=== PATIENT | female | born 1950 | race Caucasian/White ===

== ENCOUNTER → 2017-04-17 | Outpatient (CLI) | payer MEDICARE ==
--- NOTE | 2017-04-17 12:56 | REP ---
MR angiography the brain without contrast: History: History of MS. Dizziness. Giddiness. Technique: 3-D [id number] MR angiography of the brain is acquired in the usual fashion and maximal intensity projection images were generated in rotational format about the vertical and horizontal axes. In addition, source axial T1-weighted images are viewed in cine mode. MR angiographic findings: The distal vertebral arteries are patent and co-dominant. Basilar artery is a little tortuous but widely patent. The posterior cerebral and superior cerebellar vessels are normal and symmetric. The distal internal carotid arteries are unremarkable. Anterior and middle cerebral arteries appear intact. There is no visible aquino aneurysm or arteriovenous malformation. Impression: Unremarkable MR angiography the brain. Signed by Kenn Puri MD 04/17/2017 12:47 P
--- NOTE | 2017-04-17 13:22 | REP ---
MRI brain without and with IV gadolinium: History: Dizziness and giddiness. History of MS. Comparison MRI from [facility] August 23, 2005. Gadolinium enhancement dose: 13 ml of intravenous ProHance. MR Technique: Axial and sagittal imaging planes are utilized for T1 and T2-weighted scans. Sequences include spin-echo, fast spin echo, FLAIR, and diffusion weighted sequences. MRI findings: Bony calvarium is intact. Craniocervical junction and upper cervical cord are unremarkable. No MR evidence of significant paranasal sinus disease is seen. No intraorbital abnormality is noted. T2-weighted scans today again demonstrate multiple foci of subcortical and periventricular T2 hyperintensity consistent with the patient's history of demyelinating disease. These are more numerous and more extensive than on the prior study. No abnormal T1 hypointensity is seen in these lesions. No gadolinium enhancement is appreciated. There is minimal diffuse cerebral atrophy. No infarct, mass, extra-axial fluid collection or hemorrhage is seen. Diffusion weighted scan show no evidence of restricted diffusion. Impression: Multifocal periventricular and subcortical white matter T2 hyperintense lesions consistent with demyelinating disease. These are generally more numerous and more extensive than on the remote prior study of August 23, 2005. No abnormal gadolinium enhancement is seen. Signed by Kenn Puri MD 04/17/2017 02:32 P
== END ==
LOC: M PLARAD 09:38
PROVIDERS: ATTEND Psychiatry & Neurology Neurology
DX: G35 Multiple sclerosis (principal); R42 Dizziness and giddiness
CPT/HCPCS: 70544; 70553; A9576

== ENCOUNTER → 2017-12-27 | Outpatient (REF) | payer MEDICARE ==
[2017-12-27 12:26] LABS: BASO % 0.4 % (0.0-1.0); EOS # 0.1 10^3/uL (0.0-0.50); EOS % 1.9 % (0.0-3.0); HEMATOCRIT 33.4 % (36.0-47.0); HEMOGLOBIN 10.7 g/dl (12.0-15.5); IMMATURE GRANULOCYTE % 0.9 % (0-3.0); LYMPH # 1.1 10^3/uL (1.5-4.5); LYMPH % 24.4 % (24.0-44.0); MEAN CORPUSCULAR HEMOGLOBIN 31.4 pg (27.0-33.0); MEAN CORPUSCULAR VOLUME 97.9 fl (80.0-96.0); MONO # 0.5 10^3/uL (0.0-0.8); MONO % 9.6 % (0.0-5.0); NEUTROPHILS # 2.9 10^3/uL (1.8-7.7); NEUTROPHILS % 62.8 % (36.0-66.0); PLATELET COUNT, AUTOMATED 149 10^3/uL (150-450); RED BLOOD COUNT 3.41 10^6/uL (4.00-5.40); RED CELL DISTRIBUTION WIDTH 14.5 % (11.5-14.5); WHITE BLOOD COUNT 4.7 10^3/uL (4.0-10.0)
[2017-12-27 13:05] LABS: ALBUMIN 3.6 GM/DL (3.2-5.2); ALBUMIN/GLOBULIN RATIO 0.97 (1.00-1.93); ALKALINE PHOSPHATASE 91 U/L (45-117); ALT/SGPT 28 U/L (12-78); ANION GAP 8 MEQ/L (8-16); AST/SGOT 23 U/L (7-37); BILIRUBIN,TOTAL 0.2 MG/DL (0.2-1.0); BLOOD UREA NITROGEN 29 MG/DL (7-18); CALCIUM LEVEL 8.8 MG/DL (8.8-10.2); CARBON DIOXIDE LEVEL 30 MEQ/L (21-32); CHLORIDE LEVEL 106 MEQ/L (98-107); CREATININE FOR GFR 0.94 MG/DL (0.55-1.30); GLOMERULAR FILTRATION RATE > 60.0 (>45); GLUCOSE, FASTING 52 MG/DL (70-100); POTASSIUM SERUM 4.4 MEQ/L (3.5-5.1); SODIUM LEVEL 144 MEQ/L (136-145); TOTAL PROTEIN 7.3 GM/DL (6.4-8.2)
== END ==
LOC: M LABNEURO 11:21
DX: G35 Multiple sclerosis (principal)
CPT/HCPCS: 80053

== ENCOUNTER 2018-10-15 15:41 | Inpatient (IN) | payer MEDICARE ==
[~2018-10-15] VITALS: Ht 157.5 cm; Wt 84.0 kg
[2018-10-15] MEDS ORDERED: AMIT25TA PO (16:08)
[2018-10-15] MEDS ORDERED: METF500T13 PO (16:08)
[2018-10-15] MEDS ORDERED: ZONI50CA3 PO (16:08)
[2018-10-15] MEDS ORDERED: PANT40TA3 PO (16:08)
[2018-10-15] MEDS ORDERED: EPIT200T PO (16:08)
[2018-10-15] MEDS ORDERED: PRAV40TA2 PO (16:08)
[2018-10-15] MEDS ORDERED: BACL1TAB9 PO (16:08)
[2018-10-15] MEDS ORDERED: METH2.5T48 PO (16:08)
[2018-10-15] MEDS ORDERED: TRAZ-189 PO (16:08)
[2018-10-15] MEDS ORDERED: QUET1TAB7 PO (16:08)
[2018-10-15] MEDS ORDERED: LEVO25TA5 PO (16:08)
[2018-10-15] MEDS ORDERED: GLIM2TAB29 PO (16:08)
[2018-10-15] MEDS ORDERED: FOLI1TAB11 PO (16:08)
[2018-10-15] MEDS ORDERED: IRBE150T12 PO (16:08)
[2018-10-15] MEDS ORDERED: VENL75CA47 PO (16:08)
[2018-10-15] MEDS ORDERED: CARV6.25 PO (16:08)
[2018-10-15] MEDS ORDERED: ONDANSETRON 4MG/2ML VIAL (J2405) IV ONE (16:30)
[2018-10-15] MEDS ORDERED: NS 1,000 ML IV ONE (16:30)
[2018-10-15 16:43] LABS: BASO % 0.2 % (0.0-1.0); EOS # 0.1 10^3/uL (0.0-0.50); EOS % 1.4 % (0.0-3.0); HEMATOCRIT 33.7 % (36.0-47.0); HEMOGLOBIN 10.7 g/dl (12.0-15.5); LYMPH # 0.7 10^3/uL (1.5-4.5); LYMPH % 15.6 % (24.0-44.0); MEAN CORPUSCULAR HEMOGLOBIN 32.1 pg (27.0-33.0); MEAN CORPUSCULAR HGB CONC 31.8 g/dl (32.0-36.5); MEAN CORPUSCULAR VOLUME 101.2 fl (80.0-96.0); MONO # 0.4 10^3/uL (0.0-0.8); MONO % 8.4 % (0.0-5.0); NEUTROPHILS # 3.2 10^3/uL (1.8-7.7); NEUTROPHILS % 73.9 % (36.0-66.0); PLATELET COUNT, AUTOMATED 122 10^3/uL (150-450); RED BLOOD COUNT 3.33 10^6/uL (4.00-5.40); WHITE BLOOD COUNT 4.3 10^3/uL (4.0-10.0)
[2018-10-15] MEDS: MORPHINE 2 MG/ML 1ML SYRINGE (J2270) IV PRN ×2 (16:48→17:47)
[2018-10-15] MEDS ORDERED: NITR4TASL SL (17:00)
[2018-10-15 17:55] LABS: ALBUMIN 3.4 GM/DL (3.2-5.2); ALT/SGPT 27 U/L (12-78); BILIRUBIN,DIRECT < 0.1 MG/DL (0.0-0.2); BILIRUBIN,TOTAL 0.3 MG/DL (0.2-1.0); BLOOD UREA NITROGEN 19 MG/DL (7-18); CALCIUM LEVEL 8.1 MG/DL (8.8-10.2); CARBON DIOXIDE LEVEL 27 MEQ/L (21-32); CHLORIDE LEVEL 107 MEQ/L (98-107); CPK CREATINE PHOSPHOKINASE 75 U/L (26-192); CREATININE FOR GFR 0.84 MG/DL (0.55-1.30); GLOMERULAR FILTRATION RATE > 60.0 (>45); GLUCOSE, FASTING 170 MG/DL (70-100); POTASSIUM SERUM 4.4 MEQ/L (3.5-5.1); SODIUM LEVEL 141 MEQ/L (136-145); TOTAL PROTEIN 7.4 GM/DL (6.4-8.2); TROPONIN I < 0.02 NG/ML (< 0.10)
--- NOTE | 2018-10-15 17:57 | REP ---
CT BRAIN WITHOUT IV CONTRAST: CT brain was performed without IV contrast. There is moderate atrophy. There is no midline shift or mass effect. Patchy periventricular lucencies in the white matter are compatible with chronic small vessel ischemic changes as seen on prior MRI 04/17/2017. There is no acute intracranial hemorrhage or extra-axial fluid collection. There is no skull fracture. There are vascular calcifications in the carotid siphons. IMPRESSION: No evidence of acute bleed or fracture. Chronic atrophy and small vessel ischemic changes. Electronically Signed by Eliecer Leung MD 10/15/2018 07:55 P
[2018-10-15 18:05] LABS: INR 0.96; PROTHROMBIN TIME 12.9 SECONDS (12.1-14.4)
[2018-10-15 18:06] LABS: PARTIAL THROMBOPLASTIN TIME 23.5 SECONDS (25.4-37.6)
--- NOTE | 2018-10-15 18:09 | REP ---
PELVIS AND LEFT HIP: AP view of the pelvis and two additional views of the left hip are performed. There is a left femoral neck fracture with foreshortening. There is no dislocation. No other acute fracture or dislocation is seen. There are vascular calcifications of the pelvis. There are mild degenerative changes at both hips. IMPRESSION: Left femoral neck fracture. Electronically Signed by Eliecer Leung MD 10/15/2018 07:56 P
--- NOTE | 2018-10-15 18:10 | REP ---
LEFT FEMUR: AP and lateral views of the left femur are performed. There is a left femoral neck fracture with foreshortening. The distal femur is intact. Scattered vascular calcifications are seen in the soft tissues. IMPRESSION: Left femoral neck fracture. Electronically Signed by Eliecer Leung MD 10/15/2018 07:56 P
[2018-10-15] MEDS ORDERED: NITROGLYCERIN 0.4 MG SUBL TABLET SL PRN (18:15)
--- NOTE | 2018-10-15 18:22 | REP ---
CHEST, SINGLE VIEW: Single view of the chest is performed and compared to the prior study of 03/07/2006. There is no acute infiltrate of pulmonary edema. There is mild cardiomegaly. There is mild calcification of the thoracic aorta. The mediastinal silhouette is unremarkable. Multiple sternal wires are present as well as mediastinal clips. IMPRESSION: No acute infiltrate. Electronically Signed by Eliecer Leung MD 10/15/2018 07:56 P
--- NOTE | 2018-10-15 18:39 | HPEPDOC ---
[facility] Medical History & Physical Date of Admission October 15, 2018 Date of Service: October 15, 2018 History and Physical DATE OF ADMISSION 10/15/[address] Sj aVlverde NEUROLOGIST: Dr. Ochoa CHIEF COMPLAINT: Left hip pain HISTORY OF PRESENT ILLNESS: The patient is a 68-year-old female who was in the her usual state of good health who went to place her grandchild in a very baby carrier that was on the floor, while leaning over she began to lean to her left side in an effort to turn and stand up however she fell landing on her left hip and hitting the left side of her head. She did not have any loss of consciousness she denies any prodromal symptoms. She denies lightheadedness nausea or vomiting palpitations chest pressure shortness of breath. She denies bladder or bowel incontinence tremors or any gait instability. Otherwise patient denies weight loss, hair loss, headache, visual changes, cough, diarrhea, abdomi nal pain, muscle aches, worsening arthritis, change in mood. At this time the patient complains of significant pain in her left hip which is uncomfortable for her. She tells me that prior to this she was fairly active and she would have no difficulty climbing 2 and 3 flights of stairs. She denies any shortness of breath or chest pressure with activity or exertion. She tells me that she sees Dr. Gustafson regularly and she last saw him this morning her blood pressure was not elevated at the time. She tells me that she did have a pharmacological stress test within the last 6 months with which was essentially negative. PAST MEDICAL HISTORY: 1. Coronary artery disease status post stent and CABG 3-4 years ago. 2. Hypertension. 3. Multiple sclerosis 4. Diabetes mellitus 5 hypothyroidism 6. Folic acid deficiency 7. Mood disorder 8. Gastroesophageal reflux disease. 9. Obstructive sleep apnea: Compliant with his BiPAP HOME MEDICATIONS: Please see below. ALLERGIES: Please see below PAST SURGICAL HISTORY: 1. CABG. 2. Cardiac cath. 3. Hernia repair 4. Appendectomy 5. Cholecystectomy. SOCIAL HISTORY: Lives with: , Employment: Not working, Tobacco use: Former. [id number] smoker. ETOH: Last drink was years ago, Illicit drug use: Denies, Tattoos done unprofessionally: Denies. IV drug use: Denies CODE STATUS: Full code FAMILY HISTORY:Reviewed and noncontributory REVIEW OF SYSTEMS: 10 systems reviewed and negative other than HPI PHYSICAL EXAMINATION: VITAL SIGNS: Temperature 99 4, pulse 77, respiratory rate 15, blood pressure 237/105, pulse oximetry 98% on room air. GENERAL: Pleasant elderly female lying flat in bed , revised family awake alert oriented speaking in complete sentences she is visibly uncomfortable and in pain HEENT: Moist mucous membranes no elevation and CVP CARDIOVASCULAR: S1 S2 regular no additional heart sounds appreciated. RESPIRATORY: Clear to auscultation bilaterally. ABDOMINAL: Bowel sounds present abdomen soft and nontender, obese EXTREMITIES: No clubbing cyanosis or edema, left lower extremity is exquisitely tender even light palpation no range of motion secondary to extreme pain NEUROLOGICAL: cranial 2 through 12 grossly intact no gross focal deficits appreciated PSYCHOLOGICAL: Appropriate LABORATORY DATA: See below. MICROBIOLOGY: Please see below. IMAGING: CT head:No evidence of acute bleed or fracture. Chronic atrophy and small vessel ischemic changes Hip X-ray: Report pending Femur x-ray: Report pending I told verbally she has a left intertrochanteric hip fracture Chest x-ray: Report pending ASSESSMENT & PLAN: This is a 68-year-old female with left intertrochanteric hip fracture status post mechanical fall . PROBLEMS: 1. Left intertrochanteric hip fracture status post mechanical fall: No con cerning prodromal symptoms she is in exquisite pain she does have an elevated blood pressure however she was seen by her primary care provider this morning he did not have an elevated pressure at that time. I'll provide her with her home irbesartan I think she would benefit from additional pain medication and operative repair of her left hip which was most effective and improving her blood pressure.. She has metastases greater than 4 with good functional status for an intermediate risk procedure using the revised cardiac risk index. She is estimated at 2.4-3.6 % risk of major cardiac complication. Other providing her with some mild blood pressure medication at this time no further interventions are required prior to operative repair of her left hip. EKG reviewed. I have contacted Dr. Souza and inform him of this consultation 2. Hypertension: As outlined above she is hypertensive at this time which was not hypertensive this morning at her PCPs office. This is secondary to her acute hip fracture. I'll provide her with irbesartan continue her home beta barbara with holding parameters I think she would benefit from additional pain medication operative repair of her left hip. She is asymptomatic with her hypertension Cardy canceled her negative EKG does not reveal new concerning find ings.. I'll provide her additional morphine at this time 3. Multiple sclerosis: Continue with her home regimen of amitriptyline baclofen carbamazepine methotrexate and zonisamide 4. Mood disorder: Continue with trazodone venlafaxine and Seroquel 5. Coronary artery disease: Continue with her beta barbara and statin. She is stable disease and has not had symptoms for quite some time. We'll request records from Dr. Gustafson's office 6. Hypothyroidism: Continue his home Synthroid 7. Diabetes mellitus: She is nothing by mouth we'll provide her with sliding- scale insulin 8. Obstructive sleep apnea: I have advised family to bring in her BiPAP she is encouraged to use this while hospitalized DVT PROPHYLAXIS:We'll hold until after operative repair was completed then as per orthopedic surgery DISPOSITION: Patient is admitted to medical surgical floor with orthopedic surgery consult Vital Signs Vital Signs Date Time Temp Pulse Resp B/P (MAP) Pulse Ox O2 Delivery O2 Flow Rate FiO2 10/15/18 17:47 18 10/15/18 16:56 77 10/15/18 16:41 95 10/15/18 16:00 237/105 (149) 10/15/18 15:53 99.4 Room Air Laboratory Data Labs 24H Laboratory Tests 2 10/15/18 16:33: Immature Granulocyte % (Auto) 0.5, White Blood Count 4.3, Red Blood Count 3.33L, Hemoglobin 10.7L, Hematocrit 33.7L, Mean Corpuscular Volume 101.2H, Mean Corpuscular Hemoglobin 32.1, Mean Corpuscular Hemoglobin Concent 31.8L, Red Cell Distribution Width 14.5, Platelet Count 122L, Neutrophils (%) (Auto) 73.9H, Lymphocytes (%) (Auto) 15.6L, Monocytes (%) (Auto) 8.4H, Eosinophils (%) (Auto) 1.4, Basophils (%) (Auto) 0.2, Neutrophils # (Auto) 3.2, Lymphocytes # (Auto) 0.7L, Monocytes # (Auto) 0.4, Eosinophils # (Auto) 0.1, Basophils # (Auto) 0.0, Nucleated Red Blood Cells % (auto) 0.0, Anion Gap 7L, Glomerular Filtration Rate > 60.0, Calcium Level 8.1L, Aspartate Amino Transf (AST/SGOT) 30, Alanine Aminotransferase (ALT/SGPT) 27, Alkaline Phosphatase 133H, Total Bilirubin 0.3, Direct Bilirubin < 0.1, Total Creatine Kinase 75, Creatine Kinase MB 1.0, Creatine Kinase MB Relative Index 1.60, Troponin I < 0.02, Total Protein 7.4, Albumin 3.4, Albumin/Globulin Ratio 0.85L, Thyroid Stimulating Hormone (TSH) 4.050H, Free Thyroxine 0.60L 10/15/18 17:44: Prothrombin Time 12.9, Prothromb Time International Ratio 0.96, Activated Partial Thromboplast Time 23.5L CBC/BMP Laboratory Tests 10/15/18 16:33 Red Blood Count 3.33 L, Mean Corpuscular Volume 101.2 H, Mean Corpuscular Hemoglobin 32.1, Mean Corpuscular Hemoglobin Concent 31.8 L, Red Cell Dis tribution Width 14.5, Neutrophils (%) (Auto) 73.9 H, Lymphocytes (%) (Auto) 15.6 L, Monocytes (%) (Auto) 8.4 H, Eosinophils (%) (Auto) 1.4, Basophils (%) (Auto) 0.2, Neutrophils # (Auto) 3.2, Lymphocytes # (Auto) 0.7 L, Monocytes # (Auto) 0.4, Eosinophils # (Auto) 0.1, Basophils # (Auto) 0.0 Home Medications Scheduled Amitriptyline HCl (Amitriptyline HCl) 25 Mg Tablet, 25 MG PO QHS Baclofen (Baclofen) 20 Mg Tablet, 40 MG PO BID Carbamazepine (Epitol) 200 Mg Tablet, 400 MG PO BID Carvedilol (Carvedilol) 6.25 Mg Tablet, 6.25 MG PO BID Folic Acid (Folic Acid) 1 Mg Tablet, 1 MG PO DAILY Glimepiride (Glimepiride) 2 Mg Tablet, 1 MG PO QHS Irbesartan (Irbesartan) 150 Mg Tablet, 150 MG PO DAILY Levothyroxine Sodium (Levothyroxine Sodium) 25 Mcg Tablet, 25 MCG PO DAILY Metformin HCl (Metformin HCl) 500 Mg Tablet, 500 MG PO DAILY Methotrexate Sodium (Methotrexate) 2.5 Mg Tablet, 7.5 MG PO QWEEK FRIDAYS Pantoprazole Sodium (Pantoprazole Sodium) 40 Mg Tablet.dr, 40 MG PO DAILY Pravastatin Sodium (Pravastatin Sodium) 40 Mg Tablet, 40 MG PO QHS Quetiapine Fumarate (Quetiapine Fumarate) 25 Mg Tablet, 25 MG PO QHS Trazodone HCl (Trazodone HCl) 100 Mg Tablet, 200 MG PO QHS Venlafaxine HCl (Venlafaxine HCl ER) 75 Mg Cap.er.24h, 75 MG PO DAILY Zonisamide (Zonisamide) 50 Mg Capsule, 50 MG PO BID Scheduled PRN Nitroglycerin (Nitrostat) 0.4 Mg Tab.subl, 0.4 MG SL Q5MP PRN for CHEST PAIN Allergies Coded Allergies: Penicillins (Verified Allergy, Unknown, 10/15/18) anaph A-FIB/CHADSVASC A-FIB History Current/History of A-Fib/PAF?: No ADA SHAW MD October 15, 2018 18:39
[2018-10-15] MEDS ORDERED: DEXTROSE 50% 50 ML SYRINGE IV PRN (18:45)
[2018-10-15] MEDS ORDERED: GLUCOSE 4 GM CHEW TABLET PO PRN (18:45)
[2018-10-15] MEDS ORDERED: GLUCAGON FOR INJ 1 MG VIAL (J1610) SC PRN (18:45)
[2018-10-15] MEDS ORDERED: MORPHINE 4 MG/ML 1ML VIAL/SYRINGE (J2270) IV ONE (18:45)
--- NOTE | 2018-10-15 18:47 | CR.PDOC ---
General Date of Consultation: October 15, 2018 Referring Provider: ADA SHAW MD Attending Physician: MELINDA GOLD MD Consultation REASON FOR CONSULTATION/CHIEF COMPLAINT: Left hip fracture. HISTORY OF PRESENT ILLNESS: Patient is a 68 y/o female community ambulator with no assistive devices who sustained a mechanical fall earlier today resulting in immediate hip pain and inability to bear weight. She also reported hitting her head after fall and had a head CT which was negative. She has a significant past medical history of cardiac stent and coronary artery bypass 4 years ago but denied any antecedent chest pain, palpitations, shortness of breath, headache, or hip pain prior to her fall. She denies any associated numbness, tingling, or burning sensations. Denies any cancer history. ALLERGIES: Please see below. HOME MEDICATIONS: Please see below. PAST MEDICAL HISTORY: 1. CAD. 2. Hypertension. 3. Diabetes 4. Hypothyroidism 5. Multiple sclerosis 6. GERD (s/p gastric bypass) 7. JOHN on BIPAP PAST SURGICAL HISTORY: 1. CABG per HPI 2. Gastric bypass 3. Hysterectomy 4. Appendectomy 5. Cholecystectomy 6. Hernia repair FAMILY HISTORY: Non contributory SOCIAL HISTORY: Lives with . Independent ambulator. Former smoker with 50 pack year history, denies use of illicit drugs REVIEW OF SYSTEMS: 14 point review of systems was reviewed and unremarkable PHYSICAL EXAMINATION: VITAL SIGNS: Please see below. General: Well nourished female, appears stated age, no acute distress HEENT: Normocephalic, atraumatic. CARDIOVASCULAR: RRR, 2+ DP, PT pulses, BCR all digits LLE. RESPIRATORY: non labored breathing. MUSCULOSKELETAL: Focused exam of the left lower extremity demonstrates a shortened, externally rotated LLE. There are no open wounds or abrasions. Voluntary motion limited secondary to pain however able to independently dorsiflex/plantarflex ankle and able to flex/extend all toes. No tenderness about the knee, leg, or ankle. NEUROLOGICAL: Sensation and motor intact in LLE femoral, tibial, sural, saphenous, SPN, DPN distributions. LABORATORY DATA: Please see below. RADIOGRAPHS: Plain radiographs of the pelvis, left hip, and femur were reviewed demonstrating a displaced left femoral neck fracture ASSESSMENT: 68 y/o female with a displaced left femoral neck fracture PLAN: The patient was evaluated and admitted by the hospitalist service for medical optimization and risk stratification. She was determined to be at intermediate risk but no further cardiac workup is required and we may proceed with left hip hemiarthroplasty per the hospitalist. Patient had systolic blood pressure readings >200mmHg in the emergency department. I discussed this finding with Dr. Najera and he stated that this will be treated but she was seen by her PCM earlier today and was normotensive, so this is believed to be pain related and will be treated. I discussed with the patient the risks, benefits, indications, and alternatives of surgical management of proximal femur fractures and recommended left hip cemented hemiarthroplasty. Patient was counseled that she is at intermediate risk of major cardiovascular event during the perioperative period, to include . She is also at increased risk for infection given that she is on methotrexate. I also counseled her that I will be her operating surgeon but her follow up care will be conducted by the [facility] orthopedic group. She expressed understanding with this arrangement and provided writteninformed consent for left hip hemiarthroplasty. Vital Signs/I&O Vital Signs Date Time Temp Pulse Resp B/P (MAP) Pulse Ox O2 Delivery O2 Flow Rate FiO2 10/15/18 17:47 18 10/15/18 16:56 77 10/15/18 16:41 95 10/15/18 16:00 237/105 (149) 10/15/18 15:53 99.4 Room Air Laboratory Data Labs 24H Laboratory Tests 2 10/15/18 16:33: Immature Granulocyte % (Auto) 0.5, White Blood Count 4.3, Red Blood Count 3.33L, Hemoglobin 10.7L, Hematocrit 33.7L, Mean Corpuscular Volume 101.2H, Mean Corpuscular Hemoglobin 32.1, Mean Corpuscular Hemoglobin Concent 31.8L, Red Cell Distribution Width 14.5, Platelet Count 122L, Neutrophils (%) (Auto) 73.9H, Lymphocytes (%) (Auto) 15.6L, Monocytes (%) (Auto) 8.4H, Eosinophils (%) (Auto) 1.4, Basophils (%) (Auto) 0.2, Neutrophils # (Auto) 3.2, Lymphocytes # (Auto) 0.7L, Monocytes # (Auto) 0.4, Eosinophils # (Auto) 0.1, Basophils # (Auto) 0.0, Nucleated Red Blood Cells % (auto) 0.0, Anion Gap 7L, Glomerular Filtration Rate > 60.0, Calcium Level 8.1L, Aspartate Amino Transf (AST/SGOT) 30, Alanine Aminotransferase (ALT/SGPT) 27, Alkaline Phosphatase 133H, Total Bilirubin 0.3, Direct Bilirubin < 0.1, Total Creatine Kinase 75, Creatine Kinase MB 1.0, Creatine Kinase MB Relative Index 1.60, Troponin I < 0.02, Total Protein 7.4, Albumin 3.4, Albumin/Globulin Ratio 0.85L, Thyroid Stimulating Hormone (TSH) 4.050H, Free Thyroxine 0.60L 10/15/18 17:44: Prothrombin Time 12.9, Prothromb Time International Ratio 0.96, Activated Partial Thromboplast Time 23.5L CBC/BMP Laboratory Tests 10/15/18 16:33 Red Blood Count 3.33 L, Mean Corpuscular Volume 101.2 H, Mean Corpuscular Hemoglobin 32.1, Mean Corpuscular Hemoglobin Concent 31.8 L, Red Cell Distribution Width 14.5, Neutrophils (%) (Auto) 73.9 H, Lymphocytes (%) (Auto) 15.6 L, Monocytes (%) (Auto) 8.4 H, Eosinophils (%) (Auto) 1.4, Basophils (%) (Auto) 0.2, Neutrophils # (Auto) 3.2, Lymphocytes # (Auto) 0.7 L, Monocytes # (Auto) 0.4, Eosinophils # (Auto) 0.1, Basophils # (Auto) 0.0 Allergies Coded Allergies: Penicillins (Verified Allergy, Unknown, 10/15/18) anaph Home Medications Scheduled Amitriptyline HCl (Amitriptyline HCl) 25 Mg Tablet, 25 MG PO QHS, (Reported) Baclofen (Baclofen) 20 Mg Tablet, 40 MG PO BID, (Reported) Carbamazepine (Epitol) 200 Mg Tablet, 400 MG PO BID, (Reported) Carvedilol (Carvedilol) 6.25 Mg Tablet, 6.25 MG PO BID, (Reported) Folic Acid (Folic Acid) 1 Mg Tablet, 1 MG PO DAILY, (Reported) Glimepiride (Glimepiride) 2 Mg Tablet, 1 MG PO QHS, (Reported) Irbesartan (Irbesartan) 150 Mg Tablet, 150 MG PO DAILY, (Reported) Levothyroxine Sodium (Levothyroxine Sodium) 25 Mcg Tablet, 25 MCG PO DAILY, (Reported) Metformin HCl (Metformin HCl) 500 Mg Tablet, 500 MG PO DAILY, (Reported) Methotrexate Sodium (Methotrexate) 2.5 Mg Tablet, 7.5 MG PO QWEEK, (Reported) FRIDAYS Pantoprazole Sodium (Pantoprazole Sodium) 40 Mg Tablet.dr, 40 MG PO DAILY, (Reported) Pravastatin Sodium (Pravastatin Sodium) 40 Mg Tablet, 40 MG PO QHS, (Reported) Quetiapine Fumarate (Quetiapine Fumarate) 25 Mg Tablet, 25 MG PO QHS, (Reported) Trazodone HCl (Trazodone HCl) 100 Mg Tablet, 200 MG PO QHS, (Reported) Venlafaxine HCl (Venlafaxine HCl ER) 75 Mg Cap.er.24h, 75 MG PO DAILY, (Report ed) Zonisamide (Zonisamide) 50 Mg Capsule, 50 MG PO BID, (Reported) Scheduled PRN Nitroglycerin (Nitrostat) 0.4 Mg Tab.subl, 0.4 MG SL Q5MP PRN for CHEST PAIN, (Reported) MELINDA GOLD MD October 15, 2018 18:42
[2018-10-15] MEDS: IRBESARTAN 150 MG TAB PO SCH (19:14)
[2018-10-15] MEDS ORDERED: LIDOCAINE 2% INJ 100 MG/5 ML SDV (FOR ANES.) As Ordered ONE (19:55)
[2018-10-15] MEDS ORDERED: ONDANSETRON 4MG/2ML VIAL (J2405) As Ordered ONE (19:55)
[2018-10-15] MEDS ORDERED: ROCURONIUM BROMIDE 50 MG/5 ML VIAL As Ordered ONE (19:55)
[2018-10-15] MEDS ORDERED: PROPOFOL 200 MG/20 ML VIAL As Ordered ONE (19:55)
[2018-10-15] MEDS ORDERED: SUGAMMADEX SODIUM 500 MG/5 ML VIAL (BRIDION) As Ordered ONE (19:55)
[2018-10-15] MEDS ORDERED: fentaNYL 250 MCG/5 ML INJECTION (J3010) As Ordered ONE (19:56)
[2018-10-15] MEDS ORDERED: PROPOFOL 500 MG/50 ML VIAL As Ordered ONE (19:56)
[2018-10-15] MEDS ORDERED: dexameTHASONE 4 MG/ML 1ML VIAL (J1100) As Ordered ONE (19:56)
[2018-10-15] MEDS ORDERED: MIDAZOLAM INJ 2 MG/2 ML VIAL (J2250) As Ordered ONE (19:57)
[2018-10-15] MEDS ORDERED: CLINDAMYCIN INJ 900MG/6ML VIAL As Ordered ONE (20:02)
[2018-10-15] MEDS ORDERED: EPINEPHrine INJ 1 MG/ML 1ML AMP As Ordered ONE (20:02)
[2018-10-15] MEDS ORDERED: LABETALOL HCL 100 MG/20 ML VIAL As Ordered ONE (20:13)
[2018-10-15] MEDS ORDERED: CLINDAMYCIN 900 MG/50 ML PREMIX BAG As Ordered ONE (20:37)
[2018-10-15] MEDS: LABETALOL HCL 100 MG/20 ML VIAL IV ONE ×2 (20:39→20:41)
[2018-10-15] MEDS ORDERED: PRAVASTATIN 20 MG TAB PO SCH (21:00)
[2018-10-15] MEDS ORDERED: AMITRIPTYLINE 25 MG TAB PO SCH (21:00)
[2018-10-15] MEDS ORDERED: QUEtiapine FUMARATE 25 MG TAB PO SCH (21:00)
[2018-10-15] MEDS ORDERED: ESMOLOL INJ 100MG/10ML VIAL As Ordered ONE ×2 (22:08→22:09)
[2018-10-15] MEDS ORDERED: hydrALAZINE INJ 20 MG/ML VIAL As Ordered ONE (22:29)
[2018-10-15] MEDS ORDERED: NITROGLYCERIN IN D5W 25MG/250ML (100MCG/ML) As Ordered ONE (22:48)
[2018-10-16] VITALS (9 sets, daily range): BP systolic 103–149; BP diastolic 40–86
--- NOTE | 2018-10-16 00:07 | ECGEPIP ---
Stationary ECG Study [facility] - ED Test Date: 2018-10-15 Pat Name: KITTY TILLEY Department: Room: - Gender: F Nursing Manager: khanh : [id number] Requested By: Reji Gomez Order Number: [id number] Reading MD: Delonte Wheeler Measurements Intervals [place] Rate: 68 P: 54 IA: 173 QRS: 0 QRSD: 84 T: 77 QT: 384 QTc: 408 Interpretive Statements SINUS RHYTHM WITH SINUS ARRHYTHMIA NONSPECIFIC T-WAVE ABNORMALITY Delayed anterior R wave progression Electronically Signed On 10-16-2018 0:07:00 EDT by Delonte Wheeler
[2018-10-16] MEDS ORDERED: LABETALOL HCL 100 MG/20 ML VIAL As Ordered ONE (00:11)
[2018-10-16] MEDS ORDERED: fentaNYL 100 MCG/2 ML INJECTION (J3010) As Ordered ONE (00:14)
[2018-10-16] MEDS ORDERED: NORCO, ANEXSIA 5/325MG TABLET (HYDROcodone/ACETAMINOPHEN) As Ordered ONE (00:14)
[2018-10-16] MEDS: fentaNYL 100 MCG/2 ML INJECTION (J3010) IV PRN ×4 (00:14→00:35)
[2018-10-16] MEDS ORDERED: NORCO, ANEXSIA 5/325MG TABLET (HYDROcodone/ACETAMINOPHEN) PO PRN (00:15)
[2018-10-16] MEDS ORDERED: LABETALOL HCL 100 MG/20 ML VIAL IV SCH (00:15)
--- NOTE | 2018-10-16 00:36 | RO ---
DATE OF PROCEDURE: 10/15/2018 PREOPERATIVE DIAGNOSIS: Left displaced femoral neck fracture. POSTOPERATIVE DIAGNOSIS: Left displaced femoral neck fracture. PROCEDURE PERFORMED: Left hip hemiarthroplasty. SURGEON: Boone Souza MD DETECTIVE CAPTAIN: PARADISE Magallon ANESTHESIA PROVIDER: Dr. Colmenares. ANESTHESIA GIVEN: General endotracheal anesthesia and femoral nerve block. ESTIMATED BLOOD LOSS: 250 mL. ANTIBIOTICS: 900 mg IV clindamycin given within 1 hour of incision. IMPLANTS USED: DePuy [place] low demand size 3 cemented stem with a 45 mm -3 femoral head. MATERIALS SENT TO LAB: Left femoral head for permanent specimen. COMPLICATIONS: None. INDICATIONS FOR PROCEDURE: Hediy Fried is a 68-year-old female, community ambulator, who sustained a mechanical fall from standing height, resulting in a displaced left femoral neck fracture. She presented to the emergency department, was admitted to hospitalist service and risk stratified, and determined to be medically optimized for surgery. I discussed with her the nature of her injury and the risks, benefits, indications, and alternatives of operative versus nonoperative management and recommended a left hip hemiarthroplasty given displaced femoral neck fracture. The patient expressed understanding. I counseled her that I will be her operating surgeon, her followup care will be conducted by [facility]. She expressed understanding of this arrangement and provided written informed consent for left hip hemiarthroplasty. INTRAOPERATIVE FINDINGS: Displaced left femoral neck fracture that was stable after fixation. DESCRIPTION OF PROCEDURE: The patient was positively identified in the preop holding area, the surgical site was marked. She was given single shot femoral nerve block by the anesthesia service for postoperative pain control. She was then brought to the operating where she was placed under general endotracheal anesthesia. She was positioned in the right lateral decubitus position with all bony prominences appropriately padded. Sequential compression device (SCD) was placed on the nonoperative extremity for deep vein thrombosis (DVT) prophylaxis. An Axillary roll was placed. She was then prepped and draped in the usual sterile fashion. A final time-out was performed. I made a 12 cm incision centered over the greater trochanter extending from anterior distal to posterior proximal. I dissected through skin and subcutaneous tissue. I identified the iliotibial (IT) band and gluteus ruma layer, which was incised sharply in line with the incision, exposing the gluteus medius. I took down the anterior one-third of the gluteus medius and passed two Ethibond sutures and Lincoln-Juancarlos stitch to hold it in place and for later repair. I then identified the hip joint capsule and made an H -shaped capsulotomy exposing the femoral neck and performed a provisional femoral neck cut, which then exposed the femoral head. I was able to remove the femoral head with a corkscrew and remove pulvinar tissue. The femoral head was measured to a size 45 mm femoral head. I then externally rotated the leg and then used the box osteotome, followed by canal finder and lateralizing reamer to lateralize the femoral component. I then sequentially broached to a size 3 and then placed a 45 mm -3 trial and reduced the hip and found it to be stable with no shuck with near equivalent leg lengths and stable through range of motion with no impingement. At this point, the trials were removed. A cement restrictor was placed and then irrigated and dried the femoral canal, placing epinephrine-soaked sponges into the femoral canal and two Ray-Maria Victoria sponges into the acetabulum to prevent extravasation of cement. The femoral stem was then cemented in in standard fashion followed by placement of the neck and head. After removal of the raytec sponges from the acetabulum, The femur was then reduced after the cement was dried, again taken through a range of motion and found to be stable. After this was completed, the wound was then thoroughly irrigated with normal saline. The hip joint capsule was closed with a #1 PDS suture in a figure-of-8 fashion followed by repair of the gluteus medius to its attachment on the greater trochanter using a free needle with the #2 Ethibond suture. This was then followed by closure of the IT band layer with #0 Vicryl in a figure-of-8 fashion. The subcutaneous layer was closed with #2-0 Vicryl in a buried fashion followed by amy for the skin. Sterile dressings were applied. This ended the procedure. I was present and scrubbed in for all critical portions of the case. POSTOPERATIVE PLAN: The patient will be admitted to the hospital floor. She will be weightbearing as tolerated to the left lower extremity. She will undergo physical therapy for walker ambulation and be discharged by the hospitalist service when criteria are met. OLIVIA
[2018-10-16] MEDS ORDERED: traMADol 50 MG TAB PO PRN ×4 (01:15→12:00)
[2018-10-16] MEDS ORDERED: ACETAMINOPHEN TAB 650MG DOSE (2X325MG) PO PRN (01:15)
[2018-10-16] MEDS: carBAMazepine 200 MG TAB PO SCH ×2 (01:25→08:29)
[2018-10-16] MEDS: BACLOFEN 10 MG TAB PO SCH ×2 (01:25→08:28)
[2018-10-16] MEDS: CARVedilol 6.25 MG TAB PO SCH ×2 (01:26→08:32)
[2018-10-16] MEDS: ZONISAMIDE 50 MG CAP (ZONEGRAN) PO SCH ×2 (01:27→08:29)
[2018-10-16] MEDS: CLINDAMYCIN 600 MG in APPROPRIATE DILUENT 1 EA IV SCH ×2 (03:55→12:59)
[2018-10-16] MEDS ORDERED: LEVOTHYROXINE 25MCG TABLET (0.025MG) PO SCH (06:00)
[2018-10-16] MEDS: HumaLOG INSULIN (NovoLOG) PER UNIT SQ SCH ×2 (08:28→13:00)
[2018-10-16] MEDS: IRBESARTAN 150 MG TAB PO SCH (08:31)
--- NOTE | 2018-10-16 08:41 | REP ---
LEFT HIP, TWO VIEWS: HISTORY: Postop. The patient is status-post left total hip replacement. There is no acute fracture or dislocation. Subcutaneous air and surgical amy are present in the overlying soft tissue. IMPRESSION:The patient is status-post left total hip replacement. There is anatomic alignment. Electronically Signed by Lauro Liu MD 10/16/2018 08:52 A
[2018-10-16] MEDS ORDERED: PANTOPRAZOLE 40MG TAB (PROTONIX) PO SCH (09:00)
[2018-10-16] MEDS ORDERED: FOLIC ACID 1 MG TAB PO SCH (09:00)
[2018-10-16] MEDS ORDERED: MIRALAX *UNIT DOSE* 17GM PACKET PO SCH (09:00)
[2018-10-16] MEDS ORDERED: VENLAFAXINE **XR** 75MG CAPSULE PO SCH (09:00)
[2018-10-16] MEDS ORDERED: MOM 30ML SUSPENSION UDC PO SCH (09:00)
--- NOTE | 2018-10-16 09:44 | IPNPDOC ---
Subjective Date Seen The patient was seen on 10/16/18. Subjective Chief Complaint/HPI Patient complaining of hip pain, but should not the side of bed ready for physical therapy General: Denies: ROS Unobtainable, Chills, Night Sweats, Fatigue, Malaise, Normal Appetite, Other Symptoms Constitutional: Denies: Chills, Fever, Malaise, Night Sweats, Weakness, Fatigue, Weight Loss, Lethargy, Other Eyes: Denies: Pain, Vision change, Conjunctivae inflammation, Eyelid in flammation, Redness, Other ENT: Denies: Head Aches, Ear Pain, Dysphagia, Sinus Congestion, Post Nasal Drip, Sore Throat, Epistaxis, Other Symptoms Skin: Denies: Rash, Lesions, Jaundice, Bruising, Itching, Dry, Breakdown, Nail Changes, Other Pulmonary: Denies: Dyspnea, Cough, Pleuritic Chest Pain, Other Symptoms Cardiovascular: Denies: Chest Pain, Palpitations, Orthopnea, Paroxysmal Noc. Dyspnea, Edema, Lt Headedness, Other Symptoms Gastrointestinal: Denies: Nausea, Vomiting, Abdominal Pain, Diarrhea, Constipation, Melena, Hematochezia, Other Symptoms Genitourinary: Denies: Dysuria, Frequency, Incontinence, Hematuria, Retention, Other Symptoms Hematologic: Denies: Bruising, Bleeding Excessively, Petecchia, Purpura, Enlarged Lymph Nodes, Other Hematologic Endocrine: Denies: Polydipsia, Polyphagia, Polyuria, Heat Intolerance, Cold Intolerance, Other Endocrine Sx Musculoskeletal: Reports: Other Symptoms Neurological: Denies: Weakness, Numbness, Incoordination, Change in speech, Confusion, Seizures, Other Symptoms Psych: Denies: Mood Normal, Anxiety, Depression, Memory Issues, Thoughts of Self Harm, Anger, Thoughts of Harming Other, Other Psych Objective Physical Examination General Exam: Positive: Alert, Cooperative Eye Exam: Positive: PERRLA, Conjunctiva & lids normal ENT Exam: Positive: Atraumatic, Mucous membr. moist/pink Neck Exam: Positive: JVD Chest Exam: Positive: Clear to auscultation, Normal air movement Heart Exam: Positive: Rate Normal, Normal S1, Normal S2 Abdomen Exam: Positive: Normal bowel sounds Extremity Exam: Positive: Clubbing, Normal pulses Skin Exam: Positive: Nl turgor and temperature Neuro Exam: Positive: Normal Gait, Normal Speech Psych Exam: Positive: Mental status NL A-FIB/CHADSVASC A-FIB History Current/History of A-Fib/PAF?: No Assessment /Plan Problems (1) Intertrochanteric fracture of left hip Status: Acute Response to Treatment: Stable Problem Text: 1. Left intertrochanteric hip fracture status post mechanical fall: No concerning prodromal symptoms she is in exquisite pain she does have an elevated blood pressure however she was seen by her primary care provider this morning he did not have an elevated pressure at that time. I'll provide her with her home irbesartan I think she would benefit from additional pain medication and operative repair of her left hip which was most effective and improving her blood pressure.. She has metastases greater than 4 with good functional status for an intermediate risk procedure using the revised cardiac risk index. She is estimated at 2.4-3.6 % risk of major cardiac complication. Other providing her with some mild blood pressure medication at this time no further interventions are required prior to operative repair of her left hip. EKG reviewed. I have contacted Dr. Souza and inform him of this consultation 2. Hypertension: As outlined above she is hypertensive at this time which was not hypertensive this morning at her PCPs office. This is secondary to her acute hip fracture. I'll provide her with irbesartan continue her home beta barbara with holding parameters I think she would benefit from additional pain medicatio n operative repair of her left hip. She is asymptomatic with her hypertension Cardy canceled her negative EKG does not reveal new concerning findings.. I'll provide her additional morphine at this time 3. Multiple sclerosis: Continue with her home regimen of amitriptyline baclofen carbamazepine methotrexate and zonisamide 4. Mood disorder: Continue with trazodone venlafaxine and Seroquel 5. Coronary artery disease: Continue with her beta barbara and statin. She is stable disease and has not had symptoms for quite some time. We'll request records from Dr. Gustafson's office 6. Hypothyroidism: Continue his home Synthroid 7. Diabetes mellitus: She is nothing by mouth we'll provide her with sliding- scale insulin 8. Obstructive sleep apnea: I have advised family to bring in her BiPAP she is encouraged to use this while hospitalized Plan/VTE VTE Prophylaxis Ordered?: Yes VS, I&O, 24H, Fishbone Vital Signs/I&O Vital Signs Date Time Temp Pulse Resp B/P (MAP) Pulse Ox O2 Delivery O2 Flow Rate FiO2 10/16/18 08:32 18 10/16/18 08:32 65 149/57 10/16/18 06:00 96.5 94 10/16/18 01:10 2.0 10/15/18 19:58 Nasal Cannula I&O- Last 24 Hours up to 6 AM 10/16/18 06:00 Intake Total 2000 ml Output Total 0 ml Balance 2000 ml Laboratory Data 24H LABS Laboratory Tests 2 10/15/18 16:33: Immature Granulocyte % (Auto) 0.5, White Blood Count 4.3, Red Blood Count 3.33L, Hemoglobin 10.7L, Hematocrit 33.7L, Mean Corpuscular Volume 101.2H, Mean Corpuscular Hemoglobin 32.1, Mean Corpuscular Hemoglobin Concent 31.8L, Red Cell Distribution Width 14.5, Platelet Count 122L, Neutrophils (%) (Auto) 73.9H, Lymphocytes (%) (Auto) 15.6L, Monocytes (%) (Auto) 8.4H, Eosinophils (%) (Auto) 1.4, Basophils (%) (Auto) 0.2, Neutrophils # (Auto) 3.2, Lymphocytes # (Auto) 0.7L, Monocytes # (Auto) 0.4, Eosinophils # (Auto) 0.1, Basophils # (Auto) 0.0, Nucleated Red Blood Cells % (auto) 0.0, Anion Gap 7L, Glomerular Filtration Rate > 60.0, Calcium Level 8.1L, Aspartate Amino Transf (AST/SGOT) 30, Alanine Aminotransferase (ALT/SGPT) 27, Alkaline Phosphatase 133H, Total Bilirubin 0.3, Direct Bilirubin < 0.1, Total Creatine Kinase 75, Creatine Kinase MB 1.0, Creatine Kinase MB Relative Index 1.60, Troponin I < 0.02, Total Protein 7.4, Albumin 3.4, Albumin/Globulin Ratio 0.85L, Thyroid Stimulating Hormone (TSH) 4.050H, Free Thyroxine 0.60L 10/15/18 17:44: Prothrombin Time 12.9, Prothromb Time International Ratio 0.96, Activated Partial Thromboplast Time 23.5L 10/16/18 01:14: Bedside Glucose (Misc Panel) 214H 10/16/18 07:02: Bedside Glucose (Misc Panel) 164H CBC/BMP Laboratory Tests 10/15/18 16:33 Red Blood Count 3.33 L, Mean Corpuscular Volume 101.2 H, Mean Corpuscular Hemoglobin 32.1, Mean Corpuscular Hemoglobin Concent 31.8 L, Red Cell Distribution Width 14.5, Neutrophils (%) (Auto) 73.9 H, Lymphocytes (%) (Auto) 15.6 L, Monocytes (%) (Auto) 8.4 H, Eosinophils (%) (Auto) 1.4, Basophils (%) (Auto) 0.2, Neutrophils # (Auto) 3.2, Lymphocytes # (Auto) 0.7 L, Monocytes # (Auto) 0.4, Eosinophils # (Auto) 0.1, Basophils # (Auto) 0.0 JERSEY SILVA MD October 16, 2018 09:44
[2018-10-16] MEDS ORDERED: MOM30SS2 PO (11:22)
[2018-10-16] MEDS ORDERED: TRAM50TA2 PO (11:22)
[2018-10-16] MEDS ORDERED: XARE10TA PO (11:22)
[2018-10-16] MEDS ORDERED: PEG1POW PO (11:22)
--- NOTE | 2018-10-16 11:47 | DS.PDOC ---
Discharge Summary General Date of Admission October 15, 2018 at 18:13 Date of Discharge 10/16/18 Attending Physician: JERSEY SILVA MD Discharge Summary PROCEDURES PERFORMED DURING STAY: None. ADMITTING DIAGNOSES: 1. left hip fracture. DISCHARGE DIAGNOSES: 1. Left Hip fracture. COMPLICATIONS/CHIEF COMPLAINT: Intertrochanteric Fx Of L Hip. HISTORY OF PRESENT ILLNESS: . HOSPITAL COURSE: Problem Text: 1. Left intertrochanteric hip fracture status post mechanical fall: No concerning prodromal symptoms she is in exquisite pain she does have an elevated blood pressure however she was seen by her primary care provider this morning he did not have an elevated pressure at that time. I'll provide her with her home irbesartan I think she would benefit from additio nal pain medication and operative repair of her left hip which was most effective and improving her blood pressure.. She has metastases greater than 4 with good functional status for an intermediate risk procedure using the revised cardiac risk index. She is estimated at 2.4-3.6 % risk of major cardiac complication. Other providing her with some mild blood pressure medication at this time no further interventions are required prior to operative repair of her left hip. EKG reviewed. I have contacted Dr. Souza and inform him of this consultation 2. Hypertension: As outlined above she is hypertensive at this time which was not hypertensive this morning at her PCPs office. This is secondary to her acute hip fracture. I'll provide her with irbesartan continue her home beta barbara with holding parameters I think she would benefit from additional pain medication operative repair of her left hip. She is asymptomatic with her hypertension Cardy canceled her negative EKG does not reveal new concerning findings.. I'll provide her additional morphine at this time 3. Multiple sclerosis: Continue with her home regimen of amitriptyline baclofen carbamazepine methotrexate and zonisamide 4. Mood disorder: Continue with trazodone venlafaxine and Seroquel 5. Coronary artery disease: Continue with her beta barbara and statin. She is stable disease and has not had symptoms for quite some time. We'll request records from Dr. Gustafson's office 6. Hypothyroidism: Continue his home Synthroid 7. Diabetes mellitus: She is nothing by mouth we'll provide her with sliding- scale insulin 8. Obstructive sleep apnea: I have advised family to bring in her BiPAP she is encouraged to use this while hospitalized. DISCHARGE MEDICATIONS: Please see below. ALLERGIES: Please see below. PHYSICAL EXAMINATION ON DISCHARGE: VITAL SIGNS: Please see below. GENERAL: Within normal limits HEENT: PERRLA. Extraocular was intact NECK: Supple, no JVD, no lymphadenopathy CARDIOVASCULAR EXAMINATION: S1, S2, regular RESPIRATORY EXAMINATION: Clear to A&P ABDOMINAL EXAMINATION: , Soft, nontender. Pulses present EXTREMITIES: No clubbing, cyanosis, edema SKIN: Within normal range NEUROLOGICAL EXAMINATION: PSYCHIATRIC EXAMINATION: Number LABORATORY DATA: Please see below. IMAGING: As above PROGNOSIS: [Good ACTIVITY: As tolerated. DIET: As tolerated DISCHARGE PLAN: To ARU DISPOSITION: ARU. DISCHARGE INSTRUCTIONS: 1. Is above. ITEMS TO FOLLOWUP ON ON OUTPATIENT: 1. As above. DISCHARGE CONDITION: Stable. TIME SPENT ON DISCHARGE: Greater than 40 minutes. Vital Signs/I&Os Vital Signs Date Time Temp Pulse Resp B/P (MAP) Pulse Ox O2 Delivery O2 Flow Rate FiO2 10/16/18 10:00 98.9 73 16 103/40 (61) 94 10/16/18 01:10 2.0 10/15/18 19:58 Nasal Cannula I&O- Last 24 Hours up to 6 AM 10/16/18 06:00 Intake Total 2000 ml Output Total 0 ml Balance 2000 ml Laboratory Data Labs 24H Laboratory Tests 2 10/15/18 16:33: Immature Granulocyte % (Auto) 0.5, White Blood Count 4.3, Red Blood Count 3.33L, Hemoglobin 10.7L, Hematocrit 33.7L, Mean Corpuscular Volume 101.2H, Mean Corpuscular Hemoglobin 32.1, Mean Corpuscular Hemoglobin Concent 31.8L, Red Cell Distribution Width 14.5, Platelet Count 122L, Neutrophils (%) (Auto) 73.9H, Lymphocytes (%) (Auto) 15.6L, Monocytes (%) (Auto) 8.4H, Eosinophils (%) (Auto) 1.4, Basophils (%) (Auto) 0.2, Neutrophils # (Auto) 3.2, Lymphocytes # (Auto) 0.7L, Monocytes # (Auto) 0.4, Eosinophils # (Auto) 0.1, Basophils # (Auto) 0.0, Nucleated Red Blood Cells % (auto) 0.0, Anion Gap 7L, Glomerular Filtration Rate > 60.0, Calcium Level 8.1L, Aspartate Amino Transf (AST/SGOT) 30, Alanine [place] otransferase (ALT/SGPT) 27, Alkaline Phosphatase 133H, Total Bilirubin 0.3, Direct Bilirubin < 0.1, Total Creatine Kinase 75, Creatine Kinase MB 1.0, Creatine Kinase MB Relative Index 1.60, Troponin I < 0.02, Total Protein 7.4, Albumin 3.4, Albumin/Globulin Ratio 0.85L, Thyroid Stimulating Hormone (TSH) 4.050H, Free Thyroxine 0.60L 10/15/18 17:44: Prothrombin Time 12.9, Prothromb Time International Ratio 0.96, Activated Partial Thromboplast Time 23.5L 10/16/18 01:14: Bedside Glucose (Misc Panel) 214H 10/16/18 07:02: Bedside Glucose (Misc Panel) 164H 10/16/18 11:24: Bedside Glucose (Misc Panel) 177H CBC/BMP Laboratory Tests 10/15/18 16:33 Red Blood Count 3.33 L, Mean Corpuscular Volume 101.2 H, Mean Corpuscular Hemoglobin 32.1, Mean Corpuscular Hemoglobin Concent 31.8 L, Red Cell Distrib ution Width 14.5, Neutrophils (%) (Auto) 73.9 H, Lymphocytes (%) (Auto) 15.6 L, Monocytes (%) (Auto) 8.4 H, Eosinophils (%) (Auto) 1.4, Basophils (%) (Auto) 0.2, Neutrophils # (Auto) 3.2, Lymphocytes # (Auto) 0.7 L, Monocytes # (Auto) 0.4, Eosinophils # (Auto) 0.1, Basophils # (Auto) 0.0 FSBS Laboratory Tests Test 10/16/18 01:14 10/16/18 07:02 10/16/18 11:24 Range/Units Bedside Glucose (Misc Panel) 214 164 177 80-115 MG/DL Discharge Medications Scheduled Amitriptyline HCl (Amitriptyline HCl) 25 Mg Tablet, 25 MG PO QHS, (Reported) Baclofen (Baclofen) 20 Mg Tablet, 40 MG PO BID, (Reported) Carbamazepine (Epitol) 200 Mg Tablet, 400 MG PO BID, (Reported) Carvedilol (Carvedilol) 6.25 Mg Tablet, 6.25 MG PO BID, (Reported) Folic Acid (Folic Acid) 1 Mg Tablet, 1 MG PO DAILY, (Reported) Glimepiride (Glimepiride) 2 Mg Tablet, 1 MG PO QHS, (Reported) Irbesartan (Irbesartan) 150 Mg Tablet, 150 MG PO DAILY, (Reported) Levothyroxine Sodium (Levothyroxine Sodium) 25 Mcg Tablet, 25 MCG PO DAILY, (Reported) Magnesium Hydroxide (Milk of Magnesia) 400 Mg/5 Ml Oral.susp, 30 ML PO BID Metformin HCl (Metformin HCl) 500 Mg Tablet, 500 MG PO DAILY, (Reported) Methotrexate Sodium (Methotrexate) 2.5 Mg Tablet, 7.5 MG PO QWEEK, (Reported) FRIDAYS Pantoprazole Sodium (Pantoprazole Sodium) 40 Mg Tablet.dr, 40 MG PO DAILY, (Reported) Polyethylene Glycol 3350 (Polyethylene Glycol 3350) 17 Gm Powd.pack, 1 PKT PO DAILY Pravastatin Sodium (Pravastatin Sodium) 40 Mg Tablet, 40 MG PO QHS, (Reported) Quetiapine Fumarate (Quetiapine Fumarate) 25 Mg Tablet, 25 MG PO QHS, (Reported) Rivaroxaban (Xarelto) 10 Mg Tablet, 10 MG PO DAILY@18 Trazodone HCl (Trazodone HCl) 100 Mg Tablet, 200 MG PO QHS, (Reported) Venlafaxine HCl (Venlafaxine HCl ER) 75 Mg Cap.er.24h, 75 MG PO DAILY, (Reported) Zonisamide (Zonisamide) 50 Mg Capsule, 50 MG PO BID, (Reported) Scheduled PRN Nitroglycerin (Nitrostat) 0.4 Mg Tab.subl, 0.4 MG SL Q5MP PRN for CHEST PAIN, (Reported) Tramadol HCl (Tramadol HCl) 50 Mg Tablet, 50 MG PO Q6HP PRN for SEVERE PAIN (PS 8-10) Allergies Coded Allergies: Penicillins (Verified Allergy, Severe, anaph, 10/15/18) anaph latex (Verified Allergy, Intermediate, 10/15/18) states she reacts when she wears gloves, but not when others do JERSEY SILVA MD October 16, 2018 11:47
[2018-10-16] MEDS ORDERED: ACETAMINOPHEN 500 MG TAB PO SCH ×2 (12:00→14:00)
[2018-10-16] MEDS ORDERED: RIVAROXABAN 10 MG TAB (XARELTO) PO SCH (18:00)
== END 2018-10-16 16:35 | DRG 470 ==
LOC: EDBD 15:41 → M ED 15:41 → M ED INP 18:13 → M MS5PR 10-16 01:00
PROVIDERS: ADMIT Internal Medicine; ATTEND Internal Medicine
PROC: 0SRB049 Replacement of Left Hip Joint with Ceramic on Polyethylene Synthetic Substitute, Cemented, Open Approach (ICD-10-PCS; principal; 2018-10-15 18:58)
DX: S72.145A Nondisplaced intertrochanteric fracture of left femur, initial encounter for closed fracture (principal); W18.30XA Fall on same level, unspecified, initial encounter; Y92.009 Unspecified place in unspecified non-institutional (private) residence as the place of occurrence of the external cause; I10 Essential (primary) hypertension; G35 Multiple sclerosis; F39 Unspecified mood [affective] disorder; I25.10 Atherosclerotic heart disease of native coronary artery without angina pectoris; E03.9 Hypothyroidism, unspecified; E11.9 Type 2 diabetes mellitus without complications; G47.33 Obstructive sleep apnea (adult) (pediatric); Z79.899 Other long term (current) drug therapy; Z88.0 Allergy status to penicillin; Z91.040 Latex allergy status; K21.9 Gastro-esophageal reflux disease without esophagitis; Z95.1 Presence of aortocoronary bypass graft

== ENCOUNTER 2018-10-16 14:41 | Inpatient (IN) | payer MEDICARE ==
[~2018-10-16] VITALS: Ht 157.5 cm; Wt 84.6 kg
[~2018-10-16 14:41] MED LIST: AMIT25TA PO; BACL1TAB9 PO; CARV6.25 PO; EPIT200T PO; FOLI1TAB11 PO; GLIM2TAB29 PO; IRBE150T12 PO; LEVO25TA5 PO; METF500T13 PO; METH2.5T48 PO; MOM30SS2 PO; NITR4TASL SL; PANT40TA3 PO; PEG1POW PO; PRAV40TA2 PO; QUET1TAB7 PO; TRAM50TA2 PO; TRAZ-189 PO; VENL75CA47 PO; XARE10TA PO; ZONI50CA3 PO
[2018-10-16] MEDS ORDERED: BISACODYL 10 MG SUPP PR PRN (16:15)
[2018-10-16] MEDS ORDERED: NITROGLYCERIN 0.3 MG SUBL TAB SL PRN (16:15)
[2018-10-16] MEDS ORDERED: ONDANSETRON 4 MG TAB (S0181) PO PRN (16:15)
[2018-10-16] MEDS ORDERED: MAALOX 30 ML SUSP *UDC PO PRN (16:15)
[2018-10-16] MEDS ORDERED: GLUCOSE 4 GM CHEW TABLET PO PRN (16:30)
[2018-10-16] MEDS ORDERED: GLUCAGON FOR INJ 1 MG VIAL (J1610) SC PRN (16:30)
[2018-10-16] MEDS ORDERED: DEXTROSE 50% 50 ML SYRINGE IV PRN (16:30)
[2018-10-16 16:40] VITALS: BP 166/74
[2018-10-16] MEDS: GABAPENTIN 100 MG CAP PO SCH ×2 (17:16→20:36)
[2018-10-16] MEDS: ACETAMINOPHEN 500 MG TAB PO SCH ×2 (17:17→20:36)
[2018-10-16] MEDS: RIVAROXABAN 10 MG TAB (XARELTO) PO SCH (17:17)
[2018-10-16] MEDS: HumaLOG INSULIN (NovoLOG) PER UNIT SC SCH ×2 (18:18→20:38)
[2018-10-16 20:00] VITALS: BP 146/66
[2018-10-16] MEDS: PRAVASTATIN 20 MG TAB PO SCH (20:36)
[2018-10-16] MEDS: ZONISAMIDE 50 MG CAP (ZONEGRAN) PO SCH (20:36)
[2018-10-16] MEDS: BACLOFEN 10 MG TAB PO SCH (20:36)
[2018-10-16] MEDS: carBAMazepine XR 200 MG TAB PO SCH (20:37)
[2018-10-16] MEDS: AMITRIPTYLINE 25 MG TAB PO SCH (20:37)
[2018-10-16] MEDS: DOCUSATE SODIUM 100 MG CAP PO SCH (20:37)
[2018-10-16] MEDS: CARVedilol 6.25 MG TAB PO SCH (20:37)
[2018-10-16 20:49] LABS: APPEARANCE, URINE CLOUDY (CLEAR); BACTERIA, URINE AUTO NEGATIVE (NEGATIVE); BILIRUBIN, URINE AUTO NEGATIVE (NEGATIVE); BLOOD, URINE BLOOD 2+ (NEGATIVE); COLOR, URINE YELLOW (YELLOW); GLUCOSE, URINE (UA) AUTO NEGATIVE (NEGATIVE); KETONE, URINE AUTO NEGATIVE (NEGATIVE); LEUKOCYTE ESTERASE, URINE AUTO 1+ (NEGATIVE); NITRITE, URINE AUTO NEGATIVE (NEGATIVE); PROTEIN, URINE AUTO NEGATIVE (NEGATIVE); RBC, URINE AUTO 64 /HPF (0-3); SPECIFIC GRAVITY URINE AUTO 1.018 (1.002-1.035); SQUAMOUS EPITHELIAL CELL UR AU 2 /HPF (0-6); TRANSITIONAL EPITHELIAL AUTO <1 /HPF; UROBILINOGEN, URINE AUTO 0.2 mg/dL (0.0-2.0); WBC, URINE AUTO 13 /HPF (0-3)
[2018-10-16] MEDS ORDERED: GLIMEPIRIDE 2 MG TAB PO SCH (21:00)
[2018-10-16] MEDS ORDERED: SENNA 8.6 MG TAB (SENOKOT) PO SCH (21:00)
[2018-10-17 06:00] VITALS: BP 156/88
[2018-10-17] MEDS: LEVOTHYROXINE 25MCG TABLET (0.025MG) PO SCH (06:13)
[2018-10-17 07:10] LABS: BASO % 0.3 % (0.0-1.0); EOS # 0.2 10^3/uL (0.0-0.50); EOS % 1.8 % (0.0-3.0); HEMATOCRIT 28.7 % (36.0-47.0); HEMOGLOBIN 9.1 g/dl (12.0-15.5); LYMPH # 0.7 10^3/uL (1.5-4.5); LYMPH % 7.5 % (24.0-44.0); MEAN CORPUSCULAR HGB CONC 31.7 g/dl (32.0-36.5); MEAN CORPUSCULAR VOLUME 101.1 fl (80.0-96.0); MONO # 0.8 10^3/uL (0.0-0.8); MONO % 9.6 % (0.0-5.0); PLATELET COUNT, AUTOMATED 111 10^3/uL (150-450); RED BLOOD COUNT 2.84 10^6/uL (4.00-5.40); WHITE BLOOD COUNT 8.7 10^3/uL (4.0-10.0)
[2018-10-17 08:00] LABS: ALBUMIN 3.2 GM/DL (3.2-5.2); ALT/SGPT 31 U/L (12-78); BILIRUBIN,TOTAL 0.6 MG/DL (0.2-1.0); BLOOD UREA NITROGEN 16 MG/DL (7-18); CALCIUM LEVEL 8.3 MG/DL (8.8-10.2); CARBON DIOXIDE LEVEL 27 MEQ/L (21-32); CHLORIDE LEVEL 103 MEQ/L (98-107); CREATININE FOR GFR 0.75 MG/DL (0.55-1.30); GLOMERULAR FILTRATION RATE > 60.0 (>45); GLUCOSE, FASTING 176 MG/DL (70-100); POTASSIUM SERUM 3.8 MEQ/L (3.5-5.1); SODIUM LEVEL 136 MEQ/L (136-145); TOTAL PROTEIN 6.7 GM/DL (6.4-8.2)
[2018-10-17] MEDS: PANTOPRAZOLE 40MG TAB (PROTONIX) PO SCH (08:32)
[2018-10-17] MEDS: HumaLOG INSULIN (NovoLOG) PER UNIT SC SCH ×4 (08:32→21:00)
[2018-10-17] MEDS: ZONISAMIDE 50 MG CAP (ZONEGRAN) PO SCH ×2 (08:32→21:18)
[2018-10-17] MEDS: VENLAFAXINE **XR** 75MG CAPSULE PO SCH (08:32)
[2018-10-17] MEDS: BACLOFEN 10 MG TAB PO SCH ×2 (08:32→21:17)
[2018-10-17] MEDS: carBAMazepine XR 200 MG TAB PO SCH ×2 (08:33→21:17)
[2018-10-17] MEDS: FOLIC ACID 1 MG TAB PO SCH (08:33)
[2018-10-17] MEDS: CARVedilol 6.25 MG TAB PO SCH ×2 (08:34→21:18)
[2018-10-17] MEDS: ACETAMINOPHEN 500 MG TAB PO SCH ×4 (08:34→21:19)
[2018-10-17] MEDS: GABAPENTIN 100 MG CAP PO SCH ×3 (08:34→21:16)
[2018-10-17] MEDS: IRBESARTAN 150 MG TAB PO SCH (08:35)
[2018-10-17] MEDS: DOCUSATE SODIUM 100 MG CAP PO SCH (08:35)
[2018-10-17 09:20] VITALS: BP 146/70
[2018-10-17 14:00] VITALS: BP 130/62
--- NOTE | 2018-10-17 15:28 | HPEPDOC ---
Director Of Operations Note DATE OF ADMISSION: October 16, 2018 at 16:35 SOURCE OF ADMISSION INFORMATION: patient and [facility] records CHIEF COMPLAINT: left hip fracture HISTORY OF PRESENT ILLNESS: 68F pmh Multiple Sclerosis (MS), CAD s/p stenting and CABG, HTN, DM, hypothyroidism, mood disorder, GERD, JOHN on CPAP presented to [facility] ED on 10/15/18 after falling onto her left side without pre-syncopal symptoms complaining of pain and inability to walk. Imaging revealed a left femoral neck fracture, head CT shoed no acute bleed, and EKG showed her to be in sinus rhythm. She was evaluated by orthopedics who performed and left hip elder-arthroplasty on 10/15/18 and made WBAT. She had post-op anemia and pain requiring oral analgesics. Post- operatively she was found to be hypertensive despite being on beta-barbara so Irbesartan was added for better BP control. She was continued on her home MS medications, evaluated by therapy and found to have deficits in ambulation and ADLs below her prior level of function. She was deemed medically appropriate for discharge to ARU on 10/16/18 for strengthening, balance, and endurance training for ambulation and ADLs. REVIEW OF SYSTEMS: The following is a completed review of systems and has been reviewed. Review of systems otherwise unremarkable. PAIN: Patient self reports loeft hip pain EYES: Negative for recent vision changes EARS, NOSE, & THROAT: denies dysphagia, throat pain or hearing loss CARDIOVASCULAR:denies chest pain or palpitations PULMONARY: Negative. Denies shortness of breath GASTROINTESTINAL: +loose stools GENITOURINARY: Negative for dysuria MUSCULOSKELETAL:left hip fracture NEUROLOGICAL: +MS HEMATOLOGICAL: +anemia SKIN: left abdominal fold rash, left incision PSYCHIATRIC: Unremarkable All other review of systems found to be negative. PAST MEDICAL HISTORY: as per HPI PAST SURGICAL HISTORY: as per HPI ALLERGIES: Please see below. MEDICATIONS: Please see below. SOCIAL HISTORY:lives with , no ETOH, smoking, or illicit drugs DIET: low sodium PHYSICAL EXAMINATION: VITAL SIGNS: Please see below. GENERAL: Pleasant and cooperative. No acute distress. HEENT: PERRL. Extraocular movements intact. Clear conjunctiva CARDIOVASCULAR: Regular rate and rhythm. No murmurs, rubs, or gallops LUNGS: Clear to auscultation bilaterally. No wheezes. No rhonchi ABDOMEN: Soft, nontender, nondistended. Positive bowel sounds. Normal active bowel sounds NEUROLOGICAL: Alert and oriented times three. Cranial nerves II through XII grossly intact. Sensation grossly intact in all 4 limbs EXTREMITIES: 5\5 strength bilateral upper extremities. 5\5 strength right lower extremity. 5/5 strength in left ankle DF and EHL, otherwise limited due to pain negative Babinski bilat, no clonus +mild dysmetria for [id number] on the left SKIN: left hip incision without induration ecchymosis or edema IMAGING: Imaging documentation personally reviewed by record FUNCTIONAL STATUS: Premorbid: Independent with all activities of daily life as well as mobility On Admission: Mod Assist for bed mobility, Min-Mod assist for functional transfers, total assist for lower body dressing, able to walk only a few feet CG assist with RW. GOALS: Mod-I with RW for ambulation, stairs, functional trasnfers, dynamic balance, toileting, bathing, dressing, medical optimization, assess for DME, family training. ASSESSMENT: 68-year-old F with past medical history of MS who presents status post fall with left hip fracture s/p hemiarthroplasty PLAN: 1. Rehab: PT, OT, assess for DME 2. Neuro: pmh MS, appears stable now- c/u Zonisamide and c/u baclofen and Tegretol for spasticity and neuropathic pain associated with MS- f/u with Dr. Corrigan as outpatient 3. Cardio: pmg CAD s/p CABG- c/u beta barbara, pmh HTN c/u Irbesartan-medicine consulted 4. Resp: encourgae incentive spirometry 5. Ortho: s/p lef thip elder-arthroplasty secondary to femur fracture- WBAT, hip precautions-consult ortho 6. Psych: c/u home meds for mood disorder 7. DVT ppx: Xarelto 8. GI ppx: protonix 9. : f/u admisison UA and monitor 10. SKin: left abdominal rash- nystatin cream 11. Dispo: TBD POST ADMISSION PHYSICIAN EVALUATION: Medical and functional status: Description of medical status, medical assessment: As above. Rehabilitation diagnosis and current and prior cold morbid medical conditions as above. Risk of complications and plans to mitigate them as above. Description of functional status current status is as above. Prior status as above. Status compared to preadmission: There are no clinically significant differences between the patient's current status and the information described on the preadmission screening document. Treatment plan anticipated: Treatment plan is as described above. Required disciplines including physical therapy, occupational therapy, others as noted above. Intensity of services: 3 hours a day, 6 days a week. Special considerations: There are no specific special or safety considerations that would likely preclude immediate implementation of an intensive rehabilitation program or subsequently influence the plan of care ATTESTATION: Considering all the information above, it is my best judgment that this patient requires intensive rehabilitation therapy as described above and an inpatient hospital environment due to the complexity of nursing, medical, and rehabilitation needs required by the patient. Furthermore, this patient can reasonably be expected to participate in an benefit from an inpatient rehabilitation stay with an interdisciplinary team approach to the delivery of rehabilitation care under the direction and supervision of rehabilitation physician. PROGNOSIS: Excellent ESTIMATED LENGTH OF STAY:10-12 days. PROJECTED DISCHARGE DESTINATION: Home with family support and any durable medical equipment required to increase functional safety and mobility TIME SPENT COUNSELING AND COORDINATING INITIAL CARE: Greater than 70 minutes. Vital Signs Vital Sign - Last 24 Hours 10/16/18 10/16/18 10/16/18 10/17/18 16:40 20:00 20:37 06:00 Temp 98.5 99.9 99.6 Pulse 83 85 84 88 Resp 18 18 18 B/P (MAP) 166/74 (104) 146/66 (92) 146/66 156/88 (110) Pulse Ox 96 90 90 10/17/18 10/17/18 10/17/18 08:34 08:35 09:20 Pulse 86 B/P (MAP) 198/86 198/86 146/70 (95) Laboratory Data CBC/BMP Laboratory Tests 10/17/18 06:21 Red Blood Count 2.84 L, Mean Corpuscular Volume 101.1 H, Mean Corpuscular Hemoglobin 32.0, Mean Corpuscular Hemoglobin Concent 31.7 L, Red Cell Distribution Width 14.7 H, Neutrophils (%) (Auto) 80.0 H, Lymphocytes (%) (Auto) 7.5 L, Monocytes (%) (Auto) 9.6 H, Eosinophils (%) (Auto) 1.8, Basophils (%) (Auto) 0.3, Neutrophils # (Auto) 7.0, Lymphocytes # (Auto) 0.7 L, Monocytes # (Auto) 0.8, Eosinophils # (Auto) 0.2, Basophils # (Auto) 0.0, Calcium Level 8.3 L, Aspartate Amino Transf (AST/SGOT) 50 H, Alanine Aminotransferase (ALT/SGPT) 31, Alkaline Phosphatase 107, Total Bilirubin 0.6 #, Total Protein 6.7, Albumin 3.2 Labs 24H Laboratory Tests 2 10/16/18 20:07: Bedside Glucose (Misc Panel) 174H 10/16/18 20:15: Urine Appearance CLOUDYH, Urine Color YELLOW, Urine pH 6.0, Urine Specific [place] 1.018, Urine Protein NEGATIVE, Urine Glucose (UA) NEGATIVE, Urine Ketones NEGATIVE, Urine Urobilinogen 0.2, Urine Bilirubin NEGATIVE, Urine Leukocyte Esterase 1+H, Urine Blood 2+H, Urine Nitrite NEGATIVE, Urine WBC (Auto) 13H, Urine RBC (Auto) 64H, Urine Hyaline Casts (Auto) 0, Urine Bacteria (Auto) NEGATIVE, Urine Squamous Epithelial Cells 2, Urine Transitional Epithelial Cells <1, Urine Sperm (Auto) 10/17/18 06:21: Immature Granulocyte % (Auto) 0.8, White Blood Count 8.7, Red Blood Count 2.84L, Hemoglobin 9.1L, Hematocrit 28.7L, Mean Corpuscular Volume 101.1H, Mean Corpuscular Hemoglobin 32.0, Mean Corpuscular Hemoglobin Concent 31.7L, Red Cell Distribution Width 14.7H, Platelet Count 111L, Neutrophils (%) (Auto) 80.0H, Lymphocytes (%) (Auto) 7.5L, Monocytes (%) (Auto) 9.6H, Eosinophils (%) (Auto) 1.8, Basophils (%) (Auto) 0.3, Neutrophils # (Auto) 7.0, Lymphocytes # (Auto) 0.7L, Monocytes # (Auto) 0.8, Eosinophils # (Auto) 0.2, Basophils # (Auto) 0.0, Nucleated Red Blood Cells % (auto) 0.0, Anion Gap 6L, Glomerular Filtration Rate > 60.0, Blood Urea Nitrogen 16, Creatinine 0.75, Sodium Level 136, Potassium Level 3.8, Chloride Level 103, Carbon Dioxide Level 27, Calcium Level 8.3L, Aspartate Amino Transf (AST/SGOT) 50H, Alanine Aminotransferase (ALT/SGPT) 31, Alkaline Phosphatase 107, Total Bilirubin 0.6#, Total Protein 6.7, Albumin 3.2, Albumin/Globulin Ratio 0.91L 10/17/18 11:46: Bedside Glucose (Misc Panel) 68L FSBS Laboratory Tests Test 10/16/18 20:07 10/17/18 11:46 Range/Units Bedside Glucose (Misc Panel) 174 68 80-115 MG/DL Microbiology Microbiology 10/16/18 Urine Culture, Received Pending Home Medications Scheduled Amitriptyline HCl (Amitriptyline HCl) 25 Mg Tablet, 25 MG PO QHS, (Reported) Baclofen (Baclofen) 20 Mg Tablet, 40 MG PO BID, (Reported) Carbamazepine (Epitol) 200 Mg Tablet, 400 MG PO BID, (Reported) Carvedilol (Carvedilol) 6.25 Mg Tablet, 6.25 MG PO BID, (Reported) Folic Acid (Folic Acid) 1 Mg Tablet, 1 MG PO DAILY, (Reported) Glimepiride (Glimepiride) 2 Mg Tablet, 1 MG PO QHS, (Reported) Irbesartan (Irbesartan) 150 Mg Tablet, 150 MG PO DAILY, (Reported) Levothyroxine Sodium (Levothyroxine Sodium) 25 Mcg Tablet, 25 MCG PO DAILY, (Reported) Magnesium Hydroxide (Milk of Magnesia) 400 Mg/5 Ml Oral.susp, 30 ML PO BID Metformin HCl (Metformin HCl) 500 Mg Tablet, 500 MG PO DAILY, (Reported) Methotrexate Sodium (Methotrexate) 2.5 Mg Tablet, 7.5 MG PO QWEEK, (Reported) FRIDAYS Pantoprazole Sodium (Pantoprazole Sodium) 40 Mg Tablet.dr, 40 MG PO DAILY, (Repo rted) Polyethylene Glycol 3350 (Polyethylene Glycol 3350) 17 Gm Powd.pack, 1 PKT PO DAILY Pravastatin Sodium (Pravastatin Sodium) 40 Mg Tablet, 40 MG PO QHS, (Reported) Quetiapine Fumarate (Quetiapine Fumarate) 25 Mg Tablet, 25 MG PO QHS, (Reported) Rivaroxaban (Xarelto) 10 Mg Tablet, 10 MG PO DAILY@18 Trazodone HCl (Trazodone HCl) 100 Mg Tablet, 200 MG PO QHS, (Reported) Venlafaxine HCl (Venlafaxine HCl ER) 75 Mg Cap.er.24h, 75 MG PO DAILY, (Reported) Zonisamide (Zonisamide) 50 Mg Capsule, 50 MG PO BID, (Reported) Scheduled PRN Nitroglycerin (Nitrostat) 0.4 Mg Tab.subl, 0.4 MG SL Q5MP PRN for CHEST PAIN, (Reported) Tramadol HCl (Tramadol HCl) 50 Mg Tablet, 50 MG PO Q6HP PRN for SEVERE PAIN (PS 8-10) Allergies Coded Allergies: Penicillins (Verified Allergy, Severe, anaph, 10/15/18) anaph latex (Verified Allergy, Intermediate, 10/15/18) states she reacts when she wears gloves, but not when others do A-FIB/CHADSVASC A-FIB History Current/History of A-Fib/PAF?: No ANA LUISA MUNIZ MD October 17, 2018 15:28
--- NOTE | 2018-10-17 15:34 | IPNPDOC ---
PM&R Progress Note DATE OF SERVICE: October 17, 2018 [place] Progress Note Subjective: She reports not sleeping well and having loose stools, but no abdominal cramping. REVIEW OF SYSTEMS: The following is a completed review of systems and has been reviewed. Review of systems otherwise unremarkable. PAIN: Patient self reports loeft hip pain EYES: Negative for recent vision changes EARS, NOSE, & THROAT: denies dysphagia, throat pain or hearing loss CARDIOVASCULAR:denies chest pain or palpitations PULMONARY: Negative. Denies shortness of breath GASTROINTESTINAL: +loose stools GENITOURINARY: Negative for dysuria MUSCULOSKELETAL:left hip fracture NEUROLOGICAL: +MS HEMATOLOGICAL: +anemia SKIN: left abdominal fold rash, left incision PSYCHIATRIC: Unremarkable All other review of systems found to be negative. PHYSICAL EXAMINATION: VITAL SIGNS: Please see below. GENERAL: Pleasant and cooperative. No acute distress. HEENT: PERRL. Extraocular movements intact. Clear conjunctiva CARDIOVASCULAR: Regular rate and rhythm. No murmurs, rubs, or gallops LUNGS: Clear to auscultation bilaterally. No wheezes. No rhonchi ABDOMEN: Soft, nontender, nondistended. Positive bowel sounds. Normal active bowel sounds NEUROLOGICAL: Alert and oriented times three. Cranial nerves II through XII grossly intact. Sensation grossly intact in all 4 limbs EXTREMITIES: 5\5 strength bilateral upper extremities. 5\5 strength right lower extremity. 5/5 strength in left ankle DF and EHL, otherwise limited due to pain negative Babinski bilat, no clonus +mild dysmetria for [id number] on the left SKIN: left hip incision without induration ecchymosis or edema ASSESSMENT: 68-year-old F with past medical history of MS who presents status post fall with left hip fracture s/p hemiarthroplasty PLAN: 1. Rehab: PT, OT, assess for DME 2. Neuro: pmh MS, appears stable now- c/u Zonisamide and c/u baclofen and Tegretol for spasticity and neuropathic pain associated with MS- f/u with Dr. Corrigan as outpatient 3. Cardio: pmg CAD s/p CABG- c/u beta barbara, pmh HTN c/u Irbesartan-medicine consulted 4. Resp: encourgae incentive spirometry 5. Ortho: s/p lef thip elder-arthroplasty secondary to femur fracture- WBAT, hip precautions-consult ortho 6. Psych: c/u home meds for mood disorder 7. DVT ppx: Xarelto 8. GI ppx: protonix 9. : f/u admisison UA and monitor 10. SKin: left abdominal rash- nystatin cream 11. Insominia: patient takes trazodone 200mg at home, c/u 12. Pain: Tylenol- avoid tramadol as she is on other serotonergic meds already 13. Dispo: TBD Allergies Coded Allergies: Penicillins (Verified Allergy, Severe, anaph, 10/15/18) anaph latex (Verified Allergy, Intermediate, 10/15/18) states she reacts when she wears gloves, but not when others do Vital Signs Vital Signs Date Time Temp Pulse Resp B/P (MAP) Pulse Ox O2 Delivery O2 Flow Rate FiO2 10/17/18 09:20 146/70 (95) 10/17/18 08:34 86 10/17/18 06:00 99.6 18 90 Laboratory Data CBC/BMP Laboratory Tests 10/17/18 06:21 Red Blood Count 2.84 L, Mean Corpuscular Volume 101.1 H, Mean Corpuscular Hemoglobin 32.0, Mean Corpuscular Hemoglobin Concent 31.7 L, Red Cell Distribution Width 14.7 H, Neutrophils (%) (Auto) 80.0 H, Lymphocytes (%) (Auto) 7.5 L, Monocytes (%) (Auto) 9.6 H, Eosinophils (%) (Auto) 1.8, Basophils (%) (A uto) 0.3, Neutrophils # (Auto) 7.0, Lymphocytes # (Auto) 0.7 L, Monocytes # (Auto) 0.8, Eosinophils # (Auto) 0.2, Basophils # (Auto) 0.0, Calcium Level 8.3 L, Aspartate Amino Transf (AST/SGOT) 50 H, Alanine Aminotransferase (ALT/SGPT) 31, Alkaline Phosphatase 107, Total Bilirubin 0.6 #, Total Protein 6.7, Albumin 3.2 Labs 24H Laboratory Tests 2 10/16/18 20:07: Bedside Glucose (Misc Panel) 174H 10/16/18 20:15: Urine Appearance CLOUDYH, Urine Color YELLOW, Urine pH 6.0, Urine Specific [place] 1.018, Urine Protein NEGATIVE, Urine Glucose (UA) NEGATIVE, Urine Ketones NEGATIVE, Urine Urobilinogen 0.2, Urine Bilirubin NEGATIVE, Urine Le ukocyte Esterase 1+H, Urine Blood 2+H, Urine Nitrite NEGATIVE, Urine WBC (Auto) 13H, Urine RBC (Auto) 64H, Urine Hyaline Casts (Auto) 0, Urine Bacteria (Auto) NEGATIVE, Urine Squamous Epithelial Cells 2, Urine Transitional Epithelial Cells <1, Urine Sperm (Auto) 10/17/18 06:21: Immature Granulocyte % (Auto) 0.8, White Blood Count 8.7, Red Blood Count 2.84L, Hemoglobin 9.1L, Hematocrit 28.7L, Mean Corpuscular Volume 101.1H, Mean Corpuscular Hemoglobin 32.0, Mean Corpuscular Hemoglobin Concent 31.7L, Red Cell Distribution Width 14.7H, Platelet Count 111L, Neutrophils (%) (Auto) 80.0H, Lymphocytes (%) (Auto) 7.5L, Monocytes (%) (Auto) 9.6H, Eosinophils (%) (Auto) 1.8, Basophils (%) (Auto) 0.3, Neutrophils # (Auto) 7.0, Lymphocytes # (Auto) 0.7L, Monocytes # (Auto) 0.8, Eosinophils # (Auto) 0.2, Basophils # (Auto) 0.0, Nucleated Red Blood Cells % (auto) 0.0, Anion Gap 6L, Glomerular Filtration Rate > 60.0, Blood Urea Nitrogen 16, Creatinine 0.75, Sodium Level 136, Potassium Level 3.8, Chloride Level 103, Carbon Dioxide Level 27, Calcium Level 8.3L, Aspartate Amino Transf (AST/SGOT) 50H, Alanine Aminotransferase (ALT/SGPT) 31, Alkaline Phosphatase 107, Total Bilirubin 0.6#, Total Protein 6.7, Albumin 3.2, Albumin/Globulin Ratio 0.91L 10/17/18 11:46: Bedside Glucose (Misc Panel) 68L Microbiology Microbiology 10/16/18 Urine Culture, Received Pending Current Medications Current Medications Current Medications Acetaminophen (Tylenol Tab) 1,000 mg QID PO Last administered on 10/17/18at 13:36; Start 10/16/18 at 17:00 Al Hydrox/Mg Hydrox/Simethicone (Mylanta) 30 ml Q4HP PRN PO DYSPEPSIA; Start 10/16/18 at 16:15 Amitriptyline HCl (Elavil) 25 mg QHS PO Last administered on 10/16/18at 20:37; Start 10/16/18 at 21:00 Baclofen (Lioresal) 40 mg BID PO Last administered on 10/17/18at 08:32; Start 10/16/18 at 21:00 Bisacodyl (Dulcolax Suppository) 10 mg DAILYPRN PRN OR CONSTIPATION; Start 10/16/18 at 16:15 Carbamazepine (TEGretol XR) 400 mg BID PO Last administered on 10/17/18at 08:33; Start 10/16/18 at 21:00 Carvedilol (COReg) 6.25 mg BID PO Last administered on 10/17/18at 08:34; Start 10/16/18 at 21:00 Dextrose (Dextrose 50%) 25 ml ASDIRECTED PRN IV SEE LABEL COMMENTS; Start 10/16/18 at 16:30 Docusate Sodium (Colace) 100 mg BID PO ; Start 10/16/18 at 21:00 Folic Acid (Folic Acid) 1 mg DAILY PO Last administered on 10/17/18at 08:33; Start 10/17/18 at 09:00 Gabapentin (Neurontin) 100 mg TID PO Last administered on 10/17/18at 08:34; Start 10/16/18 at 16:00 Glimepiride (Amaryl) 2 mg QHS PO Last administered on 10/16/18at 20:37; Start 10/16/18 at 21:00 Glucagon (Glucagon) 1 mg ASDIRECTED PRN SC SEE LABEL COMMENTS; Start 10/16/18 at 16:30 Glucose (Glucose) 16 GM ASDIRECTED PRN PO SEE LABEL COMMENTS; Start 10/16/18 at 16:30 Insulin Human Lispro (HumaLOG INSULIN) SEE PROTOCOL TABLE AC SC Last administered on 10/17/18at 08:32; Start 10/16/18 at 17:30 Insulin Human Lispro (HumaLOG INSULIN) SEE PROTOCOL TABLE QHS SC ; Start 10/16/18 at 21:00 Irbesartan (Avapro) 150 mg DAILY PO Last administered on 10/17/18at 08:35; Sta rt 10/17/18 at 09:00 Levothyroxine Sodium (Synthroid) 25 mcg DAILY@06 PO Last administered on 9at 06:13; Start 10/17/18 at 06:00 Nitroglycerin (Nitrostat (1/ 200)) 0.3 mg Q5MP PRN SL CHEST PAIN; Start 10/16/18 at 16:15 Ondansetron HCl (Zofran) 4 mg Q6HP PRN PO NAUSEA; Start 10/16/18 at 16:15 Pantoprazole Sodium (Protonix) 40 mg DAILY PO Last administered on 10/17/18at 08:32; Start 10/17/18 at 09:00 Pravastatin Sodium (Pravachol) 40 mg DAILY@2100 PO Last administered on 10/16/18at 20:36; Start 10/16/18 at 21:00 Rivaroxaban (Xarelto) 10 mg DAILY@1800 PO Last administered on 10/16/18at 17:17; Start 10/16/18 at 18:00 Senna (Senokot) 1 tab QHS PO ; Start 10/16/18 at 21:00 Trazodone HCl (Desyrel) 200 mg QHSP PRN PO INSOMNIA; Start 10/16/18 at 16:15 Venlafaxine HCl (Effexor Xr) 75 mg DAILY PO Last administered on 10/17/18at 08:32; Start 10/17/18 at 09:00 Zonisamide (Zonegran) 50 mg BID PO Last administered on 10/17/18at 08:32; Start 10/16/18 at 21:00 A-FIB/CHADSVASC A-FIB History Current/History of A-Fib/PAF?: No ANA LUISA MUNIZ MD October 17, 2018 15:34
[2018-10-17] MEDS: RIVAROXABAN 10 MG TAB (XARELTO) PO SCH (17:24)
[2018-10-17 20:00] VITALS: BP 137/71
[2018-10-17] MEDS: PRAVASTATIN 20 MG TAB PO SCH (21:16)
[2018-10-17] MEDS: NYSTATIN CREAM 15 GM TOP SCH (21:19)
[2018-10-17] MEDS: AMITRIPTYLINE 25 MG TAB PO SCH (21:29)
[2018-10-18 06:00] VITALS: BP 180/76
[2018-10-18 06:03] VITALS: BP 184/76
[2018-10-18] MEDS: CARVedilol 6.25 MG TAB PO SCH ×2 (06:20→20:59)
[2018-10-18] MEDS: LEVOTHYROXINE 25MCG TABLET (0.025MG) PO SCH (06:20)
[2018-10-18] MEDS: IRBESARTAN 150 MG TAB PO SCH (06:21)
[2018-10-18 06:40] VITALS: BP 182/80
[2018-10-18 07:10] LABS: HEMOGLOBIN A1c 5.5 %
[2018-10-18] MEDS: HumaLOG INSULIN (NovoLOG) PER UNIT SC SCH ×4 (08:24→20:59)
[2018-10-18] MEDS: carBAMazepine XR 200 MG TAB PO SCH ×2 (08:25→20:58)
[2018-10-18] MEDS: GABAPENTIN 100 MG CAP PO SCH ×3 (08:25→20:58)
[2018-10-18] MEDS: ZONISAMIDE 50 MG CAP (ZONEGRAN) PO SCH ×2 (08:26→20:59)
[2018-10-18] MEDS: BACLOFEN 10 MG TAB PO SCH ×2 (08:27→20:59)
[2018-10-18] MEDS: VENLAFAXINE **XR** 75MG CAPSULE PO SCH (08:27)
[2018-10-18] MEDS: GLIMEPIRIDE 2 MG TAB PO SCH (08:27)
[2018-10-18] MEDS: ACETAMINOPHEN 500 MG TAB PO SCH ×4 (08:28→20:59)
[2018-10-18] MEDS: PANTOPRAZOLE 40MG TAB (PROTONIX) PO SCH (08:28)
[2018-10-18] MEDS: FOLIC ACID 1 MG TAB PO SCH (08:29)
[2018-10-18] MEDS: NYSTATIN CREAM 15 GM TOP SCH ×2 (08:37→21:00)
[2018-10-18 09:00] VITALS: BP 152/72
[2018-10-18] MEDS: NITROFURANTOIN (MACROBID) 100 MG CAP PO SCH ×2 (12:28→20:58)
[2018-10-18] MEDS: LACTOBACILLUS ACIDOPHILUS CAP (BACID) PO SCH ×2 (12:28→17:12)
[2018-10-18 14:00] VITALS: BP 140/65
--- NOTE | 2018-10-18 15:06 | REP ---
Clinical: Status post left hip replacement. Technique: AP and cross-table lateral views. Findings: The patient is noted to be status post left hip arthroplasty with normal appearance and positioning to the femoral and acetabular components. Overlying postsurgical changes are appreciated. Impression: Normal status post left hip arthroplasty. Electronically Signed by Tod Bhatti MD 10/18/2018 02:58 P
--- NOTE | 2018-10-18 15:12 | IPNPDOC ---
PM&R Progress Note DATE OF SERVICE: October 18, 2018 Cfo Progress Note Subjective: She reports increased urinary frequency, persistent loose stools, and left hip clicking and pain with movement. REVIEW OF SYSTEMS: The following is a completed review of systems and has been reviewed. Review of systems otherwise unremarkable. PAIN: Patient self reports left hip pain EYES: Negative for recent vision changes EARS, NOSE, & THROAT: denies dysphagia, throat pain or hearing loss CARDIOVASCULAR:denies chest pain or palpitations PULMONARY: Negative. Denies shortness of breath GASTROINTESTINAL: +loose stools GENITOURINARY: Negative for dysuria MUSCULOSKELETAL:left hip fracture NEUROLOGICAL: +MS HEMATOLOGICAL: +anemia SKIN: left abdominal fold rash, left incision PSYCHIATRIC: Unremarkable All other review of systems found to be negative. PHYSICAL EXAMINATION: VITAL SIGNS: Please see below. GENERAL: Pleasant and cooperative. No acute distress. HEENT: PERRL. Extraocular movements intact. Clear conjunctiva CARDIOVASCULAR: Regular rate and rhythm. No murmurs, rubs, or gallops LUNGS: Clear to auscultation bilaterally. No wheezes. No rhonchi ABDOMEN: Soft, nontender, nondistended. Positive bowel sounds. Normal active bowel sounds NEUROLOGICAL: Alert and oriented times three. Cranial nerves II through XII grossly intact. Sensation grossly intact in all 4 limbs EXTREMITIES: 5\5 strength bilateral upper extremities. 5\5 strength right lower extremity. 5/5 strength in left ankle DF and EHL, otherwise limited due to pain negative Babinski bilat, no clonus +mild dysmetria for [id number] on the left SKIN: left hip incision without induration ecchymosis or edema ASSESSMENT: 68-year-old F with past medical history of MS who presents status post fall with left hip fracture s/p hemiarthroplasty PLAN: 1. Rehab: PT, OT, assess for DME , able to ambulate with RW 2. Neuro: pmh MS, appears stable now- c/u Zonisamide and c/u baclofen and Tegretol for spasticity and neuropathic pain associated with MS- f/u with Dr. Corrigan as outpatient 3. Cardio: pmg CAD s/p CABG- c/u beta barbara, pmh HTN c/u Irbesartan-medicine consulted 4. Resp: encourgae incentive spirometry 5. Ortho: s/p left hip elder-arthroplasty secondary to femur fracture- WBAT, hip precautions-consult ortho -AP lateral Xray ordered today per ortho recs for left hip clicking, suspect labral involvement 6. Psych: c/u home meds for mood disorder 7. DVT ppx: Xarelto 8. GI ppx: protonix, persistent loose stools, no leukocytosis so do not suspect C diff- possibly due to antibitoics, will order immodium 9. : admission UA and Cx positive for E. coli and monitor 10. SKin: left abdominal rash- nystatin cream 11. Insominia: patient takes trazodone 200mg at home, c/u 12. Pain: Tylenol- avoid tramadol as she is on other serotonergic meds already 13. Dispo: TBD Allergies Coded Allergies: Penicillins (Verified Allergy, Severe, anaph, 10/15/18) anaph latex (Verified Allergy, Intermediate, 10/15/18) states she reacts when she wears gloves, but not when others do Vital Signs Vital Signs Date Time Temp Pulse Resp B/P (MAP) Pulse Ox O2 Delivery O2 Flow Rate FiO2 10/18/18 09:00 152/72 (98) 10/18/18 06:20 76 10/18/18 06:00 99.4 20 97 10/17/18 23:02 3.0 Laboratory Data Labs 24H Laboratory Tests 2 10/17/18 16:50: Bedside Glucose (Misc Panel) 172H 10/17/18 19:54: Bedside Glucose (Misc Panel) 119H 10/18/18 06:00: Bedside Glucose (Misc Panel) 160H 10/18/18 06:26: Estimated Mean Plasma Glucose 111H, Hemoglobin A1c 5.5 10/18/18 11:50: Bedside Glucose (Misc Panel) 203H Microbiology Microbiology 10/16/18 Urine Culture - Final, Complete Escherichia Coli Current Medications Current Medications Current Medications Acetaminophen (Tylenol Tab) 1,000 mg QID PO Last administered on 10/18/18at 12:23; Start 10/16/18 at 17:00 Al Hydrox/Mg Hydrox/Simethicone (Mylanta) 30 ml Q4HP PRN PO DYSPEPSIA; Start 10/16/18 at 16:15 Amitriptyline HCl (Elavil) 25 mg QHS PO Last administered on 10/17/18at 21:29; Start 10/16/18 at 21:00 Baclofen (Lioresal) 40 mg BID PO Last administered on 10/18/18at 08:27; Start 10/16/18 at 21:00 Bisacodyl (Dulcolax Suppository) 10 mg DAILYPRN PRN [place] CONSTIPATION; Start 10/16/18 at 16:15 Carbamazepine (TEGretol XR) 400 mg BID PO Last administered on 10/18/18 08:25; Start 10/16/18 at 21:00 Carvedilol (COReg) 6.25 mg BID PO Last administered on 10/18/18at 06:20; Start 10/16/18 at 21:00 Dextrose (Dextrose 50%) 25 ml ASDIRECTED PRN IV SEE LABEL COMMENTS; Start 10/16/18 at 16:30 Docusate Sodium (Colace) 100 mg BID PO ; Start 10/16/18 at 21:00; Stop 10/17/18 at 15:35; Status DC Folic Acid (Folic Acid) 1 mg DAILY PO Last administered on 10/18/18at 08:29; Start 10/17/18 at 09:00 Gabapentin (Neurontin) 100 mg TID PO Last administered on 10/18/18at 08:25; Start 10/16/18 at 16:00 Glimepiride (Amaryl) 2 mg DAILY@0730 PO Last administered on 10/18/18at 08:27; Start 10/18/18 at 07:30 Glimepiride (Amaryl) 2 mg QHS PO Last administered on 10/16/18at 20:37; Start 10/16/18 at 21:00; Stop 10/17/18 at 18:03; Status DC Glucagon (Glucagon) 1 mg ASDIRECTED PRN SC SEE LABEL COMMENTS; Start 10/16/18 at 16:30 Glucose (Glucose) 16 GM ASDIRECTED PRN PO SEE LABEL COMMENTS; Start 10/16/18 at 16:30 Insulin Human Lispro (HumaLOG INSULIN) SEE PROTOCOL TABLE AC SC Last administered on 10/18/18at 12:24; Start 10/16/18 at 17:30 Insulin Human Lispro (HumaLOG INSULIN) SEE PROTOCOL TABLE QHS SC ; Start 10/16/18 at 21:00 Irbesartan (Avapro) 150 mg DAILY PO Last administered on 10/18/18 06:21; Start 10/17/18 at 09:00 Lactobacillus Acidophilus (Bacid) 1 ea BIDWM PO Last administered on 10/18/18 12:28; Start 10/18/18 at 08:00 Levothyroxine Sodium (Synthroid) 25 mcg DAILY@06 PO Last administered on 10/18/18 06:20; Start 10/17/18 at 06:00 Nitrofurantoin Monoh/Nitrofur Macro (Macrobid) 100 mg BID PO Last administered on 10/18/18 12:28; Start 10/18/18 at 09:00; Stop 10/24/18 at 21:01 Nitroglycerin (Nitrostat (1/ 200)) 0.3 mg Q5MP PRN SL CHEST PAIN; Start at 16:15 Nystatin (Mycostatin) apply BID to left abdomi... BID TOP Last administered on 10/18/18 08:37; Start 10/17/18 at 21:00 Ondansetron HCl (Zofran) 4 mg Q6HP PRN PO NAUSEA; Start 10/16/18 at 16:15 Pantoprazole Sodium (Protonix) 40 mg DAILY PO Last administered on 10/18/18 08:28; Start 10/17/18 at 09:00 Pravastatin Sodium (Pravachol) 40 mg DAILY@2100 PO Last administered on 10/17/18 21:16; Start 10/16/18 at 21:00 Rivaroxaban (Xarelto) 10 mg DAILY@1800 PO Last administered on 10/17/18 17:24; Start 10/16/18 at 18:00 Senna (Senokot) 1 tab QHS PO ; Start 10/16/18 at 21:00; Stop 10/17/18 at 15:35; Status DC Trazodone HCl (Desyrel) 200 mg QHSP PRN PO INSOMNIA; Start 10/16/18 at 16:15 Venlafaxine HCl (Effexor Xr) 75 mg DAILY PO Last administered on 10/18/18 08:27; Start 10/17/18 at 09:00 Zonisamide (Zonegran) 50 mg BID PO Last administered on 10/18/18 08:26; Start 10/16/18 at 21:00 A-FIB/CHADSVASC A-FIB History Current/History of A-Fib/PAF?: No ANA LUISA MUNIZ MD October 18, 2018 15:12
[2018-10-18] MEDS ORDERED: LOPERAMIDE 2 MG CAP PO PRN (15:15)
[2018-10-18] MEDS: RIVAROXABAN 10 MG TAB (XARELTO) PO SCH (17:12)
[2018-10-18] MEDS: PRAVASTATIN 20 MG TAB PO SCH (20:58)
[2018-10-18] MEDS: AMITRIPTYLINE 25 MG TAB PO SCH (20:58)
--- NOTE | 2018-10-19 01:29 | CR ---
DATE OF CONSULTATION: 10/17/2018 PRIMARY CARE PROVIDER: Abram Barbosa. NEUROLOGIST: Dr. Corrigan CHIEF COMPLAINT: Left hip pain. HISTORY OF PRESENT ILLNESS: This is a 68-year old female with a history of multiple sclerosis (MS) who went to place her grandchild in a baby carrier on the floor. While leaning over, she began to lean to her left and fell, landing on her left hip and hitting the left side of her head. She did not have any loss of consciousness. She denies any prodromal symptoms. She was admitted, assessed. CT head showed no bleed or fracture. X-ray showed a left intertrochanteric hip fracture. She had a left hemiarthroplasty without complication and has been admitted to the acute rehabilitation unit for physical therapy (PT), occupation therapy (OT), and assessment for durable medical equipment (DME). SOCIAL HISTORY: She lives with her . She quit smoking years ago. She does not drink alcohol. She does not use recreational drugs. ALLERGIES: PENICILLIN, LATEX. PAST MEDICAL HISTORY: 1. Coronary artery disease status post stent and coronary artery bypass graft (CABG) approximately 3-4 years ago. 2. Hypertension. 3. Multiple sclerosis. 4. Ijl-kwaskya-qexgsbffw diabetes type 2. 5. Hypothyroidism. 6. Folic acid deficiency. 7. Gastroesophageal reflux disease. 8. Obstructive sleep apnea, compliant with bilevel positive airway pressure (BiPAP). 9. Mood disorder. PAST SURGICAL HISTORY: 1. CABG. 2. Cardiac catheterization. 3. Hernia repair. 4. Appendectomy. 5. Cholecystectomy. 6. Left carpal tunnel release. 7. Most recently, left arthroplasty. HOME MEDICATIONS: - amitriptyline 25 mg by mouth nightly - baclofen 40 mg by mouth twice a day - carbamazepine 400 mg by mouth twice a day - Coreg 6.25 mg by mouth twice a day - folic acid 1 mg by mouth daily - irbesartan 150 mg by mouth daily - levothyroxine 25 mcg by mouth daily - Milk of Magnesia 30 mL by mouth twice a day as needed constipation - metformin 500 mg by mouth daily - methotrexate 2.5 mg (She takes 7.5 mg by mouth weekly.) - nitroglycerin 0.4 mg one subinguinal every 5 minutes times three as needed for chest pain - pantoprazole 40 mg by mouth daily - pravastatin 40 mg by mouth nightly - Seroquel 25 mg by mouth nightly - Xarelto 10 mg by mouth daily - tramadol 50 mg by mouth every 6 hours as needed severe pain - glimepiride 1 mg by mouth with breakfast (It here nightly.) - MiraLAX one packet daily - trazodone 200 mg by mouth nightly - venlafaxine 75 mg by mouth daily - zonisamide 50 mg by mouth twice a day FAMILY HISTORY: Reviewed and noncontributory. 10 SYSTEMS REVIEW: Was done. Other than some postoperative discomfort, patient had no complaints and was feeling well. PHYSICAL EXAMINATION: Blood pressure 130/62, pulse 87, respirations 20, oxygen saturation 94% on room air, temperature 98.2. Patient is alert and oriented times three. Pupils equal and reactive to light. Extraocular movements intact. Cornea and sclerae clear. Conjunctivae normal. No facial asymmetry. Pharynx, tongue, gums pink and moist. Tongue is midline. NECK: Is supple without lymphadenopathy. No thyromegaly. No goiter. Carotids 2+ without bruit. Jugular venous pressure is below clavicle at 90 degrees. CHEST: Clear to auscultation without wheeze or retraction. HEART: Is regular. ABDOMEN: Benign. Bowel sounds positive. GENITOURINARY ()/RECTAL: Not done. EXTREMITIES: Show no cyanosis, clubbing, or edema. SKIN: Warm and dry. Slight reddened rash left abdominal fold. IMPRESSION/PLAN: 1. Rehabilitation. PT/OT per rehabilitation. 2. History of multiple sclerosis. Patient currently stable. Continue with zonisamide, baclofen, and Tegretol for spasticity and neuropathic pain. Followup with Dr. Corrigan as an outpatient. 3. History of hypertension. Continue with irbesartan 150 mg by mouth daily. Continue to monitor blood pressures; may need adjustment. Continue Coreg 6.25 mg by mouth twice a day. 4. Mood disorder. Continue with trazodone, venlafaxine, and Seroquel. 5. Coronary artery disease, clinically stable. 6. Hypothyroidism. Continue current dose of Synthroid. 7. Diabetes type 2. Continue her oral diabetic medications. Monitor fingerstick blood sugars. Consistent carbohydrate diet. 8. Obstructive sleep apnea. She has her home BiPAP, and she will use it while on rehabilitation. 9. Deep venous thrombosis (DVT) prophylaxis. She is on Xarelto. LABORATORY STUDIES: White count is 8.7, hemoglobin and hematocrit are 9.1 and 28.7, platelets 111. Sodium is 136, potassium 3.8, chloride 103, CO2 of 27, BUN 16, creatinine 0.76, nonfasting glucose 176. Urine was slightly cloudy, 2+ blood, 1+ leukocyte esterase, WBCs 13. Urine culture is pending.
[2018-10-19] MEDS: LEVOTHYROXINE 25MCG TABLET (0.025MG) PO SCH (05:40)
[2018-10-19 06:00] VITALS: BP 186/92
[2018-10-19] MEDS: CARVedilol 6.25 MG TAB PO SCH ×2 (06:02→20:58)
[2018-10-19] MEDS: IRBESARTAN 150 MG TAB PO SCH (06:02)
[2018-10-19 06:48] VITALS: BP 180/94
[2018-10-19 07:54] LABS: BASO % 0.5 % (0.0-1.0); EOS # 0.2 10^3/uL (0.0-0.50); EOS % 2.8 % (0.0-3.0); HEMATOCRIT 27.6 % (36.0-47.0); HEMOGLOBIN 8.7 g/dl (12.0-15.5); LYMPH # 0.6 10^3/uL (1.5-4.5); LYMPH % 9.5 % (24.0-44.0); MEAN CORPUSCULAR HGB CONC 31.5 g/dl (32.0-36.5); MEAN CORPUSCULAR VOLUME 101.5 fl (80.0-96.0); MONO # 0.5 10^3/uL (0.0-0.8); MONO % 7.4 % (0.0-5.0); NEUTROPHILS % 78.9 % (36.0-66.0); PLATELET COUNT, AUTOMATED 138 10^3/uL (150-450); RED BLOOD COUNT 2.72 10^6/uL (4.00-5.40); WHITE BLOOD COUNT 6.3 10^3/uL (4.0-10.0)
[2018-10-19 08:06] LABS: BLOOD UREA NITROGEN 15 MG/DL (7-18); CALCIUM LEVEL 8.3 MG/DL (8.8-10.2); CARBON DIOXIDE LEVEL 28 MEQ/L (21-32); CHLORIDE LEVEL 108 MEQ/L (98-107); CREATININE FOR GFR 0.63 MG/DL (0.55-1.30); GLOMERULAR FILTRATION RATE > 60.0 (>45); GLUCOSE, FASTING 178 MG/DL (70-100); POTASSIUM SERUM 3.7 MEQ/L (3.5-5.1); SODIUM LEVEL 141 MEQ/L (136-145)
[2018-10-19] MEDS: GLIMEPIRIDE 2 MG TAB PO SCH (09:03)
[2018-10-19] MEDS: LACTOBACILLUS ACIDOPHILUS CAP (BACID) PO SCH ×2 (09:03→17:28)
[2018-10-19] MEDS: NITROFURANTOIN (MACROBID) 100 MG CAP PO SCH ×2 (09:03→20:59)
[2018-10-19] MEDS: GABAPENTIN 100 MG CAP PO SCH ×3 (09:03→20:58)
[2018-10-19] MEDS: BACLOFEN 10 MG TAB PO SCH ×2 (09:03→20:59)
[2018-10-19] MEDS: FOLIC ACID 1 MG TAB PO SCH (09:04)
[2018-10-19] MEDS: ZONISAMIDE 50 MG CAP (ZONEGRAN) PO SCH ×2 (09:04→20:58)
[2018-10-19] MEDS: VENLAFAXINE **XR** 75MG CAPSULE PO SCH (09:04)
[2018-10-19] MEDS: ACETAMINOPHEN 500 MG TAB PO SCH ×4 (09:04→20:59)
[2018-10-19] MEDS: PANTOPRAZOLE 40MG TAB (PROTONIX) PO SCH (09:04)
[2018-10-19] MEDS: carBAMazepine XR 200 MG TAB PO SCH ×2 (09:05→20:58)
[2018-10-19] MEDS: HumaLOG INSULIN (NovoLOG) PER UNIT SC SCH ×4 (09:05→20:49)
[2018-10-19] MEDS: NYSTATIN CREAM 15 GM TOP SCH (09:06)
--- NOTE | 2018-10-19 12:25 | CR ---
DATE OF CONSULTATION: 10/19/[address] ORDOÑEZ This is a 68-year-old woman who had a recent hemiarthroplasty for hip fracture on the left done by Dr. Souza on Monday, four days ago. She has been gradually increasing her activity while she has been on the rehab unit. She has had no fevers. I was asked to see her today on an urgent basis due to some redness that has developed inferior to the wound and down the lateral side of her thigh to a mild degree and some irritation of her knee. She says that her knee has been bothering her since the second postoperative day, she attributes it to increased activity. On exam, she is afebrile. She is in no acute distress. Her wound appears completely benign. There is no redness or drainage from the wound. She does have some mild redness just inferior to the wound which I marked out and it is an area probably 8 cm x about 2.5. It is lengthwise down along the plane of the leg. This appears to be more bruising than actual erythema. She does have some mild warmth of her distal lateral thigh and knee area, but she has good range of motion of the knee. She can fully extend it. There may be a slight effusion. She does tolerate range of motion of her hip. At this point, the patient is four days status post hemiarthroplasty for fracture. She began having some increased symptoms a couple of days ago with knee pain. She has been afebrile. There is some mild redness inferior to the wound and some redness down lateral and anterior to the knee. This may very well just be from increased activity and overuse. It is not uncommon to get an effusion in a joint distal to an injury such as this. She so far has a normal white count as of this morning of 6.3. Her hematocrit is 27.6 with a hemoglobin of 8.7. C-reactive protein is currently pending. There was a blood culture obtained. There did appear to be a urine culture from a couple of days ago with E-coli. At this point, I do not see any evidence of any wound infection. I do not see any evidence of necrotizing fasciitis. She does not have any crepitance underneath the skin. I think some of this may be due to some increased activity. There could be some early cellulitis. The fact that she is afebrile and has a normal white count is certainly a good sign. I think to be on the safe side we should start her on some vancomycin, she is allergic to penicillin. I believe that Dr. Hunt has been consulted and certainly appreciate her input as well. I would be somewhat reluctant to aspirate the knee just because there is some erythema around the anterior lateral aspect of the knee and if this some cellulitis there is some risk of infecting the knee and clinically I am not suspicious of this. She has supple range of motion, normal white count and afebrile status. Will order the vancomycin. Blood cultures are pending. Will recommend heat in the form of a K pad. Will follow along.
--- NOTE | 2018-10-19 12:55 | IPNPDOC ---
PM&R Progress Note DATE OF SERVICE: October 19, 2018 [employer]ator Progress Note Subjective: Patient reporting increasing left hip and groin pain with swelling. REVIEW OF SYSTEMS: The following is a completed review of systems and has been reviewed. Review of systems otherwise unremarkable. PAIN: Patient self reports left hip pain EYES: Negative for recent vision changes EARS, NOSE, & THROAT: denies dysphagia, throat pain or hearing loss CARDIOVASCULAR:denies chest pain or palpitations PULMONARY: Negative. Denies shortness of breath GASTROINTESTINAL: +loose stools GENITOURINARY: Negative for dysuria MUSCULOSKELETAL:left hip fracture NEUROLOGICAL: +MS HEMATOLOGICAL: +anemia SKIN: left abdominal fold rash, left incision PSYCHIATRIC: Unremarkable All other review of systems found to be negative. PHYSICAL EXAMINATION: VITAL SIGNS: Please see below. GENERAL: Pleasant and cooperative. No acute distress. HEENT: PERRL. Extraocular movements intact. Clear conjunctiva CARDIOVASCULAR: Regular rate and rhythm. No murmurs, rubs, or gallops LUNGS: Clear to auscultation bilaterally. No wheezes. No rhonchi ABDOMEN: Soft, nontender, nondistended. Positive bowel sounds. Normal active bowel sounds NEUROLOGICAL: Alert and oriented times three. Cranial nerves II through XII grossly intact. Sensation grossly intact in all 4 limbs EXTREMITIES: 5\5 strength bilateral upper extremities. 5\5 strength right lower extremity. 5/5 strength in left ankle DF and EHL, otherwise limited due to pain negative Babinski bilat, no clonus +mild dysmetria for [id number] on the left SKIN: left hip incision c/d/i, however ann-wound area with swelling, warmth, and TTP- erythematous streak contiguous with the distal incision ASSESSMENT: 68-year-old F with past medical history of MS who presents status post fall with left hip fracture s/p hemiarthroplasty PLAN: 1. Rehab: PT, OT, assess for DME , able to ambulate further with RW 2. Neuro: pmh MS, appears stable now- c/u Zonisamide and c/u baclofen and Tegretol for spasticity and neuropathic pain associated with MS- f/u with Dr. Corrigan as outpatient 3. Cardio: pmg CAD s/p CABG- c/u beta barbara, pmh HTN c/u Irbesartan-medicine consulted 4. Resp: encourgae incentive spirometry 5. Ortho: s/p left hip elder-arthroplasty secondary to femur fracture- WBAT, hip precautions-consult ortho -X-ray from 10/18/18 showing normal alignment, today concern for infection given swelling and erythema on exam and increased pain and CRP elevated to 20. --blood cultures ordered, ID consulted and patient quickly evaluated by Dr. Hanks who ordered 1x dose of Vancomycin and will defer to Dr. Hunt for further treatment 6. Psych: c/u home meds for mood disorder 7. DVT ppx: Xarelto 8. GI ppx: protonix, persistent loose stools, no leukocytosis so do not suspect C diff- possibly due to antibitoics, will order immodium 9. : admission UA and Cx positive for E. coli with polyuria- started on macrobid 10/18/18 10. SKin: left abdominal rash- nystatin cream 11. Insominia: patient takes trazodone 200mg at home, c/u 12. Pain: Tylenol- avoid tramadol as she is on other serotonergic meds already 13. Dispo: TBD Allergies Coded Allergies: Penicillins (Verified Allergy, Severe, anaph, 10/15/18) anaph latex (Verified Allergy, Intermediate, 10/15/18) states she reacts when she wears gloves, but not when others do Vital Signs Vital Signs Date Time Temp Pulse Resp B/P (MAP) Pulse Ox O2 Delivery O2 Flow Rate FiO2 10/19/18 06:48 180/94 (122) 10/19/18 06:02 79 10/19/18 06:00 99.0 18 94 10/18/18 21:41 3.0 Laboratory Data CBC/BMP Laboratory Tests 10/19/18 07:16 Red Blood Count 2.72 L, Mean Corpuscular Volume 101.5 H, Mean Corpuscular Hemoglobin 32.0, Mean Corpuscular Hemoglobin Concent 31.5 L, Red Cell Distribution Width 15.0 H, Neutrophils (%) (Auto) 78.9 H, Lymphocytes (%) (Auto) 9.5 L, Monocytes (%) (Auto) 7.4 H, Eosinophils (%) (Auto) 2.8, Basophils (%) (Auto) 0.5, Neutrophils # (Auto) 5.0, Lymphocytes # (Auto) 0.6 L, Monocytes # (Auto) 0.5, Eosinophils # (Auto) 0.2, Basophils # (Auto) 0.0, Calcium Level 8.3 L Labs 24H Laboratory Tests 2 10/18/18 16:50: Bedside Glucose (Misc Panel) 139H 10/18/18 20:44: Bedside Glucose (Misc Panel) 144H 10/19/18 07:16: Immature Granulocyte % (Auto) 0.9, White Blood Count 6.3, Red Blood Count 2.72L, Hemoglobin 8.7L, Hematocrit 27.6L, Mean Corpuscular Volume 101.5H, Mean Corpuscular Hemoglobin 32.0, Mean Corpuscular Hemoglobin Concent 31.5L, Red Cell Distribution Width 15.0H, Platelet Count 138L, Neutrophils (%) (Auto) 78.9H, Lymphocytes (%) (Auto) 9.5L, Monocytes (%) (Auto) 7.4H, Eosinophils (%) (Auto) 2.8, Basophils (%) (Auto) 0.5, Neutrophils # (Auto) 5.0, Lymphocytes # (Auto) 0.6L, Monocytes # (Auto) 0.5, Eosinophils # (Auto) 0.2, Basophils # (Auto) 0.0, Nucleated Red Blood Cells % (auto) 0.0, Anion Gap 5L, Glomerular Filtration Rate > 60.0, Blood Urea Nitrogen 15, Creatinine 0.63, Sodium Level 141, Potassium Level 3.7, Chloride Level 108H, Carbon Dioxide Level 28, Calcium Level 8.3L, C- Reactive Protein, Quantitative 20.80H 10/19/18 11:50: Bedside Glucose (Misc Panel) 134H Microbiology Microbiology 10/19/18 Blood Culture, Received Pending 10/19/18 Blood Culture, Received Pending 10/16/18 Urine Culture - Final, Complete Escherichia Coli Current Medications Current Medications Current Medications Acetaminophen (Tylenol Tab) 1,000 mg QID PO Last administered on 10/19/18at 12:22; Start 10/16/18 at 17:00 Al Hydrox/Mg Hydrox/Simethicone (Mylanta) 30 ml Q4HP PRN PO DYSPEPSIA; Start 10/16/18 at 16:15 Amitriptyline HCl (Elavil) 25 mg QHS PO Last administered on 10/18/18at 20:58; Start 10/16/18 at 21:00 Baclofen (Lioresal) 40 mg BID PO Last administered on 10/19/18at 09:03; Start 10/16/18 at 21:00 Bisacodyl (Dulcolax Suppository) 10 mg DAILYPRN PRN [place] CONSTIPATION; Start 10/16/18 at 16:15 Carbamazepine (TEGretol XR) 400 mg BID PO Last administered on 10/19/18at 09:05; Start 10/16/18 at 21:00 Carvedilol (COReg) 6.25 mg BID PO Last administered on 10/19/18at 06:02; Start 10/16/18 at 21:00 Dextrose (Dextrose 50%) 25 ml ASDIRECTED PRN IV SEE LABEL COMMENTS; Start 10/16/18 at 16:30 Docusate Sodium (Colace) 100 mg BID PO ; Start 10/16/18 at 21:00; Stop 10/17/18 at 15:35; Status DC Folic Acid (Folic Acid) 1 mg DAILY PO Last administered on 10/19/18at 09:04; Start 10/17/18 at 09:00 Gabapentin (Neurontin) 100 mg TID PO Last administered on 10/19/18at 09:03; Start 10/16/18 at 16:00 Glimepiride (Amaryl) 2 mg DAILY@0730 PO Last administered on 10/19/18at 09:03; Start 10/18/18 at 07:30 Glimepiride (Amaryl) 2 mg QHS PO Last administered on 10/16/18at 20:37; Start 10/16/18 at 21:00; Stop 10/17/18 at 18:03; Status DC Glucagon (Glucagon) 1 mg ASDIRECTED PRN SC SEE LABEL COMMENTS; Start 10/16/18 at 16:30 Glucose (Glucose) 16 [place] ASDIRECTED PRN PO SEE LABEL COMMENTS; Start 10/16/18 at 16:30 Insulin Human Lispro (HumaLOG INSULIN) SEE PROTOCOL TABLE AC SC Last administered on 10/19/18at 12:23; Start 10/16/18 at 17:30 Insulin Human Lispro (HumaLOG INSULIN) SEE PROTOCOL TABLE QHS SC ; Start 10/16/18 at 21:00 Irbesartan (Avapro) 150 mg DAILY PO Last administered on 10/19/18at 06:02; Start 10/17/18 at 09:00 Lactobacillus Acidophilus (Bacid) 1 ea BIDWM PO Last administered on 10/19/18 09:03; Start 10/18/18 at 08:00 Levothyroxine Sodium (Synthroid) 25 mcg DAILY@06 PO Last administered on 10/19/18at 05:40; Start 10/17/18 at 06:00 Loperamide HCl (Imodium) 2 mg ASDIRECTED PRN PO DIARRHEA; Start 10/18/18 at 15:15 Nitrofurantoin Monoh/Nitrofur Macro (Macrobid) 100 mg BID PO Last administered on 10/19/18 09:03; Start 10/18/18 at 09:00; Stop 10/24/18 at 21:01 Nitroglycerin (Nitrostat (1/ 200)) 0.3 mg Q5MP PRN SL CHEST PAIN; Start 10/16/18 at 16:15 Nystatin (Mycostatin) apply BID to left abdomi... BID TOP Last administered on 10/19/18 09:06; Start 10/17/18 at 21:00 Ondansetron HCl (Zofran) 4 mg Q6HP PRN PO NAUSEA; Start 10/16/18 at 16:15 Pantoprazole Sodium (Protonix) 40 mg DAILY PO Last administered on 10/19/18 09:04; Start 10/17/18 at 09:00 Pravastatin Sodium (Pravachol) 40 mg DAILY@2100 PO Last administered on 10/18at 20:58; Start 10/16/18 at 21:00 Rivaroxaban (Xarelto) 10 mg DAILY@1800 PO Last administered on 10/18/18at 17:12; Start 10/16/18 at 18:00 Senna (Senokot) 1 tab QHS PO ; Start 10/16/18 at 21:00; Stop 10/17/18 at 15:35; Status DC Trazodone HCl (Desyrel) 200 mg QHSP PRN PO INSOMNIA; Start 10/16/18 at 16:15 Venlafaxine HCl (Effexor Xr) 75 mg DAILY PO Last administered on 10/19/18 09:04; Start 10/17/18 at 09:00 Zonisamide (Zonegran) 50 mg BID PO Last administered on 10/19/18at 09:04; Start 10/16/18 at 21:00 ANA LUISA MUNIZ MD October 19, 2018 12:55
[2018-10-19] MEDS: VANCOMYCIN HCL 1,000 MG, VIAL MATE ADAPTER 1 EACH in D5W 250 ML IV SCH ×2 (13:00→13:33)
[2018-10-19 14:00] VITALS: BP 188/76
--- NOTE | 2018-10-19 14:25 | PHACANCOPD ---
PHARMACY VANCOMYCIN DOSING Pt Demographics Demographics Patient Age:68 , Weight:84.000 , Gender: female Adjusted Body Weight Date: 10/19/18, Adjusted Body Weight: Kg Events Past 24 Hours Events Past 24 Hours: NO: Dialysis, Diuretic Therapy, Change in CrCl, Fever, Elevation in WBC, Pending Diagnostics, Pending Procedures, Other Vancomycin Vancomycin indication: possible cellulitis Vancomycin Target Ranges: 15-20 mcg/ml Vancomycin Load Y/N: No Load Dose Date Time Vancomycin Load Dose: Date: Time: Vancomycin Dose Date: 10/19/18. Current Vancomycin Dose: [1g IV q12h @13] Intermittent Dosing?: No Labs Labs Item Value Date Time Creatinine 0.75 MG/DL 10/17/18 0621 Creatinine 0.63 MG/DL 10/19/18 0716 White Blood Count 8.7 10^3/uL 10/17/18 0621 C-Reactive Protein, Quantitative 20.80 MG/DL H 10/19/18 0716 Micro Microbiology 10/19/18 Blood Culture, Received Pending 10/19/18 Blood Culture, Received Pending 10/16/18 Urine Culture - Final, Complete Escherichia Coli Creatinine Clearance Date:10/19/18. Creatinine Clearance: [~75 ml/min]. Pending Labs Vanco trough scheduled 10/21 @12:00 (noon) Assessment and Plan Maintaining Current Dose?: Yes Reason for dose change: No Dose Change Pharmacist Note Pharmacist Note Date: 10/19/18. Pharmacist note: pt has been started on vancomycin for possible L thigh/knee cellulitis s/p left hip arthroplasty. CRP is elevated, other inflammatory markers are within normal range. She has not been on vancomycin at our facility in the past. I have started her on vancomycin 1g IV q12h. I will obtain a trough before the 5th dose. We will continue to monitor and make adjustments as necessary. Donnie Mejia Pharm.D. October 19, 2018 14:24
[2018-10-19] MEDS: RIVAROXABAN 10 MG TAB (XARELTO) PO SCH (17:29)
[2018-10-19 20:00] VITALS: BP 188/96
[2018-10-19] MEDS: NYSTATIN 100,000 UNITS/GM TOPICAL PWD 15 GM TOP SCH (20:58)
[2018-10-19] MEDS: AMITRIPTYLINE 25 MG TAB PO SCH (20:58)
[2018-10-19] MEDS: PRAVASTATIN 20 MG TAB PO SCH (20:59)
[2018-10-19] MEDS: traZODone 100 MG TAB PO PRN (21:02)
[2018-10-19 22:42] VITALS: BP 132/62
--- NOTE | 2018-10-19 23:21 | CR ---
DATE OF CONSULTATION: 10/19/2018 Asked to consult by Dr. Caldera for evaluation of left thigh erythema status post left hemiarthroplasty. HISTORY OF PRESENT ILLNESS: Ms. Fried is a pleasant 68-year-old female with a history of multiple sclerosis who fell and broke her left hip. She was taken to the operating room on October [address] Souza. Underwent a left hemiarthroplasty and was transferred to acute rehabilitation for physical therapy. The patient denies any fever or chills. No nausea, vomiting, or diarrhea. No cough or shortness of breath. She is doing well postoperatively, doing her physical therapy, but she had noticed some erythema on the lower inferior aspect of the thigh with some increased tenderness. Her white count is 6.38, temperature is 99. Hemoglobin 8.7, hematocrit 27.6. She has dropped her hemoglobin from 10.7 to 8.7 postoperatively. PAST MEDICAL HISTORY: Significant for: 1. Multiple sclerosis. 2. Coronary artery disease status post coronary artery bypass graft (CABG) 4 years ago in [place]. 3. Hypertension. 4. Diabetes, type 2. 5. Hypothyroidism. 6. Folic acid deficiency. 7. Mood disorder. 8. Gastroesophageal reflux disease. 9. Obstructive sleep apnea. 10. Morbid obesity status post bypass and abdominoplasty. PAST SURGICAL HISTORY: 1. CABG. 2. Cardiac catheterization. 3. Hernia repair. 4. Appendectomy. 5. Cholecystectomy. 6. Gastric bypass and abdominoplasty for excessive large pannus. SOCIAL HISTORY: She lives with her . She babysits her two grandchildren, during which she fell and broke her hip. She quit smoking. She was a 50 pack-year smoker. Does not drink or use drugs. She has three tattoos Son from a burn. REVIEW OF SYSTEMS: Denies nausea, vomiting, diarrhea, abdominal pain, fever, or chills. She has some intertriginous candidiasis in her groin area. The patient has frequency but no dysuria, hematuria, or flank pain. Mild left hip pain. PHYSICAL EXAMINATION: Temperature is 99, pulse 83, respirations 18, blood pressure 126/92, oxygen saturation 94% on room air. HEART: Normal S1, S2. No murmurs, rubs or gallops. LUNGS: Clear. No wheezes, rales, or rhonchi. ABDOMEN: Obese, soft, nontender. No Hepatosplenomegaly. She has a large healed scar infra-abdominally from the greater trochanter left to right. BACK: No costovertebral angle (CVA) or lumbosacral tenderness. Oropharynx is clear with no thrush. Left hip incision: [place] in place. There is no erythema along the incision line. Below the last staple there is small linear area that is purplish in color, tender to touch, that looks more like an ecchymosis. Knees: Good range of motion. Hips: Good range of motion. Feet: No clubbing, cyanosis, or edema. No rashes. No tenderness. Tattoo on the right 2nd toe. LABORATORY DATA: White count 6.3, hemoglobin 8.7, hematocrit 27.6, MCV 101, platelets 138, 78% neutrophils, 10% lymphocytes, 8% monocytes. Sodium 141, potassium 3.7, chloride 108, bicarbonate 28, BUN 15, creatinine 0.63, glucose 178, calcium 8.3, CRP 20.8. Urine cultures positive for Escherichia (E) coli on October 16. Urinalysis had 13 white, 54 red cells. Blood cultures are pending. Hip x-ray done on October 18 stable hemiarthroplasty. IMPRESSION: Heidy is a 68-year-old female with morbid obesity, diabetes, hip fracture, who underwent a left hemiarthroplasty and had postoperative bleeding. Had a drop in her hemoglobin from 10.7 to 8.7. Has on physical exam what looks to be me like ecchymosis and not cellulitis. She is afebrile and has a normal white count. She has cystitis with E. coli. Her only complaint is frequency. PLAN: 1. Do not treat the redness around his the hip. This is not infectious. This is more likely ecchymosis. Continue to monitor. This has been traced by Dr. Hanks who already has seen the patient. 2. Mucocutaneous candidiasis. She is to use Mycostatin powder. 3. E. coli cystitis, on Macrobid. Patient will be treated with 5 days of by mouth Macrobid. 4. Repeat complete blood count (CBC)/C-reactive protein (CRP) in the morning. Monitor any worsening erythema or pain, fever, or an increased white count. MTDD
[2018-10-20] MEDS: LEVOTHYROXINE 25MCG TABLET (0.025MG) PO SCH (05:58)
[2018-10-20 06:00] VITALS: BP 182/80
[2018-10-20 07:23] LABS: ALBUMIN 2.9 GM/DL (3.2-5.2); ALT/SGPT 29 U/L (12-78); BILIRUBIN,TOTAL 0.4 MG/DL (0.2-1.0); BLOOD UREA NITROGEN 17 MG/DL (7-18); CALCIUM LEVEL 8.7 MG/DL (8.8-10.2); CARBON DIOXIDE LEVEL 27 MEQ/L (21-32); CHLORIDE LEVEL 107 MEQ/L (98-107); CREATININE FOR GFR 0.63 MG/DL (0.55-1.30); GLOMERULAR FILTRATION RATE > 60.0 (>45); GLUCOSE, FASTING 177 MG/DL (70-100); POTASSIUM SERUM 3.5 MEQ/L (3.5-5.1); SODIUM LEVEL 141 MEQ/L (136-145); TOTAL PROTEIN 6.9 GM/DL (6.4-8.2)
[2018-10-20] MEDS: GABAPENTIN 100 MG CAP PO SCH ×3 (08:26→21:18)
[2018-10-20] MEDS: NITROFURANTOIN (MACROBID) 100 MG CAP PO SCH ×2 (08:26→21:18)
[2018-10-20] MEDS: BACLOFEN 10 MG TAB PO SCH ×2 (08:26→21:18)
[2018-10-20] MEDS: IRBESARTAN 150 MG TAB PO SCH (08:27)
[2018-10-20] MEDS: CARVedilol 6.25 MG TAB PO SCH (08:27)
[2018-10-20] MEDS: GLIMEPIRIDE 2 MG TAB PO SCH (08:27)
[2018-10-20] MEDS: LACTOBACILLUS ACIDOPHILUS CAP (BACID) PO SCH ×2 (08:27→18:09)
[2018-10-20] MEDS: PANTOPRAZOLE 40MG TAB (PROTONIX) PO SCH (08:27)
[2018-10-20] MEDS: ZONISAMIDE 50 MG CAP (ZONEGRAN) PO SCH ×2 (08:28→21:18)
[2018-10-20] MEDS: ACETAMINOPHEN 500 MG TAB PO SCH ×4 (08:28→21:18)
[2018-10-20] MEDS: FOLIC ACID 1 MG TAB PO SCH (08:28)
[2018-10-20] MEDS: VENLAFAXINE **XR** 75MG CAPSULE PO SCH (08:28)
[2018-10-20] MEDS: carBAMazepine XR 200 MG TAB PO SCH ×2 (08:29→21:18)
[2018-10-20] MEDS: HumaLOG INSULIN (NovoLOG) PER UNIT SC SCH ×4 (08:29→21:19)
[2018-10-20] MEDS: NYSTATIN 100,000 UNITS/GM TOPICAL PWD 15 GM TOP SCH ×2 (08:29→21:19)
[2018-10-20 14:00] VITALS: BP 180/80
[2018-10-20 17:00] LABS: BASO % 0.6 % (0.0-1.0); EOS # 0.2 10^3/uL (0.0-0.50); EOS % 3.2 % (0.0-3.0); HEMATOCRIT 26.8 % (36.0-47.0); HEMOGLOBIN 8.5 g/dl (12.0-15.5); LYMPH # 0.9 10^3/uL (1.5-4.5); LYMPH % 18.2 % (24.0-44.0); MEAN CORPUSCULAR HEMOGLOBIN 32.3 pg (27.0-33.0); MEAN CORPUSCULAR HGB CONC 31.7 g/dl (32.0-36.5); MEAN CORPUSCULAR VOLUME 101.9 fl (80.0-96.0); MONO # 0.6 10^3/uL (0.0-0.8); MONO % 11.4 % (0.0-5.0); NEUTROPHILS # 3.3 10^3/uL (1.8-7.7); NEUTROPHILS % 65.4 % (36.0-66.0); PLATELET COUNT, AUTOMATED 154 10^3/uL (150-450); RED BLOOD COUNT 2.63 10^6/uL (4.00-5.40)
[2018-10-20 17:12] LABS: ALBUMIN 2.7 GM/DL (3.2-5.2); ALT/SGPT 32 U/L (12-78); BILIRUBIN,TOTAL 0.3 MG/DL (0.2-1.0); BLOOD UREA NITROGEN 15 MG/DL (7-18); CALCIUM LEVEL 8.3 MG/DL (8.8-10.2); CARBON DIOXIDE LEVEL 28 MEQ/L (21-32); CHLORIDE LEVEL 109 MEQ/L (98-107); CREATININE FOR GFR 0.58 MG/DL (0.55-1.30); GLOMERULAR FILTRATION RATE > 60.0 (>45); GLUCOSE, FASTING 97 MG/DL (70-100); POTASSIUM SERUM 3.2 MEQ/L (3.5-5.1); SODIUM LEVEL 143 MEQ/L (136-145); TOTAL PROTEIN 7.1 GM/DL (6.4-8.2)
[2018-10-20] MEDS ORDERED: IRBESARTAN 150 MG TAB PO ONE (18:00)
[2018-10-20] MEDS ORDERED: POTASSIUM CHLORIDE 10 MEQ SR TABLET PO ONE (18:00)
[2018-10-20] MEDS: RIVAROXABAN 10 MG TAB (XARELTO) PO SCH (18:09)
[2018-10-20 21:11] VITALS: BP 180/76
[2018-10-20] MEDS: PRAVASTATIN 20 MG TAB PO SCH (21:17)
[2018-10-20] MEDS: traZODone 100 MG TAB PO PRN (21:18)
[2018-10-20] MEDS: AMITRIPTYLINE 25 MG TAB PO SCH (21:18)
[2018-10-20] MEDS: CARVedilol 12.5 MG TAB PO SCH (21:19)
[2018-10-20 22:18] VITALS: BP 132/64
[2018-10-21] MEDS: LEVOTHYROXINE 25MCG TABLET (0.025MG) PO SCH (06:37)
[2018-10-21 06:41] VITALS: BP 162/72
[2018-10-21 07:40] LABS: HEMATOCRIT 26.1 % (36.0-47.0); HEMOGLOBIN 8.1 g/dl (12.0-15.5); MEAN CORPUSCULAR HEMOGLOBIN 31.9 pg (27.0-33.0); MEAN CORPUSCULAR VOLUME 102.8 fl (80.0-96.0); PLATELET COUNT, AUTOMATED 157 10^3/uL (150-450); RED BLOOD COUNT 2.54 10^6/uL (4.00-5.40); WHITE BLOOD COUNT 3.6 10^3/uL (4.0-10.0)
[2018-10-21 08:13] LABS: BLOOD UREA NITROGEN 15 MG/DL (7-18); CALCIUM LEVEL 7.9 MG/DL (8.8-10.2); CARBON DIOXIDE LEVEL 27 MEQ/L (21-32); CHLORIDE LEVEL 110 MEQ/L (98-107); CREATININE FOR GFR 0.59 MG/DL (0.55-1.30); GLOMERULAR FILTRATION RATE > 60.0 (>45); GLUCOSE, FASTING 151 MG/DL (70-100); POTASSIUM SERUM 3.6 MEQ/L (3.5-5.1); SODIUM LEVEL 144 MEQ/L (136-145)
[2018-10-21] MEDS: PANTOPRAZOLE 40MG TAB (PROTONIX) PO SCH (08:29)
[2018-10-21] MEDS: ZONISAMIDE 50 MG CAP (ZONEGRAN) PO SCH ×2 (08:29→20:24)
[2018-10-21] MEDS: VENLAFAXINE **XR** 75MG CAPSULE PO SCH (08:30)
[2018-10-21] MEDS: BACLOFEN 10 MG TAB PO SCH ×2 (08:30→20:25)
[2018-10-21] MEDS: GABAPENTIN 100 MG CAP PO SCH ×3 (08:30→20:24)
[2018-10-21] MEDS: FOLIC ACID 1 MG TAB PO SCH (08:30)
[2018-10-21] MEDS: NITROFURANTOIN (MACROBID) 100 MG CAP PO SCH ×2 (08:30→20:25)
[2018-10-21] MEDS: LACTOBACILLUS ACIDOPHILUS CAP (BACID) PO SCH ×2 (08:30→17:34)
[2018-10-21] MEDS: ACETAMINOPHEN 500 MG TAB PO SCH ×4 (08:31→21:00)
[2018-10-21] MEDS: IRBESARTAN 150 MG TAB PO SCH (08:31)
--- NOTE | 2018-10-21 08:31 | IPN ---
DATE OF SERVICE: 10/20/2018 She was admitted to the acute rehabilitation unit for physical therapy and occupational therapy, status post left intertrochanteric hip fracture having had a left hemiarthroplasty without complications. She had some left thigh erythema on her lower thigh and it felt tender. A consult was done with Dr. Hunt. She felt it was more ecchymosis than looking like cellulitis. She had a urine culture sent that came back E. Coli. She has been placed on Macrobid. Her blood pressure has been increasing, at 182/80, and Coreg was increased from 6.25 to 12.5. She has no complaints of chest pain, shortness of breath or palpitations. Repeat blood pressure at 2:00 showed a blood pressure of 180/80. I increased her Avapro from 150 daily to 300 daily, the 300 will start in the morning, and she was given an additional 150 mg this afternoon. Repeat blood pressure at 6:11 is 158/82. Will continue to monitor closely. LABORATORY STUDIES: Sodium 143, potassium 3.2 - replacement has been ordered and given, CO2 28, anion gap 28, BUN 15, creatinine 0.58, fasting glucose 97. Finger stick blood sugars have been monitored. Fasting today was 97. Her hemoglobin A1c is 5.5. White count normal at 5, hemoglobin/hematocrit has drifted down again and it was 8.7 yesterday and today 8.5/26.8. Orthopedics is aware. Platelets 154. The patient had thought she had heard a clicking in her left hip and x-ray was ordered. It shows a normal status post left hip arthroplasty. OBJECTIVE: Blood pressure 158/82. Pulse 78. Respirations 18. Oxygen saturation 97% on room air. Temperature 97.5. The patient is alert and oriented times three. Pupils equal and react to light. Extraocular movements intact. Pharynx, tongue and gums pink and moist. Tongue is midline. Neck is supple, without lymphadenopathy. No thyromegaly. No goiter. Chest clear to auscultation, without wheeze or retraction. Heart is regular. Abdomen benign. Bowel sounds are positive. Genitourinary ()/Rectal: Not done. Extremities show equal strength, full range of motion. No cyanosis, clubbing or edema. Left hip incision slightly warm, slightly red. Yeast rash noted in the abdominal folds and groin. IMPRESSION AND PLAN: 1. Rehabilitation. Physical therapy and occupational therapy for rehabilitation. 2. History of multiple sclerosis, currently stable. Continue with her zonisamide, baclofen, Tegretol for spasticity and neuropathic pain. Continue followup with Dr. Corrigan as an outpatient. 3. History of hypertension. Continue with irbesartan 150 mg daily and increase tomorrow to 300. Will give an extra 150 today, so the total today will be 300 as well. Continue increased Coreg of 12.5 p daily. 4. Mood disorder. Continue with trazodone, venlafaxine and Seroquel. 5. Coronary artery disease. Clinically stable. 6. Hypothyroidism. Continue current dose of Synthroid. 7. Diabetes type 2. Continue oral diabetic medications. Change her diet from 2 gram sodium to consistent carbohydrate diet, 2 gram sodium. Monitor finger stick blood sugars and bring to next appointment. 8. Obstructive sleep apnea. Continue BiPap. 9. Deep vein thrombosis (DVT). Continue Xarelto. 10. Rash to the abdominal folds. Continue Nystatin powder, Diflucan by mouth. 11. E. Coli cystitis. Continue Macrobid.
[2018-10-21] MEDS: HumaLOG INSULIN (NovoLOG) PER UNIT SC SCH ×4 (08:32→20:29)
[2018-10-21] MEDS: carBAMazepine XR 200 MG TAB PO SCH ×2 (08:32→20:25)
[2018-10-21] MEDS: GLIMEPIRIDE 2 MG TAB PO SCH (08:32)
[2018-10-21] MEDS: CARVedilol 12.5 MG TAB PO SCH ×3 (08:33→20:25)
[2018-10-21] MEDS: NYSTATIN 100,000 UNITS/GM TOPICAL PWD 15 GM TOP SCH ×2 (08:34→20:29)
[2018-10-21 14:00] VITALS: BP 180/90
--- NOTE | 2018-10-21 15:49 | IPNPDOC ---
Text Note Date of Service The patient was seen on 10/21/18. NOTE Subjective: Patient is a 68-year-old female who was admitted to the acute rehabilitation unit for physical therapy and occupational therapy, status post left intertrochanteric hip fracture having had a left hemiarthroplasty without complications. She had some left thigh erythema on her lower thigh and it felt tender. A consult was done with Dr. Hunt as she was felt it was more ecchymosis than looking like cellulitis. She had a urine culture sent that came back E. Coli. She has been placed on Macrobid. Patient was seen and examined at the bedside. Patient briefly this morning. Denies chest pain, short of breath, palpitations, nausea, vomiting, abdominal pain, constipation, diarrhea, or urinary discomfort. Objective: Vitals (See below) General: Lying in bed, no acute distress, comfortable, AAOx3 HEENT: NC, AT CVS: RRR, +S1S2 Lungs: Fair air entry b/l, -w/r/r Abdomen: Soft, ND, NT Extremities: Trace Edema (L > R), - Calf tenderness Assessment and plan: Left femoral neck fracture - s/p OR and Left hemiarthroplasty on 10/[address] Hanks - Pain control and anticoagulation as per orthopedic surgery and ARU - Will continue with physical therapy and occupational therapy as per ARU Multiple sclerosis - Currently stable - c/w Zonisamide, Baclofen, Tegretol - Follows with Dr. Corrigan as an outpatient; will arrange for f/u on discharge CAD s/p CABG - Carvedilol HTN - BP moderately controlled - c/w Carvedilol, Irbesartan Hypothyroidism - c/w Levothyroxine NIDDM2 - c/w Glimepiride DLP - c/w Pravastatin JOHN on CPAP - c/w inhaled therapy as ordered Mood disorder - c/w Venlafaxine, Trazodone, Amitriptyline Folic acid deficiency - c/w Folic acid Inguinal fold hawk - c/w Nystatin powder E. Coli UTI - c/w Macrobid as per ARU / Dr. Martinez GERD - c/w Protonix DVT prophylaxis - c/w full anticoagulation with Xarelto Disposition: - Anticipate DC within 24-48 hours VS,Andreas, I+O VS, Andreas, I+O Laboratory Tests 10/20/18 16:36 Red Blood Count 2.63 L, Mean Corpuscular Volume 101.9 H, Mean Corpuscular Hemoglobin 32.3, Mean Corpuscular Hemoglobin Concent 31.7 L, Red Cell Distributi on Width 15.0 H, Neutrophils (%) (Auto) 65.4, Lymphocytes (%) (Auto) 18.2 L, Monocytes (%) (Auto) 11.4 H, Eosinophils (%) (Auto) 3.2 H, Basophils (%) (Auto) 0.6, Neutrophils # (Auto) 3.3, Lymphocytes # (Auto) 0.9 L, Monocytes # (Auto) 0.6, Eosinophils # (Auto) 0.2, Basophils # (Auto) 0.0, Calcium Level 8.3 L, Aspartate Amino Transf (AST/SGOT) 33, Alanine Aminotransferase (ALT/SGPT) 32, Alkaline Phosphatase 105, Total Bilirubin 0.3, Total Protein 7.1, Albumin 2.7 L 10/21/18 07:21 Red Blood Count 2.54 L, Mean Corpuscular Volume 102.8 H, Mean Corpuscular Hemoglobin 31.9, Mean Corpuscular Hemoglobin Concent 31.0 L, Red Cell Distribution Width 15.2 H, Calcium Level 7.9 L Vital Signs Date Time Temp Pulse Resp B/P (MAP) Pulse Ox O2 Delivery O2 Flow Rate FiO2 10/21/18 14:38 74 180/90 10/21/18 14:00 98.7 18 96 10/18/18 21:41 3.0 I&O- Last 24 Hours up to 6 AM 10/21/18 06:00 Intake Total 1080 ml Balance 1080 ml NEETA CATALAN MD October 21, 2018 15:49
[2018-10-21] MEDS: FUROSEMIDE 20 MG TAB PO SCH (16:30)
[2018-10-21] MEDS: RIVAROXABAN 10 MG TAB (XARELTO) PO SCH (17:34)
[2018-10-21 20:00] VITALS: BP 160/74
[2018-10-21] MEDS: traZODone 100 MG TAB PO PRN (20:25)
[2018-10-21] MEDS: AMITRIPTYLINE 25 MG TAB PO SCH (20:25)
[2018-10-21] MEDS: PRAVASTATIN 20 MG TAB PO SCH (20:25)
[2018-10-22] MEDS: LEVOTHYROXINE 25MCG TABLET (0.025MG) PO SCH (05:31)
[2018-10-22 06:00] VITALS: BP 182/78
[2018-10-22 07:24] LABS: HEMATOCRIT 24.8 % (36.0-47.0); HEMOGLOBIN 7.9 g/dl (12.0-15.5); MEAN CORPUSCULAR HEMOGLOBIN 32.6 pg (27.0-33.0); MEAN CORPUSCULAR HGB CONC 31.9 g/dl (32.0-36.5); MEAN CORPUSCULAR VOLUME 102.5 fl (80.0-96.0); PLATELET COUNT, AUTOMATED 167 10^3/uL (150-450); RED BLOOD COUNT 2.42 10^6/uL (4.00-5.40); WHITE BLOOD COUNT 5.3 10^3/uL (4.0-10.0)
[2018-10-22] MEDS: ZONISAMIDE 50 MG CAP (ZONEGRAN) PO SCH ×2 (09:30→21:35)
[2018-10-22] MEDS: FUROSEMIDE 20 MG TAB PO SCH (09:33)
[2018-10-22] MEDS: VENLAFAXINE **XR** 75MG CAPSULE PO SCH (09:33)
[2018-10-22] MEDS: GABAPENTIN 100 MG CAP PO SCH ×3 (09:33→21:31)
[2018-10-22] MEDS: PANTOPRAZOLE 40MG TAB (PROTONIX) PO SCH (09:33)
[2018-10-22] MEDS: NITROFURANTOIN (MACROBID) 100 MG CAP PO SCH ×2 (09:33→21:32)
[2018-10-22] MEDS: FOLIC ACID 1 MG TAB PO SCH (09:33)
[2018-10-22] MEDS: IRBESARTAN 150 MG TAB PO SCH (09:33)
[2018-10-22] MEDS: CARVedilol 12.5 MG TAB PO SCH ×2 (09:33→21:32)
[2018-10-22] MEDS: ACETAMINOPHEN 500 MG TAB PO SCH ×4 (09:34→21:32)
[2018-10-22] MEDS: GLIMEPIRIDE 2 MG TAB PO SCH (09:34)
[2018-10-22] MEDS: LACTOBACILLUS ACIDOPHILUS CAP (BACID) PO SCH ×2 (09:34→17:49)
[2018-10-22] MEDS: BACLOFEN 10 MG TAB PO SCH ×2 (09:35→21:31)
[2018-10-22] MEDS: HumaLOG INSULIN (NovoLOG) PER UNIT SC SCH ×4 (09:35→21:00)
[2018-10-22] MEDS: NYSTATIN 100,000 UNITS/GM TOPICAL PWD 15 GM TOP SCH ×2 (09:35→21:33)
[2018-10-22] MEDS: carBAMazepine XR 200 MG TAB PO SCH ×2 (10:28→21:31)
[2018-10-22 14:00] VITALS: BP 177/83
[2018-10-22] MEDS: oxyCODONE 10 MG CR TAB PO SCH ×2 (14:02→21:31)
--- NOTE | 2018-10-22 14:58 | IPNPDOC ---
Subjective Date Seen The patient was seen on 10/22/18. Subjective Chief Complaint/HPI Patient is a 68-year-old female admitted to acute rehabilitation unit for physical and occupational therapy status post left intertrochanteric hip fracture and left hemiarthroplasty. Events since last encounter She complains of significant pain to her left hip site of surgery. Denies chest pain or shortness of breath, denies chills or fever, denies dysuria Objective Physical Examination Other physical findings GENERAL: NAD SKIN : Warm, dry intact HEENT: Atraumatic, normocephalic, PERRL, moist mucous membrane CARDIOVASCULAR: irregular rate and rhythm, S1S2, no JVD, LLE edema RESP: CTAB, no accessory muscle use noted ABDOMEN: BS+ non distended non tender MS: no joint deformities NEURO: Alert and oriented x 3, CN2-12 grossly intact PSYCH: no anxiety or agitation, appropriate mood and affect. Assessment /Plan Problems (1) Intertrochanteric fracture of left hip Status: Acute Problem Text: -S/P left hemiarthroplasty 10/15 -currently in rehabilitation unit for mobilization and strengthening -started on oxycontin XR or pain control (2) CAD (coronary artery disease) of artery bypass graft Problem Text: -stable -continue CAD risk factor modifications (3) Diabetes mellitus Problem Text: -Type 2 -ACHS, continue oral glycemic agent (4) Hypertension Problem Text: -currently uncontrolled -possibly due to significant pain and discomfort -control pain -Adjust blood pressure meds for target SBP <140 (5) JOHN (obstructive sleep apnea) Problem Text: -Cpap QHS (6) UTI (urinary tract infection) Problem Text: -+ecoli -continue macrobid (7) Multiple sclerosis Problem Text: - stable - continue Zonisamide, Baclofen, Tegretol - Follows with Dr. Corrigan as an outpatient -arrange for f/u at discharge (8) DVT prophylaxis Problem Text: -fully anticoagulated with xarelto Plan/VTE VTE Prophylaxis Ordered?: Yes VS, I&O, 24H, Fishbone Vital Signs/I&O Vital Signs Date Time Temp Pulse Resp B/P (MAP) Pulse Ox O2 Delivery O2 Flow Rate FiO2 10/22/18 14:02 18 10/22/18 09:33 172/78 10/22/18 09:33 80 10/22/18 06:00 98.6 96 10/18/18 21:41 3.0 I&O- Last 24 Hours up to 6 AM 10/22/18 06:00 Intake Total 960 ml Output Total 0 ml Balance 960 ml Laboratory Data 24H LABS Laboratory Tests 2 10/21/18 17:22: Bedside Glucose (Misc Panel) 237H 10/21/18 19:50: Bedside Glucose (Misc Panel) 264H 10/22/18 06:16: Bedside Glucose (Misc Panel) 178H 10/22/18 06:54: Nucleated Red Blood Cells % (auto) 0.0, C-Reactive Protein, Quantitative 7.26H 10/22/18 11:45: Bedside Glucose (Misc Panel) 71L CBC/BMP Laboratory Tests 10/22/18 06:54 Red Blood Count 2.42 L, Mean Corpuscular Volume 102.5 H, Mean Corpuscular Hemoglobin 32.6, Mean Corpuscular Hemoglobin Concent 31.9 L, Red Cell Distribution Width 15.2 H Microbiology Microbiology 10/19/18 Blood Culture - Preliminary, Resulted No Growth after 72 hours. All specime... 10/19/18 Blood Culture - Preliminary, Resulted No Growth after 72 hours. All specime... 10/16/18 Urine Culture - Final, Complete Escherichia Coli SATHISH OTOOLEP October 22, 2018 14:57
[2018-10-22] MEDS: RIVAROXABAN 10 MG TAB (XARELTO) PO SCH (17:49)
[2018-10-22 20:00] VITALS: BP 171/79
[2018-10-22] MEDS: PRAVASTATIN 20 MG TAB PO SCH (21:31)
[2018-10-22] MEDS: AMITRIPTYLINE 25 MG TAB PO SCH (21:32)
[2018-10-23 06:00] VITALS: BP 160/79
[2018-10-23] MEDS: LEVOTHYROXINE 25MCG TABLET (0.025MG) PO SCH (06:04)
[2018-10-23 06:29] LABS: HEMATOCRIT 25.5 % (36.0-47.0); HEMOGLOBIN 7.8 g/dl (12.0-15.5); MEAN CORPUSCULAR HEMOGLOBIN 31.3 pg (27.0-33.0); MEAN CORPUSCULAR HGB CONC 30.6 g/dl (32.0-36.5); MEAN CORPUSCULAR VOLUME 102.4 fl (80.0-96.0); PLATELET COUNT, AUTOMATED 168 10^3/uL (150-450); RED BLOOD COUNT 2.49 10^6/uL (4.00-5.40); WHITE BLOOD COUNT 4.7 10^3/uL (4.0-10.0)
[2018-10-23] MEDS ORDERED: XARE10TA PO (08:32)
[2018-10-23] MEDS: ZONISAMIDE 50 MG CAP (ZONEGRAN) PO SCH ×2 (08:59→20:58)
[2018-10-23] MEDS: GLIMEPIRIDE 2 MG TAB PO SCH (08:59)
[2018-10-23] MEDS: GABAPENTIN 100 MG CAP PO SCH ×3 (08:59→20:58)
[2018-10-23] MEDS: LACTOBACILLUS ACIDOPHILUS CAP (BACID) PO SCH ×2 (08:59→17:34)
[2018-10-23] MEDS: CARVedilol 12.5 MG TAB PO SCH ×2 (08:59→20:59)
[2018-10-23] MEDS: FOLIC ACID 1 MG TAB PO SCH (08:59)
[2018-10-23] MEDS: VENLAFAXINE **XR** 75MG CAPSULE PO SCH (08:59)
[2018-10-23] MEDS: NITROFURANTOIN (MACROBID) 100 MG CAP PO SCH ×2 (08:59→20:59)
[2018-10-23] MEDS: ACETAMINOPHEN 500 MG TAB PO SCH ×4 (09:00→21:00)
[2018-10-23] MEDS: IRBESARTAN 150 MG TAB PO SCH (09:00)
[2018-10-23] MEDS: BACLOFEN 10 MG TAB PO SCH ×2 (09:00→20:58)
[2018-10-23] MEDS: carBAMazepine XR 200 MG TAB PO SCH ×2 (09:00→20:59)
[2018-10-23] MEDS: FUROSEMIDE 20 MG TAB PO SCH (09:00)
[2018-10-23] MEDS: HumaLOG INSULIN (NovoLOG) PER UNIT SC SCH ×4 (09:01→21:18)
[2018-10-23] MEDS: PANTOPRAZOLE 40MG TAB (PROTONIX) PO SCH (09:03)
[2018-10-23] MEDS: oxyCODONE 10 MG CR TAB PO SCH ×2 (09:04→20:58)
[2018-10-23] MEDS: NYSTATIN 100,000 UNITS/GM TOPICAL PWD 15 GM TOP SCH ×2 (09:04→21:00)
[2018-10-23 14:00] VITALS: BP 154/68
[2018-10-23] MEDS: RIVAROXABAN 10 MG TAB (XARELTO) PO SCH (17:34)
--- NOTE | 2018-10-23 17:41 | IPNPDOC ---
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 She is eager to return home tomorrow. REVIEW OF SYSTEMS: The following is a completed review of systems and has been reviewed. Review of systems otherwise unremarkable. PAIN: Patient self reports left hip pain EYES: Negative for recent vision changes EARS, NOSE, & THROAT: denies dysphagia, throat pain or hearing loss CARDIOVASCULAR:denies chest pain or palpitations PULMONARY: Negative. Denies shortness of breath GASTROINTESTINAL: +loose stools (resolved) GENITOURINARY: Negative for dysuria MUSCULOSKELETAL:left hip fracture NEUROLOGICAL: +MS HEMATOLOGICAL: +anemia SKIN: left abdominal fold rash, left incision PSYCHIATRIC: Unremarkable All other review of systems found to be negative. PHYSICAL EXAMINATION: VITAL SIGNS: Please see below. GENERAL: Pleasant and cooperative. No acute distress. HEENT: PERRL. Extraocular movements intact. Clear conjunctiva CARDIOVASCULAR: Regular rate and rhythm. No murmurs, rubs, or gallops LUNGS: Clear to auscultation bilaterally. No wheezes. No rhonchi ABDOMEN: Soft, nontender, nondistended. Positive bowel sounds. Normal active bowel sounds NEUROLOGICAL: Alert and oriented times three. Cranial nerves II through XII grossly intact. Sensation grossly intact in all 4 limbs EXTREMITIES: 5\5 strength bilateral upper extremities. 5\5 strength right lower extremity. 5/5 strength in left ankle DF and EHL, otherwise limited due to pain negative Babinski bilat, no clonus +mild dysmetria for [id number] on the left SKIN: left hip incision c/d/i, however ann-wound area with swelling, mild warmth, and non- TTP- erythematous streak resolved ASSESSMENT: 68-year-old F with past medical history of MS who presents status post fall with left hip fracture s/p hemiarthroplasty PLAN: 1. Rehab: PT, OT, assess for DME , able to ambulate further with , room privileges 2. Neuro: pmh MS, appears stable now- c/u Zonisamide and c/u baclofen and Tegretol for spasticity and neuropathic pain associated with MS- f/u with Dr. Corrigan as outpatient 3. Cardio: pmg CAD s/p CABG- c/u beta barbara, pmh HTN c/u Irbesartan-medicine consulted 4. Resp: encourgae incentive spirometry 5. Ortho: s/p left hip elder-arthroplasty secondary to femur fracture- WBAT, hip precautions-consult ortho -X-ray from 10/18/18 showing normal alignment, today concern for infection given swelling and erythema on exam and increased pain and CRP elevated to 20 on 10/19/18 improving --blood cultures negative x2, ID consulted and patient quickly evaluated by Dr. Hanks and Dr. Hunt no treatment at this time- recs appreciated 6. Psych: c/u home meds for mood disorder 7. DVT ppx: Xarelto 8. GI ppx: protonix, loose stools resolved 9. : admission UA and Cx positive for E. coli with polyuria- started on macrobid 10/18/18-c/u 10. SKin: left abdominal rash- nystatin powder improving 11. Insominia: patient takes trazodone 200mg at home, c/u 12. Pain: Tylenol- avoid tramadol as she is on other serotonergic meds already 13. Dispo: 10/24/18, progressing quickly towards goals Allergies Coded Allergies: Penicillins (Verified Allergy, Severe, anaphylaxis, 10/19/18) latex (Verified Allergy, Intermediate, 10/15/18) states she reacts when she wears gloves, but not when others do Vital Signs Vital Signs Date Time Temp Pulse Resp B/P (MAP) Pulse Ox O2 Delivery O2 Flow Rate FiO2 10/23/18 14:00 97.7 74 18 154/68 (96) 96 10/18/18 21:41 3.0 Laboratory Data CBC/BMP Laboratory Tests 10/23/18 06:16 Red Blood Count 2.49 L, Mean Corpuscular Volume 102.4 H, Mean Corpuscular Hemoglobin 31.3, Mean Corpuscular Hemoglobin Concent 30.6 L, Red Cell Distribution Width 15.2 H Labs 24H Laboratory Tests 2 10/22/18 20:29: Bedside Glucose (Misc Panel) 223H 10/23/18 06:16: Nucleated Red Blood Cells % (auto) 0.0, C-Reactive Protein, Quantitative 5.73H 10/23/18 06:34: Bedside Glucose (Misc Panel) 146H 10/23/18 12:16: Bedside Glucose (Misc Panel) 180H 10/23/18 16:34: Bedside Glucose (Misc Panel) 200H Microbiology Microbiology 10/19/18 Blood Culture - Preliminary, Resulted No Growth after 72 hours. All specime... 10/19/18 Blood Culture - Preliminary, Resulted No Growth after 72 hours. All specime... 10/16/18 Urine Culture - Final, Complete Escherichia Coli Current Medications Current Medications Current Medications Acetaminophen (Tylenol Tab) 1,000 mg QID PO Last administered on 10/23/18at 12:34; Start 10/16/18 at 17:00 Al Hydrox/Mg Hydrox/Simethicone (Mylanta) 30 ml Q4HP PRN PO DYSPEPSIA; Start 10/16/18 at 16:15 Amitriptyline HCl (Elavil) 25 mg QHS PO Last administered on 10/22/18at 21:32; Start 10/16/18 at 21:00 Baclofen (Lioresal) 40 mg BID PO Last administered on 10/23/18at 09:00; Start 10/16/18 at 21:00 Bisacodyl (Dulcolax Suppository) 10 mg DAILYPRN PRN [place] CONSTIPATION; Start 10/16/18 at 16:15 Carbamazepine (TEGretol XR) 400 mg BID PO Last administered on 10/23/18at 09:00; Start 10/16/18 at 21:00 Carvedilol (COReg) 6.25 mg BID PO Last administered on 10/20/18 08:27; Start 10/16/18 at 21:00; Stop 10/20/18 at 09:45; Status DC Carvedilol (COReg) 12.5 mg BID PO Last administered on 10/22/18at 09:33; Start 10/20/18 at 21:00; Stop 10/22/18 at 14:59; Status DC Carvedilol (COReg) 25 mg BID PO Last administered on 10/23/18at 08:59; Start 10/22/18 at 21:00 Dextrose (Dextrose 50%) 25 ml ASDIRECTED PRN IV SEE LABEL COMMENTS; Start 10/16/18 at 16:30 Docusate Sodium (Colace) 100 mg BID PO ; Start 10/16/18 at 21:00; Stop 10/17/18 at 15:35; Status DC Folic Acid (Folic Acid) 1 mg DAILY PO Last administered on 10/23/18 08:59; Start 10/17/18 at 09:00 Furosemide (Lasix) 20 mg DAILY PO Last administered on 10/23/18at 09:00; Start 10/21/18 at 16:00 Gabapentin (Neurontin) 100 mg TID PO Last administered on 10/23/18 08:59; Start 10/16/18 at 16:00 Glimepiride (Amaryl) 2 mg DAILY@0730 PO Last administered on 10/23/18 08:59; Start 10/18/18 at 07:30 Glimepiride (Amaryl) 2 mg QHS PO Last administered on 10/16/18at 20:37; Start 10/16/18 at 21:00; Stop 10/17/18 at 18:03; Status DC Glucagon (Glucagon) 1 mg ASDIRECTED PRN SC SEE LABEL COMMENTS; Start 10/16/18 at 16:30 Glucose (Glucose) 16 GM ASDIRECTED PRN PO SEE LABEL COMMENTS; Start 10/16/18 at 16:30 Insulin Human Lispro (HumaLOG INSULIN) SEE PROTOCOL TABLE AC SC Last administered on 10/23/18at 12:35; Start 10/16/18 at 17:30 Insulin Human Lispro (HumaLOG INSULIN) SEE PROTOCOL TABLE QHS SC Last administered on 10/21/18at 20:29; Start 10/16/18 at 21:00 Irbesartan (Avapro) 150 mg DAILY PO Last administered on 10/20/18 08:27; Start 10/17/18 at 09:00; Stop 10/20/18 at 17:28; Status DC Irbesartan (Avapro) 300 mg DAILY PO Last administered on 10/23/18 09:00; Start 10/21/18 at 09:00 Lactobacillus Acidophilus (Bacid) 1 ea BIDWM PO Last administered on 10/23/18 08:59; Start 10/18/18 at 08:00 Levothyroxine Sodium (Synthroid) 25 mcg DAILY@06 PO Last administered on 10/23/18 06:04; Start 10/17/18 at 06:00 Loperamide HCl (Imodium) 2 mg ASDIRECTED PRN PO DIARRHEA Last administered on 5/26/19at 13:07; Start 10/18/18 at 15:15 Miscellaneous (Unresolved Clarification Entry) SEE LABEL COMMENTS DAILY XX ; Start 10/23/18 at 09:00; Stop 10/23/18 at 16:12; Status DC Nitrofurantoin Monoh/Nitrofur Macro (Macrobid) 100 mg BID PO Last administered on 10/23/18at 08:59; Start 10/18/18 at 09:00; Stop 10/24/18 at 21:01 Nitroglycerin (Nitrostat (1/ 200)) 0.3 mg Q5MP PRN SL CHEST PAIN; Start 10/16/18 at 16:15 Nystatin (Mycostatin Powder, Nystop) 1 dose BID TOP Last administered on 10/23/18 09:04; Start 10/19/18 at 21:00 Nystatin (Mycostatin) apply BID to left abdomi... BID TOP Last administered on 10/19/18at 09:06; Start 10/17/18 at 21:00; Stop 10/19/18 at 14:11; Status DC Ondansetron HCl (Zofran) 4 mg Q6HP PRN PO NAUSEA; Start 10/16/18 at 16:15 Oxycodone HCl (OxyCONTIN) 10 mg BID PO Last administered on 10/23/18at 09:04; Start 10/22/18 at 09:00 Pantoprazole Sodium (Protonix) 40 mg DAILY PO Last administered on 10/23/18at 09:03; Start 10/17/18 at 09:00 Pravastatin Sodium (Pravachol) 40 mg DAILY@2100 PO Last administered on 10/22/18at 21:31; Start 10/16/18 at 21:00 Rivaroxaban (Xarelto) 10 mg DAILY@1800 PO Last administered on 10/22/18at 17:49; Start 10/16/18 at 18:00 Senna (Senokot) 1 tab QHS PO ; Start 10/16/18 at 21:00; Stop 10/17/18 at 15:35; Status DC Trazodone HCl (Desyrel) 200 mg QHSP PRN PO INSOMNIA Last administered on 10/21/18at 20:25; Start 10/16/18 at 16:15 Vancomycin HCl 1000 mg/IV Miscellaneous Supplies 1 each/ Dextrose 270 ml @ 270 mls/hr Q12H IV ; Start 10/19/18 at 13:00; Stop 10/19/18 at 15:29; Status DC Venlafaxine HCl (Effexor Xr) 75 mg DAILY PO Last administered on 10/19/18at 09:04; Start 10/17/18 at 09:00; Stop 10/19/18 at 15:25; Status DC Venlafaxine HCl (Effexor Xr) 75 mg DAILY PO Last administered on 10/23/18at 08:59; Start 10/20/18 at 09:00 Zonisamide (Zonegran) 50 mg BID PO Last administered on 10/23/18at 08:59; Start 10/16/18 at 21:00 ANA LUISA MUNIZ MD October 23, 2018 17:41
[2018-10-23] MEDS ORDERED: ACETAMINOPHEN TAB 650MG DOSE (2X325MG) PO ONE (18:00)
[2018-10-23] MEDS ORDERED: diphenhydrAMINE 25 MG CAP PO ONE (18:00)
[2018-10-23 20:00] VITALS: BP 180/79
[2018-10-23] MEDS ORDERED: FUROSEMIDE 20 MG/2 ML VIAL (J1940) IV ONE (20:00)
[2018-10-23] MEDS: FERROUS GLUCONATE 324 MG TAB PO SCH (20:58)
[2018-10-23] MEDS: AMITRIPTYLINE 25 MG TAB PO SCH (20:58)
[2018-10-23] MEDS: PRAVASTATIN 20 MG TAB PO SCH (20:58)
[2018-10-24] MEDS: traZODone 100 MG TAB PO PRN (03:13)
[2018-10-24] MEDS: LEVOTHYROXINE 25MCG TABLET (0.025MG) PO SCH (05:49)
[2018-10-24 06:39] VITALS: BP 160/79
[2018-10-24 07:02] LABS: BASO % 0.5 % (0.0-1.0); EOS # 0.2 10^3/uL (0.0-0.50); HEMATOCRIT 28.1 % (36.0-47.0); HEMOGLOBIN 9.1 g/dl (12.0-15.5); LYMPH # 0.9 10^3/uL (1.5-4.5); LYMPH % 15.2 % (24.0-44.0); MEAN CORPUSCULAR HGB CONC 32.4 g/dl (32.0-36.5); MEAN CORPUSCULAR VOLUME 98.9 fl (80.0-96.0); MONO # 0.6 10^3/uL (0.0-0.8); MONO % 10.5 % (0.0-5.0); NEUTROPHILS # 3.9 10^3/uL (1.8-7.7); NEUTROPHILS % 67.9 % (36.0-66.0); PLATELET COUNT, AUTOMATED 181 10^3/uL (150-450); RED BLOOD COUNT 2.84 10^6/uL (4.00-5.40); WHITE BLOOD COUNT 5.8 10^3/uL (4.0-10.0)
[2018-10-24] MEDS: oxyCODONE 10 MG CR TAB PO SCH (08:15)
[2018-10-24] MEDS: NITROFURANTOIN (MACROBID) 100 MG CAP PO SCH (08:15)
[2018-10-24] MEDS: LACTOBACILLUS ACIDOPHILUS CAP (BACID) PO SCH (08:16)
[2018-10-24] MEDS: carBAMazepine XR 200 MG TAB PO SCH (08:16)
[2018-10-24] MEDS: IRBESARTAN 150 MG TAB PO SCH (08:16)
[2018-10-24] MEDS: BACLOFEN 10 MG TAB PO SCH (08:16)
[2018-10-24 08:17] VITALS: BP 160/79
[2018-10-24] MEDS: CARVedilol 12.5 MG TAB PO SCH (08:17)
[2018-10-24] MEDS: VENLAFAXINE **XR** 75MG CAPSULE PO SCH (08:17)
[2018-10-24] MEDS: ACETAMINOPHEN 500 MG TAB PO SCH (08:17)
[2018-10-24] MEDS: GABAPENTIN 100 MG CAP PO SCH (08:17)
[2018-10-24] MEDS: PANTOPRAZOLE 40MG TAB (PROTONIX) PO SCH (08:18)
[2018-10-24] MEDS: FERROUS GLUCONATE 324 MG TAB PO SCH (08:18)
[2018-10-24] MEDS: FUROSEMIDE 20 MG TAB PO SCH (08:18)
[2018-10-24] MEDS: GLIMEPIRIDE 2 MG TAB PO SCH (08:18)
[2018-10-24] MEDS: FOLIC ACID 1 MG TAB PO SCH (08:18)
[2018-10-24] MEDS: HumaLOG INSULIN (NovoLOG) PER UNIT SC SCH (08:21)
[2018-10-24] MEDS: NYSTATIN 100,000 UNITS/GM TOPICAL PWD 15 GM TOP SCH (09:24)
[2018-10-24] MEDS: ZONISAMIDE 50 MG CAP (ZONEGRAN) PO SCH (09:24)
[2018-10-24] MEDS ORDERED: AMIT25TA PO (09:52)
[2018-10-24] MEDS ORDERED: BACL10TA2 PO (09:52)
[2018-10-24] MEDS ORDERED: CARB20TAXR PO (09:52)
[2018-10-24] MEDS ORDERED: VENL75CA47 PO (09:53)
[2018-10-24] MEDS ORDERED: ZONI50CA PO (09:53)
[2018-10-24] MEDS ORDERED: GABA-1171 PO (09:53)
[2018-10-24] MEDS ORDERED: FOLI1TAB11 PO (09:53)
[2018-10-24] MEDS ORDERED: CARV12.5 PO (09:53)
[2018-10-24] MEDS ORDERED: PRAV1TAB39 PO (09:53)
[2018-10-24] MEDS ORDERED: PANT40TA3 PO (09:53)
[2018-10-24] MEDS ORDERED: TRAZ10TA PO (09:53)
[2018-10-24] MEDS ORDERED: FURO20TA2 PO (09:53)
[2018-10-24] MEDS ORDERED: AMAR1TAB5 PO (09:53)
[2018-10-24] MEDS ORDERED: AVAP150T31 PO (09:53)
[2018-10-24] MEDS ORDERED: LEVO25TA5 PO (09:53)
[2018-10-24] MEDS ORDERED: FERR32TA PO (09:53)
[2018-10-24] MEDS ORDERED: RISATAB3 PO (09:53)
[2018-10-24] MEDS ORDERED: NITR0.3S4 SL (09:53)
== END 2018-10-24 11:30 | disposition home or self-care (01) | DRG 560 ==
LOC: M PM&R 16:35
PROVIDERS: ADMIT Physical Medicine & Rehabilitation; ATTEND Physical Medicine & Rehabilitation
PROC: 30233N1 Transfusion of Nonautologous Red Blood Cells into Peripheral Vein, Percutaneous Approach (ICD-10-PCS; principal; 2018-10-23)
DX: S72.042D Displaced fracture of base of neck of left femur, subsequent encounter for closed fracture with routine healing (principal); N30.00 Acute cystitis without hematuria; G35 Multiple sclerosis; I25.10 Atherosclerotic heart disease of native coronary artery without angina pectoris; I10 Essential (primary) hypertension; E11.9 Type 2 diabetes mellitus without complications; E03.9 Hypothyroidism, unspecified; F39 Unspecified mood [affective] disorder; K21.9 Gastro-esophageal reflux disease without esophagitis; G47.33 Obstructive sleep apnea (adult) (pediatric); Z95.1 Presence of aortocoronary bypass graft; Z95.5 Presence of coronary angioplasty implant and graft; R26.89 Other abnormalities of gait and mobility; W18.09XD Striking against other object with subsequent fall, subsequent encounter; Y92.009 Unspecified place in unspecified non-institutional (private) residence as the place of occurrence of the external cause; D64.9 Anemia, unspecified; Z96.642 Presence of left artificial hip joint; Z79.84 Long term (current) use of oral hypoglycemic drugs; Z79.899 Other long term (current) drug therapy; Z88.0 Allergy status to penicillin; Z91.040 Latex allergy status; Z90.49 Acquired absence of other specified parts of digestive tract; Z98.84 Bariatric surgery status; Z87.891 Personal history of nicotine dependence; B37.2 Candidiasis of skin and nail; B96.20 Unspecified Escherichia coli [E. coli] as the cause of diseases classified elsewhere

== ENCOUNTER 2018-12-07 12:23 | Inpatient (IN) | payer MEDICARE ==
[~2018-12-07] VITALS: Ht 157.5 cm; Wt 84.6 kg
[~2018-12-07 12:23] MED LIST changes: +AMAR1TAB5 PO; +AVAP150T31 PO; +BACL10TA2 PO; +CARB20TAXR PO; +CARV12.5 PO; +FERR32TA PO; +FURO20TA2 PO; +GABA-1171 PO; +NITR0.3S4 SL; +PRAV1TAB39 PO; +RISATAB3 PO; +TRAZ10TA PO; +ZONI50CA PO
[2018-12-07] MEDS ORDERED: MULTCAP PO (12:54)
[2018-12-07] MEDS ORDERED: NORV5TAB PO (12:54)
[2018-12-07] MEDS ORDERED: D200CAP3 PO (12:54)
[2018-12-07] MEDS ORDERED: VITA500C24 PO (12:54)
[2018-12-07] MEDS ORDERED: AMAR1TAB PO (12:54)
[2018-12-07] MEDS ORDERED: METF500T13 PO (12:54)
[2018-12-07] MEDS ORDERED: EPIT200T PO (12:54)
[2018-12-07] MEDS ORDERED: VITA-193 PO (12:54)
[2018-12-07] MEDS ORDERED: VALS1TAB67 PO (12:54)
[2018-12-07 13:20] LABS: BASO % 0.5 % (0.0-1.0); EOS # 0.1 10^3/uL (0.0-0.50); EOS % 2.1 % (0.0-3.0); LYMPH # 0.9 10^3/uL (1.5-4.5); LYMPH % 19.8 % (24.0-44.0); MEAN CORPUSCULAR HEMOGLOBIN 31.8 pg (27.0-33.0); MONO # 0.5 10^3/uL (0.0-0.8); MONO % 11.8 % (0.0-5.0); NEUTROPHILS # 2.9 10^3/uL (1.8-7.7); NEUTROPHILS % 64.9 % (36.0-66.0); PLATELET COUNT, AUTOMATED 157 10^3/uL (150-450); RED BLOOD COUNT 2.17 10^6/uL (4.00-5.40); WHITE BLOOD COUNT 4.4 10^3/uL (4.0-10.0)
[2018-12-07 13:28] LABS: INR 1.09; PROTHROMBIN TIME 13.8 SECONDS (11.8-14.0)
[2018-12-07 13:29] LABS: PARTIAL THROMBOPLASTIN TIME 26.3 SECONDS (25.0-38.4)
[2018-12-07 13:34] LABS: HEMOGLOBIN 6.9 g/dl (12.0-15.5)
[2018-12-07 13:42] LABS: ALBUMIN 2.9 GM/DL (3.2-5.2); BILIRUBIN,DIRECT 0.1 MG/DL (0.0-0.2); BILIRUBIN,TOTAL 0.2 MG/DL (0.2-1.0)
[2018-12-07] MEDS ORDERED: NS 1,000 ML IV ONE (13:45)
[2018-12-07] MEDS ORDERED: CARV6.25 PO (13:52)
[2018-12-07] MEDS ORDERED: TRAZ-189 PO (13:52)
[2018-12-07] MEDS ORDERED: PRAV40TA2 PO (13:52)
[2018-12-07] MEDS ORDERED: IRBE150T12 PO (13:52)
[2018-12-07] MEDS ORDERED: GLIM2TAB29 PO (13:52)
[2018-12-07] MEDS ORDERED: QUET1TAB7 PO (14:01)
--- NOTE | 2018-12-07 14:05 | REP ---
Portable chest x-ray: Single view. History: Anemia. Comparison chest x-ray: October 15, 2018. Findings: The patient is status post prior median sternotomy. EKG monitoring electrodes overlie the chest. The heart is mildly prominent. Coronary artery stent material is visible on the left. Pulmonary vasculature is not increased. Pleural angles are sharp. No infiltrate is seen. Impression: Prominent heart size. Prior sternotomy and coronary artery stent material seen. Otherwise no acute disease. Electronically Signed by Kenn Puri MD 12/07/2018 08:13 P
[2018-12-07] MEDS ORDERED: DEXTROSE 50% 50 ML SYRINGE IV STA (14:15)
[2018-12-07] MEDS ORDERED: GLUCOSE 4 GM CHEW TABLET PO PRN (15:00)
[2018-12-07] MEDS ORDERED: NITROGLYCERIN 0.4 MG SUBL TABLET SL PRN (15:00)
[2018-12-07] MEDS ORDERED: DEXTROSE 50% 50 ML SYRINGE IV PRN (15:00)
[2018-12-07] MEDS ORDERED: GLUCAGON FOR INJ 1 MG VIAL (J1610) SC PRN (15:00)
[2018-12-07 16:25] VITALS: BP 165/76
[2018-12-07] MEDS: GABAPENTIN 100 MG CAP PO SCH ×2 (16:58→22:16)
[2018-12-07] MEDS: HumaLOG INSULIN (NovoLOG) PER UNIT SC SCH ×2 (16:59→21:00)
[2018-12-07] MEDS: NS 1,000 ML IV SCH (17:29)
--- NOTE | 2018-12-07 19:39 | HPEPDOC ---
General Date of Admission Dec 07, 2018 at 14:55 Date of Service: Dec 07, 2018 Chief Complaint The patient is a 68-year-old female admitted with a reason for visit of Anemia Diabetes Mellitus Gi Bleed Multiple Scleros. Source: Patient Exam Limitations: No limitations Timing/Duration: Day(s) Severity: Moderate Associated Symptoms: Shortness of breath History of Present Illness This is a 68-year-old female who was sent to the emergency room for a low hemoglobin. The patient has a history of having had black stools. She states she's had these since her hip surgery in September. She in fact has required transfusion of 3-4 units since then. She last received 2 units on November 28. She reports shortness of breath, weakness and numbness to her legs associated with a drop in her hemoglobin. She denies any dizziness or lightheadedness. Does not have any nausea or vomiting. Hemoglobin upon arrival here to the emergency room was 6.9. Home Medications Scheduled Amitriptyline HCl (Amitriptyline HCl) 25 Mg Tablet, 25 MG PO QHS, (Reported) Ascorbic Acid (Vitamin C) 500 Mg Capsule, 500 MG PO DAILY, (Reported) Baclofen (Baclofen) 20 Mg Tablet, 40 MG PO BID, (Reported) Carbamazepine (Epitol) 200 Mg Tablet, 200 MG PO DAILY, (Reported) DOSE VERIFIED Carvedilol (Carvedilol) 6.25 Mg Tablet, 6.25 MG PO BID, (Reported) Cholecalciferol (Vitamin D3) (Vitamin D3) 2,000 Unit Capsule, 2,000 UNITS PO DAILY, (Reported) Cyanocobalamin (Vitamin B-12) (Vitamin B-12) 500 Mcg Tablet, 500 MCG PO DAILY, (Reported) Ferrous Gluconate (Ferrous Gluconate) 324 Mg Tablet, 324 MG PO BID Folic Acid (Folic Acid) 1 Mg Tablet, 1 MG PO DAILY, (Reported) Gabapentin (Gabapentin) 100 Mg Capsule, 100 MG PO TID Glimepiride (Glimepiride) 2 Mg Tablet, 1 MG PO QPM, (Reported) Irbesartan (Irbesartan) 150 Mg Tablet, 150 MG PO DAILY, (Reported) Levothyroxine Sodium (Levothyroxine Sodium) 25 Mcg Tablet, 25 MCG PO DAILY, (Reported) Metformin HCl (Metformin HCl) 500 Mg Tablet, 500 MG PO DAILY, (Reported) Methotrexate Sodium (Methotrexate) 2.5 Mg Tablet, 7.5 MG PO QWEEK, (Reported) MONDAY EVENINGS Multivitamin (Multivitamins) 1 Each Capsule, 1 CAP PO DAILY, (Reported) Pantoprazole Sodium (Pantoprazole Sodium) 40 Mg Tablet.dr, 40 MG PO DAILY Pravastatin Sodium (Pravastatin Sodium) 40 Mg Tablet, 40 MG PO QHS, (Reported) Quetiapine Fumarate (Quetiapine Fumarate) 25 Mg Tablet, 25 MG PO QHS, (Reported) Venlafaxine HCl (Venlafaxine HCl ER) 75 Mg Cap.er.24h, 75 MG PO DAILY, (Reported) Zonisamide (Zonisamide) 50 Mg Capsule, 50 MG PO BID, (Reported) Scheduled PRN Nitroglycerin (Nitrostat) 0.4 Mg Tab.subl, 0.4 MG SL Q5MP PRN for CHEST PAIN, (Reported) Trazodone HCl (Trazodone HCl) 100 Mg Tablet, 200 MG PO QHS PRN for SLEEP, (Reported) Allergies Coded Allergies: Penicillins (Verified Allergy, Severe, anaphylaxis, 10/19/18) latex (Verified Allergy, Intermediate, 10/15/18) states she reacts when she wears gloves, but not when others do Past Medical History Medical History Past medical history is remarkable for coronary artery disease, multiple sclerosis, essential hypertension, [id number] diabetes mellitus, hypothyroidism, folic acid deficiency, gastroesophageal reflux disease, obstructive sleep apnea, morbid obesity with history of gastric bypass surgery, neuropathy, history of left hip fracture in September 2018 Surgical History Surgical history includes recent repair of left hip fracture, history of coronary artery bypass graft surgery 5 vessels, hernia repair, appendectomy, cholecystectomy, history of gastric bypass, abdominoplasty, hysterectomy, tonsillectomy with adenoidectomy, carpal tunnel reduction, trigger finger surgery Family History Significant Family History: Diabetes, Hypertension Social History * Smoker: former Smoker, quit greater than 1 year (tobacco use history has been remote for 10 years. She has a [id number] smoking history.) Alcohol: Denies Drugs: denies She is on disability due to her MS. She has requested that her CODE STATUS be DNR except for surgery. Her is her medical power of assistant attorney general. A-FIB/CHADSVASC A-FIB History Current/History of A-Fib/PAF?: No Current PO Anticoag Therapy: No Review of Systems Other systems 10 system review is otherwise negative except as stated in the brief presentation Physical Examination General Exam: Positive: Alert, Cooperative, No Acute Distress, Other (mild pallor) Eye Exam: Positive: PERRLA, Conjunctiva & lids normal, EOMI ENT Exam: Positive: Mucous membr. moist/pink, Pharynx Normal, Tongue Midline Neck Exam: Positive: Supple; Negative: JVD, thyromegaly, +2 carotid pulse wo bruit, Lymphadenopathy, Other Chest Exam: Negative: Clear to auscultation, Normal air movement, Rales, Rhonchi, Wheezing, Diminished, Other Heart Exam: Positive: Rate Normal, Regular Rhythm, Normal S1, Normal S2; Negative: Murmurs, Rubs Abdomen Exam: Positive: Normal bowel sounds, Soft, Other (notable central obesity and surgical scar) Extremity Exam: Positive: Normal pulses; Negative: Clubbing, Cyanosis, Edema Skin Exam: Positive: Nl turgor and temperature Neuro Exam: Positive: Normal Speech, Cranial Nerves 3-12 NL Psych Exam: Positive: Mental status NL, Oriented x 3 Vital Signs Vital Signs Date Time Temp Pulse Resp B/P (MAP) Pulse Ox O2 Delivery O2 Flow Rate FiO2 12/07/18 16:25 98.0 71 17 165/76 (105) 98 12/07/18 15:15 Room Air Laboratory Data Labs 24H Laboratory Tests 2 12/07/18 13:08: Immature Granulocyte % (Auto) 0.9, White Blood Count 4.4, Red Blood Count 2.17L, Hemoglobin 6.9*L, Hematocrit 23.0L, Mean Corpuscular Volume 106.0H, Mean Corpuscular Hemoglobin 31.8, Mean Corpuscular Hemoglobin Concent 30.0L, Red Cell Distribution Width 17.1H, Platelet Count 157, Neutrophils (%) (Auto) 64.9, Lymphocytes (%) (Auto) 19.8L, Monocytes (%) (Auto) 11.8H, Eosinophils (%) (Auto) 2.1, Basophils (%) (Auto) 0.5, Neutrophils # (Auto) 2.9, Lymphocytes # (Auto) 0.9L, Monocytes # (Auto) 0.5, Eosinophils # (Auto) 0.1, Basophils # (Auto) 0.0, Nucleated Red Blood Cells % (auto) 0.0, Prothrombin Time 13.8, Prothromb Time International Ratio 1.09, Activated Partial Thromboplast Time 26.3, Aspartate Amino Transf (AST/SGOT) 19, Alanine Aminotransferase (ALT/SGPT) 13, Alkaline P hosphatase 128H, Total Bilirubin 0.2, Direct Bilirubin 0.1, Total Protein 6.0L, Albumin 2.9L, Albumin/Globulin Ratio 0.94L, Lipase 386 12/07/18 13:17: POC Glucose (Misc Panel) 68L, POC Sodium (Misc Panel) 142, POC Potassium (Misc Panel) 3.2L, POC Chloride (Misc Panel) 105, POC Total CO2 (Misc Panel) 24.0, POC Blood Urea Nitrogen (Misc Panel 18, POC Ionized Calcium (Misc Panel) 4.7, POC Creatinine (Misc Panel) 0.7, POC Hematocrit (Misc Panel) 25.0L CBC/BMP Laboratory Tests 12/07/18 13:08 Red Blood Count 2.17 L, Mean Corpuscular Volume 106.0 H, Mean Corpuscular Hemoglobin 31.8, Mean Corpuscular Hemoglobin Concent 30.0 L, Red Cell Distribution Width 17.1 H, Neutrophils (%) (Auto) 64.9, Lymphocytes (%) (Auto) 19.8 L, Monocytes (%) (Auto) 11.8 H, Eosinophils (%) (Auto) 2.1, Basophils (%) (Auto) 0.5, Neutrophils # (Auto) 2.9, Lymphocytes # (Auto) 0.9 L, Monocytes # (Auto) 0.5, Eosinophils # (Auto) 0.1, Basophils # (Auto) 0.0 Assessment/Plan Acute on chronic blood loss anemia--this appears to be of GI origin with black stools. Plans are for her to receive 2 units of packed red blood cells. Once she is stabilized, we'll make plans for her to undergo endoscopy evaluation by the GI service; we have spoken with Dr. Mora. Of interest, the patient relates that she last had a colonoscopy 1-1/2 years ago that was negative. Dcp-[id number]-dgthckdcv diabetes mellitus--she will continue on her usual medications and we'll add sliding scale in order to maintain glycemic control. We will continue her medications to manage her chronic underlying conditions of coronary artery disease, hypothyroidism, multiple sclerosis and essential hypertension. Plan / VTE VTE Prophylaxis Ordered?: Yes Plan Diet: Make NPO Diagnostics: Repeat Labs in AM Anticipated Discharge: Home YARON MUÑOZ MD Dec 07, 2018 19:39
--- NOTE | 2018-12-07 20:26 | CR ---
DATE OF CONSULTATION: 12/07/2018 STATUS OF PATIENT: Inpatient. REQUESTING PHYSICIAN: Hospitalist service REASON FOR CONSULTATION: Progressive anemia. HISTORY OF PRESENT ILLNESS: This is a 68-year-old female with a gastric bypass history, presumed to be Aleksandr-en-Y bypass in 2012. She also has a past medical history significant for diabetes mellitus, history of multiple sclerosis. She also has a history of a previous gastrointestinal (GI) bleed back approximately 1-1/2 to 2 years ago where she was fully evaluated in [place] via colonoscopy. She was told nothing was found. She is unsure if upper endoscopy was done at time. She was in the usual state of health until her recent hip surgery in September when she was noted to have anemia. She was placed on iron and got two units of packed red blood cells (RBCs) at that time. Her hemoglobin was monitored and noted to have decreased again earlier this month. She was transfused two additional units on November 29, 2018, when she left the infusion center with a reported hemoglobin in the 9-10 range. Her followup hemoglobin was noted to be 6.9. The patient does have some shortness of breath and some weakness. She has noted some black stools off and on for the past week or so. She denies any bloody stools. No nausea, no vomiting. No abdominal pain. Medications at home have been reviewed in the chart. ALLERGIES: Allergies are to PENICILLIN, LATEX. PAST MEDICAL HISTORY: Coronary artery disease. Multiple sclerosis. Gastroesophageal reflux. Obesity. Neuropathy. SURGICAL HISTORY: Coronary artery bypass times five vessels. Cholecystectomy. Appendectomy. Abdominoplasty. Hysterectomy. Tonsillectomy. Hip surgery. Bariatric surgery in 2012, in [place], Dr. Ortiz. I presume this was a Aleksandr-en-Y type surgery. FAMILY HISTORY: Negative for colorectal carcinoma, inflammatory bowel disease. SOCIAL HISTORY: Negative for tobacco. Negative for alcohol. PHYSICAL EXAMINATION: Vital signs: Temperature 98.0, pulse is 71, respiratory rate 17, blood pressure 165/76, pulse oximetry 98% on room air. General: She is awake, alert and oriented times three, in no acute distress, not toxic in appearance. Head, eyes, ears, nose and throat: Grossly without abnormality. There is no oral thrush. Neck is supple. No lymphadenopathy or thyromegaly. Chest: Clear bilaterally. Heart is regular rate and rhythm, S1, S2. No murmurs or gallops. Abdomen is soft, nontender. Positive bowel sounds. No masses or organomegaly. Extremities: Negative for edema. Rectal: Examination has been deferred as per patient request. LABORATORY WORK: Hemoglobin 6.9, hematocrit 23.0, platelet count is 157, WBC 4.4, albumin is 2.9, alkaline phosphatase 128. IMPRESSION: 1. Anemia. 2. Melena. 3. Status post bariatric surgery. RECOMMENDATIONS: 1. Transfuse to a hemoglobin greater than 8 preferably. Once this has been accomplished, we will plan on doing an upper endoscopy on her. I tentatively plan on doing this on 12/08/2018 in the morning. The patient is hemodynamically stable at this time; however, should anything change, we may move this time frame up to overnight. 2. She has had a colonoscopy within a year and half with Dr. Parra in [place]. The patient tells me that this was completely normal, but unfortunately, I do not have any official records here of this procedure. Regardless, if we find a source for her bleeding in the upper GI tract, we will leave at that and hold off on her colonoscopy. However, if esophagogastroduodenoscopy (EGD) is completely negative tomorrow, then a colonoscopy will be planned the following day.
--- NOTE | 2018-12-07 20:42 | ECGEPIP ---
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
[2018-12-07 22:00] VITALS: BP 125/69
[2018-12-07] MEDS: BACLOFEN 10 MG TAB PO SCH (22:12)
[2018-12-07] MEDS: QUEtiapine FUMARATE 25 MG TAB PO SCH (22:13)
[2018-12-07] MEDS: PRAVASTATIN 20 MG TAB PO SCH (22:13)
[2018-12-07] MEDS: traZODone 100 MG TAB PO SCH (22:14)
[2018-12-07] MEDS: CARVedilol 6.25 MG TAB PO SCH (22:15)
[2018-12-07] MEDS: AMITRIPTYLINE 25 MG TAB PO SCH (22:15)
[2018-12-07] MEDS: FERROUS GLUCONATE 324 MG TAB PO SCH (22:15)
[2018-12-07] MEDS: ZONISAMIDE 50 MG CAP (ZONEGRAN) PO SCH (22:22)
[2018-12-07] MEDS: ACETAMINOPHEN TAB 650MG DOSE (2X325MG) PO PRN (22:24)
[2018-12-08] VITALS (7 sets, daily range): BP systolic 140–180; BP diastolic 74–90
[2018-12-08 05:47] LABS: HEMATOCRIT 27.9 % (36.0-47.0); HEMOGLOBIN 8.6 g/dl (12.0-15.5); MEAN CORPUSCULAR HEMOGLOBIN 29.7 pg (27.0-33.0); MEAN CORPUSCULAR HGB CONC 30.8 g/dl (32.0-36.5); MEAN CORPUSCULAR VOLUME 96.2 fl (80.0-96.0); PLATELET COUNT, AUTOMATED 146 10^3/uL (150-450); WHITE BLOOD COUNT 4.2 10^3/uL (4.0-10.0)
[2018-12-08 06:08] LABS: BLOOD UREA NITROGEN 19 MG/DL (7-18); CALCIUM LEVEL 7.8 MG/DL (8.8-10.2); CARBON DIOXIDE LEVEL 29 MEQ/L (21-32); CHLORIDE LEVEL 112 MEQ/L (98-107); CREATININE FOR GFR 0.68 MG/DL (0.55-1.30); GLOMERULAR FILTRATION RATE > 60.0 (>45); GLUCOSE, FASTING 107 MG/DL (70-100); POTASSIUM SERUM 3.8 MEQ/L (3.5-5.1); SODIUM LEVEL 145 MEQ/L (136-145)
[2018-12-08] MEDS: HumaLOG INSULIN (NovoLOG) PER UNIT SC SCH ×4 (07:30→21:00)
[2018-12-08] MEDS: metFORMIN (GLUCOPHAGE) 500 MG TAB PO SCH (08:00)
[2018-12-08] MEDS ORDERED: PROPOFOL 200 MG/20 ML VIAL As Ordered ONE (11:07)
[2018-12-08] MEDS ORDERED: LIDOCAINE 2% INJ 100 MG/5 ML SDV (FOR ANES.) As Ordered ONE (11:07)
[2018-12-08] MEDS ORDERED: fentaNYL 100 MCG/2 ML INJECTION (J3010) As Ordered ONE (11:07)
--- NOTE | 2018-12-08 11:59 | ROOR ---
Patient Name: Heidy Fried Procedure Date: 12/08/2018 11:07 AM Date of : 1950 Age: 68 Gender: Female Note Status: Finalized Procedure: Upper GI endoscopy Indications: Acute post hemorrhagic anemia Providers: Delonte MORA MD Referring MD: 2. Inpatient 2. Inpatient Requesting Provider: Medicines: Monitored Anesthesia Care Complications: No immediate complications. Procedure: Pre-Anesthesia Assessment: - The heart rate, respiratory rate, oxygen saturations, blood pressure, adequacy of pulmonary ventilation, and response to care were monitored throughout the procedure. The Enteroscope was introduced through the mouth, and advanced to the afferent jejunal loop. The upper GI endoscopy was accomplished without difficulty. The patient tolerated the procedure well. Findings: The examined esophagus was normal. Evidence of a Aleksandr-en-Y gastrojejunostomy was found. The gastrojejunal anastomosis was characterized by healthy appearing mucosa. The jejunojejunal anastomosis was characterized by healthy appearing mucosa. The examined jejunum was normal. The exam of the stomach was otherwise normal. Impression: - Normal esophagus. - Normal gastric remnant with Aleksandr-en-Y gastrojejunostomy. Both the gastro-jejunal and jejuno-jejunal anastomoses are characterized by healthy appearing mucosa. - Normal examined efferent jejunum. - No specimens collected. - No bleeding source found on this exam. Recommendation: - Clear liquid diet. - Perform a colonoscopy tomorrow. - Colon preparation today. Delonte Mora MD Delonte MORA MD 12/08/2018 11:59:16 AM Electronically signed by Delonte MORA MD Number of Addenda: 0 Note Initiated On: 12/08/2018 11:07 AM Estimated Blood Loss: Estimated blood loss: none.
[2018-12-08] MEDS ORDERED: MAGNESIUM CITRATE 300 ML BTL PO ONE (13:00)
[2018-12-08] MEDS: ASCORBIC ACID 500 MG TAB PO SCH (13:30)
[2018-12-08] MEDS: BACLOFEN 10 MG TAB PO SCH ×2 (13:30→21:51)
[2018-12-08] MEDS: FOLIC ACID 1 MG TAB PO SCH (13:30)
[2018-12-08] MEDS: ZONISAMIDE 50 MG CAP (ZONEGRAN) PO SCH ×2 (13:30→13:33)
[2018-12-08] MEDS: CARVedilol 6.25 MG TAB PO SCH ×2 (13:30→21:57)
[2018-12-08] MEDS: VITAMIN D 1,000 INTERNATIONAL UNITS TABLET PO SCH (13:30)
[2018-12-08] MEDS: VENLAFAXINE **XR** 75MG CAPSULE PO SCH (13:30)
[2018-12-08] MEDS: PANTOPRAZOLE 40MG TAB (PROTONIX) PO SCH (13:30)
[2018-12-08] MEDS: CYANOCOBALAMIN 500 MCG TAB PO SCH (13:30)
[2018-12-08] MEDS: GABAPENTIN 100 MG CAP PO SCH ×3 (13:30→21:52)
[2018-12-08] MEDS: LEVOTHYROXINE 25MCG TABLET (0.025MG) PO SCH (13:30)
[2018-12-08] MEDS: carBAMazepine 200 MG TAB PO SCH (13:30)
[2018-12-08] MEDS: IRBESARTAN 150 MG TAB PO SCH (13:31)
[2018-12-08] MEDS: FERROUS GLUCONATE 324 MG TAB PO SCH ×2 (13:31→21:52)
[2018-12-08] MEDS: NS 1,000 ML IV SCH (17:13)
[2018-12-08] MEDS ORDERED: POLYETHYLENE GLYCOL (MIRALAX) 238GM BOTTLE PO ONE (18:00)
--- NOTE | 2018-12-08 20:04 | IPNPDOC ---
Text Note Date of Service The patient was seen on 12/08/18. NOTE Patient seen and examined this morning. Patient is status post transfusion of 2 units of packed red blood cells. Patient had been having what appeared to be GI blood loss. She was scheduled for endoscopy today. Physical exam: General: Awake, alert, conversant HENT: Oral mucosa moist, neck supple with no adenopathy or thyromegaly. Cardiovascular: Regular rate and rhythm, no appreciable murmur or bruit. Respiratory: Clear to auscultation with normal air movement. Abdomen: Soft, nontender, nondistended, moderate central obesity. Extremities: No peripheral edema, pedal pulses are palpable ASSESSMENT/PLAN: Acute on chronic blood loss anemia--this appears to be of GI origin with black stools. She has received 2 units of packed red blood cells. Hemoglobin increased to 8.6. This should be sufficient for her to undergo endoscopy today. Appreciate assistance from Dr. Mora. Rpy-yrvhfos-qhunaaric diabetes mellitus--she will continue on her usual medica tions and we'll add sliding scale in order to maintain glycemic control. We will continue her medications to manage her chronic underlying conditions of coronary artery disease, hypothyroidism, multiple sclerosis and essential hypertension. VS,Fishbone, I+O VS, Fishbone, I+O Laboratory Tests 12/08/18 05:16 Red Blood Count 2.90 L, Mean Corpuscular Volume 96.2 H, Mean Corpuscular Hemoglobin 29.7, Mean Corpuscular Hemoglobin Concent 30.8 L, Red Cell Di stribution Width 20.6 H, Calcium Level 7.8 L Vital Signs Date Time Temp Pulse Resp B/P (MAP) Pulse Ox O2 Delivery O2 Flow Rate FiO2 12/08/18 18:00 98.7 73 17 142/75 (97) 98 12/07/18 15:15 Room Air I&O- Last 24 Hours up to 6 AM 12/08/18 06:00 Intake Total 580 ml Output Total 0 ml Balance 580 ml YARON MUÑOZ MD Dec 08, 2018 20:04
[2018-12-08] MEDS: traZODone 100 MG TAB PO SCH (21:52)
[2018-12-08] MEDS: AMITRIPTYLINE 25 MG TAB PO SCH (21:52)
[2018-12-08] MEDS: QUEtiapine FUMARATE 25 MG TAB PO SCH (21:52)
[2018-12-08] MEDS: PRAVASTATIN 20 MG TAB PO SCH (21:52)
[2018-12-09 02:00] VITALS: BP 138/70
[2018-12-09] MEDS ORDERED: DEXTROSE 50% 50 ML SYRINGE IV STA (02:48)
[2018-12-09 06:00] VITALS: BP 150/70
[2018-12-09] MEDS: LEVOTHYROXINE 25MCG TABLET (0.025MG) PO SCH (06:42)
[2018-12-09] MEDS: HumaLOG INSULIN (NovoLOG) PER UNIT SC SCH ×4 (06:43→20:13)
[2018-12-09 07:37] LABS: HEMOGLOBIN 8.8 g/dl (12.0-15.5); MEAN CORPUSCULAR HEMOGLOBIN 31.1 pg (27.0-33.0); MEAN CORPUSCULAR HGB CONC 31.4 g/dl (32.0-36.5); MEAN CORPUSCULAR VOLUME 98.9 fl (80.0-96.0); PLATELET COUNT, AUTOMATED 146 10^3/uL (150-450); RED BLOOD COUNT 2.83 10^6/uL (4.00-5.40); WHITE BLOOD COUNT 3.9 10^3/uL (4.0-10.0)
[2018-12-09] MEDS ORDERED: PROPOFOL 200 MG/20 ML VIAL As Ordered ONE ×7 (08:26→09:41)
[2018-12-09] MEDS ORDERED: GLUCAGON FOR INJ 1 MG VIAL (J1610) As Ordered ONE (08:51)
--- NOTE | 2018-12-09 10:01 | ROOR ---
Patient Name: Heidy Fried Procedure Date: 12/09/2018 7:52 AM Date of : 1950 Age: 68 Gender: Female Note Status: Finalized Procedure: Colonoscopy Indications: Hematochezia, Melena, Acute post hemorrhagic anemia Providers: Delonte MORA MD Referring MD: 2. Inpatient 2. Inpatient Requesting Provider: Medicines: Monitored Anesthesia Care Complications: No immediate complications. Procedure: Pre-Anesthesia Assessment: - The heart rate, respiratory rate, oxygen saturations, blood pressure, adequacy of pulmonary ventilation, and response to care were monitored throughout the procedure. The Colonoscope was introduced through the anus and advanced to the cecum, identified by appendiceal orifice and ileocecal valve. The colonoscopy was performed with difficulty due to excessive bleeding. Successful completion of the procedure was aided by lavage. Findings: The perianal and digital rectal examinations were normal. (EXAM: Complete, PREP: Suboptimal) A single localized angioectasia with bleeding was found in the proximal ascending colon. For hemostasis, eight hemostatic clips were successfully placed. There was no bleeding at the end of the procedure. Impression: - (EXAM: Complete, PREP: Suboptimal) - A single actively bleeding colonic angioectasia in the proximal ascending colon. Clips were placed. - Stool/melena obscure visual field to some degree. - No specimens collected. Recommendation: - [facility]. - Monitor H&H., For rebleeding, would consult vascular surgery. Delonte Mora MD Delonte MORA MD 12/09/2018 10:00:59 AM Electronically signed by Delonte MORA MD Number of Addenda: 0 Note Initiated On: 12/09/2018 7:52 AM Estimated Blood Loss: Estimated blood loss: none.
[2018-12-09] MEDS: GABAPENTIN 100 MG CAP PO SCH ×3 (11:55→20:12)
[2018-12-09] MEDS: VITAMIN D 1,000 INTERNATIONAL UNITS TABLET PO SCH (11:55)
[2018-12-09] MEDS: carBAMazepine 200 MG TAB PO SCH (11:55)
[2018-12-09] MEDS: BACLOFEN 10 MG TAB PO SCH ×2 (11:55→20:12)
[2018-12-09] MEDS: VENLAFAXINE **XR** 75MG CAPSULE PO SCH (11:55)
[2018-12-09] MEDS: metFORMIN (GLUCOPHAGE) 500 MG TAB PO SCH (11:56)
[2018-12-09] MEDS: FOLIC ACID 1 MG TAB PO SCH (11:56)
[2018-12-09] MEDS: ASCORBIC ACID 500 MG TAB PO SCH (11:56)
[2018-12-09] MEDS: PANTOPRAZOLE 40MG TAB (PROTONIX) PO SCH (11:56)
[2018-12-09] MEDS: FERROUS GLUCONATE 324 MG TAB PO SCH ×2 (11:56→20:12)
[2018-12-09] MEDS: CYANOCOBALAMIN 500 MCG TAB PO SCH (11:56)
[2018-12-09] MEDS: CARVedilol 6.25 MG TAB PO SCH ×2 (11:57→20:15)
[2018-12-09] MEDS: IRBESARTAN 150 MG TAB PO SCH (12:03)
[2018-12-09] MEDS: ZONISAMIDE 50 MG CAP (ZONEGRAN) PO SCH ×2 (12:03→20:06)
[2018-12-09 14:00] VITALS: BP 178/79
--- NOTE | 2018-12-09 17:30 | IPNPDOC ---
Text Note Date of Service The patient was seen on 12/09/18. NOTE The patient is seen after undergoing colonoscopy today. She is still somewhat sedated. She does not otherwise have any pain or discomfort. Patient was evaluated due to acute on chronic blood loss anemia of unknown etiology. Physical exam: General: Awake, alert, conversant HENT: Oral mucosa moist, neck supple with no adenopathy or thyromegaly. Cardiovascular: Regular rate and rhythm, no appreciable murmur or bruit. Respiratory: Clear to auscultation with normal air movement. Abdomen: Soft, nontender, nondistended, moderate central obesity. Extremities: No peripheral edema, pedal pulses are palpable ASSESSMENT/PLAN: Acute on chronic blood loss anemia--this appears to be of GI origin with black stools. She has received 2 units of packed red blood cells. Hemoglobin was 8.8 today. Patient underwent colonoscopy and was found to have AVM to her ascending colon. She will underwent intervention with clipping. Appreciate assistance from Dr. Mora. Procedure photos and results shared with patient. If her hemoglobin remains stable tomorrow, she should be able to be discharged to home. Xob-eyeaglw-wvyqpqfsq diabetes mellitus--she will continue on her usual medications and we'll add sliding scale in order to maintain glycemic control. We will continue her medications to manage her chronic underlying conditions of coronary artery disease, hypothyroidism, multiple sclerosis and essential hypertension. VS,Fishbone, I+O VS, Fishbone, I+O Laboratory Tests 12/09/18 07:09 Red Blood Count 2.83 L, Mean Corpuscular Volume 98.9 H, Mean Corpuscular Hemoglobin 31.1, Mean Corpuscular Hemoglobin Concent 31.4 L, Red Cell Distribution Width 20.5 H Vital Signs Date Time Temp Pulse Resp B/P (MAP) Pulse Ox O2 Delivery O2 Flow Rate FiO2 12/09/18 10:25 68 162/ (53) 95 12/09/18 10:15 18 12/09/18 10:05 98.3 12/07/18 15:15 Room Air I&O- Last 24 Hours up to 6 AM 12/09/18 06:00 Intake Total 980 ml Output Total 550 ml Balance 430 ml YARON MUÑOZ MD Dec 09, 2018 17:30
[2018-12-09] MEDS: ACETAMINOPHEN TAB 650MG DOSE (2X325MG) PO PRN (20:10)
[2018-12-09] MEDS: traZODone 100 MG TAB PO SCH (20:11)
[2018-12-09] MEDS: PRAVASTATIN 20 MG TAB PO SCH (20:11)
[2018-12-09] MEDS: AMITRIPTYLINE 25 MG TAB PO SCH (20:12)
[2018-12-09] MEDS: QUEtiapine FUMARATE 25 MG TAB PO SCH (20:13)
[2018-12-09 22:00] VITALS: BP 138/72
[2018-12-10] MEDS: LEVOTHYROXINE 25MCG TABLET (0.025MG) PO SCH (05:40)
[2018-12-10 06:00] VITALS: BP 142/72
[2018-12-10 06:24] LABS: HEMATOCRIT 28.3 % (36.0-47.0); HEMOGLOBIN 8.7 g/dl (12.0-15.5); MEAN CORPUSCULAR HEMOGLOBIN 30.1 pg (27.0-33.0); MEAN CORPUSCULAR HGB CONC 30.7 g/dl (32.0-36.5); MEAN CORPUSCULAR VOLUME 97.9 fl (80.0-96.0); PLATELET COUNT, AUTOMATED 134 10^3/uL (150-450); RED BLOOD COUNT 2.89 10^6/uL (4.00-5.40); WHITE BLOOD COUNT 3.9 10^3/uL (4.0-10.0)
[2018-12-10] MEDS: HumaLOG INSULIN (NovoLOG) PER UNIT SC SCH (07:30)
[2018-12-10] MEDS: PANTOPRAZOLE 40MG TAB (PROTONIX) PO SCH (07:50)
[2018-12-10] MEDS: CYANOCOBALAMIN 500 MCG TAB PO SCH (07:50)
[2018-12-10] MEDS: FOLIC ACID 1 MG TAB PO SCH (07:50)
[2018-12-10] MEDS: metFORMIN (GLUCOPHAGE) 500 MG TAB PO SCH (07:50)
[2018-12-10] MEDS: VITAMIN D 1,000 INTERNATIONAL UNITS TABLET PO SCH (07:50)
[2018-12-10] MEDS: GABAPENTIN 100 MG CAP PO SCH (07:50)
[2018-12-10] MEDS: carBAMazepine 200 MG TAB PO SCH (07:50)
[2018-12-10] MEDS: VENLAFAXINE **XR** 75MG CAPSULE PO SCH (07:51)
[2018-12-10] MEDS: ZONISAMIDE 50 MG CAP (ZONEGRAN) PO SCH (07:51)
[2018-12-10] MEDS: BACLOFEN 10 MG TAB PO SCH (07:51)
[2018-12-10 07:52] VITALS: BP 157/70
[2018-12-10] MEDS: ASCORBIC ACID 500 MG TAB PO SCH (07:52)
[2018-12-10] MEDS: FERROUS GLUCONATE 324 MG TAB PO SCH (07:52)
[2018-12-10] MEDS: CARVedilol 6.25 MG TAB PO SCH (07:52)
[2018-12-10] MEDS: IRBESARTAN 150 MG TAB PO SCH (07:52)
[2018-12-10 10:00] VITALS: BP 138/62
--- NOTE | 2018-12-10 23:47 | DS.PDOC ---
Discharge Summary General Date of Admission Dec 07, 2018 at 14:55 Date of Discharge 12/10/2018 Specialist/Consultants Involve: RUTHANN VALENZUELA MD Discharge Summary PROCEDURES PERFORMED DURING STAY: [Transfusion, Esophagogastroduodenoscopy, colonoscopy, clipping of AVM]. ADMITTING DIAGNOSES: 1. [Recurrent acute blood loss anemia, suspected GI source]. DISCHARGE DIAGNOSES: 1. [Recurrent acute blood loss anemia, AVM to the ascending colon, coronary artery disease, multiple sclerosis, essential hypertension, gqf-qeyljxb-pgyrwfoie diabetes mellitus, hypothyroidism, gastroesophageal reflux disease, obstructive sleep apnea, neuropathy]. COMPLICATIONS/CHIEF COMPLAINT: Anemia Diabetes Mellitus Gi Bleed Multiple Scleros. HISTORY OF PRESENT ILLNESS/HOSPITAL COURSE: [This is a 68-year-old female who was sent to the emergency room due to low hemoglobin. Patient had a history of having black stools since her hip surgery in September. She's had transfusion of up to 4 units since then. Upon arrival to the emergency room. Her hemoglobin is 6.9. Patient was admitted to the [facility] floor. She received transfusion of 2 units of packed red blood cells. Case was discussed with the GI service and she underwent evaluation by endoscopy. Upper endoscopy was nonrevealing. Lower endoscopy showed AVM to her ascending colon. The AVM site was noted to be bleeding. It did undergo intervention with clipping. The patient remains hemodynamically stable afterwards. Her hemoglobin remained stable after transfusion. Hemoglobin at discharge was 8.7. It was explained to the patient that where one AVM is there is likely another. She may experience a recurrent episode of bleeding from a different site. She will need to monitor her stools and follow up with her primary care provider on a regular basis to monitor her blood cell counts.]. DISCHARGE MEDICATIONS: Please see below. ALLERGIES: Please see below. PHYSICAL EXAMINATION ON DISCHARGE: VITAL SIGNS: Please see below. GENERAL: [Awake, alert, conversant] HEENT: [Neck was supple with no adenopathy or thyromegaly, she had no remarkable pallor] CARDIOVASCULAR EXAMINATION: [Regular rate and rhythm with a normal S1 and S2] RESPIRATORY EXAMINATION: [Bilaterally clear to auscultation with good air movement] ABDOMINAL EXAMINATION: [Abdomen was soft with moderate central obesity, relative to her overall body habitus] EXTREMITIES: [No peripheral edema] LABORATORY DATA: Please see below. IMAGING: PROGNOSIS: ACTIVITY: [As tolerated]. DIET: [As tolerated] DISCHARGE PLAN: [Patient is stable for discharge to home. She is to follow-up w ith her primary care provider. Dr. Gustafson. She will need regular monitoring of her blood cell counts. Again, she is at risk of recurrence as she likely has more than 1 AVM site in her colon.] DISPOSITION: 01 Home, Self-Care. DISCHARGE INSTRUCTIONS: 1. . ITEMS TO FOLLOWUP ON ON OUTPATIENT: 1. . DISCHARGE CONDITION: [Stable]. TIME SPENT ON DISCHARGE: Greater than [35] minutes. Vital Signs/I&Os Vital Signs Date Time Temp Pulse Resp B/P (MAP) Pulse Ox O2 Delivery O2 Flow Rate FiO2 12/10/18 10:00 98.4 71 18 138/62 (87) 96 12/07/18 15:15 Room Air I&O- Last 24 Hours up to 6 AM 12/10/18 06:00 Intake Total 1730 ml Output Total 1100 ml Balance 630 ml Laboratory Data Labs 24H Laboratory Tests 2 12/10/18 06:12: Nucleated Red Blood Cells % (auto) 0.0 12/10/18 06:33: Bedside Glucose (Misc Panel) 120H CBC/BMP Laboratory Tests 12/10/18 06:12 Red Blood Count 2.89 L, Mean Corpuscular Volume 97.9 H, Mean Corpuscular Hemoglobin 30.1, Mean Corpuscular Hemoglobin Concent 30.7 L, Red Cell Distribution Width 19.8 H FSBS Laboratory Tests Test 12/10/18 06:33 Range/Units Bedside Glucose (Misc Panel) 120 80-115 MG/DL Discharge Medications Scheduled Amitriptyline HCl (Amitriptyline HCl) 25 Mg Tablet, 25 MG PO QHS, (Reported) Ascorbic Acid (Vitamin C) 500 Mg Capsule, 500 MG PO DAILY, (Reported) Baclofen (Baclofen) 20 Mg Tablet, 40 MG PO BID, (Reported) Carbamazepine (Epitol) 200 Mg Tablet, 200 MG PO DAILY, (Reported) DOSE VERIFIED Carvedilol (Carvedilol) 6.25 Mg Tablet, 6.25 MG PO BID, (Reported) Cholecalciferol (Vitamin D3) (Vitamin D3) 2,000 Unit Capsule, 2,000 UNITS PO DAILY, (Reported) Cyanocobalamin (Vitamin B-12) (Vitamin B-12) 500 Mcg Tablet, 500 MCG PO DAILY, (Reported) Ferrous Gluconate (Ferrous Gluconate) 324 Mg Tablet, 324 MG PO BID Folic Acid (Folic Acid) 1 Mg Tablet, 1 MG PO DAILY, (Reported) Gabapentin (Gabapentin) 100 Mg Capsule, 100 MG PO TID Glimepiride (Glimepiride) 2 Mg Tablet, 1 MG PO QPM, (Reported) Irbesartan (Irbesartan) 150 Mg Tablet, 150 MG PO DAILY, (Reported) Levothyroxine Sodium (Levothyroxine Sodium) 25 Mcg Tablet, 25 MCG PO DAILY, (Reported) Metformin HCl (Metformin HCl) 500 Mg Tablet, 500 MG PO DAILY, (Reported) Methotrexate Sodium (Methotrexate) 2.5 Mg Tablet, 7.5 MG PO QWEEK, (Reported) MONDAY EVENINGS Multivitamin (Multivitamins) 1 Each Capsule, 1 CAP PO DAILY, (Reported) Pantoprazole Sodium (Pantoprazole Sodium) 40 Mg Tablet.dr, 40 MG PO DAILY Pravastatin Sodium (Pravastatin Sodium) 40 Mg Tablet, 40 MG PO QHS, (Reported) Quetiapine Fumarate (Quetiapine Fumarate) 25 Mg Tablet, 25 MG PO QHS, (Reported) Venlafaxine HCl (Venlafaxine HCl ER) 75 Mg Cap.er.24h, 75 MG PO DAILY, (Repor srinivas) Zonisamide (Zonisamide) 50 Mg Capsule, 50 MG PO BID, (Reported) Scheduled PRN Nitroglycerin (Nitrostat) 0.4 Mg Tab.subl, 0.4 MG SL Q5MP PRN for CHEST PAIN, (Reported) Trazodone HCl (Trazodone HCl) 100 Mg Tablet, 200 MG PO QHS PRN for SLEEP, (Reported) Allergies Coded Allergies: Penicillins (Verified Allergy, Severe, anaphylaxis, 10/19/18) latex (Verified Allergy, Intermediate, 10/15/18) states she reacts when she wears gloves, but not when others do YARON MUÑOZ MD Dec 10, 2018 23:47
== END 2018-12-10 11:27 | disposition home or self-care (01) | DRG 812 ==
LOC: M ED 12:23 → M ED INP 14:55 → M MSPAV 16:25
PROVIDERS: ADMIT Internal Medicine; ATTEND Internal Medicine
PROC: 0DJ08ZZ Inspection of Upper Intestinal Tract, Via Natural or Artificial Opening Endoscopic (ICD-10-PCS; principal; 2018-12-08 10:00)
PROC: 0W3P8ZZ Control Bleeding in Gastrointestinal Tract, Via Natural or Artificial Opening Endoscopic (ICD-10-PCS; 2018-12-09)
DX: D62 Acute posthemorrhagic anemia (principal); Q27.33 Arteriovenous malformation of digestive system vessel; E11.40 Type 2 diabetes mellitus with diabetic neuropathy, unspecified; G35 Multiple sclerosis; I25.10 Atherosclerotic heart disease of native coronary artery without angina pectoris; I10 Essential (primary) hypertension; E03.9 Hypothyroidism, unspecified; K21.9 Gastro-esophageal reflux disease without esophagitis; G47.33 Obstructive sleep apnea (adult) (pediatric); Z98.84 Bariatric surgery status; Z79.84 Long term (current) use of oral hypoglycemic drugs; Z95.1 Presence of aortocoronary bypass graft; Z90.49 Acquired absence of other specified parts of digestive tract; Z90.710 Acquired absence of both cervix and uterus; Z87.891 Personal history of nicotine dependence; Z79.899 Other long term (current) drug therapy; Z88.0 Allergy status to penicillin; Z91.040 Latex allergy status

== ENCOUNTER 2019-06-12 22:14 | Inpatient (IN) | payer MEDICARE ==
[~2019-06-12] VITALS: Ht 162.6 cm; Wt 84.5 kg
[~2019-06-12 22:14] MED LIST changes: +AMAR1TAB PO; +CYAN500T9 PO; +D200CAP3 PO; +MULTCAP PO; +NORV5TAB PO; -TRAZ10TA PO; +TRAZ1TAB12 PO; +VALS1TAB67 PO; +VITA500C24 PO; +ZONI50CA11 PO; -ZONI50CA3 PO
--- NOTE | 2019-06-12 22:40 | REPVR ---
PROCEDURE INFORMATION: Exam: CT Head Without Contrast Exam date and time: 06/12/2019 10:21 PM Age: 69 years old Clinical indication: Injury or trauma; Fall; Initial encounter; Blunt trauma (contusions or hematomas); Additional info: Unwitnessed fall TECHNIQUE: Imaging protocol: Computed tomography of the head without contrast. Radiation optimization: All CT scans at this facility use at least one of these dose optimization techniques: automated exposure control; mA and/or kV adjustment per patient size (includes targeted exams where dose is matched to clinical indication); or iterative reconstruction. COMPARISON: CT Head without contrast 2018-10-15 16:55 FINDINGS: Brain: Diffuse moderate cerebral age related volume loss. Moderate patchy low attenuation in the white matter compatible with moderate chronic small vessel ischemic disease. No midline shift, mass, fluid collection, or evidence of hemorrhage. Ventricles: Ventricular enlargement proportional to volume loss. Bones/joints: Unremarkable. No acute fracture. Sinuses: Visualized sinuses are unremarkable. No fluid levels. Mastoid air cells: Visualized mastoid air cells are well aerated. Soft tissues: Unremarkable. Vasculature: Coarse atherosclerotic calcifications in the vertebral and internal carotid arteries. IMPRESSION: Moderate involutional changes, no acute intracranial abnormality. Electronically signed by: Delonte Calderon On 06/12/2019 22:40:05 PM
[2019-06-12] MEDS ORDERED: MORPHINE 2 MG/ML 1ML VIAL (J2270) IV ONE (23:15)
[2019-06-12 23:21] LABS: BASO % 0.3 % (0.0-1.0); EOS % 0.3 % (0.0-3.0); HEMATOCRIT 35.1 % (36.0-47.0); HEMOGLOBIN 10.9 g/dl (12.0-15.5); LYMPH # 0.5 10^3/uL (1.5-5.0); LYMPH % 6.7 % (24.0-44.0); MEAN CORPUSCULAR HEMOGLOBIN 31.4 pg (27.0-33.0); MEAN CORPUSCULAR HGB CONC 31.1 g/dl (32.0-36.5); MEAN CORPUSCULAR VOLUME 101.2 fl (80.0-96.0); MONO # 0.6 10^3/uL (0.0-0.8); MONO % 7.5 % (0.0-5.0); NEUTROPHILS # 6.6 10^3/uL (1.5-8.5); NEUTROPHILS % 84.4 % (36.0-66.0); PLATELET COUNT, AUTOMATED 119 10^3/uL (150-450); RED BLOOD COUNT 3.47 10^6/uL (4.00-5.40); WHITE BLOOD COUNT 7.8 10^3/uL (4.0-10.0)
[2019-06-12 23:30] LABS: INR 1.07; PROTHROMBIN TIME 13.6 SECONDS (11.8-14.0)
[2019-06-12 23:31] LABS: PARTIAL THROMBOPLASTIN TIME 24.7 SECONDS (25.0-38.4)
[2019-06-12 23:51] LABS: ALBUMIN 3.7 GM/DL (3.2-5.2); ALT/SGPT 27 U/L (12-78); BILIRUBIN,DIRECT 0.1 MG/DL (0.0-0.2); BILIRUBIN,TOTAL 0.3 MG/DL (0.2-1.0); BLOOD UREA NITROGEN 19 MG/DL (7-18); CALCIUM LEVEL 8.5 MG/DL (8.8-10.2); CARBON DIOXIDE LEVEL 26 MEQ/L (21-32); CHLORIDE LEVEL 106 MEQ/L (98-107); CPK CREATINE PHOSPHOKINASE 88 U/L (26-192); CREATININE FOR GFR 0.81 MG/DL (0.55-1.30); FREE T4 0.57 NG/DL (0.76-1.46); GLOMERULAR FILTRATION RATE > 60.0 (>45); GLUCOSE, FASTING 159 MG/DL (70-100); MB/CK RELATIVE INDEX 2.27 (< OR =4); POTASSIUM SERUM 4.4 MEQ/L (3.5-5.1); SODIUM LEVEL 139 MEQ/L (136-145); TOTAL PROTEIN 7.8 GM/DL (6.4-8.2); TROPONIN I < 0.02 NG/ML (< 0.10)
[2019-06-13] VITALS (8 sets, daily range): BP systolic 140–186; BP diastolic 70–80
--- NOTE | 2019-06-13 00:17 | REPVR ---
PROCEDURE INFORMATION: Exam: CT Cervical Spine Without Contrast Exam date and time: 06/12/2019 11:11 PM Age: 69 years old Clinical indication: Neck pain; Additional info: Trauma TECHNIQUE: Imaging protocol: Computed tomography images of the cervical spine without contrast. Radiation optimization: All CT scans at this facility use at least one of these dose optimization techniques: automated exposure control; mA and/or kV adjustment per patient size (includes targeted exams where dose is matched to clinical indication); or iterative reconstruction. COMPARISON: No relevant prior studies available. FINDINGS: Vertebrae: Normal spinal curvature, vertebral body heights, and alignment. No spinal fracture or acute subluxation. Discs/Spinal canal/Neural foramina: Diffuse degenerative disc space loss with degenerative disc osteophyte complexes, facet arthropathy, and ligamentum flavum thickening causes up to moderate spinal and foraminal stenosis greatest at C4-C6. Soft tissues: Unremarkable. Lungs: Lung apices are normal. Vasculature: There is mild atherosclerotic calcification of the carotid arteries. IMPRESSION: No acute vertebral fracture/subluxation. Electronically signed by: Delonte Calderon On 06/13/2019 00:17:41 AM
--- NOTE | 2019-06-13 00:32 | REPVR ---
PROCEDURE INFORMATION: Exam: XR Chest, 2 Views Exam date and time: 06/12/2019 11:11 PM Age: 69 years old Clinical indication: Injury or trauma; Fall; Follow-up exam; Unconscious TECHNIQUE: Imaging protocol: XR of the chest Views: 2 views. COMPARISON: CR Chest, 1 view 2018-12-07 13:19 FINDINGS: Limitations: Limited by patient's body habitus. Lungs: Dependent subsegmental pulmonary atelectasis. Pleural space: Unremarkable. No pleural effusion. No pneumothorax. Heart/Mediastinum: Sternotomy wires and mediastinal surgical clips are present, consistent with previous coronary arterial bypass grafting. Bones/joints: Unremarkable. IMPRESSION: No acute abnormality or significant change. Electronically signed by: Delonte Calderon On 06/13/2019 00:32:03 AM
--- NOTE | 2019-06-13 00:33 | REPVR ---
PROCEDURE INFORMATION: Exam: XR Right Wrist Exam date and time: 06/12/2019 11:11 PM Age: 69 years old Clinical indication: Injury or trauma; Fall; Initial encounter; Swelling (edema); Wrist; Right TECHNIQUE: Imaging protocol: XR Right wrist. Views: 3 or more views. COMPARISON: No relevant prior studies available. FINDINGS: Bones/joints: Relatively hypodense bones indicating osteopenia. Nondisplaced distal radial metaphyseal fracture suspected. Soft tissues: Soft tissue swelling. IMPRESSION: Nondisplaced distal radial metaphyseal fracture suspected. Electronically signed by: Delonte Calderon On 06/13/2019 00:33:05 AM
--- NOTE | 2019-06-13 00:34 | REPVR ---
PROCEDURE INFORMATION: Exam: XR Left Elbow Exam date and time: 06/12/2019 11:11 PM Age: 69 years old Clinical indication: Injury or trauma; Fall; Initial encounter; Unconscious TECHNIQUE: Imaging protocol: XR Left elbow. Views: 3 or more views. COMPARISON: No relevant prior studies available. FINDINGS: Limitations: Limited by patient's body habitus. Bones/joints: Relatively hypodense bones indicating osteopenia. Soft tissues: Normal. IMPRESSION: No acute osseous abnormality. Electronically signed by: Delonte Calderon On 06/13/2019 00:34:36 AM
--- NOTE | 2019-06-13 00:35 | REPVR ---
PROCEDURE INFORMATION: Exam: XR Left Tibia and Fibula Exam date and time: 06/12/2019 11:11 PM Age: 69 years old Clinical indication: Injury or trauma; Fall; Initial encounter; Swelling (edema); Lower leg; Left TECHNIQUE: Imaging protocol: XR Left tibia and fibula. Views: 2 views. COMPARISON: CR Femur 2018-10-15 17:15 FINDINGS: Bones/joints: Relatively hypodense bones indicating osteopenia. Mild degenerative joint disease. Soft tissues: Normal. Vasculature: Arterial calcifications. IMPRESSION: No acute findings. Electronically signed by: Delonte Calderon On 06/13/2019 00:35:47 AM
--- NOTE | 2019-06-13 00:35 | REPVR ---
PROCEDURE INFORMATION: Exam: XR Left Femur Exam date and time: 06/12/2019 11:11 PM Age: 69 years old Clinical indication: Injury or trauma; Fall; Initial encounter; Swelling (edema); Hip; Left; Prior surgery TECHNIQUE: Imaging protocol: XR Left femur. Views: 2 views. COMPARISON: CR Femur 2018-10-15 17:15 FINDINGS: Limitations: Limited by patient's body habitus. Bones/joints: Hip arthroplasty hardware intact. Soft tissues: Unremarkable. Vasculature: Arterial calcifications. IMPRESSION: No acute abnormality. Electronically signed by: Delonte Calderon On 06/13/2019 00:35:08 AM
--- NOTE | 2019-06-13 00:56 | REPVR ---
PROCEDURE INFORMATION: Exam: XR Right Foot Complete Exam date and time: 06/12/2019 11:11 PM Age: 69 years old Clinical indication: Injury or trauma; Fall; Initial encounter; Swelling (edema); Foot; Bilateral TECHNIQUE: Imaging protocol: XR Right foot. Views: 3 or more views. COMPARISON: No relevant prior studies available. FINDINGS: Bones/joints: Diffuse demineralization of the bones. No acute fracture. No dislocation. Mild degenerative changes. Soft tissues: Normal. IMPRESSION: No acute finding PROCEDURE INFORMATION: Exam: XR Left Foot Complete Exam date and time: 06/12/2019 11:11 PM Age: 69 years old Clinical indication: Injury or trauma; Fall; Initial encounter; Swelling (edema); Foot; Bilateral TECHNIQUE: Imaging protocol: XR Left foot. Views: 3 or more views. COMPARISON: No relevant prior studies available. FINDINGS: Bones/joints: Diffuse demineralization of the bones. No acute fracture. No dislocation. Mild degenerative changes. Soft tissues: Normal. IMPRESSION: . No acute finding. Electronically signed by: Jamila Gould On 06/13/2019 00:56:08 AM
--- NOTE | 2019-06-13 00:58 | REPVR ---
PROCEDURE INFORMATION: Exam: XR Right Ankle Exam date and time: 06/12/2019 11:11 PM Age: 69 years old Clinical indication: Injury or trauma; Fall; Initial encounter; Swelling (edema); Ankle; Bilateral TECHNIQUE: Imaging protocol: XR Right ankle. Views: 3 or more views. COMPARISON: No relevant prior studies available. FINDINGS: Bones/joints: Diffuse demineralization of the bones. No acute fracture. No dislocation. Soft tissues: Normal. Vasculature: Vascular calcifications. IMPRESSION: No acute finding. PROCEDURE INFORMATION: Exam: XR Left Ankle Exam date and time: 06/12/2019 11:11 PM Age: 69 years old Clinical indication: Injury or trauma; Fall; Initial encounter; Swelling (edema); Ankle; Bilateral TECHNIQUE: Imaging protocol: XR Left ankle. Views: 3 or more views. COMPARISON: No relevant prior studies available. FINDINGS: Bones/joints: Diffuse demineralization of the bones. No acute fracture. No dislocation. Soft tissues: Large soft tissue swelling along the lateral malleolus and mild soft tissue swelling along the medial malleolus. Gas bubbles within the soft tissues. Vasculature: Vascular calcifications. IMPRESSION: No acute fracture or dislocation. Large soft tissue swelling along the lateral malleolus and mild soft tissue swelling along the medial malleolus. Gas bubbles within the soft tissues. Electronically signed by: Jamila Gould On 06/13/2019 00:58:31 AM
[2019-06-13] MEDS ORDERED: GLUCAGON FOR INJ 1 MG VIAL (J1610) SC PRN (03:00)
[2019-06-13] MEDS ORDERED: DEXTROSE 50% 50 ML SYRINGE IV PRN (03:00)
[2019-06-13] MEDS ORDERED: NS 1,000 ML IV SCH (03:00)
[2019-06-13] MEDS ORDERED: GLUCOSE 4 GM CHEW TABLET PO PRN (03:00)
[2019-06-13] MEDS ORDERED: CIPR500T3 PO (03:18)
[2019-06-13] MEDS ORDERED: CARB1TAB20 PO (03:18)
[2019-06-13] MEDS ORDERED: GABA-1171 PO (03:18)
[2019-06-13] MEDS ORDERED: FERR32TA PO (03:18)
[2019-06-13] MEDS ORDERED: TIZA4TAB4 PO (03:18)
[2019-06-13] MEDS ORDERED: VITA200015 PO (03:18)
[2019-06-13] MEDS ORDERED: PRAV40TA2 PO (03:18)
[2019-06-13] MEDS ORDERED: NITROGLYCERIN 0.4 MG SUBL TABLET SL PRN (03:30)
--- NOTE | 2019-06-13 03:36 | HPEPDOC ---
General Date of Admission Jun 13, 2019 at 02:57 Date of Service: Jun 13, 2019 Chief Complaint The patient is a 69-year-old female Who presented to the emergency room after she had fallen History of Present Illness Patient is a 69-year-old female with a PMHx of Multiple Sclerosis (Follows with Dr. Corrigan), JOHN on BIPAP, HTN, CAD s/p CABG x4, DLP, NIDDM2, Hx of CVA, Hypothyroidism, Depression and GERD who presented to the ER after she had fallen. Patient reported that at 2:30 this afternoon she had fallen. Patient reports that she was getting up to go to the bathroom and using her walker when she experienced a sudden collapse. Patient called out for her for assistance. Patient denied any loss of consciousness. Upon getting up with assistance of her . She had fallen again and sustained head trauma, but again denied any loss of consciousness. Patient had checked her blood pressure at home and was noted to be 54/31. They contacted their son who works for EMS, who had contacted his boss to send out a crew for further assistance. Upon arrival of EMS staff, they had found that her blood pressure was 228/104. Patient had reported pain of her left ankle and right wrist and inability to ambulate. Upon arrival to emergency room, patient had extensive imaging com pleted which revealed fracture of her left ankle, right wrist. A she was also found to be hypertensive with positive orthostatics. Hospitalist service is called for further evaluation and treatment. Recommendations were appreciated from orthopedic surgery who had reported to ER provider that they will be on consultation. Currently patient denies any shortness of breath, chest pain, palpitations, cough, nausea, vomiting, abdominal pain, constipation, diarrhea, or urinary discomfort. She denies any fevers or chills. Over last 2 weeks. Reports that her appetite is fairly normal and has reported a slight increase in her weight. Home Medications Scheduled Amitriptyline HCl (Amitriptyline HCl) 25 Mg Tablet, 25 MG PO QHS, (Reported) Ascorbic Acid (Vitamin C) 500 Mg Capsule, 500 MG PO DAILY, (Reported) Baclofen (Baclofen) 20 Mg Tablet, 40 MG PO BID, (Reported) Carbamazepine (Carbamazepine) 200 Mg Tablet, 400 MG PO BID, (Reported) Carvedilol (Carvedilol) 6.25 Mg Tablet, 6.25 MG PO BID, (Reported) Cholecalciferol (Vitamin D3) (Vitamin D3) 2,000 Unit Tablet, 2,000 UNIT PO DAILY, (Reported) Cyanocobalamin (Vitamin B-12) (Vitamin B-12) 500 Mcg Tablet, 500 MCG PO DAILY, (Reported) Ferrous Gluconate (Ferrous Gluconate) 324 Mg Tablet, 324 MG PO BID, (Reported) Folic Acid (Folic Acid) 1 Mg Tablet, 1 MG PO DAILY, (Reported) Gabapentin (Gabapentin) 100 Mg Capsule, 100 MG PO TID, (Reported) Glimepiride (Glimepiride) 2 Mg Tablet, 1 MG PO QHS, (Reported) Irbesartan (Irbesartan) 150 Mg Tablet, 300 MG PO DAILY Levothyroxine Sodium (Levothyroxine Sodium) 25 Mcg Tablet, 25 MCG PO DAILY, (Reported) Metformin HCl (Metformin HCl) 500 Mg Tablet, 500 MG PO DAILY, (Reported) Methotrexate Sodium (Methotrexate) 2.5 Mg Tablet, 7.5 MG PO QWEEK, (Reported) MONDAY EVENINGS Nystatin (Nystop) 60 Gm Powder, 0 DOSE TOP BID Pravastatin Sodium (Pravastatin Sodium) 40 Mg Tablet, 40 MG PO QHS, (Reported) Quetiapine Fumarate (Quetiapine Fumarate) 25 Mg Tablet, 25 MG PO QHS, (Reported) Tizanidine HCl (Tizanidine HCl) 4 Mg Tablet, 2 MG PO TID, (Reported) Trazodone HCl (Trazodone HCl) 100 Mg Tablet, 200 MG PO QHS, (Reported) Venlafaxine HCl (Venlafaxine HCl ER) 75 Mg Cap.er.24h, 75 MG PO DAILY, (Reported) Zonisamide (Zonisamide) 50 Mg Capsule, 50 MG PO BID, (Reported) Scheduled PRN Nitroglycerin (Nitrostat) 0.4 Mg Tab.subl, 0.4 MG SL NITRO PRN for CHEST PAIN, (Reported) Oxycodone/Acetaminophen (Oxycodone-Acetaminophen 5-325) 1 Each Tablet, 1 TAB PO Q8HP PRN for MILD/MODERATE PAIN (PS 1-7) Allergies Coded Allergies: Penicillins (Verified Allergy, Severe, anaphylaxis, 10/19/18) latex (Verified Allergy, Intermediate, 5/20/19) states she reacts when she wears gloves, but not when others do Past Medical History Medical History Multiple Sclerosis (Follows with Dr. 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 Review of Systems Other systems 10 point review of systems complete, all negative otherwise stated in HPI Vital Signs - Vitals: BP 180/80, HR 83, RR 16, Sat 95NC2L, Temp 98.0F - General: Lying in bed, No acute distress, Speaking in full sentences, AAOx3 - HEENT: NC, AT, PERRLA, EOMI - CVS: RRR, +S1S2 - Lungs: Fair air entry bilaterally, No appreciable wheezing / rales / rhonchi - Abdomen: Soft, Non-distended, Non-tender - Extremities: No lower extremity edema, No calf tenderness, left ankle Aircast, right wrist with splint in place - Neuro: No focal motor or sensory deficit - Skin: No visible rashes Laboratory Data Labs 24H Laboratory Tests 2 06/12/19 23:04: Immature Granulocyte % (Auto) 0.8, Neutrophils (%) (Auto) 84.4H, Lymphocytes (%) (Auto) 6.7L, Monocytes (%) (Auto) 7.5H, Eosinophils (%) (Auto) 0.3, Basophils (%) (Auto) 0.3, Neutrophils # (Auto) 6.6, Lymphocytes # (Auto) 0.5L, Monocytes # (Auto) 0.6, Eosinophils # (Auto) 0.0, Basophils # (Auto) 0.0, Nucleated Red Blood Cells % (auto) 0.0, Prothrombin Time 13.6, Prothromb Time International Ratio 1.07, Activated Partial Thromboplast Time 24.7L, Anion Gap 7L, Glomerular Filtration Rate > 60.0, Calcium Level 8.5L, Total Bilirubin 0.3, Direct Bilirubin 0.1, Aspartate Amino Transf (AST/SGOT) 27, Alanine Aminotransferase (ALT/SGPT) 27, Alkaline Phosphatase 120H, Total Creatine Kinase 88, Creatine Kinase MB 2.0, Creatine Kinase MB Relative Index 2.27, Troponin I < 0.02, Total Protein 7.8, Albumin 3.7, Albumin/Globulin Ratio 0.90L, Thyroid Stimulating Hormone (TSH) 1.640, Free Thyroxine 0.57L CBC/BMP Laboratory Tests 06/12/19 23:04 Plan / VTE VTE Prophylaxis Ordered?: Yes Plan Plan Imaging: - CT head 06/12: Moderate involutional changes, no acute intracranial abnorm ality. - CT cervical spine 06/12: No acute vertebral fracture/subluxation. - XR Chest 06/12: No acute abnormality or significant change. - XR R Wrist 06/12: Nondisplaced distal radial metaphyseal fracture suspected. - XR L Elbow 06/12: No acute osseous abnormality. - XR L Femur 06/12: No acute abnormality. - XR L Tib/ fib 06/12: No acute findings. - XR Bilateral Ankle 06/12: No acute fracture or dislocation. Large soft tissue swelling along the lateral malleolus and mild soft tissue swelling along the medial malleolus. Gas bubbles within the soft tissues. - XR Bilateral Foot 06/12: No acute finding Assessment and plan: Pre-syncope / Fall - possibly 2/2 orthostatic hypotension - possibly 2/2 medications - Patient presented to the emergency room after experiencing a fall while ambulating to the bathroom - Patient denied any loss of control of bowel or bladder, no LOC - Physical is currently unrevealing; orthostatic vital signs in the ER were positive - Lab work unremarkable; Troponin first set negative; will continue to trend - EKG reviewed without any ischemic changes compared to prior - Will c/w Telemetry monitoring - Will check Carbamazapine level - Will hold Amitriptyline, Quetiapine, Trazodone, Venlafaxine - Will reduce dose of Baclofen - Will c/w gentle IV fluid hydration and c/w home BP medications Hypertensive urgency - likely 2/2 pain - Will c/w pain control - Will continue home medications; Carvedilol and Irbesartan with holding parameters Multiple fractures - Imaging (noted above): Nondisplaced right distal radial metaphyseal fracture suspected. Large soft tissue swelling along the left lateral malleolus and mild soft tissue swelling along the medial malleolus - ER provider has placed air cast on L ankle, and splinted R wrist - Orthopedic surgery will be on consultation - Will order PT and OT Macrocytic anemia - Hemoglobin appears to be higher than baseline; possibly 2/2 hemoconcentration - No bleeding noted - Will continue to monitor counts Thrombocytopenia - Platelet count appears to be slightly lower than baseline - No bleeding noted - Will continue to monitor counts Multiple Sclerosis - Patient follows with Dr. Corrigan as an outpatient - c/w Tizanidine, Baclofen, Carbamazepine JOHN on BIPAP - May allow home BIPAP use while inpatient CAD s/p CABG x4 - c/w Carvedilol, Irbesartan, Pravastatin - c/w Nitroglycerin PRN DLP - c/w Pravastatin NIDDM2 - Will start ISS Hx of CVA - Currently not on ASA Hypothyroidism - c/w Levothyroxine Depression - Will hold Amitriptyline, Quetiapine, Trazodone, Venlafaxine (re: Orthostatic hypotension) DVT prophylaxis - Will start PRADEEP/Sequentials (re: Thrombocytopenia) NEETA CATALAN MD Jun 13, 2019 03:36
[2019-06-13] MEDS: MORPHINE 2 MG/ML 1ML VIAL (J2270) IV PRN ×3 (04:18→21:15)
[2019-06-13] MEDS: LEVOTHYROXINE 25MCG TABLET (0.025MG) PO SCH (05:22)
[2019-06-13 05:57] LABS: BASO % 0.3 % (0.0-1.0); EOS # 0.1 10^3/uL (0.0-0.5); EOS % 1.3 % (0.0-3.0); HEMATOCRIT 30.7 % (36.0-47.0); HEMOGLOBIN 9.9 g/dl (12.0-15.5); LYMPH # 0.5 10^3/uL (1.5-5.0); LYMPH % 7.8 % (24.0-44.0); MEAN CORPUSCULAR HEMOGLOBIN 31.9 pg (27.0-33.0); MEAN CORPUSCULAR HGB CONC 32.2 g/dl (32.0-36.5); MONO # 0.6 10^3/uL (0.0-0.8); MONO % 9.1 % (0.0-5.0); NEUTROPHILS # 5.4 10^3/uL (1.5-8.5); NEUTROPHILS % 80.8 % (36.0-66.0); PLATELET COUNT, AUTOMATED 108 10^3/uL (150-450); WHITE BLOOD COUNT 6.7 10^3/uL (4.0-10.0)
[2019-06-13 06:31] LABS: BLOOD UREA NITROGEN 18 MG/DL (7-18); CALCIUM LEVEL 8.4 MG/DL (8.8-10.2); CARBON DIOXIDE LEVEL 24 MEQ/L (21-32); CHLORIDE LEVEL 108 MEQ/L (98-107); CK-MB VALUE MASS 1.2 NG/ML (<3.6); CPK CREATINE PHOSPHOKINASE 90 U/L (26-192); CREATININE FOR GFR 0.65 MG/DL (0.55-1.30); GLOMERULAR FILTRATION RATE > 60.0 (>45); GLUCOSE, FASTING 123 MG/DL (70-100); MAGNESIUM LEVEL 1.7 MG/DL (1.8-2.4); MB/CK RELATIVE INDEX 1.33 (< OR =4); POTASSIUM SERUM 3.7 MEQ/L (3.5-5.1); SODIUM LEVEL 141 MEQ/L (136-145); TROPONIN I < 0.02 NG/ML (< 0.10)
[2019-06-13] MEDS ORDERED: MAG SULF 1GM/100ML (MAG RUN) 1 GM in IV 1 EA IV ONE (06:45)
[2019-06-13] MEDS: carBAMazepine 200 MG TAB PO SCH ×2 (07:47→21:15)
[2019-06-13] MEDS: ZONISAMIDE 50 MG CAP (ZONEGRAN) PO SCH ×2 (07:48→21:15)
[2019-06-13] MEDS: VITAMIN D 1,000 INTERNATIONAL UNITS TABLET PO SCH (07:51)
[2019-06-13] MEDS: IRBESARTAN 150 MG TAB PO SCH (07:51)
[2019-06-13] MEDS: FOLIC ACID 1 MG TAB PO SCH (07:52)
[2019-06-13] MEDS: FERROUS GLUCONATE 324 MG TAB PO SCH ×2 (07:52→21:15)
[2019-06-13] MEDS: BACLOFEN 10 MG TAB PO SCH ×2 (07:52→21:16)
[2019-06-13] MEDS: tiZANidine 4 MG TAB PO SCH ×3 (07:52→21:16)
[2019-06-13] MEDS: CYANOCOBALAMIN 500 MCG TAB PO SCH (07:52)
[2019-06-13] MEDS: GABAPENTIN 100 MG CAP PO SCH ×3 (07:52→21:16)
[2019-06-13] MEDS: CARVedilol 6.25 MG TAB PO SCH ×2 (07:53→21:16)
[2019-06-13] MEDS: HumaLOG INSULIN (NovoLOG) PER UNIT SC SCH ×4 (07:54→20:08)
--- NOTE | 2019-06-13 08:53 | ECGEPIP ---
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
[2019-06-13] MEDS: NYSTATIN 100,000 UNITS/GM TOPICAL PWD 15 GM TOP SCH ×2 (09:00→21:17)
[2019-06-13 12:57] LABS: CK-MB VALUE MASS < 1.0 NG/ML (<3.6); CPK CREATINE PHOSPHOKINASE 83 U/L (26-192); TROPONIN I < 0.02 NG/ML (< 0.10)
--- NOTE | 2019-06-13 14:16 | CR ---
DATE OF CONSULTATION: 06/13/2019 CHIEF COMPLAINT: Right wrist pain and bilateral foot pain. The patient states that yesterday afternoon she was getting out of bed to go to the bathroom and she fell two different times. Since that time she has been having difficulty ambulating. She complains of 10/10 pain in the right wrist and bilateral feet. States it is made worse with ambulation and improved with rest, immobilization and pain medication. Her right wrist pains may be worse, they are sharp in nature, made worse with anterior lifting, pushing and pulling, and is improved with immobilization and pain medication. Denies any numbness, tingling, fevers, chills or pain elsewhere. PAST MEDICAL HISTORY: Multiple sclerosis (MS). Obstructive sleep apnea (JOHN) on BiPAP. Hypertension. Coronary artery disease (CAD) status post coronary artery bypass grafting (CABG). Hyperlipidemia. Diabetes type 2. History of stroke. Hypothyroidism. Depression. Gastroesophageal reflux disease (GERD). PAST SURGICAL HISTORY: CABG. Bariatric surgery. Cholecystectomy. Hysterectomy. Left hemiarthroplasty of the hip. ALLERGIES: 1. PENICILLINS. 2. LATEX. HOME MEDICATIONS: - amitriptyline - baclofen - carbamazepine - carvedilol - vitamin D3 - ciprofloxacin - vitamin B12 - folic acid - ferrous gluconate - gabapentin - glimepiride - irbesartan - levothyroxine - metformin - methotrexate - pravastatin - tizanidine - trazodone - venlafaxine - zonisamide SOCIAL HISTORY: Patient lives at home with her . Denies any alcohol or tobacco use. REVIEW OF SYSTEMS: Complete 10 system review was significant for the pertinent positives and negatives in the HPI. All other systems were negative. PHYSICAL EXAMINATION: Patient is awake, alert and oriented. Well dressed, appropriate affect. Breathing well on room air. Normocephalic, atraumatic. Left upper extremity: No translocation through range of motion of the shoulder, elbow and wrist without any pain or discomfort. Skin is intact. Radial pulse 2+, regular rate. Positive AIN, PIN, and ulnar motor nerve function. No swelling or ecchymosis. Sensation intact to light touch in superficial sensory branch, radial nerve, median nerve and ulnar nerve. Right upper extremity: Tender to palpation over the serratus. Pain with wrist range of motion. No tenderness to palpation about the fingers, elbow or shoulder. Positive AIN, PIN, and ulnar motor nerve function. Sensation intact to light touch in superficial sensory branch, radial nerve, median nerve and ulnar nerve. Mild swelling and ecchymosis about the wrist. Radial pulse 2+, regular rate. Right lower extremity: Tender to palpation throughout the foot. No tenderness to palpation at the distal fibula, medial malleolus or proximally. Positive extensor hallucis longus (EHL), patellotibial and gastroc motor function. Sensation intact to light touch superficial sensory branch, radial nerve, median nerve and ulnar nerve. Skin is intact. No signs of ecchymosis or ulceration. Posterior tibial pulse 2+, regular rate. Sensation intact superficial, peroneal, deep peroneal, sural, saphenous, and tibial distributions. Left lower extremity: Tender to palpation distal fibula and medial malleolus over the deltoid ligament. Positive extensor hallucis longus (EHL), patellotibial and gastroc motor function. Posterior tibial pulse 2+, regular rate. Skin is intact. Mild swelling. Sensation intact to light touch superficial, peroneal, deep peroneal, sural, saphenous, and tibial distributions. CT cervical spine reviewed and demonstrated no acute vertebral fracture/subluxation. X-ray of the right wrist demonstrating mildly dorsal displaced extraarticular distal radius fracture. Left elbow no acute fracture or dislocation. Left humerus no acute fracture, dislocation, previous hemiarthroplasty. Left tibia and fibular demonstrating the distal fibula fracture, minimally displaced. X-ray of the bilateral ankles demonstrates no acute fracture or dislocation on the right and a distal fibular fracture of the left, minimally displaced. X-ray of the right foot demonstrates no acute fracture or dislocation, however signs of a previous old avulsion fracture that is chronic in nature. DIAGNOSIS: Right distal radius fracture with acceptable alignment. Left distal fibula fracture with acceptable alignment. I discussed with the patient with regards to left ankle that she can weight bear as tolerated. We will get her a boot for more comfort. She prefers that over the air cast. She is able to weight bear as tolerated with that. This is a stable injury and should heal eventfully on its own. With regards to her right wrist this is mildly displaced with about 5 degrees of dorsal angulation of the distal radius. This is well within acceptable means. Will maintain the splint for now. Return to the office upon discharge from the hospital to transfer over to a cast. She should be non-weightbearing right upper extremity. I recommend a walker with an elbow platform so she can weight bear through her right in order to facilitate her ambulation. Otherwise, will work on pain control and she can followup in the office upon discharge. The patient may be weight bear as tolerated on her right ankle as well. Likely soft tissue injury. Please call with any further questions or concerns.
[2019-06-13] MEDS: PRAVASTATIN 20 MG TAB PO SCH (21:15)
[2019-06-13] MEDS: ACETAMINOPHEN TAB 650MG DOSE (2X325MG) PO PRN (23:47)
[2019-06-14 04:00] VITALS: BP 160/70
[2019-06-14] MEDS: LEVOTHYROXINE 25MCG TABLET (0.025MG) PO SCH (05:15)
[2019-06-14 05:28] LABS: BASO % 0.2 % (0.0-1.0); EOS # 0.1 10^3/uL (0.0-0.5); EOS % 2.2 % (0.0-3.0); HEMATOCRIT 29.7 % (36.0-47.0); HEMOGLOBIN 9.1 g/dl (12.0-15.5); LYMPH # 0.8 10^3/uL (1.5-5.0); LYMPH % 17.9 % (24.0-44.0); MEAN CORPUSCULAR HEMOGLOBIN 31.2 pg (27.0-33.0); MEAN CORPUSCULAR HGB CONC 30.6 g/dl (32.0-36.5); MEAN CORPUSCULAR VOLUME 101.7 fl (80.0-96.0); MONO # 0.5 10^3/uL (0.0-0.8); MONO % 11.4 % (0.0-5.0); NEUTROPHILS % 67.4 % (36.0-66.0); RED BLOOD COUNT 2.92 10^6/uL (4.00-5.40); WHITE BLOOD COUNT 4.5 10^3/uL (4.0-10.0)
[2019-06-14 05:47] LABS: BLOOD UREA NITROGEN 16 MG/DL (7-18); CALCIUM LEVEL 7.9 MG/DL (8.8-10.2); CARBON DIOXIDE LEVEL 28 MEQ/L (21-32); CHLORIDE LEVEL 108 MEQ/L (98-107); CREATININE FOR GFR 0.62 MG/DL (0.55-1.30); GLOMERULAR FILTRATION RATE > 60.0 (>45); GLUCOSE, FASTING 117 MG/DL (70-100); MAGNESIUM LEVEL 1.9 MG/DL (1.8-2.4); POTASSIUM SERUM 3.4 MEQ/L (3.5-5.1); SODIUM LEVEL 141 MEQ/L (136-145)
[2019-06-14 05:51] LABS: PLATELET COUNT, AUTOMATED 84 10^3/uL (150-450)
[2019-06-14] MEDS ORDERED: POTASSIUM CHLORIDE 10 MEQ SR TABLET PO ONE ×2 (06:00→09:00)
[2019-06-14 07:54] VITALS: BP 200/94
[2019-06-14] MEDS: FERROUS GLUCONATE 324 MG TAB PO SCH ×2 (08:16→20:52)
[2019-06-14] MEDS: VITAMIN D 1,000 INTERNATIONAL UNITS TABLET PO SCH (08:16)
[2019-06-14] MEDS: GABAPENTIN 100 MG CAP PO SCH ×3 (08:17→20:54)
[2019-06-14] MEDS: CARVedilol 6.25 MG TAB PO SCH ×2 (08:17→20:53)
[2019-06-14] MEDS: FOLIC ACID 1 MG TAB PO SCH (08:17)
[2019-06-14] MEDS: BACLOFEN 10 MG TAB PO SCH ×2 (08:18→20:55)
[2019-06-14] MEDS: tiZANidine 4 MG TAB PO SCH ×3 (08:18→20:54)
[2019-06-14] MEDS: carBAMazepine 200 MG TAB PO SCH ×2 (08:18→20:51)
[2019-06-14] MEDS: CYANOCOBALAMIN 500 MCG TAB PO SCH (08:18)
[2019-06-14] MEDS: IRBESARTAN 150 MG TAB PO SCH (08:19)
[2019-06-14] MEDS: ZONISAMIDE 50 MG CAP (ZONEGRAN) PO SCH ×2 (08:19→20:55)
[2019-06-14] MEDS: NYSTATIN 100,000 UNITS/GM TOPICAL PWD 15 GM TOP SCH ×2 (08:20→20:56)
[2019-06-14] MEDS: HumaLOG INSULIN (NovoLOG) PER UNIT SC SCH ×4 (08:20→20:56)
[2019-06-14] MEDS: ASCORBIC ACID 500 MG TAB PO SCH (09:24)
[2019-06-14] MEDS: VENLAFAXINE **XR** 75MG CAPSULE PO SCH (09:24)
[2019-06-14 10:32] VITALS: BP 166/89
--- NOTE | 2019-06-14 11:11 | IPNPDOC ---
Subjective Date Seen The patient was seen on 06/13/19. Subjective Chief Complaint/HPI Complains of pain in the right wrist and left ankle. There is bruising on the left forearm. She denies passing out or dizziness or light headed ness. She said that at 1:30 pm she was trying to get up to go to the bathroom when her walker slipped and she fell to her right . She then was trying to get up and fell to her left and could not get up . Her was home and heart her fall but he could not help her up so they called their son and checked BP at home was low so came to the ED. Objective Physical Examination General Exam: Positive: Alert, Cooperative, No Acute Distress Eye Exam: Positive: PERRLA, Conjunctiva & lids normal, EOMI; Negative: Sclera icteric ENT Exam: Positive: Atraumatic, Mucous membr. moist/pink, Pharynx Normal Neck Exam: Positive: Supple; Negative: JVD, thyromegaly Chest Exam: Positive: Clear to auscultation, Normal air movement Heart Exam: Positive: Rate Normal, Regular Rhythm, Normal S1, Normal S2; Negative: Murmurs, Rubs Telemetry: Positive: No significant arrhythmia Abdomen Exam: Positive: Normal bowel sounds, Soft; Negative: Tenderness, Hepatospenomegaly Extremity Exam: Positive: Tenderness (in left ankle), Swelling (ankle), Other (also in right wrist, right elbow tenderness and swelling. ); Negative: Clubbing, Cyanosis, Edema Skin Exam: Positive: Nl turgor and temperature; Negative: Rash, Breakdown Neuro Exam: Positive: Normal Speech, Strength at 5/5 X4 ext, Normal Tone Psych Exam: Positive: Mental status NL, Memory Intact, Oriented x 3 Assessment /Plan Assessment Patient is a 69-year-old female with a PMHx of Multiple Sclerosis (Follows with Dr. Corrigan), JOHN on BIPAP, HTN, CAD s/p CABG x4, DLP, NIDDM2, Hx of CVA, Hypothyroidism, Depression and GERD, Left hip fracture with ORIF in September 2018 who presented to the ER after she had a mechanical fall at home and sustained right wrist fracture. She said that her walker slipped and she lost her balance and fell to her right. She was trying to get up with the help of her and fell agin to her left and injured her left ankle. During the second fall she may have hit her head. No LOC. Patient had checked her blood pressure at home and was noted to be 54/31. They contacted their son who works for EMS, who had contacted his boss to send out a crew for further assistance. Upon arrival of EMS staff, they had found that her blood pressure was 228/104. Right Wrist fracture, left distal fibular fracture. Imaging (noted above): Nondisplaced right distal radial metaphyseal fracture suspected. Large soft tissue swelling along the left lateral malleolus and mild soft tissue swelling along the medial malleolus though no definite fracture seen. However as per ortho there is a distal fibular fracture. ER provider has placed air cast on L ankle, and splinted R wrist Orthopedic surgery will be on consultation Will order PT and OT as per orthopedics. Presyncope I do not think this was a fall due to presyncopal episode. This seems like a mechanical fall. Though her orthostats were positive in the ED. She has multiple medical conditions and on multiple medications which could cause orthostatic hypotension . Many of her home meds which could cause orthostatic hypotension has been held. Telemetry negative till now. Hypertensive urgency - likely 2/2 pain Now resolved. continue home medications; Carvedilol and Irbesartan with holding parameters Macrocytic anemia Hemoglobin appears to be higher than baseline; possibly 2/2 hemoconcentration Will continue to monitor counts continue folic acid and cyanocobalamin supplementation H/o GIB and recurrent blood loss anemia Has AVMs continue iron supplementation. Thrombocytopenia ? cause In CT abdomen from 2009 Liver had a course echotexture. patient may have underlying KHAN from morbid obesity in the past and undiagnosed cirrhosis Platelet count appears to be slightly lower than baseline No bleeding noted Will continue to monitor counts Multiple Sclerosis Patient follows with Dr. Corrigan as an outpatient c/w Tizanidine, Baclofen, Carbamazepine, zonisamide JOHN on BIPAP May allow home BIPAP use while inpatient CAD s/p CABG x4 c/w Carvedilol, Irbesartan, Pravastatin c/w Nitroglycerin PRN DLP c/w Pravastatin NIDDM2 Will start ISS hold glimiperide and metformin. Hx of CVA Currently not on ASA , statin Hypothyroidism c/w Levothyroxine Depression/ Mood disorder Will hold Amitriptyline, Quetiapine, Trazodone, Venlafaxine (re: Orthostatic hypotension) Obesity with gastric bypass surgery with abdominoplasty in the past. DVT prophylaxis Will start PRADEEP/Sequentials (re: Thrombocytopenia) Plan/VTE VTE Prophylaxis Ordered?: Yes VS, I&O, 24H, Fishbone Vital Signs/I&O Vital Signs Date Time Temp Pulse Resp B/P (MAP) Pulse Ox O2 Delivery O2 Flow Rate FiO2 06/13/19 08:00 96.8 72 20 140/80 (100) 93 Nasal Cannula 2.0 I&O- Last 24 Hours up to 6 AM 06/13/19 06:00 Intake Total 160 ml Balance 160 ml Laboratory Data 24H LABS Laboratory Tests 2 06/12/19 23:04: Immature Granulocyte % (Auto) 0.8, Neutrophils (%) (Auto) 84.4H, Lymphocytes (%) (Auto) 6.7L, Monocytes (%) (Auto) 7.5H, Eosinophils (%) (Auto) 0.3, Basophils ( %) (Auto) 0.3, Neutrophils # (Auto) 6.6, Lymphocytes # (Auto) 0.5L, Monocytes # (Auto) 0.6, Eosinophils # (Auto) 0.0, Basophils # (Auto) 0.0, Nucleated Red Blood Cells % (auto) 0.0, Prothrombin Time 13.6, Prothromb Time International Ratio 1.07, Activated Partial Thromboplast Time 24.7L, Anion Gap 7L, Glomerular Filtration Rate > 60.0, Calcium Level 8.5L, Total Bilirubin 0.3, Direct Bilirubin 0.1, Aspartate Amino Transf (AST/SGOT) 27, Alanine Aminotransferase (ALT/SGPT) 27, Alkaline Phosphatase 120H, Total Creatine Kinase 88, Creatine Kinase MB 2.0, Creatine Kinase MB Relative Index 2.27, Troponin I < 0.02, Total Protein 7.8, Albumin 3.7, Albumin/Globulin Ratio 0.90L, Thyroid Stimulating Hor naida (TSH) 1.640, Free Thyroxine 0.57L 06/13/19 04:57: Immature Granulocyte % (Auto) 0.7, Neutrophils (%) (Auto) 80.8H, Lymphocytes (%) (Auto) 7.8L, Monocytes (%) (Auto) 9.1H, Eosinophils (%) (Auto) 1.3, Basophils (%) (Auto) 0.3, Neutrophils # (Auto) 5.4, Lymphocytes # (Auto) 0.5L, Monocytes # (Auto) 0.6, Eosinophils # (Auto) 0.1, Basophils # (Auto) 0.0, Nucleated Red Blood Cells % (auto) 0.0, Anion Gap 9, Glomerular Filtration Rate > 60.0, Calcium Level 8.4L, Total Creatine Kinase 90, Creatine Kinase MB 1.2, Creatine Kinase MB Relative Index 1.33, Troponin I < 0.02, Magnesium Level 1.7L, Ammonia 21, Carbamazepine (Tegretol) Level 11.0H CBC/BMP Laboratory Tests 06/12/19 23:04 06/13/19 04:57 MILIND OCHOA MD Jun 13, 2019 11:47
--- NOTE | 2019-06-14 11:15 | IPNPDOC ---
Subjective Date Seen The patient was seen on 06/14/19. Subjective Chief Complaint/HPI DOes not have any complaints this morning. has started working with PT. Noevents in the telemetry , n overnight issues, had some pain inthe right wrist and left ankle during mobilizaton otherwise is comfortable. Objective Physical Examination General Exam: Positive: Alert, Cooperative, No Acute Distress Eye Exam: Positive: PERRLA, Conjunctiva & lids normal, EOMI; Negative: Sclera icteric ENT Exam: Positive: Atraumatic, Mucous membr. moist/pink, Pharynx Normal Neck Exam: Positive: Supple; Negative: JVD, thyromegaly Chest Exam: Positive: Clear to auscultation, Normal air movement Heart Exam: Positive: Rate Normal, Regular Rhythm, Normal S1, Normal S2; Negative: Murmurs, Rubs Telemetry: Positive: No significant arrhythmia Abdomen Exam: Positive: Normal bowel sounds, Soft; Negative: Tenderness, Hepatospenomegaly Extremity Exam: Positive: Tenderness (in left ankle), Swelling (ankle), Other (also in right wrist, right elbow tenderness and swelling. ); Negative: Clubbing, Cyanosis, Edema Skin Exam: Positive: Nl turgor and temperature; Negative: Rash, Breakdown Neuro Exam: Positive: Normal Speech, Strength at 5/5 X4 ext, Normal Tone Psych Exam: Positive: Mental status NL, Memory Intact, Oriented x 3 Assessment /Plan Assessment Patient is a 69-year-old female with a PMHx of Multiple Sclerosis (Follows with Dr. Corrigan), JOHN on BIPAP, HTN, CAD s/p CABG x4, DLP, NIDDM2, Hx of CVA, Hypothyroidism, Depression and GERD, Left hip fracture with ORIF in September 2018 who presented to the ER after she had a mechanical fall at home and sustained right wrist fracture. She said that her walker slipped and she lost her balance and fell to her right. She was trying to get up with the help of her and fell agin to her left and injured her left ankle. During the second fall she may have hit her head. No LOC. Patient had checked her blood pressure at home and was noted to be 54/31. They contacted their son who works for EMS, who had contacted his boss to send out a crew for further assistance. Upon arrival of EMS staff, they had found that her blood pressure was 228/104. Right Wrist fracture, left distal fibular fracture. Imaging (noted above): Nondisplaced right distal radial metaphyseal fracture suspected. Large soft tissue swelling along the left lateral malleolus and mild soft tissue swelling along the medial malleolus though no definite fracture seen. However as per ortho there is a distal fibular fracture. ER provider has placed air cast on L ankle, and splinted R wrist Orthopedic surgery will be on consultation Will order PT and OT as per orthopedics. pain control with percocet Orhtostatic hypotension her orthostats were positive in the ED. She has multiple medical conditions and on multiple medications which could cause orthostatic hypotension . Many of her home meds which could cause orthostatic hypotension has been held. Hypertensive urgency - likely 2/2 pain Now resolved. continue home medications; Carvedilol and Irbesartan with holding parameters Macrocytic anemia Hemoglobin appears to be higher than baseline; possibly 2/2 hemoconcentration Will continue to monitor counts continue folic acid and cyanocobalamin supplementation H/o GIB and recurrent blood loss anemia Has AVMs continue iron supplementation. Thrombocytopenia ? cause In CT abdomen from 2009 Liver had a course echotexture. patient may have underlying KHAN from morbid obesity in the past and undiagnosed cirrhosis Platelet count in dropping will monitor closely, not on heparin. Multiple Sclerosis Patient follows with Dr. Corrigan as an outpatient c/w Tizanidine, Baclofen, Carbamazepine, zonisamide JOHN on BIPAP May allow home BIPAP use while inpatient CAD s/p CABG x4 c/w Carvedilol, Irbesartan, Pravastatin c/w Nitroglycerin PRN DLP c/w Pravastatin NIDDM2 Will start ISS hold glimiperide and metformin. Hx of CVA Currently not on ASA , statin Hypothyroidism c/w Levothyroxine Depression/ Mood disorder Will hold Amitriptyline, Quetiapine, Trazodone, Venlafaxine (re: Orthostatic hypotension) Obesity with gastric bypass surgery with abdominoplasty in the past. DVT prophylaxis PRADEEP/Sequentials (re: Thrombocytopenia) Plan/VTE VTE Prophylaxis Ordered?: Yes VS, I&O, 24H, Fishbone Vital Signs/I&O Vital Signs Date Time Temp Pulse Resp B/P (MAP) Pulse Ox O2 Delivery O2 Flow Rate FiO2 06/14/19 10:32 166/89 (114) 06/14/19 08:17 66 06/14/19 07:54 98.0 20 90 Room Air 06/14/19 04:00 2.0 I&O- Last 24 Hours up to 6 AM 06/14/19 06:00 Intake Total 1420 ml Output Total 600 ml Balance 820 ml Laboratory Data 24H LABS Laboratory Tests 2 06/13/19 12:00: Total Creatine Kinase 83, Creatine Kinase MB < 1.0, Creatine Kinase MB Relative Index 1.20, Troponin I < 0.02 06/13/19 12:17: Bedside Glucose (Misc Panel) 139H 06/13/19 18:05: Bedside Glucose (Misc Panel) 145H 06/13/19 19:42: Bedside Glucose (Misc Panel) 168H 06/14/19 04:54: Immature Granulocyte % (Auto) 0.9, Neutrophils (%) (Auto) 67.4H, Lymphocytes (%) (Auto) 17.9L, Monocytes (%) (Auto) 11.4H, Eosinophils (%) (Auto) 2.2, Basophils (%) (Auto) 0.2, Neutrophils # (Auto) 3.0, Lymphocytes # (Auto) 0.8L, Monocytes # (Auto) 0.5, Eosinophils # (Auto) 0.1, Basophils # (Auto) 0.0, Nucleated Red Blood Cells % (auto) 0.0, Immature Platelet Fraction 3.5, Anion Gap 5L, Glomerular Filtration Rate > 60.0, Calcium Level 7.9L, Magnesium Level 1.9 CBC/BMP Laboratory Tests 06/14/19 04:54 MILIND OCHOA MD Jun 14, 2019 11:15
[2019-06-14] MEDS: PERCOCET 5MG/325MG TAB PO PRN (12:11)
[2019-06-14 14:00] VITALS: BP 194/77
[2019-06-14] MEDS: traZODone 100 MG TAB PO SCH (20:51)
[2019-06-14] MEDS: PRAVASTATIN 20 MG TAB PO SCH (20:54)
[2019-06-14] MEDS: GLIMEPIRIDE 1 MG TABLET PO SCH (20:55)
[2019-06-14] MEDS ORDERED: METHOTREXATE 2.5 MG TAB (J8610 PER 2.5MG) PO SCH (21:00)
[2019-06-14 22:00] VITALS: BP 162/70
[2019-06-14] MEDS: ACETAMINOPHEN TAB 650MG DOSE (2X325MG) PO PRN (23:32)
[2019-06-15 06:00] VITALS: BP 151/71
[2019-06-15 06:04] LABS: BASO % 0.5 % (0.0-1.0); EOS # 0.2 10^3/uL (0.0-0.5); EOS % 4.1 % (0.0-3.0); HEMATOCRIT 28.1 % (36.0-47.0); LYMPH # 0.6 10^3/uL (1.5-5.0); LYMPH % 15.4 % (24.0-44.0); MONO # 0.5 10^3/uL (0.0-0.8); MONO % 12.2 % (0.0-5.0); NEUTROPHILS # 2.6 10^3/uL (1.5-8.5); NEUTROPHILS % 66.5 % (36.0-66.0); RED BLOOD COUNT 2.81 10^6/uL (4.00-5.40)
[2019-06-15 06:05] LABS: PLATELET COUNT, AUTOMATED 97 10^3/uL (150-450)
[2019-06-15] MEDS: LEVOTHYROXINE 25MCG TABLET (0.025MG) PO SCH (06:05)
[2019-06-15 06:27] LABS: BLOOD UREA NITROGEN 15 MG/DL (7-18); CALCIUM LEVEL 8.4 MG/DL (8.8-10.2); CARBON DIOXIDE LEVEL 26 MEQ/L (21-32); CHLORIDE LEVEL 106 MEQ/L (98-107); CREATININE FOR GFR 0.59 MG/DL (0.55-1.30); GLOMERULAR FILTRATION RATE > 60.0 (>45); GLUCOSE, FASTING 138 MG/DL (70-100); POTASSIUM SERUM 3.8 MEQ/L (3.5-5.1); SODIUM LEVEL 140 MEQ/L (136-145)
[2019-06-15] MEDS: GABAPENTIN 100 MG CAP PO SCH ×3 (08:18→20:22)
[2019-06-15] MEDS: FERROUS GLUCONATE 324 MG TAB PO SCH ×2 (08:18→20:21)
[2019-06-15] MEDS: tiZANidine 4 MG TAB PO SCH ×3 (08:19→20:22)
[2019-06-15] MEDS: BACLOFEN 10 MG TAB PO SCH ×2 (08:19→20:22)
[2019-06-15] MEDS: ASCORBIC ACID 500 MG TAB PO SCH (08:19)
[2019-06-15] MEDS: carBAMazepine 200 MG TAB PO SCH ×2 (08:19→20:21)
[2019-06-15] MEDS: CARVedilol 6.25 MG TAB PO SCH ×2 (08:20→20:22)
[2019-06-15] MEDS: CYANOCOBALAMIN 500 MCG TAB PO SCH (08:20)
[2019-06-15] MEDS: ZONISAMIDE 50 MG CAP (ZONEGRAN) PO SCH ×2 (08:20→20:22)
[2019-06-15] MEDS: VITAMIN D 1,000 INTERNATIONAL UNITS TABLET PO SCH (08:20)
[2019-06-15] MEDS: VENLAFAXINE **XR** 75MG CAPSULE PO SCH (08:20)
[2019-06-15] MEDS: FOLIC ACID 1 MG TAB PO SCH (08:20)
[2019-06-15] MEDS: NYSTATIN 100,000 UNITS/GM TOPICAL PWD 15 GM TOP SCH ×2 (08:21→20:25)
[2019-06-15] MEDS: IRBESARTAN 150 MG TAB PO SCH (08:21)
[2019-06-15] MEDS: HumaLOG INSULIN (NovoLOG) PER UNIT SC SCH ×4 (08:21→20:23)
--- NOTE | 2019-06-15 09:45 | IPNPDOC ---
Subjective Date Seen The patient was seen on 06/15/19. Subjective Chief Complaint/HPI No new issues today. BP remains elevated. No fever or chills, Had PT evaluation yesterday. Recommended continue to rehab after discharge Objective Physical Examination General Exam: Positive: Alert, Cooperative, No Acute Distress Eye Exam: Positive: PERRLA, Conjunctiva & lids normal, EOMI; Negative: Sclera icteric ENT Exam: Positive: Atraumatic, Mucous membr. moist/pink, Pharynx Normal Neck Exam: Positive: Supple; Negative: JVD, thyromegaly Chest Exam: Positive: Clear to auscultation, Normal air movement Heart Exam: Positive: Rate Normal, Regular Rhythm, Normal S1, Normal S2; Negative: Murmurs, Rubs Telemetry: Positive: No significant arrhythmia Abdomen Exam: Positive: Normal bowel sounds, Soft; Negative: Tenderness, Hepatospenomegaly Extremity Exam: Positive: Tenderness (in left ankle), Swelling (ankle), Other (also in right wrist, right elbow tenderness and swelling. ); Negative: Clubbing, Cyanosis, Edema Skin Exam: Positive: Nl turgor and temperature; Negative: Rash, Breakdown Neuro Exam: Positive: Normal Speech, Strength at 5/5 X4 ext, Normal Tone Psych Exam: Positive: Mental status NL, Memory Intact, Oriented x 3 Assessment /Plan Assessment Patient is a 69-year-old female with a PMHx of Multiple Sclerosis (Follows with Dr. Corrigan), JOHN on BIPAP, HTN, CAD s/p CABG x4, DLP, NIDDM2, Hx of CVA, Hypothyroidism, Depression and GERD, Left hip fracture with ORIF in September 2018 who presented to the ER after she had a mechanical fall at home and sustained right wrist fracture. She said that her walker slipped and she lost her balance and fell to her right. She was trying to get up with the help of her and fell agin to her left and injured her left ankle. During the second fall she may have hit her head. No LOC. Patient had checked her blood pressure at home and was noted to be 54/31. They contacted their son who works for EMS, who had contacted his boss to send out a crew for further assistance. Upon arrival of EMS staff, they had found that her blood pressure was 228/104. Right Wrist fracture, left distal fibular fracture. Imaging (noted above): Nondisplaced right distal radial metaphyseal fracture suspected. Large soft tissue swelling along the left lateral malleolus and mild soft tissue swelling along the medial malleolus though no definite fracture seen. However as per ortho there is a distal fibular fracture. ER provider has placed air cast on L ankle, and splinted R wrist Orthopedic surgery on consultation PT and OT as per orthopedics. pain control with percocet Orhtostatic hypotension her orthostats were positive in the ED. She has multiple medical conditions and on multiple medications which could cause orthostatic hypotension . Many of her home meds which could cause orthostatic hypotension has been held. Hypertensive urgency - likely 2/2 pain Now resolved. but remains hypertensive continue home medications; Carvedilol will increase Irbesartan with holding parameters Macrocytic anemia Hemoglobin appears to be higher than baseline; possibly 2/2 hemoconcentration Will continue to monitor counts continue folic acid and cyanocobalamin supplementation H/o GIB and recurrent blood loss anemia Has AVMs continue iron supplementation. Thrombocytopenia ? cause In CT abdomen from 2009 Liver had a course echotexture. patient may have underlying KHAN from morbid obesity in the past and undiagnosed cirrhosis Platelet count in dropping will monitor closely, not on heparin. Multiple Sclerosis Patient follows with Dr. Corrigan as an outpatient c/w Tizanidine, Baclofen, Carbamazepine, zonisamide JOHN on BIPAP May allow home BIPAP use while inpatient CAD s/p CABG x4 c/w Carvedilol, Irbesartan, Pravastatin c/w Nitroglycerin PRN DLP c/w Pravastatin NIDDM2 Will start ISS hold glimiperide and metformin. Hx of CVA Currently not on ASA , statin Hypothyroidism c/w Levothyroxine Depression/ Mood disorder Will hold Amitriptyline, Quetiapine, Trazodone, Venlafaxine (re: Orthostatic hypotension) Obesity with gastric bypass surgery with abdominoplasty in the past. DVT prophylaxis PRADEEP/Sequentials (re: Thrombocytopenia) Plan/VTE VTE Prophylaxis Ordered?: Yes VS, I&O, 24H, Fishbone Vital Signs/I&O Vital Signs Date Time Temp Pulse Resp B/P (MAP) Pulse Ox O2 Delivery O2 Flow Rate FiO2 06/15/19 08:21 177/72 06/15/19 08:20 77 06/15/19 06:00 98.6 20 93 Room Air 06/14/19 04:00 2.0 I&O- Last 24 Hours up to 6 AM 06/15/19 06:00 Intake Total 930 ml Output Total 800 ml Balance 130 ml Laboratory Data 24H LABS Laboratory Tests 2 06/14/19 12:00: Bedside Glucose (Misc Panel) 164H 06/14/19 16:30: Bedside Glucose (Misc Panel) 139H 06/14/19 20:24: Bedside Glucose (Misc Panel) 200H 06/15/19 05:15: Immature Granulocyte % (Auto) 1.3, Neutrophils (%) (Auto) 66.5H, Lymphocytes (%) (Auto) 15.4L, Monocytes (%) (Auto) 12.2H, Eosinophils (%) (Auto) 4.1H, Basophils (%) (Auto) 0.5, Neutrophils # (Auto) 2.6, Lymphocytes # (Auto) 0.6L, Monocytes # (Auto) 0.5, Eosinophils # (Auto) 0.2, Basophils # (Auto) 0.0, Nucleated Red Blood Cells % (auto) 0.0, Immature Platelet Fraction 3.4, Anion Gap 8, Glomerular Filtration Rate > 60.0, Calcium Level 8.4L, Magnesium Level 2.0 CBC/BMP Laboratory Tests 06/15/19 05:15 MILIND OCHOA MD Jun 15, 2019 09:44
[2019-06-15 11:15] VITALS: BP_SYST 143; BP_SYST 158; BP_SYST 162; BP_DIAS 65; BP_DIAS 73; BP_DIAS 76
[2019-06-15 14:00] VITALS: BP 180/80
[2019-06-15] MEDS: PERCOCET 5MG/325MG TAB PO PRN (15:33)
[2019-06-15] MEDS: PRAVASTATIN 20 MG TAB PO SCH (20:19)
[2019-06-15] MEDS: traZODone 100 MG TAB PO SCH (20:22)
[2019-06-15] MEDS: GLIMEPIRIDE 1 MG TABLET PO SCH (20:25)
[2019-06-15 22:00] VITALS: BP 181/77
[2019-06-15 23:00] VITALS: BP 164/70
[2019-06-16 02:02] VITALS: BP 152/80
[2019-06-16] MEDS: PERCOCET 5MG/325MG TAB PO PRN ×2 (03:57→10:46)
[2019-06-16] MEDS: IRBESARTAN 150 MG TAB PO SCH (05:33)
[2019-06-16] MEDS: LEVOTHYROXINE 25MCG TABLET (0.025MG) PO SCH (05:34)
[2019-06-16 06:00] VITALS: BP 196/88
[2019-06-16 06:25] LABS: BASO % 0.6 % (0.0-1.0); EOS # 0.2 10^3/uL (0.0-0.5); EOS % 4.1 % (0.0-3.0); HEMATOCRIT 26.6 % (36.0-47.0); HEMOGLOBIN 8.6 g/dl (12.0-15.5); LYMPH # 0.6 10^3/uL (1.5-5.0); LYMPH % 15.7 % (24.0-44.0); MEAN CORPUSCULAR HEMOGLOBIN 31.5 pg (27.0-33.0); MEAN CORPUSCULAR HGB CONC 32.3 g/dl (32.0-36.5); MEAN CORPUSCULAR VOLUME 97.4 fl (80.0-96.0); MONO # 0.4 10^3/uL (0.0-0.8); MONO % 10.5 % (0.0-5.0); NEUTROPHILS # 2.5 10^3/uL (1.5-8.5); NEUTROPHILS % 68.5 % (36.0-66.0); PLATELET COUNT, AUTOMATED 108 10^3/uL (150-450); RED BLOOD COUNT 2.73 10^6/uL (4.00-5.40); WHITE BLOOD COUNT 3.6 10^3/uL (4.0-10.0)
[2019-06-16 06:44] LABS: BLOOD UREA NITROGEN 14 MG/DL (7-18); CALCIUM LEVEL 7.8 MG/DL (8.8-10.2); CARBON DIOXIDE LEVEL 26 MEQ/L (21-32); CHLORIDE LEVEL 108 MEQ/L (98-107); CREATININE FOR GFR 0.56 MG/DL (0.55-1.30); GLOMERULAR FILTRATION RATE > 60.0 (>45); GLUCOSE, FASTING 128 MG/DL (70-100); MAGNESIUM LEVEL 1.9 MG/DL (1.8-2.4); POTASSIUM SERUM 3.8 MEQ/L (3.5-5.1); SODIUM LEVEL 141 MEQ/L (136-145)
[2019-06-16 07:23] VITALS: BP 187/78
[2019-06-16 07:24] VITALS: BP 187/78
[2019-06-16] MEDS: FOLIC ACID 1 MG TAB PO SCH (07:47)
[2019-06-16] MEDS: carBAMazepine 200 MG TAB PO SCH ×2 (07:47→21:14)
[2019-06-16] MEDS: FERROUS GLUCONATE 324 MG TAB PO SCH ×2 (07:47→21:14)
[2019-06-16] MEDS: GABAPENTIN 100 MG CAP PO SCH ×3 (07:47→21:11)
[2019-06-16] MEDS: BACLOFEN 10 MG TAB PO SCH ×2 (07:47→21:11)
[2019-06-16] MEDS: CYANOCOBALAMIN 500 MCG TAB PO SCH (07:48)
[2019-06-16] MEDS: CARVedilol 6.25 MG TAB PO SCH ×2 (07:48→21:13)
[2019-06-16] MEDS: ASCORBIC ACID 500 MG TAB PO SCH (07:48)
[2019-06-16] MEDS: NYSTATIN 100,000 UNITS/GM TOPICAL PWD 15 GM TOP SCH ×2 (08:42→21:17)
[2019-06-16] MEDS: ZONISAMIDE 50 MG CAP (ZONEGRAN) PO SCH ×2 (08:42→21:16)
[2019-06-16] MEDS: HumaLOG INSULIN (NovoLOG) PER UNIT SC SCH ×4 (08:42→21:00)
[2019-06-16] MEDS: VITAMIN D 1,000 INTERNATIONAL UNITS TABLET PO SCH (08:42)
[2019-06-16] MEDS: tiZANidine 4 MG TAB PO SCH ×3 (08:42→21:14)
[2019-06-16] MEDS: VENLAFAXINE **XR** 75MG CAPSULE PO SCH (08:42)
[2019-06-16 14:00] VITALS: BP 178/84
[2019-06-16] MEDS ORDERED: amLODIPine 10 MG TAB PO ONE (15:30)
--- NOTE | 2019-06-16 21:08 | IPNPDOC ---
Subjective Date Seen The patient was seen on 06/16/19. Subjective Chief Complaint/HPI Does not have any new complaints today. Her blood pressure remains elevated. Objective Physical Examination General Exam: Positive: Alert, Cooperative, No Acute Distress Eye Exam: Positive: PERRLA, Conjunctiva & lids normal, EOMI; Negative: Sclera icteric ENT Exam: Positive: Atraumatic, Mucous membr. moist/pink, Pharynx Normal Neck Exam: Positive: Supple; Negative: JVD, thyromegaly Chest Exam: Positive: Clear to auscultation, Normal air movement Heart Exam: Positive: Rate Normal, Regular Rhythm, Normal S1, Normal S2; Negative: Murmurs, Rubs Telemetry: Positive: No significant arrhythmia Abdomen Exam: Positive: Normal bowel sounds, Soft; Negative: Tenderness, Hepatospenomegaly Extremity Exam: Positive: Tenderness (in left ankle), Swelling (ankle), Other (also in right wrist, right elbow tenderness and swelling. ); Negative: Clubbing, Cyanosis, Edema Skin Exam: Positive: Nl turgor and temperature; Negative: Rash, Breakdown Neuro Exam: Positive: Normal Speech, Strength at 5/5 X4 ext, Normal Tone Psych Exam: Positive: Mental status NL, Memory Intact, Oriented x 3 Assessment /Plan Assessment Patient is a 69-year-old female with a PMHx of Multiple Sclerosis (Follows with Dr. Corrigan), JOHN on BIPAP, HTN, CAD s/p CABG x4, DLP, NIDDM2, Hx of CVA, Hypothyroidism, Depression and GERD, Left hip fracture with ORIF in September 2018 who presented to the ER after she had a mechanical fall at home and sustained right wrist fracture. She said that her walker slipped and she lost her balance and fell to her right. She was trying to get up with the help of her and fell agin to her left and injured her left ankle. During the second fall she may have hit her head. No LOC. Patient had checked her blood pressure at home and was noted to be 54/31. They contacted their son who works for EMS, w vi had contacted his boss to send out a crew for further assistance. Upon arrival of EMS staff, they had found that her blood pressure was 228/104. Right Wrist fracture, left distal fibular fracture. Imaging (noted above): Nondisplaced right distal radial metaphyseal fracture suspected. Large soft tissue swelling along the left lateral malleolus and mild soft tissue swelling along the medial malleolus though no definite fracture seen. However as per ortho there is a distal fibular fracture. ER provider has placed air cast on L ankle, and splinted R wrist Orthopedic surgery on consultation PT and OT as per orthopedics. pain control with percocet Orthostatic hypotension her orthostats were positive in the ED. She has multiple medical conditions and on multiple medications which could cause orthostatic hypotension . Many of her home meds which could cause orthostatic hypotension has been held. Hypertensive urgency - likely 2/2 pain Now resolved. but remains hypertensive continue home medications; Carvedilol will increase Irbesartan with holding parameters started on amlodipine Macrocytic anemia Hemoglobin appears to be higher than baseline; possibly 2/2 hemoconcentration Will continue to monitor counts continue folic acid and cyanocobalamin supplementation H/o GIB and recurrent blood loss anemia Has AVMs continue iron supplementation. Thrombocytopenia ? cause In CT abdomen from 2009 Liver had a course echotexture. patient may have underlying KHAN from morbid obesity in the past and undiagnosed cirrhosis Platelet count in dropping will monitor closely, not on heparin. Multiple Sclerosis Patient follows with Dr. Corrigan as an outpatient c/w Tizanidine, Baclofen, Carbamazepine, zonisamide JOHN on BIPAP May allow home BIPAP use while inpatient CAD s/p CABG x4 c/w Carvedilol, Irbesartan, Pravastatin c/w Nitroglycerin PRN DLP c/w Pravastatin NIDDM2 Will start ISS continue glimiperide. hold metformin. Hx of CVA Currently not on ASA , statin Hypothyroidism c/w Levothyroxine Depression/ Mood disorder Will hold Amitriptyline, Quetiapine, Trazodone, Venlafaxine (re: Orthostatic hypotension) Obesity with gastric bypass surgery with abdominoplasty in the past. DVT prophylaxis PRADEEP/Sequentials (re: Thrombocytopenia) Plan/VTE VTE Prophylaxis Ordered?: Yes VS, I&O, 24H, Fishbone Vital Signs/I&O Vital Signs Date Time Temp Pulse Resp B/P (MAP) Pulse Ox O2 Delivery O2 Flow Rate FiO2 06/16/19 16:17 66 188/82 06/16/19 14:00 98.4 18 95 Room Air 06/16/19 06:00 2.0 I&O- Last 24 Hours up to 6 AM 06/16/19 06:00 Intake Total 1260 ml Output Total 1850 ml Balance -590 ml Laboratory Data 24H LABS Laboratory Tests 2 06/15/19 20:04: Bedside Glucose (Misc Panel) 197H 06/16/19 05:10: Immature Granulocyte % (Auto) 0.6, Neutrophils (%) (Auto) 68.5H, Lymphocytes (%) (Auto) 15.7L, Monocytes (%) (Auto) 10.5H, Eosinophils (%) (Auto) 4.1H, Basophils (%) (Auto) 0.6, Neutrophils # (Auto) 2.5, Lymphocytes # (Auto) 0.6L, Monocytes # (Auto) 0.4, Eosinophils # (Auto) 0.2, Basophils # (Auto) 0.0, Nucleated Red Blood Cells % (auto) 0.0, Anion Gap 7L, Glomerular Filtration Rate > 60.0, Calcium Level 7.8L, Magnesium Level 1.9 06/16/19 11:40: Bedside Glucose (Misc Panel) 213H 06/16/19 16:41: Bedside Glucose (Misc Panel) 117H CBC/BMP Laboratory Tests 06/16/19 05:10 MILIND OCHOA MD Jun 16, 2019 17:09
[2019-06-16] MEDS: PRAVASTATIN 20 MG TAB PO SCH (21:11)
[2019-06-16] MEDS: QUEtiapine FUMARATE 25 MG TAB PO SCH (21:14)
[2019-06-16] MEDS: traZODone 100 MG TAB PO SCH (21:14)
[2019-06-16] MEDS: AMITRIPTYLINE 25 MG TAB PO SCH (21:14)
[2019-06-16] MEDS: GLIMEPIRIDE 1 MG TABLET PO SCH (21:16)
[2019-06-16 22:00] VITALS: BP 163/75
[2019-06-17] MEDS: PERCOCET 5MG/325MG TAB PO PRN (02:23)
[2019-06-17] MEDS: LEVOTHYROXINE 25MCG TABLET (0.025MG) PO SCH (05:55)
[2019-06-17 06:00] VITALS: BP 182/88
[2019-06-17 06:16] LABS: BASO % 0.6 % (0.0-1.0); EOS # 0.2 10^3/uL (0.0-0.5); EOS % 5.4 % (0.0-3.0); HEMATOCRIT 28.1 % (36.0-47.0); HEMOGLOBIN 8.9 g/dl (12.0-15.5); LYMPH # 0.7 10^3/uL (1.5-5.0); LYMPH % 22.9 % (24.0-44.0); MEAN CORPUSCULAR HEMOGLOBIN 31.3 pg (27.0-33.0); MEAN CORPUSCULAR HGB CONC 31.7 g/dl (32.0-36.5); MEAN CORPUSCULAR VOLUME 98.9 fl (80.0-96.0); MONO # 0.4 10^3/uL (0.0-0.8); NEUTROPHILS # 1.8 10^3/uL (1.5-8.5); NEUTROPHILS % 56.1 % (36.0-66.0); PLATELET COUNT, AUTOMATED 122 10^3/uL (150-450); RED BLOOD COUNT 2.84 10^6/uL (4.00-5.40); WHITE BLOOD COUNT 3.2 10^3/uL (4.0-10.0)
[2019-06-17 06:43] LABS: BLOOD UREA NITROGEN 11 MG/DL (7-18); CALCIUM LEVEL 8.1 MG/DL (8.8-10.2); CARBON DIOXIDE LEVEL 28 MEQ/L (21-32); CHLORIDE LEVEL 106 MEQ/L (98-107); CREATININE FOR GFR 0.54 MG/DL (0.55-1.30); GLOMERULAR FILTRATION RATE > 60.0 (>45); GLUCOSE, FASTING 86 MG/DL (70-100); MAGNESIUM LEVEL 1.8 MG/DL (1.8-2.4); POTASSIUM SERUM 3.5 MEQ/L (3.5-5.1); SODIUM LEVEL 138 MEQ/L (136-145)
[2019-06-17] MEDS: HumaLOG INSULIN (NovoLOG) PER UNIT SC SCH ×4 (07:30→21:00)
[2019-06-17] MEDS: ZONISAMIDE 50 MG CAP (ZONEGRAN) PO SCH ×2 (09:01→20:46)
[2019-06-17] MEDS: carBAMazepine 200 MG TAB PO SCH ×2 (09:02→20:47)
[2019-06-17] MEDS: VENLAFAXINE **XR** 75MG CAPSULE PO SCH (09:03)
[2019-06-17] MEDS: IRBESARTAN 150 MG TAB PO SCH (09:03)
[2019-06-17] MEDS: ASCORBIC ACID 500 MG TAB PO SCH (09:03)
[2019-06-17] MEDS: FERROUS GLUCONATE 324 MG TAB PO SCH ×2 (09:03→20:46)
[2019-06-17] MEDS: CYANOCOBALAMIN 500 MCG TAB PO SCH (09:03)
[2019-06-17] MEDS: VITAMIN D 1,000 INTERNATIONAL UNITS TABLET PO SCH (09:03)
[2019-06-17] MEDS: GABAPENTIN 100 MG CAP PO SCH ×3 (09:03→20:46)
[2019-06-17] MEDS: BACLOFEN 10 MG TAB PO SCH ×2 (09:03→20:46)
[2019-06-17] MEDS: FOLIC ACID 1 MG TAB PO SCH (09:03)
[2019-06-17] MEDS: tiZANidine 4 MG TAB PO SCH ×3 (09:03→20:46)
[2019-06-17] MEDS: NYSTATIN 100,000 UNITS/GM TOPICAL PWD 15 GM TOP SCH ×2 (09:04→20:53)
[2019-06-17] MEDS: CARVedilol 6.25 MG TAB PO SCH ×2 (09:04→20:46)
[2019-06-17] MEDS: AMITRIPTYLINE 25 MG TAB PO SCH (20:46)
[2019-06-17] MEDS: PRAVASTATIN 20 MG TAB PO SCH (20:46)
[2019-06-17] MEDS: traZODone 100 MG TAB PO SCH (20:46)
[2019-06-17] MEDS: QUEtiapine FUMARATE 25 MG TAB PO SCH (20:46)
[2019-06-17] MEDS: GLIMEPIRIDE 1 MG TABLET PO SCH (20:49)
[2019-06-18] MEDS: LEVOTHYROXINE 25MCG TABLET (0.025MG) PO SCH (05:32)
[2019-06-18 06:00] VITALS: BP 146/86
[2019-06-18 06:15] LABS: BASO % 0.3 % (0.0-1.0); EOS # 0.2 10^3/uL (0.0-0.5); EOS % 4.7 % (0.0-3.0); HEMATOCRIT 28.9 % (36.0-47.0); HEMOGLOBIN 9.4 g/dl (12.0-15.5); LYMPH # 0.7 10^3/uL (1.5-5.0); LYMPH % 16.9 % (24.0-44.0); MEAN CORPUSCULAR HEMOGLOBIN 31.8 pg (27.0-33.0); MEAN CORPUSCULAR HGB CONC 32.5 g/dl (32.0-36.5); MEAN CORPUSCULAR VOLUME 97.6 fl (80.0-96.0); MONO # 0.4 10^3/uL (0.0-0.8); MONO % 11.4 % (0.0-5.0); NEUTROPHILS # 2.5 10^3/uL (1.5-8.5); NEUTROPHILS % 65.4 % (36.0-66.0); PLATELET COUNT, AUTOMATED 132 10^3/uL (150-450); RED BLOOD COUNT 2.96 10^6/uL (4.00-5.40); WHITE BLOOD COUNT 3.9 10^3/uL (4.0-10.0)
[2019-06-18 06:36] LABS: BLOOD UREA NITROGEN 12 MG/DL (7-18); CALCIUM LEVEL 8.6 MG/DL (8.8-10.2); CARBON DIOXIDE LEVEL 24 MEQ/L (21-32); CHLORIDE LEVEL 104 MEQ/L (98-107); CREATININE FOR GFR 0.55 MG/DL (0.55-1.30); GLOMERULAR FILTRATION RATE > 60.0 (>45); GLUCOSE, FASTING 97 MG/DL (70-100); MAGNESIUM LEVEL 1.7 MG/DL (1.8-2.4); POTASSIUM SERUM 3.6 MEQ/L (3.5-5.1); SODIUM LEVEL 136 MEQ/L (136-145)
[2019-06-18] MEDS: HumaLOG INSULIN (NovoLOG) PER UNIT SC SCH ×4 (07:30→21:00)
[2019-06-18] MEDS: ZONISAMIDE 50 MG CAP (ZONEGRAN) PO SCH ×2 (08:52→20:51)
[2019-06-18] MEDS: IRBESARTAN 150 MG TAB PO SCH (08:52)
[2019-06-18] MEDS: CARVedilol 6.25 MG TAB PO SCH ×2 (08:52→20:51)
[2019-06-18] MEDS: VENLAFAXINE **XR** 75MG CAPSULE PO SCH (08:52)
[2019-06-18] MEDS: VITAMIN D 1,000 INTERNATIONAL UNITS TABLET PO SCH (08:53)
[2019-06-18] MEDS: tiZANidine 4 MG TAB PO SCH ×3 (08:53→20:51)
[2019-06-18] MEDS: FERROUS GLUCONATE 324 MG TAB PO SCH ×2 (08:53→20:51)
[2019-06-18] MEDS: BACLOFEN 10 MG TAB PO SCH ×2 (08:53→20:51)
[2019-06-18] MEDS: FOLIC ACID 1 MG TAB PO SCH (08:53)
[2019-06-18] MEDS: ASCORBIC ACID 500 MG TAB PO SCH (08:53)
[2019-06-18] MEDS: GABAPENTIN 100 MG CAP PO SCH ×3 (08:53→20:50)
[2019-06-18] MEDS: MAGNESIUM OXIDE 400 MG TAB (MAG-OX) PO SCH (08:53)
[2019-06-18] MEDS: CYANOCOBALAMIN 500 MCG TAB PO SCH (08:53)
[2019-06-18] MEDS: carBAMazepine 200 MG TAB PO SCH ×2 (08:54→20:52)
[2019-06-18] MEDS: NYSTATIN 100,000 UNITS/GM TOPICAL PWD 15 GM TOP SCH ×2 (08:55→20:52)
[2019-06-18] MEDS: ACETAMINOPHEN TAB 650MG DOSE (2X325MG) PO PRN (09:51)
[2019-06-18 14:00] VITALS: BP 137/63
[2019-06-18] MEDS: PERCOCET 5MG/325MG TAB PO PRN ×2 (15:46→21:55)
[2019-06-18] MEDS: GLIMEPIRIDE 1 MG TABLET PO SCH (20:51)
[2019-06-18] MEDS: PRAVASTATIN 20 MG TAB PO SCH (20:51)
[2019-06-18] MEDS: AMITRIPTYLINE 25 MG TAB PO SCH (20:51)
[2019-06-18] MEDS: traZODone 100 MG TAB PO SCH (20:51)
[2019-06-18] MEDS: QUEtiapine FUMARATE 25 MG TAB PO SCH (20:51)
[2019-06-19 06:00] VITALS: BP 148/79
[2019-06-19] MEDS: LEVOTHYROXINE 25MCG TABLET (0.025MG) PO SCH (06:10)
[2019-06-19] MEDS: NYSTATIN 100,000 UNITS/GM TOPICAL PWD 15 GM TOP SCH ×2 (08:51→20:32)
[2019-06-19] MEDS: HumaLOG INSULIN (NovoLOG) PER UNIT SC SCH ×4 (08:51→22:06)
[2019-06-19] MEDS: VENLAFAXINE **XR** 75MG CAPSULE PO SCH (08:52)
[2019-06-19] MEDS: BACLOFEN 10 MG TAB PO SCH ×2 (08:52→20:25)
[2019-06-19] MEDS: IRBESARTAN 150 MG TAB PO SCH (08:52)
[2019-06-19] MEDS: carBAMazepine 200 MG TAB PO SCH ×2 (08:52→20:23)
[2019-06-19] MEDS: ZONISAMIDE 50 MG CAP (ZONEGRAN) PO SCH ×2 (08:52→20:23)
[2019-06-19] MEDS: VITAMIN D 1,000 INTERNATIONAL UNITS TABLET PO SCH (08:52)
[2019-06-19] MEDS: CARVedilol 6.25 MG TAB PO SCH ×2 (08:53→20:27)
[2019-06-19] MEDS: ASCORBIC ACID 500 MG TAB PO SCH (08:53)
[2019-06-19] MEDS: FOLIC ACID 1 MG TAB PO SCH (08:53)
[2019-06-19] MEDS: MAGNESIUM OXIDE 400 MG TAB (MAG-OX) PO SCH (08:53)
[2019-06-19] MEDS: GABAPENTIN 100 MG CAP PO SCH ×3 (08:53→20:27)
[2019-06-19] MEDS: CYANOCOBALAMIN 500 MCG TAB PO SCH (08:54)
[2019-06-19] MEDS: tiZANidine 4 MG TAB PO SCH ×3 (08:54→20:26)
[2019-06-19] MEDS: FERROUS GLUCONATE 324 MG TAB PO SCH ×2 (08:54→20:26)
[2019-06-19] MEDS: PERCOCET 5MG/325MG TAB PO PRN ×2 (08:56→18:02)
[2019-06-19] MEDS: traZODone 100 MG TAB PO SCH (20:23)
[2019-06-19] MEDS: GLIMEPIRIDE 1 MG TABLET PO SCH (20:25)
[2019-06-19] MEDS: PRAVASTATIN 20 MG TAB PO SCH (20:25)
[2019-06-19] MEDS: AMITRIPTYLINE 25 MG TAB PO SCH (20:26)
[2019-06-19] MEDS: QUEtiapine FUMARATE 25 MG TAB PO SCH (20:26)
[2019-06-20] MEDS: LEVOTHYROXINE 25MCG TABLET (0.025MG) PO SCH (05:41)
[2019-06-20 06:00] VITALS: BP 138/75
[2019-06-20] MEDS: HumaLOG INSULIN (NovoLOG) PER UNIT SC SCH ×2 (07:30→12:26)
[2019-06-20] MEDS: FOLIC ACID 1 MG TAB PO SCH (09:34)
[2019-06-20] MEDS: MAGNESIUM OXIDE 400 MG TAB (MAG-OX) PO SCH (09:34)
[2019-06-20] MEDS: FERROUS GLUCONATE 324 MG TAB PO SCH (09:34)
[2019-06-20] MEDS: tiZANidine 4 MG TAB PO SCH (09:34)
[2019-06-20] MEDS: VENLAFAXINE **XR** 75MG CAPSULE PO SCH (09:34)
[2019-06-20] MEDS: CYANOCOBALAMIN 500 MCG TAB PO SCH (09:34)
[2019-06-20 09:36] VITALS: BP 174/92
[2019-06-20] MEDS: CARVedilol 6.25 MG TAB PO SCH (09:36)
[2019-06-20] MEDS: ASCORBIC ACID 500 MG TAB PO SCH (09:36)
[2019-06-20] MEDS: BACLOFEN 10 MG TAB PO SCH (09:36)
[2019-06-20] MEDS: VITAMIN D 1,000 INTERNATIONAL UNITS TABLET PO SCH (09:36)
[2019-06-20] MEDS: GABAPENTIN 100 MG CAP PO SCH (09:36)
[2019-06-20] MEDS: IRBESARTAN 150 MG TAB PO SCH (09:36)
[2019-06-20] MEDS: ZONISAMIDE 50 MG CAP (ZONEGRAN) PO SCH (09:37)
[2019-06-20] MEDS: PERCOCET 5MG/325MG TAB PO PRN (09:37)
[2019-06-20] MEDS: NYSTATIN 100,000 UNITS/GM TOPICAL PWD 15 GM TOP SCH (09:37)
[2019-06-20] MEDS: carBAMazepine 200 MG TAB PO SCH (09:37)
[2019-06-20] MEDS ORDERED: NYST10006 TOP (09:48)
[2019-06-20] MEDS ORDERED: PERCOCET PO (09:48)
[2019-06-20] MEDS ORDERED: IRBE150T12 PO (09:48)
[2019-06-20 12:27] VITALS: BP 162/86
== END 2019-06-20 13:53 | DRG 563 ==
LOC: M ED 22:14 → M ED INP 06-13 02:57 → ENRESERV 06-13 03:21 → M PCU 06-13 03:59 → M MSPAV 06-14 14:12
PROVIDERS: ADMIT Internal Medicine; ATTEND Internal Medicine Nephrology
DX: S52.551A Other extraarticular fracture of lower end of right radius, initial encounter for closed fracture (principal); I95.1 Orthostatic hypotension; I16.0 Hypertensive urgency; G35 Multiple sclerosis; G47.33 Obstructive sleep apnea (adult) (pediatric); I10 Essential (primary) hypertension; I25.10 Atherosclerotic heart disease of native coronary artery without angina pectoris; S82.402A Unspecified fracture of shaft of left fibula, initial encounter for closed fracture; E66.9 Obesity, unspecified; M79.89 Other specified soft tissue disorders; E78.5 Hyperlipidemia, unspecified; F32.9 Major depressive disorder, single episode, unspecified; D53.9 Nutritional anemia, unspecified; E11.9 Type 2 diabetes mellitus without complications; E03.9 Hypothyroidism, unspecified; K21.9 Gastro-esophageal reflux disease without esophagitis; Z79.84 Long term (current) use of oral hypoglycemic drugs; Z79.899 Other long term (current) drug therapy; Z88.0 Allergy status to penicillin; Z91.040 Latex allergy status; Z86.73 Personal history of transient ischemic attack (TIA), and cerebral infarction without residual deficits; W18.09XA Striking against other object with subsequent fall, initial encounter; Y92.008 Other place in unspecified non-institutional (private) residence as the place of occurrence of the external cause; Z98.84 Bariatric surgery status; Z90.49 Acquired absence of other specified parts of digestive tract; Z96.642 Presence of left artificial hip joint; Z68.30 Body mass index [BMI] 30.0-30.9, adult; Y99.8 Other external cause status; Y93.89 Activity, other specified

== ENCOUNTER → 2019-06-27 | Outpatient (REF) ==
[~2019-06-27] MED LIST changes: +CARB1TAB20 PO; +CIPR500T3 PO; +NYST10006 TOP; +PERCOCET PO; +TIZA4TAB4 PO; +VITA200015 PO
[2019-06-27 08:56] LABS: BLOOD UREA NITROGEN 10 MG/DL (7-18); CALCIUM LEVEL 8.6 MG/DL (8.8-10.2); CARBON DIOXIDE LEVEL 30 MEQ/L (21-32); CHLORIDE LEVEL 98 MEQ/L (98-107); GLOMERULAR FILTRATION RATE > 60.0 (>45); GLUCOSE, FASTING 93 MG/DL (70-100); MAGNESIUM LEVEL 1.9 MG/DL (1.8-2.4); POTASSIUM SERUM 4.1 MEQ/L (3.5-5.1); SODIUM LEVEL 133 MEQ/L (136-145)
== END ==
LOC: SKLAB5 07:51
PROVIDERS: ATTEND Internal Medicine
DX: E11.9 Type 2 diabetes mellitus without complications (principal)

== ENCOUNTER → 2019-07-04 | Outpatient (REF) ==
[2019-07-04 08:25] LABS: HEMATOCRIT 35.4 % (36.0-47.0); HEMOGLOBIN 11.4 g/dl (12.0-15.5); MEAN CORPUSCULAR HGB CONC 32.2 g/dl (32.0-36.5); MEAN CORPUSCULAR VOLUME 96.2 fl (80.0-96.0); PLATELET COUNT, AUTOMATED 157 10^3/uL (150-450); RED BLOOD COUNT 3.68 10^6/uL (4.00-5.40); WHITE BLOOD COUNT 3.5 10^3/uL (4.0-10.0)
[2019-07-04 09:06] LABS: HEMOGLOBIN A1c 5.9 %
[2019-07-04 09:12] LABS: BLOOD UREA NITROGEN 11 MG/DL (7-18); CALCIUM LEVEL 8.2 MG/DL (8.8-10.2); CARBON DIOXIDE LEVEL 23 MEQ/L (21-32); CHLORIDE LEVEL 96 MEQ/L (98-107); CHOLESTEROL LEVEL 220 MG/DL (<200); CHOLESTEROL RISK RATIO 3.548 (<5); CREATININE FOR GFR 0.53 MG/DL (0.55-1.30); GLOMERULAR FILTRATION RATE > 60.0 (>45); GLUCOSE, FASTING 116 MG/DL (70-100); HDL CHOLESTEROL 62 MG/DL (>40); IRON (FE) 92 UG/DL (50-170); LDL CHOLESTEROL 119 MG/DL (<100); NON-HDL-C 158 MG/DL; POTASSIUM SERUM 4.3 MEQ/L (3.5-5.1); SODIUM LEVEL 129 MEQ/L (136-145); TRIGLYCERIDES LEVEL 196 MG/DL (<150)
[2019-07-04 11:18] LABS: TOTAL 25(OH) VITAMIN D 29.9 NG/ML (30.0-100.0); VITAMIN B12 LEVEL 884 PG/ML (247-911)
== END ==
LOC: SKLAB5 09:01
PROVIDERS: ATTEND Internal Medicine
DX: D64.9 Anemia, unspecified (principal); E78.5 Hyperlipidemia, unspecified; E11.9 Type 2 diabetes mellitus without complications

== ENCOUNTER → 2019-07-08 | Outpatient (REF) ==
[~2019-07-08] MED LIST changes: -IRBE150T12 PO; +IRBE150T7 PO
[2019-07-08 08:32] LABS: BLOOD UREA NITROGEN 11 MG/DL (7-18); CALCIUM LEVEL 9.2 MG/DL (8.8-10.2); CARBON DIOXIDE LEVEL 26 MEQ/L (21-32); CHLORIDE LEVEL 97 MEQ/L (98-107); CREATININE FOR GFR 0.58 MG/DL (0.55-1.30); GLOMERULAR FILTRATION RATE > 60.0 (>45); GLUCOSE, FASTING 137 MG/DL (70-100); POTASSIUM SERUM 4.4 MEQ/L (3.5-5.1); SODIUM LEVEL 131 MEQ/L (136-145)
== END ==
LOC: SKLAB5 07:51
PROVIDERS: ATTEND Internal Medicine
DX: E87.1 Hypo-osmolality and hyponatremia (principal)

== ENCOUNTER → 2020-02-04 | Outpatient (CLI) | payer MEDICARE, MEDICAID ==
[~2020-02-04] MED LIST changes: +CYAN500T10 PO; -CYAN500T9 PO; +HYDR-3910 PO; +ISOVUE-370 76% 100ML VIAL As Ordered ONE; +PANT40TA29 PO; -PANT40TA3 PO
--- NOTE | 2020-02-26 13:03 | REP ---
CONTRAST ENHANCED CT ABDOMEN CLINICAL: Evaluate for intrapelvic mass. TECHNIQUE: Axial contrast enhanced images from the lung bases to the pubic symphysis using 100 mL Isovue-370 intravenous contrast material with coronal and sagittal reformations, as well as precontrast images of the abdomen. COMPARISON: 11/16/2009. FINDINGS: Lung bases are clear. No evidence for cardiomegaly. Fatty infiltration to the liver noted. Spleen, pancreas, bilateral adrenal glands, and kidneys are essentially normal. A 2-mm nonobstructing left renal calculus identified. Evidence for prior cholecystectomy and gastric bypass surgery noted. The enteric system is otherwise unremarkable and without obstruction or acute inflammatory process. Normal terminal ileum and cecum identified in the right lower quadrant. Evaluation of the pelvis is somewhat limited due to metallic beam hardening artifact from left hip prosthesis. However, the bladder appears normal and there is evidence for prior hysterectomy without evidence for obvious pelvic mass. No ascites. No free air. No adenopathy. Abdominal aorta demonstrates atherosclerotic changes without aneurysm or dissection. Chronic postsurgical changes in the anterior midline subcutaneous tissues at the level of the lower abdomen and pelvis are again noted without obvious significant drainable fluid collection or gas. IMPRESSION: * Chronic postsurgical changes in the anterior midline subcutaneous tissues at the lower abdomen/pelvis without drainable collection or gas, appearing improved as compared to the prior exam of 2009. * No evidence for pelvic mass. No ascites. No adenopathy. * Evidence for prior gastric bypass surgery and hysterectomy and cholecystectomy. * Fatty infiltration to the liver. MTDD
== END ==
LOC: M RAD 08:43
PROVIDERS: ATTEND Specialist
DX: D64.9 Anemia, unspecified (principal); N20.0 Calculus of kidney; Z98.84 Bariatric surgery status; Z90.49 Acquired absence of other specified parts of digestive tract; Z90.79 Acquired absence of other genital organ(s)
CPT/HCPCS: 74177; Q9967

== ENCOUNTER 2020-05-18 15:39 | Inpatient (IN) | payer MEDICARE, MEDICAID ==
[~2020-05-18] VITALS: Ht 154.9 cm; Wt 89.9 kg
[~2020-05-18 15:39] MED LIST changes: -ISOVUE-370 76% 100ML VIAL As Ordered ONE
--- NOTE | 2020-05-18 18:05 | REP ---
INDICATION: Fall/pain COMPARISON: None. TECHNIQUE: Frontal view of the pelvis with neutral and frog lateral views of the left hip. FINDINGS: Degenerative changes are appreciated. Evidence for prior left hip replacement. No acute fracture or dislocation. IMPRESSION: Degenerative changes and left hip replacement. No acute fracture or dislocation. <Electronically signed by Tod Bhatti > 05/18/20 [id number]
--- NOTE | 2020-05-18 18:06 | REPVR ---
PROCEDURE INFORMATION: Exam: CT Head Without Contrast Exam date and time: 05/18/2020 5:21 PM Age: 70 years old Clinical indication: Injury or trauma; Fall; Blunt trauma (contusions or hematomas); Additional info: Fall and hit back of head TECHNIQUE: Imaging protocol: Computed tomography of the head without contrast. Radiation optimization: All CT scans at this facility use at least one of these dose optimization techniques: automated exposure control; mA and/or kV adjustment per patient size (includes targeted exams where dose is matched to clinical indication); or iterative reconstruction. COMPARISON: CT Head without contrast 06/12/2019 10:18 PM FINDINGS: Brain: There is no acute intracranial hemorrhage, cerebral edema, or midline shift. Chronic microvascular ischemic changes are seen in the periventricular white matter. A chronic lacunar infarct is noted within the left basal ganglia. Age-related cerebral and cerebellar volume loss is present. Cerebral ventricles: Mild ex vacuo dilation of the lateral ventricles is noted. Bones/joints: No acute fracture. Paranasal sinuses: There is no acute sinusitis. Mastoid air cells: The mastoid air cells are clear. Orbital cavity: The included orbital structures are unremarkable. Vasculature: Atherosclerotic calcifications are seen involving the cavernous carotid arteries. Soft tissues: Unremarkable. IMPRESSION: 1. No acute intracranial abnormality. 2. Atrophy and chronic deep white matter ischemic changes. Electronically signed by: James Prakash On 05/18/2020 18:06:03 PM
--- NOTE | 2020-05-18 18:09 | REP ---
INDICATION: Fall/pain COMPARISON: None. TECHNIQUE: AP, lateral views of the right tibia/fibula. FINDINGS: There is evidence for an acute fracture of the distal fibula/lateral malleolus which is incompletely evaluated. Possible nondisplaced fracture through the medial malleolus is also suspected. Underlying osteopenia and degenerative changes to the visualized skeletal structures noted. There is a somewhat well-demarcated ovoid lucent lesion suggested in the posterior mid calf measuring 9 cm in craniocaudal length which is of uncertain etiology. IMPRESSION: 1. Fractures of the medial and lateral malleoli at the ankle. 2. Somewhat lucent lesion in the posterior musculature at the mid calf level suspected. Consider follow-up ultrasound to evaluate for possible fluid collection, cyst, solid lesion. <Electronically signed by Tod Bhatti > 05/18/20 [id number]
--- NOTE | 2020-05-18 18:10 | REP ---
INDICATION: Fall/pain COMPARISON: None. TECHNIQUE: AP, lateral, bilateral oblique views. FINDINGS: There is a comminuted fracture of the distal fibula/lateral malleolus with overlying soft tissue swelling. There is a transverse fracture through the medial malleolus. Underlying osteopenia and degenerative changes noted. IMPRESSION: Acute fractures of the medial and lateral malleoli with overlying soft tissue swelling. <Electronically signed by Tod Bhatti > 05/18/20 [id number]
[2020-05-18] MEDS ORDERED: MORPHINE 4 MG/ML 1ML VIAL/SYRINGE (J2270) IV ONE (18:15)
--- NOTE | 2020-05-18 18:15 | REPVR ---
PROCEDURE INFORMATION: Exam: CT Lumbar Spine Without Contrast Exam date and time: 05/18/2020 5:21 PM Age: 70 years old Clinical indication: Injury or trauma; Fall; Blunt trauma (contusions or hematomas); Additional info: Fall and hit back of head TECHNIQUE: Imaging protocol: Computed tomography images of the lumbar spine without contrast. Radiation optimization: All CT scans at this facility use at least one of these dose optimization techniques: automated exposure control; mA and/or kV adjustment per patient size (includes targeted exams where dose is matched to clinical indication); or iterative reconstruction. COMPARISON: [place] - CT ABD PELVIS WITH CONTRAST 02/04/2020 9:49:59 AM FINDINGS: Vertebrae: Bone mineralization is decreased, suggestive of osteoporosis. Chronic appearing superior endplate compression fractures are noted at L1, L3, and L4. The compression fractures at L1 and L4 are unchanged. The compression fracture at L3 is new since the abdominal CT on 02/04/2020. There is mild L1 vertebral body height loss. Moderate vertebral body height loss is present at L3 and L4. There is no retropulsion into the spinal canal. Alignment is anatomic. No acute fracture is identified. There is minor cortical buckling noted along the anterior cortex of the S1-S2 junction, only seen on the sagittal reconstructed images. The findings are compatible with an acute/subacute insufficiency fracture. This is new since the prior CT. Discs/Spinal canal/Neural foramina: There is moderate spinal canal stenosis at L2-L3 and L3-L4 due to diffuse circumferential disc bulging, thickening of the ligamentum flavum, and facet arthropathy. There is severe spinal canal stenosis at L4-L5. Kidneys and ureters: Several tiny noncalcified stones are noted in the left kidney. Vasculature: Atherosclerotic calcifications are noted within the aorta and its branches. Soft tissues: Unremarkable. IMPRESSION: 1. New sacral insufficiency fracture 2. Chronic appearing L3 superior endplate compression fracture. However, this is new since 02/04/2020. 3. Chronic L1 and L4 compression fractures 4. Chronic findings as discussed above. Electronically signed by: James Prakash On 05/18/2020 18:15:15 PM
[2020-05-18 18:37] LABS: BASO % 0.3 % (0.0-1.0); EOS # 0.2 10^3/uL (0.0-0.5); EOS % 2.3 % (0.0-3.0); HEMATOCRIT 27.1 % (36.0-47.0); HEMOGLOBIN 8.3 g/dl (12.0-15.5); LYMPH # 0.7 10^3/uL (1.5-5.0); LYMPH % 10.5 % (24.0-44.0); MEAN CORPUSCULAR HEMOGLOBIN 30.7 pg (27.0-33.0); MEAN CORPUSCULAR HGB CONC 30.6 g/dl (32.0-36.5); MEAN CORPUSCULAR VOLUME 100.4 fl (80.0-96.0); MONO # 0.5 10^3/uL (0.0-0.8); MONO % 7.8 % (0.0-5.0); NEUTROPHILS # 5.4 10^3/uL (1.5-8.5); NEUTROPHILS % 77.9 % (36.0-66.0); PLATELET COUNT, AUTOMATED 133 10^3/uL (150-450); WHITE BLOOD COUNT 6.9 10^3/uL (4.0-10.0)
[2020-05-18 19:13] LABS: ERYTHROCYTE SEDIMENTATION RATE 70 mm/hr (0-30)
[2020-05-18] MEDS ORDERED: HYDROMORPHONE HCL 0.5 MG/ 0.5 ML SYRINGE (J1170 PER 1) IV ONE ×2 (19:15→22:30)
[2020-05-18 20:05] LABS: ALBUMIN 3.6 GM/DL (3.2-5.2); ALT/SGPT 30 U/L (12-78); BILIRUBIN,DIRECT 0.1 MG/DL (0.0-0.2); BILIRUBIN,TOTAL 0.4 MG/DL (0.2-1.0); BLOOD UREA NITROGEN 28 MG/DL (7-18); C REACTIVE PROTEIN QUANTITATIV 3.74 MG/DL (0.00-0.30); CALCIUM LEVEL 8.7 MG/DL (8.8-10.2); CARBON DIOXIDE LEVEL 30 MEQ/L (21-32); CHLORIDE LEVEL 108 MEQ/L (98-107); CREATININE FOR GFR 0.68 MG/DL (0.55-1.30); FREE T4 0.73 NG/DL (0.76-1.46); GLOMERULAR FILTRATION RATE > 60.0 (>45); GLUCOSE, FASTING 102 MG/DL (70-100); POTASSIUM SERUM 3.4 MEQ/L (3.5-5.1); SODIUM LEVEL 142 MEQ/L (136-145)
--- NOTE | 2020-05-18 20:39 | REPVR ---
PROCEDURE INFORMATION: Exam: MR Lumbar Spine Without Contrast. Exam date and time: 05/18/2020 6:19 PM Age: 70 years old Clinical indication: Injury or trauma; Crushing; Injury date: Fall last evening; Additional info: Fall, unable to move legs R/O cauda equina TECHNIQUE: Imaging protocol: Multiplanar magnetic resonance images of the lumbar spine without intravenous contrast. COMPARISON: CT Spine, lumbar w/o contrast 05/18/2020 5:28 PM FINDINGS: Vertebrae: T1 weighted images demonstrate mottled decreased signal throughout the vertebrae, findings which can be seen in association with chronic anemia or other myeloproliferative abnormality. This should be correlated with clinical evaluation. There is abnormal marrow edema demonstrated in the L3 vertebral body best demonstrated on T1 weighted and STIR weighted imaging consistent with acute compression fracture. Chronic compression deformity of L1. Increased marrow signal demonstrated in the Schmorl's node of L4 with loss of vertebral height. Minimal signal abnormality on STIR weighted images suggest a subacute to acute fracture of the superior endplate of L4. Spinal cord: Normal signal. No cord compression. L1-L2: No significant disc disease. No significant spinal canal stenosis. No neural foraminal stenosis. L2-L3: There is a moderate central spinal stenosis at L2-L3 secondary to diffuse annular bulging, thickened ligamentum flavum with facet joint arthropathy. Moderate foraminal stenosis on the right and moderate to severe foraminal stenosis on the left at L2-L3. L3-L4: There is a moderate to severe central spinal stenosis at L3-L4 secondary to diffuse annular bulging, thickened ligamentum flavum with facet joint arthropathy. Moderate bilateral foraminal stenosis L3-L4. L4-L5: There is a severe central spinal stenosis at L4-L5 secondary to diffuse annular bulging, thickened ligamentum flavum with facet joint arthropathy. [id number] bilateral foraminal stenosis at L4-L5. L5-S1: Bulging annulus L5-S1. Bilateral facet joint arthropathy. No significant spinal stenosis. Mild bilateral foraminal stenosis at L5-S1. Sacrum/coccyx: Sacrum: Mottled increased signal demonstrated in the upper sacrum consistent with a sacral insufficiency fracture. Soft tissues: Unremarkable. IMPRESSION: 1. T1 weighted images demonstrate mottled decreased signal throughout the vertebrae, findings which can be seen in association with chronic anemia or other myeloproliferative abnormality. This should be correlated with clinical evaluation. 2. Acute compression fracture L3 vertebral body. 3. Findings compatible with a acute to subacute fracture of the superior endplate L4 with a Schmorl's node. 4. Multilevel degenerative spinal stenoses, moderate at L2-L3, moderate to severe at L3-L4, and severe at L4-L5. 5. Findings compatible with a subacute to acute sacral insufficiency fracture. Electronically signed by: Joseph Lopez On 05/18/2020 20:39:17 PM
[2020-05-18] MEDS: ZONISAMIDE 50 MG CAP (ZONEGRAN) PO SCH (21:00)
[2020-05-18] MEDS ORDERED: CARVedilol 6.25 MG TAB PO SCH (21:00)
[2020-05-18] MEDS: carBAMazepine 200 MG TAB PO SCH (21:00)
[2020-05-18] MEDS ORDERED: LABETALOL 200 MG TAB PO SCH (21:00)
[2020-05-18] MEDS: GABAPENTIN 100 MG CAP PO SCH (21:00)
--- NOTE | 2020-05-18 22:19 | HPEPDOC ---
[facility] Medical History & Physical Date of Admission May 18, 2020 Date of Service: May 18, 2020 Attending Physician: JULIA HERNANDEZ MD History and Physical CHIEF COMPLAINT: RLE pain HISTORY OF PRESENT ILLNESS: is a pleasant 70yo female with notable PMHx of MS, CAD s/p OR and CABG, CVA, NIDDMII, HTN, JOHN on home BiPap, hypothyroidism, gerd, and depression, who presented to the ED on 05/18/2020 via EMS after sustaining multiple falls at home on the 05/17-05/18 overnight with significant RLE pain and an inability to bear weight. She reports a total of 4 falls during the overnight, the first of which occurred while walking to her front door to let her dog in - - she fell backward and hit her head on a furnace, yet denied any bleeding, loss of consciousness, headache, or dizziness and was using her walker at the time. Later that same evening, she attempted to get into bed without the assistance of her walker and had 3 falls in a roughly 10 minute period: on the first of the three falls, she fell forward onto her knees sustaining abrasions; on the second, she fell backward onto her behind and head; with the third fall, her legs became entangled and she fell awkwardly onto her RLE, bending backward at the ankle and knee. With each of the falls, patient denied any loss of consciousness and the surface of primary contact that she fell onto was thinly carpeted floor. She did report associated mild lightheadedness and dizziness. As the pain worsened over the morning into mid-day on 05/18, the patient called her son who is an EMS worker, and he recommended she go to the ED. Upon presentation to the ED, the patient had elevated inflammatory markers and multiple imaging studies revealed right medial and lateral malleolar fractures. She also had some chronic lumbar compression fractures as well as a sacral insufficiency fracture. The ED called on-call orthopedic service (Dr. Andres), who is planning to take the patient for surgery on the morning of 05/19. The patient was subsequently admitted under the care of the hospitalist service in preparation of upcoming surgery to her right lower extremity. PAST MEDICAL HISTORY: Multiple sclerosis, falls locally with Dr. Corrigan of neurology every 3 month basis Coronary artery disease status post OR and CABG 4. Hypertension. JOHN on home BiPAP with 2 L O2 bled in. NIDDMII History of CVA Hypothyroidism Depression GERD History of left ankle fracture and right wrist fracture in May 2019 PAST SURGICAL HISTORY: CABG 4. Status post bariatric surgery. Cholecystectomy, in the . Hysterectomy (total with BSO), in the Left total hip arthroplasty, September 2018 SOCIAL HISTORY: , lives with her in [place]. Has 2 sons. 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 Denies any current use of alcohol and endorses a former light drinking history, mostly just socially Denies any current or former use of illicit drugs FAMILY HISTORY: Mother: DM II Father: Unknown really, as he when patient was very young 2 sons: Relatively healthy ALLERGIES: Please see below. REVIEW OF SYSTEMS: CONSTITUTIONAL: Denies recent unintentional change in weight, fever, chills, or night sweats HEENT: Denies blurry vision, double vision, ear pain, tinnitus, rhinorrhea, dysphagia, or odynophagia CARDIOVASCULAR: Denies chest pain, chest pressure, or palpitations RESPIRATORY: Denies shortness of breath, pleuritic chest pain, cough GASTROINTESTINAL: Denies abdominal pain, nausea, vomiting, diarrhea, constipation, or blood in stool GENITOURINARY: Denies dysuria or hematuria MUSCULOSKELETAL: Reports significant right lower extremity pain is very strong throb rating approximately 8/10 NEUROLOGICAL: Reports some mild dizziness and lightheadedness during the time of her falls but denies any currently. She also denies any headache, numbness, paresthesias, syncope, seizure activity HEMATOLOGIC/LYMPHATIC: Denies easy bleeding, easy bruising, or new lumps or bum ps. HOME MEDICATIONS: Please see below. PHYSICAL EXAMINATION: VITAL SIGNS: Please see below GENERAL APPEARANCE: Pleasant female who appears older than stated age, lying in bed in moderate discomfort. There is a splint on the right lower extremity with Iftikhar bandage and. Alert and oriented 3. HEENT: Normocephalic, atraumatic. No lacerations or significant ecchymosis/bruising of scalp is appreciated. On thorough examination. Wearing eyeglasses. Injected sclera of the right eye with bilateral dark brown spots of irises. Mild conjunctival pallor. Mild ask Desiree. Somewhat dry mucous membranes. Upper dentures present. NECK: Supple. Trachea midline. No lymphadenopathy appreciated. CARDIOVASCULAR: 2/6 systolic murmur heard throughout the precordium. Regular rate, regular rhythm. Normal S1, S2. LUNGS: Decreased tidal volume bilaterally, otherwise no adventitious breath sounds appreciated. Symmetric chest expansion. Breathing room air. Speaking full sentences. ABDOMEN: Soft, obese. Well-healed surgical scars right upper quadrant and periumbilically. Nondistended, moderate tenderness of right upper quadrant. Normoactive bowel sounds present. No rigidity appreciated. MUSCULOSKELETAL: She is able to move fingers and toes of all hands and feet. 5/5 muscle strength testing of upper extremities bilaterally. 4/5 muscle strength testing of left lower extremity. Deferred testing of right lower extremity due to her acute pain and presence of splint. EXTREMITIES: Splint present. Right lower extremity. Throughout the exam. She appears somewhat restless in terms of moving her left and and left feet. Lower extremities are free of edema. There is bruising on the knuckles of bilateral hands. There are vertical/linear discolorations extending the length of nail bed on fingers bilaterally. NEUROLOGICAL: Awake, alert and oriented 3. No focal neurologic deficits appreciated. EOMI. non-dysarthric speech. PSYCHIATRIC: Mood and affect appear appropriate. LABORATORY DATA: Please see below. IMAGING: Tibia/fibula x-ray (RLE), 05/18/20 IMPRESSION: 1. Fractures of the medial and lateral malleoli at the ankle. 2. Somewhat lucent lesion in the posterior musculature at the mid calf level suspected. Consider follow-up ultrasound to evaluate for possible fluid collection, cyst, solid lesion. CT of the lumbar spine, 05/18/20 IMPRESSION: 1. New sacral insufficiency fracture 2. Chronic appearing L3 superior endplate compression fracture. However, this is new since 02/04/2020. 3. Chronic L1 and L4 compression fractures 4. Chronic findings as discussed above. Hip/pelvis x-ray, 05/18/20 IMPRESSION: Degenerative changes and left hip replacement. No acute fracture or dislocation. Head CT, 05/18/20 IMPRESSION: 1. No acute intracranial abnormality. 2. Atrophy and chronic deep white matter ischemic changes. Lumbar spine MRI, 05/18/20 IMPRESSION: 1. T1 weighted images demonstrate mottled decreased signal throughout the vertebrae, findings which can be seen in association with chronic anemia or other myeloproliferative abnormality. This should be correlated with clinical evaluation. 2. Acute compression fracture L3 vertebral body. 3. Findings compatible with a acute to subacute fracture of the superior endplate L4 with a Schmorl's node. 4. Multilevel degenerative spinal stenoses, moderate at L2-L3, moderate to severe at L3-L4, and severe at L4-L5. 5. Findings compatible with a subacute to acute sacral insufficiency fracture. MICROBIOLOGY: Please see below. ASSESSMENT & PLAN: is a 70yo female w/ notable h/o MS, CAD s/p OR and CABG x4, NIDDMII, HTN, CVA, JOHN on home BiPAP, and hypothyroidism, who presented to the ED in 05/18/20 by EMS after sustaining multiple falls at home with subsequent persistent right lower extremity pain. Imaging in the ED identified medial and lateral malleoli are fractures and patient will be evaluated for possible surgery on the morning of 05/19/20. #Right medial and lateral malleolar acute fractures -Imaging shows acute fractures of right medial and lateral malleolus. Patient was splinted in the ED and orthopedic surgery service (Dr. Andres) was contacted with plan for possible surgical intervention on the morning of 05/19/20. -in preparation for possible surgery, pt made npo with both IVF and prn analgesics ordered; prior to coming to the floor, patient received 1 dose of IV morphine and 2 doses of IV hydromorphone/Dilaudid -Elevated ESR and CRP -bedrest/non-weight bearing orders placed #Recent h/o falls -She had a fall in May 2019, which led to left ankle fracture, now has susta ined 4 falls in the past day with acute right ankle fracture. -Likely etiology is a combination of factors: Progressing multiple sclerosis versus polypharmacy (patient is on a lot of [employer] acting medications) versus orthostatic hypotension exacerbated by poor by mouth intake -Serum phosphorus levels ordered in the setting of possible sign of muscle weakness; troponins also ordered to assess for potential silent OR contributing to series of falls in setting of CAD hx, female gender, and known diabetic #Multiple sclerosis -Follows as outpatient with Dr. Corrigan (neurology) every 3 months -Home zonegran, tizanidine, gabapentin, carbamazepine; methotrexate and folic acid medications continued #Chronic HTN -Patient is on both carvedilol and labetalol at home, which is interesting to have antihypertensive from the same class. Nonetheless, in the setting of upcoming surgery, since BBs are usually indicated to take on day of surgery, these medications were continued #CAD s/p OR and CABG x4 -Home prn nitroglycerin continued, as were home antihypertensives -Troponins ordered to assess for potential silent OR leading to recent series of falls in setting of history of OR with CAD, as well as female gender and known diabetic #Hypothyroidism -Upon presentation, TSH within normal limits, while free T4 was decreased at 0.73 #HLD -Home pravastatin continued #Osteoporosis in the setting of chronic vertebral/fragility fractures -This is a significant area needs to be worked up as outpatient upon discharge -Patient has extensive history of fragility fractures and chronic compression vertebral fractures -In the setting of her progressive multiple sclerosis, this will likely continue to be a problem moving forward if not addressed #Polypharmacy -Patient is on a significant amount of medications. Overall, with multiple [employer] acting medications -May be a factor in patient's increased falls -This is certainly an issue that needs to be addressed upon discharge #Macrocytic hypochromic anemia -Hgb 8.3 on presentation today; review of records indicates pt has been persiste ntly anemic since 2014 -Fe studies ordered 4 months ago did not show evidence of JULIANNE (ferritin, sFe, transferrin, TIBC all wnl); Vitamin B12 was also wnl in Dec 2019 as well #Thrombocytopenia -PLT count on presentation of 133 -upon record review, pt has intermittent trouble cytopenia dating back to at least 2002 #Hypokalemia -sK on presentation 3.4 -Due to npo status, to 10 mEq IV K runs ordered; a mag level was also ordered #JOHN on home BiPap -Uses BiPAP at home for JOHN with bled in 2 L of O2 -Orders placed so pt may use home BiPAP on admission #Evidence of possible Thierno-Fleschner rings on exam -Serum copper level ordered #DVT prophylaxis: Anticoagulation prophylaxis deferred in the setting of possible upcoming surgery on 05/19; sequentials ordered for left lower extremity , as right is currently splinted Disposition: Pending evaluation for possible surgery Vital Signs Vital Signs Date Time Temp Pulse Resp B/P (MAP) Pulse Ox O2 Delivery O2 Flow Rate FiO2 05/18/20 20:56 99.6 79 18 162/70 (100) 92 Room Air Laboratory Data Labs 24H Laboratory Tests 2 05/18/20 18:24: Immature Granulocyte % (Auto) 1.2, Neutrophils (%) (Auto) 77.9H, Lymphocytes (%) (Auto) 10.5L, Monocytes (%) (Auto) 7.8H, Eosinophils (%) (Auto) 2.3, Basophils (%) (Auto) 0.3, Neutrophils # (Auto) 5.4, Lymphocytes # (Auto) 0.7L, Monocytes # (Auto) 0.5, Eosinophils # (Auto) 0.2, Basophils # (Auto) 0.0, Nucleated Red Blood Cells % (auto) 0.0, Erythrocyte Sedimentation Rate 70H 05/18/20 19:11: Anion Gap 4L, Glomerular Filtration Rate > 60.0, Calcium Level 8.7L, Total Bi lirubin 0.4, Direct Bilirubin 0.1, Aspartate Amino Transf (AST/SGOT) 22, Alanine Aminotransferase (ALT/SGPT) 30, Alkaline Phosphatase 154H, C-Reactive Protein, Quantitative 3.74H, Total Protein 7.0, Albumin 3.6, Albumin/Globulin Ratio 1.1L, Thyroid Stimulating Hormone (TSH) 3.640, Free Thyroxine 0.73L CBC/BMP Laboratory Tests 05/18/20 18:24 05/18/20 19:11 Home Medications Scheduled Ascorbic Acid (Vitamin C) 500 Mg Capsule, 500 MG PO DAILY Baclofen (Baclofen) 20 Mg Tablet, 40 MG PO BID Carbamazepine (Carbamazepine) 200 Mg Tablet, 400 MG PO BID Cholecalciferol (Vitamin D3) (Vitamin D3) 50 Mcg Tablet, 50 MCG PO DAILY Cyanocobalamin (Vitamin B-12) (Vitamin B-12) 500 Mcg Tablet, 500 MCG PO DAILY Folic Acid (Folic Acid) 1 Mg Tablet, 1 MG PO DAILY Furosemide (Furosemide) 20 Mg Tablet, 20 MG PO DAILY Gabapentin (Gabapentin) 100 Mg Capsule, 100 MG PO TID Glimepiride (Glimepiride) 2 Mg Tablet, 1 MG PO QHS Hydralazine HCl (Hydralazine HCl) 25 Mg Tablet, 50 MG PO TID Irbesartan (Irbesartan) 300 Mg Tablet, 300 MG PO DAILY Labetalol HCl (Labetalol HCl) 200 Mg Tablet, 200 MG PO BID Levothyroxine Sodium (Levothyroxine Sodium) 25 Mcg Tablet, 25 MCG PO DAILY Meloxicam (Mobic) 7.5 Mg Tablet, 15 MG PO DAILY Metformin HCl (Metformin HCl) 500 Mg Tablet, 500 MG PO BID Methotrexate Sodium (Methotrexate) 2.5 Mg Tablet, 7.5 MG PO QWEEK MONDAY EVENINGS Pravastatin Sodium (Pravastatin Sodium) 40 Mg Tablet, 40 MG PO QHS Trazodone HCl (Trazodone HCl) 100 Mg Tablet, 200 MG PO QHS Venlafaxine HCl (Venlafaxine HCl ER) 75 Mg Cap.er.24h, 75 MG PO DAILY Zonisamide (Zonisamide) 50 Mg Capsule, 50 MG PO BID Scheduled PRN Nitroglycerin (Nitrostat) 0.4 Mg Tab.subl, 0.4 MG SL NITRO PRN for CHEST PAIN Tizanidine HCl (Tizanidine HCl) 2 Mg Tablet, 2 MG PO TID PRN for MUSCLE SPASMS Allergies Coded Allergies: Penicillins (Verified Allergy, Severe, anaphylaxis, 10/19/18) latex (Verified Allergy, Unknown, 05/18/20) states she reacts when she wears gloves, but not when others do A-FIB/CHADSVASC A-FIB History Current/History of A-Fib/PAF?: No Current PO Anticoag Therapy: No GME ATTESTATION GME ATTESTATION My faculty preceptor for this patient encounter was physically present during the encounter and was fully available. All aspects of the patient interview, examination, medical decision making process, and medical care plan development were reviewed and approved by the faculty preceptor. The faculty preceptor is aware and concurs with the plan as stated in the body of this note and will attest to such by his/her cosignature. ATTENDING NOTE Time of service 11:15 PM ON May 18 is a 70 children with history of multiple sclerosis, osteoporosis, vertebral fractures, JOHN on BiPAP, diabetes, rheumatoid arthritis, hypothyroidism, CAD/CABG, obesity, gastric bypass, and methotrexate related a nemia who presented with complaints of multiple falls and was found to have a right lateral and medial malleolus fracture along with multiple sub-acute vertebral fractures. She likely has osteoporosis. Shell be admitted for surgical management of the fractures. Plan: Follow up with Dr. Andres nothing by mouth with IV fluids / Dilaudid for pain / her RCRI score is 2 = class 3 risk, will f/u BNP, if it is > 300 she will need to be put on telemetry and have a troponin checked daily; because of her Cardiac history will ask the day time team to consider consulting Cardio to ask if she needs a pre-op Echo to screen for valvulopathy Per Dr. Dillard's H&P AYAZ WHALEN D.O. May 18, 2020 22:19 JULIA HERNANDEZ MD May 18, 2020 22:31
--- NOTE | 2020-05-18 22:25 | REPVR ---
PROCEDURE INFORMATION: Exam: XR Right Ankle Exam date and time: 05/18/2020 10:04 PM Age: 70 years old Clinical indication: Pain; Ankle; Right; Additional info: Post splint, verify alignment TECHNIQUE: Imaging protocol: XR Right ankle. Views: 3 or more views. COMPARISON: CR Ankle, complete RIGHT 05/18/2020 5:39 PM FINDINGS: Bones/joints: In cast views demonstrate a distal fibular and medial malleolar fracture. Cast obscures bone detail. Soft tissues: Normal. IMPRESSION: In cast views demonstrate a distal fibular and medial malleolar fracture. Cast obscures bone detail. Electronically signed by: Joseph Lopez On 05/18/2020 22:25:53 PM
--- NOTE | 2020-05-18 22:26 | REPVR ---
PROCEDURE INFORMATION: Exam: XR Left Foot Complete Exam date and time: 05/18/2020 10:04 PM Age: 70 years old Clinical indication: Pain; Foot; Left; Additional info: Fall with pain to top of foot, 1st and 2nd toes TECHNIQUE: Imaging protocol: XR Left foot. Views: 3 or more views. COMPARISON: CR Foot, complete 06/12/2019 11:30 PM FINDINGS: Bones/joints: Osteoporosis. Mild degenerative changes. Soft tissues: Normal. IMPRESSION: No acute findings. Electronically signed by: Joseph Lopez On 05/18/2020 22:27:12 PM
[2020-05-18] MEDS ORDERED: LABE200T32 PO (22:31)
[2020-05-18] MEDS ORDERED: VITA200015 PO (22:31)
[2020-05-18] MEDS ORDERED: TIZA2TAB6 PO (22:31)
[2020-05-18] MEDS ORDERED: IRBE300T7 PO (22:31)
[2020-05-18] MEDS ORDERED: FURO20TA2 PO (22:31)
[2020-05-18] MEDS ORDERED: MOBI4TAB PO (22:31)
[2020-05-18] MEDS ORDERED: HYDR-3910 PO (22:31)
[2020-05-18 23:36] LABS: RSV AMPLIFICATION NEGATIVE (NEGATIVE)
[2020-05-18] MEDS ORDERED: NS 1,000 ML IV SCH (23:48)
[2020-05-19] MEDS ORDERED: GLUCAGON INJ 1MG VIAL SC PRN
[2020-05-19] MEDS ORDERED: NITROGLYCERIN 0.4 MG SUBL TABLET SL PRN
[2020-05-19] MEDS ORDERED: GLUCOSE 4GM CHEW TABLET PO PRN
[2020-05-19] MEDS ORDERED: DEXTROSE 50% 50 ML SYRINGE IV PRN
[2020-05-19 01:15] VITALS: BP 162/80
[2020-05-19] MEDS: KCL 10MEQ/100ML SWI (KRUN) 10 MEQ in IV 1 EA IV SCH ×2 (01:48→03:04)
[2020-05-19] MEDS ORDERED: MORPHINE 2 MG/ML 1ML VIAL (J2270) IV ONE (02:00)
[2020-05-19] MEDS ORDERED: ACETAMINOPHEN TAB 650MG DOSE (2X325MG) PO PRN (02:30)
[2020-05-19] MEDS ORDERED: MORPHINE 2 MG/ML 1ML VIAL (J2270) IV PRN (02:30)
[2020-05-19] MEDS ORDERED: HYDROMORPHONE HCL 0.5 MG/ 0.5 ML SYRINGE (J1170 PER 1) IV PRN (04:30)
[2020-05-19] MEDS: HYDROMORPHONE HCL 0.5 MG/ 0.5 ML SYRINGE (J1170 PER 1) IV PRN ×5 (04:36→23:28)
[2020-05-19 04:39] LABS: MAGNESIUM LEVEL 1.9 MG/DL (1.8-2.4); NT-PRO BNP 909 PG/ML (<125)
[2020-05-19 06:00] VITALS: BP 157/76
[2020-05-19] MEDS: LEVOTHYROXINE 25MCG TABLET (0.025MG) PO SCH (06:00)
[2020-05-19] MEDS: ACETAMINOPHEN 650MG ER TAB (TYLENOL ARTHRITIS) PO SCH ×3 (06:00→21:14)
[2020-05-19] MEDS ORDERED: CLINDAMYCIN 900 MG in IV 1 EA IV ONE (06:00)
[2020-05-19] MEDS ORDERED: PILL CUTTER 1 EACH XX PRN (06:45)
[2020-05-19] MEDS ORDERED: KCL 40MEQ in NS 1000ML 1,000 ML IV SCH (07:50)
[2020-05-19 07:57] LABS: ALBUMIN 3.2 GM/DL (3.2-5.2); ALT/SGPT 30 U/L (12-78); BILIRUBIN,TOTAL 0.4 MG/DL (0.2-1.0); BLOOD UREA NITROGEN 25 MG/DL (7-18); CALCIUM LEVEL 8.3 MG/DL (8.8-10.2); CARBON DIOXIDE LEVEL 29 MEQ/L (21-32); CHLORIDE LEVEL 109 MEQ/L (98-107); CREATININE FOR GFR 0.64 MG/DL (0.55-1.30); GLOMERULAR FILTRATION RATE > 60.0 (>45); GLUCOSE, FASTING 99 MG/DL (70-100); PHOSPHORUS LEVEL 3.4 MG/DL (2.5-4.9); POTASSIUM SERUM 3.5 MEQ/L (3.5-5.1); SODIUM LEVEL 143 MEQ/L (136-145); TOTAL PROTEIN 6.5 GM/DL (6.4-8.2)
[2020-05-19] MEDS: **hydrALAZINE** 50 MG TAB PO SCH ×3 (08:31→21:16)
[2020-05-19] MEDS: ASCORBIC ACID 500 MG TAB PO SCH (08:32)
[2020-05-19] MEDS: CARVedilol 12.5 MG TAB PO SCH ×2 (08:32→21:15)
[2020-05-19] MEDS: GABAPENTIN 100 MG CAP PO SCH ×3 (08:33→21:15)
[2020-05-19] MEDS: VENLAFAXINE **XR** 75MG CAPSULE PO SCH (08:33)
[2020-05-19] MEDS: carBAMazepine 200 MG TAB PO SCH ×2 (08:33→21:14)
[2020-05-19] MEDS: ZONISAMIDE 50 MG CAP (ZONEGRAN) PO SCH ×2 (08:33→21:14)
[2020-05-19] MEDS: FOLIC ACID 1 MG TAB PO SCH (08:33)
[2020-05-19] MEDS ORDERED: FUROSEMIDE 20 MG TAB PO SCH (09:00)
[2020-05-19 09:27] LABS: FERRITIN 33 NG/ML (8-252); FOLATE 14.1 NG/ML; IRON (FE) 88 UG/DL (50-170); PERCENT SATURATION 24.9 % (13.2-45.0); TOTAL IRON BINDING CAPACITY 353 UG/DL (250-450); VITAMIN B12 LEVEL 759 PG/ML
--- NOTE | 2020-05-19 11:08 | REP ---
INDICATION: check position COMPARISON: None. TECHNIQUE: AP, lateral, bilateral oblique views. FINDINGS: Patient is status post casting for distal fibular fracture and medial malleolar fracture. Asymmetric widening to the ankle joint consistent with associated ligamentous injuries. IMPRESSION: Bilateral ankle fractures as described above. <Electronically signed by Tod Bhatti > 05/19/20 [id number]
--- NOTE | 2020-05-19 13:48 | CR ---
CONSULTATION DATE: 05/18/2020 CHIEF COMPLAINT: Right ankle pain. HISTORY OF PRESENT ILLNESS: Heidy is a pleasant 70-year-old female with a significant past medical history including MS, coronary artery disease with a history of a NJ and CABG and Type 2 diabetes who has had multiple falls over the past few days. The patient states that she fell on 05/17 and has since then had significant pain in her right ankle and swelling. She has had difficulty walking since this time. It does sound like she has had more than one fall. She does have multiple sclerosis but at baseline is able to ambulate with a walker. She denies any new weakness or numbness in her legs. She also denies any bowel or bladder incontinence. She has in the past used an adult diaper at night mainly because she cannot get to the bathroom in time. Patient was evaluated in the ED and found to have a mildly to moderately displaced right bimalleolar ankle fracture. She also had a CT and MRI of her lumbar spine which showed lumbar compression fractures and a sacral insufficiency fracture. She was splinted in the ER. This morning her pain is controlled. She is more comfortable in the splint. She is having some mild pain in her lower back. PAST MEDICAL HISTORY: 1. Multiple sclerosis. 2. Coronary artery disease status post NJ and CABG. 3. Hypertension. 4. Sleep apnea. 5. Diabetes mellitus Type 2. 6. History of CVA. 7. Hypothyroidism. 8. Depression. 9. GERD. 10.History of a left ankle fracture and right wrist fracture. PAST SURGICAL HISTORY: 1. CABG. 2. Bariatric surgery. 3. Cholecystectomy. 4. Hysterectomy. 5. Left total hip arthroplasty. SOCIAL HISTORY: The patient is and lives with her in [place]. 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 She does not smoke. REVIEW OF SYSTEMS: Positive for right ankle pain but otherwise negative. PHYSICAL EXAMINATION: GENERAL: Well-appearing, alert and oriented, in no acute distress. VASCULAR: Regular DP pulse on the right. MUSCULOSKELETAL: Skin is intact. On the right the patient can flex and extend her great toe without difficulty. She has normal sensation in the superficial, peroneal, deep peroneal, tibialis distribution. The splint is clean, dry and intact. Her leg has been elevated with three pillows. On the left side, she does have normal sensation to light touch in the L3 to S1 distribution. She has intact iliopsoas, quadriceps, gastrocnemius muscle, tibialis anterior and EHL. IMAGING: Right ankle x-rays are reviewed. There is a bimalleolar fracture. There is slight posterior subluxation on the lateral view of the tibiotalar joint. A CT and MRI of the lumbar spine are also reviewed. There is evidence of a sacral insufficiency fracture and a chronic L3 superior endplate compression fracture. There are L1 and L4 compression fractures of indeterminate age as well. There is spinal stenosis at L2 through L5. IMPRESSION: 1. Right ankle fracture. 2. Lumbar compression fractures and sacral insufficiency fractures. PLAN: In regard to the ankle, the patient should remain in the splint with her leg elevated with three pillows. I did attempt to take her to the Operating Room today, however she has not been cleared medically yet. I do recommend surgery for this fracture given its unstable nature. Her bone does look osteopenic on her x-rays and may require a locking plate. However, it is otherwise a fairly straight forward fracture. I have notified my partners who are vocational rehabilitation teacher the next two days and plans will be made for surgery when she is medically stable. I will be going on vacation starting tomorrow and her care will be transferred to my partners over the next few days who are vocational rehabilitation teacher at the hospital. Again, they have been notified. Dr. Mireles did review the patient's lumbar spine x-ray and did not recommend a brace. She will need to continue to ambulate with her walker and be followed with lumbar spine x-rays as well.
[2020-05-19 14:00] VITALS: BP 166/73
[2020-05-19] MEDS ORDERED: IRBESARTAN 150MG TAB PO ONE (16:00)
--- NOTE | 2020-05-19 16:15 | IPNPDOC ---
Text Note Date of Service The patient was seen on 05/19/20. NOTE Subjective: Complains of back pain and some pain in her right ankle. PHYSICAL EXAMINATION: VITAL SIGNS: Please see below GENERAL APPEARANCE: Pleasant female who appears older than stated age, lying in bed in no discomfort. splint on the right lower extremity with Iftikhar bandage and. Alert and oriented 3. HEENT: Normocephalic, atraumatic. No lacerations or significant ecchymosis/bruising of scalp is appreciated. NECK: Supple. Trachea midline. No lymphadenopathy appreciated. CARDIOVASCULAR: 2/6 systolic murmur heard throughout the precordium. Regular rate, regular rhythm. Normal S1, S2. LUNGS: Decreased tidal volume bilaterally, otherwise no adventitious breath sounds appreciated. Symmetric chest expansion. Breathing room air. Speaking full sentences. ABDOMEN: Soft, obese. Well-healed surgical scars right upper quadrant and periumbilically. Nondistended, moderate tenderness of right upper quadrant. Normoactive bowel sounds present. No rigidity appreciated. EXTREMITIES: Splint present. Right lower extremity. No edema NEUROLOGICAL: Awake, alert and oriented 3. No focal neurologic deficits appreciated. EOMI. non-dysarthric speech. PSYCHIATRIC: Mood and affect appear appropriate. Assessment and Plan: 70 year old female with MS, JOHN, chronic resp failure, Dm, HTN, HLD, CAD multiple falls and several fractures in the past fell on 05/17 and has since then had significant pain in her right ankle and swelling. She has had difficulty walking since this time. It does sound like she has had more than one fall. At baseline is able to ambulate with a walker. She was found to have mildly to moderately displaced right bimalleolar ankle fracture. She also had a CT and MRI of her lumbar spine which showed lumbar compression fractures L3 and L4 and a sacral insufficiency fracture. She was splinted in the ER. This morning her pain is controlled. She is more comfortable in the splint. She is having some mild pain in her lower back. Medical Optimization Patient has h/o CAD, DM and an elevated BNP Patient will need an echo before she can be cleared for surgery. She had an echo with Dr Gustafson in the past 6 months will try to get it . EKG reviewed. will continue only coreg with increased disease, will stop labetelol will give Irbesatan today will hold tomorrow if she goes for surgery will hold lasix Right ankle fracture It is splinted at present, pain controlled. Will need surgical fixation as it is an unstable fracture Awaiting echo Lumber vertebral fractures brace has not been recommended by ortho HTN coreg, hydralazine, irbesartan confirmed with Pharmacy both coreg and labetelol were written by Dr Gustafson, Coreg was written in august 2019 and labetelol was written in feb 2020. I wonder if he had told the pateitn to stop coreg and start labetelol. For now will continue only coreg. Multiple Sclerosis Follows as outpatient with Dr. Corrigan (neurology) every 3 months Home zonegran, tizanidine, gabapentin, carbamazepine; methotrexate and folic acid medications continued she is also on baclofen. JOHN on BIPAP, does nto have her bipap here JOHN protocol. Uses oxygen with BIPAP CAD s/p CABG x4 continue stain, coreg DLP pravastatin NIDDM2 will hold glimiperide and metformin. lispro sliding scale. Hx of CVA, Macrocytic hypochromic anemia Hgb 8.3 on presentation today; review of records indicates pt has been persistently anemic since 2015 has seen oncology thought to be from iron def, vit b12 def due to gastric bypass surgery will continue supplements on discharge. Hypothyroidism synthroid Depression and GERD home meds H/o Morbid obesity s/p Bariatric surgery H/o GIBs has AVMs Iron deficiency Macrocytic anemia Fatty liver h/o Multiple fractures in the past Right wrist fracture and Left distal fibular fracture in May 2019 did not require surgery, treated by casting. Left hip arthroplasty 09/2018 Left ankle fracture s/p Repair Osteoporosis in the setting of chronic vertebral/fragility fractures This is a significant area needs to be worked up as outpatient upon discharge Patient has extensive history of fragility fractures and chronic compression vertebral fractures In the setting of her progressive multiple sclerosis, this will likely continue to be a problem moving forward if not addressed Polypharmacy Patient is on a significant amount of medications. Overall, with multiple SERIALS LIBRARIAN acting medications May be a factor in patient's increased falls Thrombocytopenia PLT count on presentation of 133 upon record review, pt has intermittent thrombocytopenia dating back to at least 2002 DVT prophylaxis: Mechanical in view of surgery soon. sequentials ordered for left lower extremity, as right is currently splinted VS,Fishbone, I+O VS, Fishbone, I+O Laboratory Tests 05/18/20 18:24 05/18/20 19:11 05/19/20 07:15 Vital Signs Date Time Temp Pulse Resp B/P (MAP) Pulse Ox O2 Delivery O2 Flow Rate FiO2 05/19/20 12:38 18 05/19/20 08:32 144/67 05/19/20 06:00 97.8 65 98 Nasal Cannula 2.0 I&O- Last 24 Hours up to 6 AM 05/19/20 06:00 Intake Total 0 ml Output Total 0 ml Balance 0 ml MILIND OCHOA MD May 19, 2020 16:15
[2020-05-19 21:13] VITALS: BP 183/78
[2020-05-19] MEDS: PRAVASTATIN 20 MG TAB PO SCH (21:15)
[2020-05-19] MEDS: traZODone 100 MG TAB PO SCH (21:15)
[2020-05-20] MEDS: LEVOTHYROXINE 25MCG TABLET (0.025MG) PO SCH (05:27)
[2020-05-20] MEDS: ACETAMINOPHEN 650MG ER TAB (TYLENOL ARTHRITIS) PO SCH ×3 (05:27→21:41)
[2020-05-20 06:00] VITALS: BP 181/78
[2020-05-20 08:19] LABS: BASO % 0.3 % (0.0-1.0); EOS # 0.2 10^3/uL (0.0-0.5); EOS % 3.1 % (0.0-3.0); HEMATOCRIT 28.2 % (36.0-47.0); HEMOGLOBIN 8.9 g/dl (12.0-15.5); LYMPH # 0.5 10^3/uL (1.5-5.0); LYMPH % 8.2 % (24.0-44.0); MEAN CORPUSCULAR HEMOGLOBIN 32.2 pg (27.0-33.0); MEAN CORPUSCULAR HGB CONC 31.6 g/dl (32.0-36.5); MEAN CORPUSCULAR VOLUME 102.2 fl (80.0-96.0); MONO # 0.6 10^3/uL (0.0-0.8); MONO % 9.7 % (0.0-5.0); NEUTROPHILS # 4.8 10^3/uL (1.5-8.5); NEUTROPHILS % 77.7 % (36.0-66.0); PLATELET COUNT, AUTOMATED 114 10^3/uL (150-450); RED BLOOD COUNT 2.76 10^6/uL (4.00-5.40); WHITE BLOOD COUNT 6.1 10^3/uL (4.0-10.0)
[2020-05-20] MEDS: ASCORBIC ACID 500 MG TAB PO SCH (08:34)
[2020-05-20] MEDS: FOLIC ACID 1 MG TAB PO SCH (08:34)
[2020-05-20] MEDS: ZONISAMIDE 50 MG CAP (ZONEGRAN) PO SCH ×2 (08:35→21:42)
[2020-05-20] MEDS: GABAPENTIN 100 MG CAP PO SCH ×3 (08:35→21:43)
[2020-05-20] MEDS: carBAMazepine 200 MG TAB PO SCH ×2 (08:35→21:43)
[2020-05-20] MEDS: VENLAFAXINE **XR** 75MG CAPSULE PO SCH (08:35)
[2020-05-20] MEDS: **hydrALAZINE** 50 MG TAB PO SCH ×3 (08:36→21:45)
[2020-05-20] MEDS: HYDROMORPHONE HCL 0.5 MG/ 0.5 ML SYRINGE (J1170 PER 1) IV PRN ×3 (08:50→17:29)
[2020-05-20] MEDS ORDERED: CARVedilol 12.5 MG TAB PO SCH (09:00)
--- NOTE | 2020-05-20 13:01 | IPNPDOC ---
Subjective Date Seen The patient was seen on 05/20/20. Subjective Chief Complaint/HPI Does not offer any complaints today except for low back pain. Her ankle feels OK. No fever ro chills, no chest pain or SOB, no abdominal pain , nausea or vomiting. Objective Physical Examination General Exam: Positive: Alert, Cooperative, No Acute Distress Eye Exam: Positive: PERRLA, Conjunctiva & lids normal, EOMI; Negative: Sclera icteric ENT Exam: Positive: Atraumatic, Mucous membr. moist/pink, Pharynx Normal Neck Exam: Positive: Supple; Negative: JVD, thyromegaly Chest Exam: Positive: Clear to auscultation, Normal air movement Heart Exam: Positive: Rate Normal, Regular Rhythm, Normal S1, Normal S2, Murmurs (soft systolic murmur); Negative: Rubs Abdomen Exam: Positive: Normal bowel sounds, Soft; Negative: Tenderness, Hepatospenomegaly Extremity Exam: Positive: Other (right ankle in cast); Negative: Clubbing, Cyanosis, Edema Skin Exam: Positive: Nl turgor and temperature; Negative: Rash, Breakdown Assessment /Plan Assessment 70 year old female with MS, JOHN, chronic resp failure, Dm, HTN, HLD, CAD multiple falls and several fractures in the past fell on 05/17 and has since then had significant pain in her right ankle and swelling. She has had difficulty walking since this time. It does sound like she has had more than one fall. At baseline is able to ambulate with a walker. She was found to have mildly to moderately displaced right bimalleolar ankle fracture. She also had a CT and MRI of her lumbar spine which showed lumbar compression fractures L3 and L4 and a sacral insufficiency fracture. She was splinted in the ER. This morning her pain is con trolled. She is more comfortable in the splint. She is having some mild pain in her lower back. Medical Optimization Patient has h/o CAD, DM and an elevated BNP Echo from October 2019 shows EF of 40% no pulmonary hypertension, no valvular heart disease EKG reviewed. Patient is high cardiac risk for the proposed procedure. She is medically optimized at this time to go ahead with surgery. will continue only coreg with increased dose. will stop labetelol will continue irbesartan and lasix now. Hold Irbesartan and Lasix on the day of surgery Right ankle fracture It is splinted at present, pain controlled. Will need surgical fixation as it is an unstable fracture Lumber vertebral fractures brace has not been recommended by ortho Chronic systolic heart failure No signs of fluid overload at this time continue lasix, irbesartan, coreg HTN coreg, hydralazine, irbesartan, lasix confirmed with Pharmacy both coreg and labetelol were written by Dr Gustafson, Coreg was written in august 2019 and labetelol was written in feb 2020. I wonder if he had told the patient to stop coreg and start on labetelol. For now will continue only coreg. Multiple Sclerosis Follows as outpatient with Dr. Corrigan (neurology) every 3 months Home zonegran, tizanidine, gabapentin, carbamazepine; methotrexate and folic acid medications continued she is also on baclofen. JOHN on BIPAP, does nto have her bipap here JOHN protocol. Uses oxygen with BIPAP CAD s/p CABG x4 continue stain, coreg DLP pravastatin NIDDM2 will hold glimiperide and metformin. lispro sliding scale. Hx of CVA, Macrocytic hypochromic anemia Hgb 8.3 on presentation today; review of records indicates pt has been persistently anemic since 2015 has seen oncology thought to be from iron def, vit b12 def due to gastric bypass surgery will continue supplements on discharge. Hypothyroidism synthroid Depression and GERD home meds H/o Morbid obesity s/p Bariatric surgery H/o GIBs has AVMs Iron deficiency Macrocytic anemia Fatty liver h/o Multiple fractures in the past Right wrist fracture and Left distal fibular fracture in May 2019 did not require surgery, treated by casting. Left hip arthroplasty 09/2018 Left ankle fracture s/p Repair Osteoporosis in the setting of chronic vertebral/fragility fractures This is a significant area needs to be worked up as outpatient upon discharge Patient has extensive history of fragility fractures and chronic compression vertebral fractures In the setting of her progressive multiple sclerosis, this will likely continue to be a problem moving forward if not addressed Polypharmacy Patient is on a significant amount of medications. Overall, with multiple PROFESSIONAL DEVELOPMENT DIRECTOR acting medications May be a factor in patient's increased falls Thrombocytopenia PLT count on presentation of 133 upon record review, pt has intermittent thrombocytopenia dating back to at least 2002 DVT prophylaxis: Mechanical in view of surgery soon. sequentials ordered for left lower extremity, as right is currently splinted Plan/VTE VTE Prophylaxis Ordered?: Yes VS, I&O, 24H, Fishbone Vital Signs/I&O Vital Signs Date Time Temp Pulse Resp B/P (MAP) Pulse Ox O2 Delivery O2 Flow Rate FiO2 05/20/20 09:00 2.0 05/20/20 09:00 18 05/20/20 08:38 204/83 05/20/20 06:00 99.3 79 95 Nasal Cannula I&O- Last 24 Hours up to 6 AM 05/20/20 06:00 Intake Total 1610 ml Output Total 1000 ml Balance 610 ml Laboratory Data 24H LABS Laboratory Tests 2 05/19/20 16:44: Bedside Glucose (Misc Panel) 83 05/19/20 21:34: Bedside Glucose (Misc Panel) 155H 05/20/20 06:00: Bedside Glucose (Misc Panel) 106 05/20/20 06:10: Immature Granulocyte % (Auto) 1.0, Neutrophils (%) (Auto) 77.7H, Lymphocytes (%) (Auto) 8.2L, Monocytes (%) (Auto) 9.7H, Eosinophils (%) (Auto) 3.1H, Basophils (%) (Auto) 0.3, Neutrophils # (Auto) 4.8, Lymphocytes # (Auto) 0.5L, Monocytes # (Auto) 0.6, Eosinophils # (Auto) 0.2, Basophils # (Auto) 0.0, Nucleated Red Blood Cells % (auto) 0.0 05/20/20 06:12: Troponin I < 0.02 05/20/20 12:25: Bedside Glucose (Misc Panel) 163H CBC/BMP Laboratory Tests 05/20/20 06:10 MILIND OCHOA MD May 20, 2020 13:01
[2020-05-20] MEDS: IRBESARTAN 150MG TAB PO SCH (13:43)
[2020-05-20] MEDS: FUROSEMIDE 20 MG TAB PO SCH (13:43)
[2020-05-20 14:00] VITALS: BP 169/67
[2020-05-20] MEDS: PRAVASTATIN 20 MG TAB PO SCH (21:42)
[2020-05-20] MEDS: traZODone 100 MG TAB PO SCH (21:43)
[2020-05-20] MEDS: LABETALOL 200 MG TAB PO SCH (21:45)
[2020-05-20 22:00] VITALS: BP 179/80
[2020-05-21] MEDS: HYDROMORPHONE HCL 0.5 MG/ 0.5 ML SYRINGE (J1170 PER 1) IV PRN ×2 (05:28→19:56)
[2020-05-21] MEDS: LEVOTHYROXINE 25MCG TABLET (0.025MG) PO SCH (05:28)
[2020-05-21] MEDS: ACETAMINOPHEN 650MG ER TAB (TYLENOL ARTHRITIS) PO SCH ×3 (05:29→23:25)
[2020-05-21 06:00] VITALS: BP 155/86
[2020-05-21] MEDS ORDERED: VANCOMYCIN HCL 1,000 MG, VIAL MATE ADAPTER 1 EACH in D5W 250 ML IV ONE (06:00)
[2020-05-21] MEDS ORDERED: CLINDAMYCIN INJ 900MG/6ML VIAL As Ordered ONE (08:35)
[2020-05-21] MEDS: **hydrALAZINE** 50 MG TAB PO SCH ×3 (09:00→20:04)
[2020-05-21] MEDS: GABAPENTIN 100 MG CAP PO SCH ×3 (09:00→20:04)
[2020-05-21] MEDS ORDERED: MIDAZOLAM INJ 2MG/2ML VIAL (J2250 PER 1MG) As Ordered ONE (09:24)
[2020-05-21] MEDS ORDERED: fentaNYL 250 MCG/5 ML INJECTION (J3010) As Ordered ONE (09:24)
[2020-05-21] MEDS ORDERED: propofoL 200 MG/20 ML VIAL As Ordered ONE ×2 (09:24→09:38)
[2020-05-21] MEDS ORDERED: EPINEPHrine INJ 1 MG/ML 1ML AMP As Ordered ONE (09:24)
[2020-05-21] MEDS ORDERED: oxyCODONE 5MG TAB PO PRN (11:30)
[2020-05-21] MEDS ORDERED: HYDROMORPHONE HCL 0.5 MG/ 0.5 ML SYRINGE (J1170 PER 1) IV PRN (11:30)
[2020-05-21] MEDS ORDERED: ONDANSETRON 4MG/2ML VIAL IV PRN (11:30)
[2020-05-21] MEDS ORDERED: LABETALOL 100MG/20ML VIAL As Ordered ONE (11:41)
[2020-05-21] MEDS ORDERED: fentaNYL 100 MCG/2 ML INJECTION (J3010) As Ordered ONE (11:43)
[2020-05-21] MEDS ORDERED: oxyCODONE 5MG TAB As Ordered ONE (11:43)
--- NOTE | 2020-05-21 11:43 | REP ---
INDICATION: ORIF RIGHT ANKLE. COMPARISON: None. TECHNIQUE: Intraoperative fluoroscopic imaging using portable C-arm technique FINDINGS: Images demonstrate the patient to be satisfactory open reduction and fixation for bilateral malleolar fractures. Total fluoroscopic time 49.6 seconds. IMPRESSION: Status post satisfactory open reduction and fixation for bilateral malleolar fractures <Electronically signed by Tod Bhatti > 05/21/20 [id number]
--- NOTE | 2020-05-21 11:44 | IPNPDOC ---
Subjective Date Seen The patient was seen on 05/21/20. Subjective Chief Complaint/HPI Patient going down to OR today for fixation or right ankle fracture. Objective Physical Examination General Exam: Positive: Alert, Cooperative, No Acute Distress Eye Exam: Positive: PERRLA, Conjunctiva & lids normal, EOMI; Negative: Sclera icteric ENT Exam: Positive: Atraumatic, Mucous membr. moist/pink, Pharynx Normal Neck Exam: Positive: Supple; Negative: JVD, thyromegaly Chest Exam: Positive: Clear to auscultation, Normal air movement Heart Exam: Positive: Rate Normal, Regular Rhythm, Normal S1, Normal S2, Murmurs (soft systolic murmur); Negative: Rubs Abdomen Exam: Positive: Normal bowel sounds, Soft; Negative: Tenderness, Hepatospenomegaly Extremity Exam: Positive: Other (right ankle in cast); Negative: Clubbing, Cyanosis, Edema Skin Exam: Positive: Nl turgor and temperature; Negative: Rash, Breakdown Assessment /Plan Assessment 70 year old female with MS, JOHN, chronic resp failure, Dm, HTN, HLD, CAD multiple falls and several fractures in the past fell on 05/17 and has since then had significant pain in her right ankle and swelling. She has had difficulty walking since this time. It does sound like she has had more than one fall. At baseline is able to ambulate with a walker. She was found to have mildly to moderately displaced right bimalleolar ankle fracture. She also had a CT and MRI of her lumbar spine which showed lumbar compression fractures L3 and L4 and a sacral insufficiency fracture. Right ankle fracture S/P surgery on 05/21/20 Pain control and DVT prophylaxis as per ortho. Lumber vertebral fractures brace has not been recommended by ortho Chronic systolic heart failure No signs of fluid overload at this time continue Labetelol Restart Irbesartan adn lasix tomorrow. HTN Labetelol hydralazine, irbesartan, lasix Confirmed with DR Gustafson office pateitn was changed form coreg to Labetelol in february. Stopped coreg and started her on labetelol. Multiple Sclerosis Follows as outpatient with Dr. Corrigan (neurology) every 3 months Home zonegran, tizanidine, gabapentin, carbamazepine; methotrexate and folic acid medications continued she is also on baclofen. JOHN on BIPAP, does not have her bipap here JOHN protocol. Uses oxygen with BIPAP CAD s/p CABG x4 continue stain, coreg DLP pravastatin NIDDM2 will hold glimiperide and metformin. lispro sliding scale. Hx of CVA, Macrocytic hypochromic anemia Hgb 8.3 on presentation today; review of records indicates pt has been persistently anemic since 2015 has seen oncology thought to be from iron def, vit b12 def due to gastric bypass surgery will continue supplements on discharge. Hypothyroidism synthroid Depression and GERD home meds H/o Morbid obesity s/p Bariatric surgery H/o GIBs has AVMs Iron deficiency Macrocytic anemia Fatty liver h/o Multiple fractures in the past Right wrist fracture and Left distal fibular fracture in May 2019 did not require surgery, treated by casting. Left hip arthroplasty 09/2018 Left ankle fracture s/p Repair Osteoporosis in the setting of chronic vertebral/fragility fractures This is a significant area needs to be worked up as outpatient upon discharge Patient has extensive history of fragility fractures and chronic compression vertebral fractures In the setting of her progressive multiple sclerosis, this will likely continue to be a problem moving forward if not addressed Polypharmacy Patient is on a significant amount of medications. Overall, with multiple HANDLE TURNER acting medications May be a factor in patient's increased falls Thrombocytopenia PLT count on presentation of 133 upon record review, pt has intermittent thrombocytopenia dating back to at least 2002 DVT prophylaxis: Mechanical in view of surgery soon. sequentials ordered for left lower extremity, as right is currently splinted Plan/VTE VTE Prophylaxis Ordered?: Yes VS, I&O, 24H, Fishbone Vital Signs/I&O Vital Signs Date Time Temp Pulse Resp B/P (MAP) Pulse Ox O2 Delivery O2 Flow Rate FiO2 05/21/20 11:25 97.7 75 18 204/84 (124) 97 05/21/20 11:05 Room Air 05/21/20 06:00 2.0 I&O- Last 24 Hours up to 6 AM 05/21/20 06:00 Intake Total 450 ml Output Total 600 ml Balance -150 ml Laboratory Data 24H LABS Laboratory Tests 2 05/20/20 12:25: Bedside Glucose (Misc Panel) 163H 05/20/20 16:36: Bedside Glucose (Misc Panel) 177H 05/20/20 20:36: Bedside Glucose (Misc Panel) 224H 05/21/20 06:09: Bedside Glucose (Misc Panel) 148H 05/21/20 06:37: Troponin I < 0.02 MILIND OCHOA MD May 21, 2020 11:44
[2020-05-21] MEDS: LABETALOL 100MG/20ML VIAL IV SCH ×4 (11:47→12:10)
[2020-05-21] MEDS: fentaNYL 100 MCG/2 ML INJECTION (J3010) IV PRN ×4 (11:49→12:10)
[2020-05-21] MEDS ORDERED: MORPHINE 2 MG/ML 1ML VIAL (J2270) IV PRN (12:00)
[2020-05-21] MEDS ORDERED: HYDROMORPHONE HCL 0.5 MG/ 0.5 ML SYRINGE (J1170 PER 1) As Ordered ONE (12:11)
--- NOTE | 2020-05-21 12:16 | ECHO ---
DATE OF PROCEDURE: 05/19/2020 Age: 70 Gender: Female Height: Weight: REFERRING PHYSICIAN: Anyi Simeon MD. PATIENT LOCATION: Room 5136. REASON FOR STUDY: Preoperative evaluation. 2D MEASUREMENTS: IVS 1.0 cm LV 5.0 cm LVPW 1.3 cm LA 4.2 cm Aorta 3.0 cm IVC 1.8 cm DOPPLER MEASUREMENT Peak velocity across the aortic valve 2.0 msec Peak velocity across the LVOT 1.0 msec Peak gradient across the aortic valve 15 mmHg Mean gradient across the aortic valve 8 mmHg Mitral E 1.3 Mitral A 1.2 with a ratio of 1.1 Maximum tricuspid valve velocity 3.2 msec 2D COMMENTS: * Normal left ventricular size with mildly increased left ventricular wall thickness. Left ventricular systolic function is normal, estimated at 60% to 65%. * Mildly enlarged left atrium. Normal right atrium and right ventricle. * The atrial septum appeared to be normal without evidence of defect or shunt. * Normal aortic root. * Trace pericardial effusion noted. No evidence of cardiac tamponade. * Mildly calcified aortic valve with minimally restricted leaflet motion. Mildly calcified mitral annulus with normal anterior mitral valve leaflet motion. Normal tricuspid valve and pulmonic valve. The proximal pulmonary artery branches were not well visualized. * The inferior vena cava was normal in size, central venous pressure is most likely normal. DOPPLER: It detects trace aortic regurgitation, mild mitral regurgitation, and mild tricuspid regurgitation. The calculated pulmonary artery systolic pressure varies between 40 to 50 mmHg. Abnormal relaxation pattern was noted across the mitral valve annulus consistent with features of grade 2 left ventricular diastolic dysfunction, left ventricular end-diastolic pressure might be elevated. IMPRESSION: * Normal global left ventricular systolic function with mild concentric left ventricular hypertrophy. There are some features of grade 2 left ventricular diastolic dysfunction. * Aortic valve sclerosis with trace aortic regurgitation and probably mild aortic stenosis. * Mitral annulus calcification with a mildly enlarged left atrium and mild mitral regurgitation. * Mild tricuspid regurgitation with probably moderate pulmonary hypertension. * Trace pericardial effusion, no evidence of cardiac tamponade. MTDD
--- NOTE | 2020-05-21 12:24 | RO ---
OPERATIVE NOTE DATE OF OPERATION: / / PREOPERATIVE DIAGNOSIS: Displaced right bimalleolar ankle fracture. POSTOPERATIVE DIAGNOSIS: Displaced right bimalleolar ankle fracture. PROCEDURE: Open reduction and internal fixation of displaced bimalleolar right ankle fracture. SURGEON: Joan Mehta MD ANESTHESIA: Spinal. COMPLICATIONS: None. ESTIMATED BLOOD LOSS: Less than 20 mL. SPECIMEN: None. PROCEDURE: Antibiotics were given intravenously preoperatively and then successful spinal anesthesia was induced. Tourniquet was placed on right upper thigh, not inflated. Right lower extremity was carefully prepped and draped in usual sterile fashion and then elevated after appropriate time out. Tourniquet was inflated. We first addressed laterally. Skin incision was made down to the fracture site. The fracture site was exposed and irrigated. Bone was very poor quality, almost play dough in consistency. However, by digital manipulation I tried to manipulate the fracture out to length and back into its anatomic position as possible, I could not hold it with a clamp, however, because the bone would not hold the clamp, it was too soft. Thus I applied a plate and held it with K-wires. I elected a locking distal fibular plate because of the poor bone quality. The plate had to be contoured with bending irons to help make sure it adhered to the bone properly without displacing the fracture out laterally. I then applied the plate digitally and provisionally held it with some K-wires and got fluoroscopic imaging to confirm that we had a reasonable reduction. Thus I placed a 2.7 standard cortical screw first to hold the distal end of the plate and then applied a 3.5 cortical screw proximally to hold the plate into position. I then filled the remaining distal holes with locking screws as well as the proximal holes I filled with single locking screw and one standard 3.5 cortical screw providing excellent firm reduction of the fracture and held it in good position. I then exposed the medial side of the ankle. I made a small incision superficially dissecting down to the fracture site avoiding the saphenous nerve and vein. The fracture site was noteworthy that it was displaced and there was infolding of periosteum and actually some of the soft tissue bone was rounded over into the fracture site itself. This had to be teased out with Adson forceps and I copiously irrigated the joint, inspected the distal tibial plafond. It appeared to be in good position but the fracture site did extend to the medial corner. I then performed an open reduction under direct visualization. I used a small clamp just to hold the periosteum in reasonable position and then got fluoroscopic image confirming that anatomic reduction of the medial malleolus, so both by clinical, visual inspection and radiographic it appeared to be reduced well. The fragment I did not think was large enough for two screws and thus I placed a single threaded guide pin from the 4.5 cannulated screw set across the fracture site, got fluoroscopic imaging to confirm there was good position and placed 48 mm partially threaded 4.5 cannulated screw by hand and it actually had excellent purchase and compression. Thus, I did not feel derotational implant was needed nor was there room. I then got final fluoroscopic images. I did have to change out the initial first screw I placed over laterally because it appeared to be possibly too long and I shortened it from 16 to 14. I copiously irrigated all the wounds, let the tourniquet down. Closed the deep tissues over the plate with interrupted 2-0 PDS sutures and amy were placed in the skin laterally and then medially amy were placed in the skin. Adaptic and dry, sterile dressing and then well padded short leg plaster cast was applied. She was transferred to the recovery room in stable condition. There were no intraoperative complications.
[2020-05-21] MEDS: VENLAFAXINE **XR** 75MG CAPSULE PO SCH (12:59)
[2020-05-21] MEDS: ASCORBIC ACID 500 MG TAB PO SCH (12:59)
[2020-05-21] MEDS: FOLIC ACID 1 MG TAB PO SCH (12:59)
[2020-05-21] MEDS: carBAMazepine 200 MG TAB PO SCH ×2 (13:00→20:04)
[2020-05-21] MEDS: LABETALOL 200 MG TAB PO SCH ×2 (13:00→20:05)
[2020-05-21] MEDS: ZONISAMIDE 50 MG CAP (ZONEGRAN) PO SCH ×2 (13:00→20:04)
[2020-05-21] MEDS: hydrALAZINE 20MG/ML 1ML VIAL (J0360 PER 20MG) IV SCH ×2 (13:15→13:20)
[2020-05-21 14:00] VITALS: BP 178/90
[2020-05-21] MEDS: NORCO, ANEXSIA 5/325MG TABLET (HYDROcodone/ACETAMINOPHEN) PO PRN (14:57)
[2020-05-21] MEDS: traZODone 100 MG TAB PO SCH (20:04)
[2020-05-21] MEDS: PRAVASTATIN 20 MG TAB PO SCH (20:04)
[2020-05-21 22:00] VITALS: BP 167/87
[2020-05-22] MEDS ORDERED: UNRESOLVED CLARIFICATION ENTRY XX SCH (00:01)
[2020-05-22 06:00] VITALS: BP 174/87
[2020-05-22] MEDS: LEVOTHYROXINE 25MCG TABLET (0.025MG) PO SCH (06:03)
[2020-05-22] MEDS: ACETAMINOPHEN 650MG ER TAB (TYLENOL ARTHRITIS) PO SCH ×3 (06:03→22:00)
[2020-05-22] MEDS: NORCO, ANEXSIA 5/325MG TABLET (HYDROcodone/ACETAMINOPHEN) PO PRN ×3 (06:04→17:04)
[2020-05-22 06:58] LABS: BASO % 0.3 % (0.0-1.0); EOS # 0.2 10^3/uL (0.0-0.5); EOS % 2.5 % (0.0-3.0); HEMATOCRIT 26.5 % (36.0-47.0); HEMOGLOBIN 8.2 g/dl (12.0-15.5); LYMPH # 0.5 10^3/uL (1.5-5.0); LYMPH % 7.2 % (24.0-44.0); MEAN CORPUSCULAR HEMOGLOBIN 31.4 pg (27.0-33.0); MEAN CORPUSCULAR HGB CONC 30.9 g/dl (32.0-36.5); MEAN CORPUSCULAR VOLUME 101.5 fl (80.0-96.0); MONO # 0.8 10^3/uL (0.0-0.8); MONO % 12.3 % (0.0-5.0); NEUTROPHILS # 5.2 10^3/uL (1.5-8.5); NEUTROPHILS % 76.5 % (36.0-66.0); PLATELET COUNT, AUTOMATED 126 10^3/uL (150-450); RED BLOOD COUNT 2.61 10^6/uL (4.00-5.40); WHITE BLOOD COUNT 6.8 10^3/uL (4.0-10.0)
[2020-05-22 07:24] LABS: BLOOD UREA NITROGEN 10 MG/DL (7-18); CALCIUM LEVEL 7.9 MG/DL (8.8-10.2); CARBON DIOXIDE LEVEL 26 MEQ/L (21-32); CHLORIDE LEVEL 105 MEQ/L (98-107); CREATININE FOR GFR 0.58 MG/DL (0.55-1.30); GLOMERULAR FILTRATION RATE > 60.0 (>45); GLUCOSE, FASTING 143 MG/DL (70-100); POTASSIUM SERUM 3.6 MEQ/L (3.5-5.1); SODIUM LEVEL 140 MEQ/L (136-145)
[2020-05-22] MEDS: ZONISAMIDE 50 MG CAP (ZONEGRAN) PO SCH ×2 (09:03→20:56)
[2020-05-22] MEDS: ASPIRIN 81 MG ENTERIC TAB PO SCH ×2 (09:04→20:56)
[2020-05-22] MEDS: LABETALOL 200 MG TAB PO SCH ×2 (09:04→20:56)
[2020-05-22] MEDS: carBAMazepine 200 MG TAB PO SCH ×2 (09:04→20:57)
[2020-05-22] MEDS: ASCORBIC ACID 500 MG TAB PO SCH (09:04)
[2020-05-22] MEDS: VENLAFAXINE **XR** 75MG CAPSULE PO SCH (09:04)
[2020-05-22] MEDS: GABAPENTIN 100 MG CAP PO SCH ×3 (09:05→20:56)
[2020-05-22] MEDS: FOLIC ACID 1 MG TAB PO SCH (09:05)
[2020-05-22] MEDS: tiZANidine 4 MG TAB PO PRN (09:05)
[2020-05-22] MEDS: **hydrALAZINE** 50 MG TAB PO SCH ×3 (09:06→20:56)
[2020-05-22 14:00] VITALS: BP 145/62
[2020-05-22] MEDS: IRBESARTAN 150MG TAB PO SCH (17:10)
[2020-05-22] MEDS: PRAVASTATIN 20 MG TAB PO SCH (20:55)
[2020-05-22] MEDS: traZODone 100 MG TAB PO SCH (20:56)
[2020-05-22] MEDS: METHOTREXATE 2.5 MG TAB (J8610 PER 2.5MG) PO SCH (20:56)
[2020-05-22 21:32] VITALS: BP 142/63
[2020-05-23] MEDS: ACETAMINOPHEN 650MG ER TAB (TYLENOL ARTHRITIS) PO SCH ×3 (05:06→21:58)
[2020-05-23] MEDS: LEVOTHYROXINE 25MCG TABLET (0.025MG) PO SCH (05:06)
[2020-05-23 06:03] VITALS: BP_SYST 76
[2020-05-23 07:36] LABS: BASO % 0.4 % (0.0-1.0); EOS # 0.1 10^3/uL (0.0-0.5); EOS % 2.5 % (0.0-3.0); HEMATOCRIT 25.6 % (36.0-47.0); HEMOGLOBIN 7.8 g/dl (12.0-15.5); LYMPH # 0.5 10^3/uL (1.5-5.0); LYMPH % 8.5 % (24.0-44.0); MEAN CORPUSCULAR HEMOGLOBIN 30.8 pg (27.0-33.0); MEAN CORPUSCULAR HGB CONC 30.5 g/dl (32.0-36.5); MEAN CORPUSCULAR VOLUME 101.2 fl (80.0-96.0); MONO # 0.6 10^3/uL (0.0-0.8); MONO % 10.8 % (0.0-5.0); NEUTROPHILS # 4.2 10^3/uL (1.5-8.5); NEUTROPHILS % 76.4 % (36.0-66.0); PLATELET COUNT, AUTOMATED 124 10^3/uL (150-450); RED BLOOD COUNT 2.53 10^6/uL (4.00-5.40); WHITE BLOOD COUNT 5.5 10^3/uL (4.0-10.0)
--- NOTE | 2020-05-23 07:46 | IPNPDOC ---
Text Note Date of Service The patient was seen on 05/23/20. NOTE Subjective: Patient seen and examined at bedside. Doing well overnight. Pain 7/10 . Denies any SOB, chest pain. Notes leg that is casted is slightly numb, but upon physical examinatio, this was unrevealing Objective: Constitutional: Appears well. Non-distressed. Obese HEENT: PEERLA, EOMI Cardiovascular: Heart sounds 1+ 2 present. No added sounds, murmurs, regurgitations Lungs: Clear to auscultation bilaterally. No wheezing/crackles Abdomen: Soft, non-tender. Non-distended. BS present Extremities: No pitting edema noted in bilateral lower extremities. Right leg in cast. Toes well perfused and warm Neurological: No FND. AO x 3 Assessment/Plan: 70 year old female with MS, JOHN, chronic resp failure, DM, HTN, HLD, CAD multiple falls and several fractures in the past fell on 05/17 and has since then had significant pain in her right ankle and swelling. She has had difficulty walking since this time. It does sound like she has had more than one fall. At baseline is able to ambulate with a walker. She was found to have mildly to moderately displaced right bimalleolar ankle fracture. She also had a CT and MRI of her lumbar spine which showed lumbar compression fractures L3 and L4 and a sacral insufficiency fracture. #Right ankle fracture -POD 2 ORIF right ankle 2/2 bimalleolar fracture -Ortho on board -ASA BID for PPX -Pain control with Dilaudid 0.2 (1-4), 0.4 (5-7), [place], Morphine for breakthrough. Management per ortho -PT/OT Consulted. ARU consulted. -Vanc ordered per Ortho #Lumbar Vertebral fractures -S/P Fall -No signs of cauda equina -As per lumbar MRI: Acute as well as subacute/acute Compression fractures noted in lumbar spine. Spinal stenosis noted L2 downwards -Contributing to patient's peripheral neuropathy -Calcium and Vit D supplementation ordered -F/U Vit D levels tomorrow -Orthopedics consulted: -No need for brace #HFpEF -Clinically euvolemic -ECHO on 05/19 showing normal EF with Stage 2 DD -C/W Labetalol 200 BID, Irbesartan 300 daily, lasix 20 daily #HTN -C/W Labetelol 200 BID, hydralazine 50 TID, irbesartan 300 daily, lasix 20 daily #Multiple Sclerosis -Follows as outpatient with Dr. Corrigan (neurology) every 3 months -C/W home medications: zonegran, tizanidine, gabapentin, carbamazepine; baclofen, methotrexate and folic acid #JOHN on BIPAP, -Uses BIPAP at home. Continue here #CAD s/p CABG x4 -C/W ASA 81, pravastatin 40 qhs #DLP -C/W pravastatin 40 qhs #NIDDM2 -Home medications glimiperide and metformin held -ISS in house #Macrocytic hypochromic anemia (stable) -hb around 8. Patient has been persistently anemic since 2014 -Has seen hem/onc before -Iron, B12, Folate WNL. -perhaps secondary to methotrexate use? -Will continue iron, b12 supplementation on discharge #Hypothyroidism -C/W synthyroid 25 mcg #Depression -C/W home meds trazodone 200 mg qhs, venlafaxine 75 daily #H/o Morbid obesity s/p Bariatric surgery -Complicated care. BMI 37.4 #h/o Multiple fractures in the past -Right wrist fracture and Left distal fibular fracture in May 2019. Left hip arthroplasty 09/2018. Left ankle fracture s/p Repair -Would benefit from DEXA scan outpatient. Home health consult indicated out patient. -? component of polypharmacy? -PT/OT consulted #Thrombocytopenia PLT count on presentation of 133 upon record review, pt has intermittent thrombocytopenia dating back to at least 2002 Diet: Consistent Carbs DVT PPX: ASA 81 BID Disposition: Acute vs Subacute Rehab as per PT note 05/[address] Carter Harris MD Hospitalist Resident Andreas WILSON I+Rosendo VSAndreas I+O Laboratory Tests 05/23/20 07:07 Vital Signs Date Time Temp Pulse Resp B/P (MAP) Pulse Ox O2 Delivery O2 Flow Rate FiO2 05/23/20 06:03 97.6 84 18 76/ (25) 97 Nasal Cannula 2.0 I&O- Last 24 Hours up to 6 AM 05/23/20 06:00 Intake Total 1000 ml Output Total 750 ml Balance 250 ml GME ATTESTATION GME ATTESTATION My faculty preceptor for this patient encounter was physically present during the encounter and was fully available. All aspects of the patient interview, examination, medical decision making process, and medical care plan development were reviewed and approved by the faculty preceptor. The faculty preceptor is aware and concurs with the plan as stated in the body of this note and will attest to such by his/her cosignature. ATTENDING NOTE IMellissa, have independently examined this patient and performed my own physical exam, as well as reviewed the documentation and edited where necessary. I have discussed in detail with the resident / student the findings and plan of treatment as documented by the resident / student and edited their note. I agree with their findings and treatment plan and have edited their documentation. I will continue to follow the patient during this hospital stay. SHAE Courtney M.D.,PGY-2 May 23, 2020 07:46 SHERRI OROZCO MD May 24, 2020 15:32
[2020-05-23 08:02] LABS: BLOOD UREA NITROGEN 12 MG/DL (7-18); CALCIUM LEVEL 8.4 MG/DL (8.8-10.2); CARBON DIOXIDE LEVEL 27 MEQ/L (21-32); CHLORIDE LEVEL 106 MEQ/L (98-107); CREATININE FOR GFR 0.52 MG/DL (0.55-1.30); GLOMERULAR FILTRATION RATE > 60.0 (>45); GLUCOSE, FASTING 148 MG/DL (70-100); POTASSIUM SERUM 3.5 MEQ/L (3.5-5.1); SODIUM LEVEL 140 MEQ/L (136-145)
[2020-05-23] MEDS ORDERED: CALCIUM CARBONATE 500 MG CHEW U/D PO PRN (08:30)
--- NOTE | 2020-05-23 08:52 | IPN ---
PROGRESS NOTE DATE: 05/22/2020 SUBJECTIVE: Heidy is doing well, status post open reduction, internal fixation displaced by malleolar right ankle fracture. Postop course so far has been uncomplicated. She denies any chest pain, no shortness of breath, no fevers or chills. No abdominal pain. Her blood pressure was elevated yesterday. She had an echocardiogram that shows reduced ejection fraction of 40% from November 16, 2019. The patient blood pressure yesterday was elevated, it has improved today. It is currently on labetalol and hydralazine as well as irbesartan and her blood pressure is trending down PHYSICAL EXAMINATION: Blood pressure 174/87, pulse of 86, respiratory rate 16. General appearance: She is mildly uncomfortable. Say she has had pain in the ankles since admission. HEENT: Unremarkable. Lungs: Clear. Abdomen: Soft and nontender. Right lower extremity in cast. LABORATORY DATA: White count 6.8, hemoglobin 8.2, platelets 126. Sodium 140, potassium 3.6, BUN 10, creatinine 0.5, glucose 143. IMPRESSION: 1. Status post right ankle fracture per orthopedics. The case is discussed with orthopedic service today. 2. Hypertensive disease with elevated blood pressure; it is still mildly elevated. It is trending down. I would treat this more aggressively at this point as she is having pain, which I think is affecting her blood pressure. Remains elevated, we can adjust her medications by increasing the dose of the hydralazine. She is currently on labetalol, as well as her irbesartan. 3. Hypothyroidism. Continue current dose of levothyroxine. 4. Congestive heart failure, reduced ejection fraction. She is compensated on on exam. I am going to be restarting her furosemide today. 5. History of depression. Continue her venlafaxine to avoid SNRI withdrawal syndrome, also on trazodone 200 mg q.h.s.. 6. Hyperlipidemic. Continue pravastatin 40 mg daily. 7. Multiple sclerosis. Continue neurologic drugs which include Zonegran, tizanidine, gabapentin and carbamazepine, also methotrexate and folic acid. 8. Microcytic anemia, probably from the methotrexate. 9. Recurrent gastrointestinal bleeds from AVMs. Serial complete blood counts (CBCs) have been ordered.
[2020-05-23] MEDS: GABAPENTIN 100 MG CAP PO SCH ×3 (09:00→21:57)
[2020-05-23] MEDS: ASCORBIC ACID 500 MG TAB PO SCH (09:07)
[2020-05-23] MEDS: carBAMazepine 200 MG TAB PO SCH ×2 (09:07→21:59)
[2020-05-23] MEDS: ASPIRIN 81 MG ENTERIC TAB PO SCH ×2 (09:07→21:57)
[2020-05-23] MEDS: VITAMIN D 1,000 INTERNATIONAL UNITS TABLET PO SCH (09:07)
[2020-05-23] MEDS: FOLIC ACID 1 MG TAB PO SCH (09:07)
[2020-05-23] MEDS: VENLAFAXINE **XR** 75MG CAPSULE PO SCH (09:07)
[2020-05-23] MEDS: FUROSEMIDE 20 MG TAB PO SCH (09:08)
[2020-05-23] MEDS: IRBESARTAN 150MG TAB PO SCH (09:08)
[2020-05-23] MEDS: ZONISAMIDE 50 MG CAP (ZONEGRAN) PO SCH ×2 (09:09→21:58)
[2020-05-23] MEDS: **hydrALAZINE** 50 MG TAB PO SCH ×3 (09:09→22:00)
[2020-05-23] MEDS: LABETALOL 200 MG TAB PO SCH ×2 (09:09→22:00)
[2020-05-23 14:00] VITALS: BP 137/50
[2020-05-23] MEDS: CALCIUM CARBONATE 500 MG CHEW U/D PO SCH (15:00)
[2020-05-23] MEDS: NORCO, ANEXSIA 5/325MG TABLET (HYDROcodone/ACETAMINOPHEN) PO PRN (15:06)
[2020-05-23] MEDS: VANCOMYCIN HCL 1,000 MG, VIAL MATE ADAPTER 1 EACH in D5W 250 ML IV SCH (16:33)
[2020-05-23] MEDS: HumaLOG INSULIN (NovoLOG) PER UNIT SC SCH (21:00)
[2020-05-23] MEDS: PRAVASTATIN 20 MG TAB PO SCH (21:57)
[2020-05-23] MEDS: traZODone 100 MG TAB PO SCH (21:58)
[2020-05-23 22:00] VITALS: BP 195/86
[2020-05-24] MEDS: ACETAMINOPHEN 650MG ER TAB (TYLENOL ARTHRITIS) PO SCH ×3 (04:43→22:37)
[2020-05-24] MEDS: VANCOMYCIN HCL 1,000 MG, VIAL MATE ADAPTER 1 EACH in D5W 250 ML IV SCH (04:43)
[2020-05-24] MEDS: LEVOTHYROXINE 25MCG TABLET (0.025MG) PO SCH (04:43)
[2020-05-24 06:00] VITALS: BP 186/79
[2020-05-24 07:21] LABS: BASO % 0.2 % (0.0-1.0); EOS # 0.2 10^3/uL (0.0-0.5); EOS % 3.7 % (0.0-3.0); HEMATOCRIT 27.1 % (36.0-47.0); HEMOGLOBIN 8.4 g/dl (12.0-15.5); LYMPH # 0.4 10^3/uL (1.5-5.0); LYMPH % 9.7 % (24.0-44.0); MEAN CORPUSCULAR HEMOGLOBIN 31.6 pg (27.0-33.0); MEAN CORPUSCULAR VOLUME 101.9 fl (80.0-96.0); MONO # 0.3 10^3/uL (0.0-0.8); MONO % 7.8 % (0.0-5.0); NEUTROPHILS # 3.4 10^3/uL (1.5-8.5); NEUTROPHILS % 77.4 % (36.0-66.0); PLATELET COUNT, AUTOMATED 124 10^3/uL (150-450); RED BLOOD COUNT 2.66 10^6/uL (4.00-5.40); WHITE BLOOD COUNT 4.3 10^3/uL (4.0-10.0)
--- NOTE | 2020-05-24 07:33 | IPNPDOC ---
Text Note Date of Service The patient was seen on 05/24/20. NOTE Subjective: Patient seen and examined at bedside. Doing well overnight. Pain 5/10. Says she has BM everyday, normal. Had BM today. Objective: Constitutional: Appears well. Non-distressed. Obese HEENT: PEERLA, EOMI Cardiovascular: Heart sounds 1+ 2 present. No added sounds, murmurs, regurgitations Lungs: Clear to auscultation bilaterally. No wheezing/crackles Abdomen: Soft, non-tender. Non-distended. BS present Extremities: No pitting edema noted in bilateral lower extremities. Right leg in cast. Toes well perfused and warm Neurological: No FND. AO x 3 Assessment/Plan: 70 year old female with MS, JOHN, chronic resp failure, DM, HTN, HLD, CAD multiple falls and several fractures in the past fell on 05/17 and has since then had significant pain in her right ankle and swelling. She has had difficu lty walking since this time. It does sound like she has had more than one fall. At baseline is able to ambulate with a walker. She was found to have mildly to moderately displaced right bimalleolar ankle fracture. She also had a CT and MRI of her lumbar spine which showed lumbar compression fractures L3 and L4 and a sacral insufficiency fracture. #Right ankle fracture -POD 2 ORIF right ankle 2/2 bimalleolar fracture -Ortho on board -ASA BID for PPX -Pain control with Dilaudid 0.2 (1-4), 0.4 (5-7), [place], Morphine for breakthrough. Management per ortho -PT/OT Consulted. ARU consulted. -Vanc ordered per Ortho #Lumbar Vertebral fractures -S/P Fall -No signs of cauda equina -As per lumbar MRI: Acute as well as subacute/acute Compression fractures noted in lumbar spine. Spinal stenosis noted L2 downwards -Contributing to patient's peripheral neuropathy -Calcium and Vit D supplementation ordered -F/U Vit D levels. Labs pending -Orthopedics consulted: -No need for brace #HFpEF -Clinically euvolemic -ECHO on 05/19 showing normal EF with Stage 2 DD -C/W Labetalol 200 BID, Irbesartan 300 daily, lasix 20 daily #HTN -C/W Labetelol 200 BID, hydralazine 50 TID, irbesartan 300 daily, lasix 20 daily #Multiple Sclerosis -Follows as outpatient with Dr. Corrigan (neurology) every 3 months -C/W home medications: zonegran, tizanidine, gabapentin, carbamazepine; baclofen, methotrexate and folic acid #JOHN on BIPAP, -Uses BIPAP at home. Continue here #CAD s/p CABG x4 -C/W ASA 81, pravastatin 40 qhs #DLP -C/W pravastatin 40 qhs #NIDDM2 -Home medications glimiperide and metformin held -ISS in house #Macrocytic hypochromic anemia (stable) -hb around 8. Patient has been persistently anemic since 2014 -Has seen hem/onc before -Iron, B12, Folate WNL. -perhaps secondary to methotrexate use? -Will continue iron, b12 supplementation on discharge #Hypothyroidism -C/W synthyroid 25 mcg #Depression -C/W home meds trazodone 200 mg qhs, venlafaxine 75 daily #H/o Morbid obesity s/p Bariatric surgery -Complicated care. BMI 37.4 #h/o Multiple fractures in the past -Right wrist fracture and Left distal fibular fracture in May 2019. Left hip arthroplasty 09/2018. Left ankle fracture s/p Repair -Would benefit from DEXA scan outpatient. Home health consult indicated outpatient. -? component of polypharmacy? -PT/OT consulted --> Acute vs Subacute rehab. ARU consult in place #Thrombocytopenia PLT count on presentation of 133 upon record review, pt has intermittent thrombocytopenia dating back to at least 2002 Diet: Consistent Carbs DVT PPX: ASA 81 BID Disposition: Acute vs Subacute Rehab as per PT note 05/[address] Carter Harris MD Hospitalist Resident Andreas WILSON I+Andreas SANDOVAL I+O Laboratory Tests 05/24/20 06:59 Vital Signs Date Time Temp Pulse Resp B/P (MAP) Pulse Ox O2 Delivery O2 Flow Rate FiO2 05/24/20 06:00 98.0 78 18 186/79 (114) 94 Room Air 05/23/20 22:00 2.0 I&O- Last 24 Hours up to 6 AM 05/24/20 06:00 Intake Total 1740 ml Output Total 0 ml Balance 1740 ml GME ATTESTATION GME ATTESTATION My faculty preceptor for this patient encounter was physically present during the encounter and was fully available. All aspects of the patient interview, examination, medical decision making process, and medical care plan development were reviewed and approved by the faculty preceptor. The faculty preceptor is aware and concurs with the plan as stated in the body of this note and will attest to such by his/her cosignature. ATTENDING NOTE IMellissa, have independently examined this patient and performed my own physical exam, as well as reviewed the documentation and edited where necessary. I have discussed in detail with the resident / student the findings and plan of treatment as documented by the resident / student and edited their note. I agree with their findings and treatment plan and have edited their documentation. I will continue to follow the patient during this hospital stay. SHAE Courtney M.D.,PGY-2 May 24, 2020 07:33 SHERRI OROZCO MD May 24, 2020 15:33
[2020-05-24 07:49] LABS: BLOOD UREA NITROGEN 10 MG/DL (7-18); CALCIUM LEVEL 8.3 MG/DL (8.8-10.2); CARBON DIOXIDE LEVEL 29 MEQ/L (21-32); CHLORIDE LEVEL 104 MEQ/L (98-107); CREATININE FOR GFR 0.59 MG/DL (0.55-1.30); GLOMERULAR FILTRATION RATE > 60.0 (>45); GLUCOSE, FASTING 195 MG/DL (70-100); POTASSIUM SERUM 3.4 MEQ/L (3.5-5.1); SODIUM LEVEL 139 MEQ/L (136-145)
[2020-05-24] MEDS: HumaLOG INSULIN (NovoLOG) PER UNIT SC SCH ×4 (08:44→21:00)
[2020-05-24] MEDS: ZONISAMIDE 50 MG CAP (ZONEGRAN) PO SCH ×2 (08:47→21:00)
[2020-05-24] MEDS: VENLAFAXINE **XR** 75MG CAPSULE PO SCH (08:47)
[2020-05-24] MEDS: VITAMIN D 1,000 INTERNATIONAL UNITS TABLET PO SCH (08:47)
[2020-05-24] MEDS: carBAMazepine 200 MG TAB PO SCH ×2 (08:47→22:34)
[2020-05-24] MEDS: IRBESARTAN 150MG TAB PO SCH (08:47)
[2020-05-24] MEDS: ASPIRIN 81 MG ENTERIC TAB PO SCH ×2 (08:47→22:35)
[2020-05-24] MEDS: FOLIC ACID 1 MG TAB PO SCH (08:47)
[2020-05-24] MEDS: GABAPENTIN 100 MG CAP PO SCH ×3 (08:47→22:36)
[2020-05-24] MEDS: ASCORBIC ACID 500 MG TAB PO SCH (08:47)
[2020-05-24] MEDS: FUROSEMIDE 20 MG TAB PO SCH (08:47)
[2020-05-24] MEDS: **hydrALAZINE** 50 MG TAB PO SCH ×3 (08:48→22:35)
[2020-05-24] MEDS: LABETALOL 200 MG TAB PO SCH ×2 (08:48→22:34)
[2020-05-24] MEDS: NORCO, ANEXSIA 5/325MG TABLET (HYDROcodone/ACETAMINOPHEN) PO PRN ×3 (08:50→22:37)
[2020-05-24] MEDS: CALCIUM CARBONATE 500 MG CHEW U/D PO SCH (09:00)
[2020-05-24] MEDS ORDERED: POTASSIUM CHLORIDE 10 MEQ SR TABLET PO ONE (11:00)
[2020-05-24] MEDS ORDERED: VANCOMYCIN HCL 1,000 MG, VIAL MATE ADAPTER 1 EACH in D5W 250 ML IV SCH (12:00)
[2020-05-24] MEDS: HYDROMORPHONE HCL 0.5 MG/ 0.5 ML SYRINGE (J1170 PER 1) IV PRN (13:26)
[2020-05-24 16:00] VITALS: BP 179/85
[2020-05-24 22:00] VITALS: BP 158/84
[2020-05-24] MEDS: PRAVASTATIN 20 MG TAB PO SCH (22:35)
[2020-05-24] MEDS: traZODone 100 MG TAB PO SCH (22:36)
[2020-05-25] MEDS: ACETAMINOPHEN 650MG ER TAB (TYLENOL ARTHRITIS) PO SCH ×3 (05:53→21:40)
[2020-05-25] MEDS: LEVOTHYROXINE 25MCG TABLET (0.025MG) PO SCH (05:53)
[2020-05-25 06:00] VITALS: BP 177/74
--- NOTE | 2020-05-25 07:42 | IPNPDOC ---
Text Note Date of Service The patient was seen on 05/25/20. NOTE Subjective: Patient seen and examined at bedside. Doing well overnight. Pain 5/10 and well controlled. No SOB or chest pain. Awaiting ARU Objective: Constitutional: Appears well. Non-distressed. Obese HEENT: PEERLA, EOMI Cardiovascular: Heart sounds 1+ 2 present. No added sounds, murmurs, regurgitations Lungs: Clear to auscultation bilaterally. No wheezing/crackles Abdomen: Soft, non-tender. Non-distended. BS present Extremities: No pitting edema noted in bilateral lower extremities. Right leg in cast. Toes well perfused and warm Neurological: No FND. AO x 3 Assessment/Plan: 70 year old female with MS, JOHN, chronic resp. failure, DM, HTN, HLD, CAD multiple falls and several fractures in the past fell on 05/17 and has since then had significant pain in her right ankle and swelling. Found to have bimalleolar ankle fracture as well as L3/L4 compression fractures + sacral insufficiency fracture. ORIF of ankles performed on 05/21. #Right ankle fracture -POD 4 ORIF right ankle 2/2 bimalleolar fracture -Ortho on board -ASA BID for PPX -Pain control with Dilaudid 0.2 (1-4), 0.4 (5-7), [place], Morphine for breakthrough. Management per ortho -PT/OT Consulted. ARU consulted. -S/P Vanc (therapy finished 05/24) #Lumbar Vertebral fractures -S/P Fall -No signs of cauda equina -As per lumbar MRI: Acute as well as subacute/acute Compression fractures noted in lumbar spine. Spinal stenosis noted L2 downwards -Contributing to patient's peripheral neuropathy -Vitamin D slightly low at 29.6 -Calcium and Vit D supplementation ordered -Orthopedics consulted: -No need for brace #HFpEF -Clinically euvolemic -ECHO on 05/19 showing normal EF with Stage 2 DD -C/W Labetalol 200 BID, Irbesartan 300 daily, lasix 20 daily #HTN -C/W Labetelol 200 BID, hydralazine 50 TID, irbesartan 300 daily, lasix 20 daily -Norvasc 5 BID added given SBP of 177/74 on 05/25 #Multiple Sclerosis -Follows as outpatient with Dr. Shekhar (neurology) every 3 months -C/W home medications: zonegran, tizanidine, gabapentin, carbamazepine; baclofen, methotrexate and folic acid #JOHN on BIPAP, -Uses BIPAP at home. Continue here #CAD s/p CABG x4 -C/W ASA 81, pravastatin 40 qhs #DLP -C/W pravastatin 40 qhs #NIDDM2 -Home medications glimiperide and metformin held -ISS in house #Macrocytic hypochromic anemia (stable) -hb around 8. Patient has been persistently anemic since 2014 -Has seen hem/onc before -Iron, B12, Folate WNL. -perhaps secondary to methotrexate use? -Will continue iron, b12 supplementation on discharge #Hypothyroidism -C/W synthyroid 25 mcg #Depression -C/W home meds trazodone 200 mg qhs, venlafaxine 75 daily #H/o Morbid obesity s/p Bariatric surgery -Complicated care. BMI 37.4 #h/o Multiple fractures in the past -Right wrist fracture and Left distal fibular fracture in May 2019. Left hip arthroplasty 09/2018. Left ankle fracture s/p Repair -Would benefit from DEXA scan outpatient. Home health consult indicated outpatient. -? component of polypharmacy? -PT/OT consulted --> Acute vs Subacute rehab. ARU consult in place #Thrombocytopenia -PLT count on presentation of 133 -upon record review, pt has intermittent thrombocytopenia dating back to at least 2002 Diet: Consistent Carbs DVT PPX: ASA 81 BID Disposition: Acute vs Subacute Rehab as per PT note 05/[address] Carter Harris MD Hospitalist Resident Andreas WILSON I+Rosendo VSAndreas I+O Vital Signs Date Time Temp Pulse Resp B/P (MAP) Pulse Ox O2 Delivery O2 Flow Rate FiO2 05/25/20 06:00 98.1 77 18 177/74 (108) 98 Room Air 2.0 I&O- Last 24 Hours up to 6 AM 05/25/20 06:00 Intake Total 1140 ml Output Total 550 ml Balance 590 ml GME ATTESTATION GME ATTESTATION My faculty preceptor for this patient encounter was physically present during the encounter and was fully available. All aspects of the patient interview, examination, medical decision making process, and medical care plan development were reviewed and approved by the faculty preceptor. The faculty preceptor is aware and concurs with the plan as stated in the body of this note and will attest to such by his/her cosignature. ATTENDING NOTE I, Mellissa Machado, have independently examined this patient and performed my own physical exam, as well as reviewed the documentation and edited where necessary. I have discussed in detail with the resident / student the findings and plan of treatment as documented by the resident / student and edited their note. I agree with their findings and treatment plan and have edited their documentation. I will continue to follow the patient during this hospital stay. SHAE Courtney M.D.,PGY-2 May 25, 2020 07:42 SHERRI MACHADO MD May 26, 2020 19:22
[2020-05-25 07:53] LABS: BASO % 0.2 % (0.0-1.0); EOS # 0.1 10^3/uL (0.0-0.5); EOS % 3.2 % (0.0-3.0); HEMOGLOBIN 8.2 g/dl (12.0-15.5); LYMPH # 0.4 10^3/uL (1.5-5.0); LYMPH % 9.4 % (24.0-44.0); MEAN CORPUSCULAR HEMOGLOBIN 30.5 pg (27.0-33.0); MEAN CORPUSCULAR HGB CONC 30.4 g/dl (32.0-36.5); MEAN CORPUSCULAR VOLUME 100.4 fl (80.0-96.0); MONO # 0.4 10^3/uL (0.0-0.8); MONO % 10.4 % (0.0-5.0); NEUTROPHILS # 3.1 10^3/uL (1.5-8.5); NEUTROPHILS % 75.3 % (36.0-66.0); PLATELET COUNT, AUTOMATED 140 10^3/uL (150-450); RED BLOOD COUNT 2.69 10^6/uL (4.00-5.40); WHITE BLOOD COUNT 4.1 10^3/uL (4.0-10.0)
[2020-05-25 08:15] LABS: BLOOD UREA NITROGEN 16 MG/DL (7-18); CALCIUM LEVEL 8.5 MG/DL (8.8-10.2); CARBON DIOXIDE LEVEL 27 MEQ/L (21-32); CHLORIDE LEVEL 106 MEQ/L (98-107); CREATININE FOR GFR 0.54 MG/DL (0.55-1.30); GLOMERULAR FILTRATION RATE > 60.0 (>45); GLUCOSE, FASTING 169 MG/DL (70-100); POTASSIUM SERUM 3.8 MEQ/L (3.5-5.1); SODIUM LEVEL 141 MEQ/L (136-145)
[2020-05-25] MEDS: ZONISAMIDE 50 MG CAP (ZONEGRAN) PO SCH ×2 (09:05→21:42)
[2020-05-25] MEDS: LABETALOL 200 MG TAB PO SCH ×2 (09:05→21:43)
[2020-05-25] MEDS: VENLAFAXINE **XR** 75MG CAPSULE PO SCH (09:06)
[2020-05-25] MEDS: **hydrALAZINE** 50 MG TAB PO SCH ×3 (09:06→21:44)
[2020-05-25] MEDS: FUROSEMIDE 20 MG TAB PO SCH (09:06)
[2020-05-25] MEDS: VITAMIN D 1,000 INTERNATIONAL UNITS TABLET PO SCH (09:06)
[2020-05-25] MEDS: carBAMazepine 200 MG TAB PO SCH ×2 (09:06→21:42)
[2020-05-25] MEDS: ASPIRIN 81 MG ENTERIC TAB PO SCH ×2 (09:07→21:41)
[2020-05-25] MEDS: FOLIC ACID 1 MG TAB PO SCH (09:07)
[2020-05-25] MEDS: CALCIUM CARBONATE 500 MG CHEW U/D PO SCH (09:07)
[2020-05-25] MEDS: GABAPENTIN 100 MG CAP PO SCH ×3 (09:07→21:41)
[2020-05-25] MEDS: ASCORBIC ACID 500 MG TAB PO SCH (09:07)
[2020-05-25] MEDS: HumaLOG INSULIN (NovoLOG) PER UNIT SC SCH ×4 (09:08→21:40)
[2020-05-25] MEDS: NORCO, ANEXSIA 5/325MG TABLET (HYDROcodone/ACETAMINOPHEN) PO PRN ×2 (09:21→16:49)
[2020-05-25 10:06] LABS: TOTAL 25(OH) VITAMIN D 29.6 NG/ML (30.0-100.0)
[2020-05-25] MEDS ORDERED: amLODIPine 5 MG TAB PO SCH (10:30)
[2020-05-25] MEDS: IRBESARTAN 150MG TAB PO SCH (12:20)
[2020-05-25] MEDS: amLODIPine 5 MG TAB PO SCH ×2 (12:23→21:43)
[2020-05-25 14:00] VITALS: BP 176/80
[2020-05-25] MEDS: traZODone 100 MG TAB PO SCH (21:41)
[2020-05-25] MEDS: PRAVASTATIN 20 MG TAB PO SCH (21:41)
[2020-05-25 22:00] VITALS: BP 132/79
[2020-05-26] MEDS: ACETAMINOPHEN 650MG ER TAB (TYLENOL ARTHRITIS) PO SCH ×3 (05:05→22:38)
[2020-05-26] MEDS: LEVOTHYROXINE 25MCG TABLET (0.025MG) PO SCH (05:05)
[2020-05-26 06:00] VITALS: BP 175/78
[2020-05-26 06:51] LABS: BASO % 0.5 % (0.0-1.0); EOS # 0.1 10^3/uL (0.0-0.5); EOS % 2.5 % (0.0-3.0); HEMATOCRIT 27.2 % (36.0-47.0); HEMOGLOBIN 8.5 g/dl (12.0-15.5); LYMPH # 0.5 10^3/uL (1.5-5.0); LYMPH % 13.2 % (24.0-44.0); MEAN CORPUSCULAR HEMOGLOBIN 31.6 pg (27.0-33.0); MEAN CORPUSCULAR HGB CONC 31.3 g/dl (32.0-36.5); MEAN CORPUSCULAR VOLUME 101.1 fl (80.0-96.0); MONO # 0.5 10^3/uL (0.0-0.8); NEUTROPHILS # 2.9 10^3/uL (1.5-8.5); NEUTROPHILS % 71.6 % (36.0-66.0); PLATELET COUNT, AUTOMATED 137 10^3/uL (150-450); RED BLOOD COUNT 2.69 10^6/uL (4.00-5.40); WHITE BLOOD COUNT 4.1 10^3/uL (4.0-10.0)
[2020-05-26 07:16] LABS: BLOOD UREA NITROGEN 15 MG/DL (7-18); CALCIUM LEVEL 8.2 MG/DL (8.8-10.2); CARBON DIOXIDE LEVEL 28 MEQ/L (21-32); CHLORIDE LEVEL 105 MEQ/L (98-107); CREATININE FOR GFR 0.58 MG/DL (0.55-1.30); GLOMERULAR FILTRATION RATE > 60.0 (>45); GLUCOSE, FASTING 142 MG/DL (70-100); POTASSIUM SERUM 4.3 MEQ/L (3.5-5.1); SODIUM LEVEL 137 MEQ/L (136-145)
[2020-05-26] MEDS: HumaLOG INSULIN (NovoLOG) PER UNIT SC SCH ×4 (08:02→21:00)
[2020-05-26] MEDS: ZONISAMIDE 50 MG CAP (ZONEGRAN) PO SCH ×2 (08:04→22:40)
[2020-05-26] MEDS: carBAMazepine 200 MG TAB PO SCH ×2 (08:05→22:38)
[2020-05-26] MEDS: IRBESARTAN 150MG TAB PO SCH (08:05)
[2020-05-26] MEDS: ASCORBIC ACID 500 MG TAB PO SCH (08:06)
[2020-05-26] MEDS: GABAPENTIN 100 MG CAP PO SCH ×3 (08:07→22:37)
[2020-05-26] MEDS: VITAMIN D 1,000 INTERNATIONAL UNITS TABLET PO SCH (08:07)
[2020-05-26] MEDS: FOLIC ACID 1 MG TAB PO SCH (08:08)
[2020-05-26] MEDS: ASPIRIN 81 MG ENTERIC TAB PO SCH ×2 (08:08→22:40)
[2020-05-26] MEDS: FUROSEMIDE 20 MG TAB PO SCH (08:09)
[2020-05-26] MEDS: **hydrALAZINE** 50 MG TAB PO SCH ×3 (08:09→22:42)
[2020-05-26] MEDS: amLODIPine 5 MG TAB PO SCH ×2 (08:10→22:39)
[2020-05-26] MEDS: VENLAFAXINE **XR** 75MG CAPSULE PO SCH (08:11)
[2020-05-26] MEDS: tiZANidine 4 MG TAB PO PRN (08:26)
[2020-05-26] MEDS: LABETALOL 200 MG TAB PO SCH ×2 (08:26→22:40)
[2020-05-26] MEDS: CALCIUM CARBONATE 500 MG CHEW U/D PO SCH (09:00)
[2020-05-26] MEDS: HYDROMORPHONE HCL 0.5 MG/ 0.5 ML SYRINGE (J1170 PER 1) IV PRN (10:31)
[2020-05-26 14:00] VITALS: BP 144/64
--- NOTE | 2020-05-26 19:59 | IPNPDOC ---
Subjective Date Seen The patient was seen on 05/26/20. Subjective Chief Complaint/HPI No new complaints today. Right leg in cast. No fever or chills, having regular bowel movements. Awaiting for insurance approval to go to [facility]. Objective Physical Examination General Exam: Positive: Alert, Cooperative, No Acute Distress Eye Exam: Positive: PERRLA, Conjunctiva & lids normal, EOMI; Negative: Sclera icteric ENT Exam: Positive: Atraumatic, Mucous membr. moist/pink, Pharynx Normal Neck Exam: Positive: Supple; Negative: JVD, thyromegaly Chest Exam: Positive: Clear to auscultation, Normal air movement Heart Exam: Positive: Rate Normal, Regular Rhythm, Normal S1, Normal S2, Murmurs (soft systolic murmur); Negative: Rubs Abdomen Exam: Positive: Normal bowel sounds, Soft; Negative: Tenderness, Hepatospenomegaly Extremity Exam: Positive: Other (right ankle in cast); Negative: Clubbing, Cyanosis, Edema Skin Exam: Positive: Nl turgor and temperature; Negative: Rash, Breakdown Assessment /Plan Assessment 70 year old female with MS, JOHN, chronic resp failure, Dm, HTN, HLD, CAD multiple falls and several fractures in the past fell on 05/17 and has since then had significant pain in her right ankle and swelling. She has had difficulty walking since this time. It does sound like she has had more than one fall. At baseline is able to ambulate with a walker. She was found to have mildly to moderately displaced right bimalleolar ankle fracture. She also had a CT and MRI of her lumbar spine which showed lumbar compression fractures L3 and L4 and a sacral insufficiency fracture. Right ankle fracture S/P surgery on 05/21/20 Pain control and DVT prophylaxis as per ortho. Pain control with [place]. Lumber vertebral fractures brace has not been recommended by ortho Chronic systolic heart failure No signs of fluid overload at this time continue Labetelol, Irbesartan and lasix HTN Labetelol, hydralazine, irbesartan, lasix, started on amlodipine. Confirmed with DR Gustafson office patient was changed form coreg to Labetelol in february. Stopped coreg and started her on labetelol. Multiple Sclerosis Follows as outpatient with Dr. Corrigan (neurology) every 3 months Home zonegran, tizanidine, gabapentin, carbamazepine; Baclofen, methotrexate and folic acid medications continued JOHN on BIPAP, does not have her bipap here JOHN protocol. Uses oxygen with BIPAP CAD s/p CABG x4 continue stain, coreg DLP pravastatin NIDDM2 will hold metformin. lispro sliding scale. Glimiperide. Hx of CVA, Macrocytic hypochromic anemia Hgb 8.3 on presentation today; review of records indicates pt has been persistently anemic since 2015 has seen oncology thought to be from iron def, vit b12 def due to gastric bypass surgery Macrocytosis may be due to methotrexate. will continue supplements Also has H/o GIBs has AVMs Hypothyroidism synthroid Depression and GERD home meds H/o Morbid obesity s/p Bariatric surgery Fatty liver h/o Multiple fractures in the past Right wrist fracture and Left distal fibular fracture in May 2019 did not require surgery, treated by casting. Left hip arthroplasty 09/2018 Left ankle fracture s/p Repair Osteoporosis in the setting of chronic vertebral/fragility fractures This is a significant area needs to be worked up as outpatient upon discharge Patient has extensive history of fragility fractures and chronic compression vertebral fractures In the setting of her progressive multiple sclerosis, this will likely continue to be a problem moving forward if not addressed Polypharmacy Patient is on a significant amount of medications. 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 Plan/VTE VTE Prophylaxis Ordered?: Yes VS, I&O, 24H, Fishbone Vital Signs/I&O Vital Signs Date Time Temp Pulse Resp B/P (MAP) Pulse Ox O2 Delivery O2 Flow Rate FiO2 05/26/20 16:24 144/64 05/26/20 14:00 98.6 73 18 95 05/26/20 06:00 Nasal Cannula 2.0 I&O- Last 24 Hours up to 6 AM 05/26/20 07:00 Intake Total 750 ml Output Total 300 ml Balance 450 ml Laboratory Data 24H LABS Laboratory Tests 2 05/25/20 20:41: Bedside Glucose (Misc Panel) 332H 05/26/20 06:37: Immature Granulocyte % (Auto) 1.2, Neutrophils (%) (Auto) 71.6H, Lymphocytes (%) (Auto) 13.2L, Monocytes (%) (Auto) 11.0H, Eosinophils (%) (Auto) 2.5, Basophils (%) (Auto) 0.5, Neutrophils # (Auto) 2.9, Lymphocytes # (Auto) 0.5L, Monocytes # (Auto) 0.5, Eosinophils # (Auto) 0.1, Basophils # (Auto) 0.0, Nucleated Red Blood Cells % (auto) 0.0, Anion Gap 4L, Glomerular Filtration Rate > 60.0, Calcium Level 8.2L 05/26/20 11:23: Bedside Glucose (Misc Panel) 222H 05/26/20 16:32: Bedside Glucose (Misc Panel) 235H CBC/BMP Laboratory Tests 05/26/20 06:37 MILIND OCHOA MD May 26, 2020 19:59
[2020-05-26 22:00] VITALS: BP 183/74
[2020-05-26] MEDS: PRAVASTATIN 20 MG TAB PO SCH (22:38)
[2020-05-26] MEDS: traZODone 100 MG TAB PO SCH (22:39)
[2020-05-26 23:00] VITALS: BP 153/69
[2020-05-27] MEDS: ACETAMINOPHEN 650MG ER TAB (TYLENOL ARTHRITIS) PO SCH ×2 (05:55→14:42)
[2020-05-27] MEDS: LEVOTHYROXINE 25MCG TABLET (0.025MG) PO SCH (05:55)
[2020-05-27 06:00] VITALS: BP 170/96
[2020-05-27 06:07] LABS: BASO % 0.5 % (0.0-1.0); EOS # 0.1 10^3/uL (0.0-0.5); EOS % 2.2 % (0.0-3.0); HEMATOCRIT 27.3 % (36.0-47.0); HEMOGLOBIN 8.2 g/dl (12.0-15.5); LYMPH # 0.6 10^3/uL (1.5-5.0); LYMPH % 13.9 % (24.0-44.0); MEAN CORPUSCULAR HEMOGLOBIN 30.6 pg (27.0-33.0); MEAN CORPUSCULAR VOLUME 101.9 fl (80.0-96.0); MONO # 0.4 10^3/uL (0.0-0.8); NEUTROPHILS % 72.2 % (36.0-66.0); PLATELET COUNT, AUTOMATED 165 10^3/uL (150-450); RED BLOOD COUNT 2.68 10^6/uL (4.00-5.40); WHITE BLOOD COUNT 4.2 10^3/uL (4.0-10.0)
[2020-05-27 06:26] LABS: BLOOD UREA NITROGEN 12 MG/DL (7-18); CALCIUM LEVEL 8.5 MG/DL (8.8-10.2); CARBON DIOXIDE LEVEL 26 MEQ/L (21-32); CHLORIDE LEVEL 106 MEQ/L (98-107); CREATININE FOR GFR 0.58 MG/DL (0.55-1.30); GLOMERULAR FILTRATION RATE > 60.0 (>45); GLUCOSE, FASTING 143 MG/DL (70-100); POTASSIUM SERUM 3.8 MEQ/L (3.5-5.1); SODIUM LEVEL 139 MEQ/L (136-145)
[2020-05-27] MEDS: HumaLOG INSULIN (NovoLOG) PER UNIT SC SCH ×4 (07:59→21:00)
[2020-05-27] MEDS: ZONISAMIDE 50 MG CAP (ZONEGRAN) PO SCH ×2 (08:00→21:04)
[2020-05-27] MEDS: FOLIC ACID 1 MG TAB PO SCH (08:01)
[2020-05-27] MEDS: LABETALOL 200 MG TAB PO SCH ×2 (08:02→21:05)
[2020-05-27] MEDS: FUROSEMIDE 20 MG TAB PO SCH (08:02)
[2020-05-27] MEDS: carBAMazepine 200 MG TAB PO SCH ×2 (08:03→21:04)
[2020-05-27] MEDS: VENLAFAXINE **XR** 75MG CAPSULE PO SCH (08:04)
[2020-05-27] MEDS: GABAPENTIN 100 MG CAP PO SCH ×3 (08:04→21:03)
[2020-05-27] MEDS: ASCORBIC ACID 500 MG TAB PO SCH (08:05)
[2020-05-27] MEDS: IRBESARTAN 150MG TAB PO SCH (08:06)
--- NOTE | 2020-05-27 08:06 | IPNPDOC ---
Subjective Date Seen The patient was seen on 05/27/20. Subjective Chief Complaint/HPI No issues overnight. No fever or chills, no chest pain ro SOB. Has pain all over her body which she says is chronic. Objective Physical Examination General Exam: Positive: Alert, Cooperative, No Acute Distress Eye Exam: Positive: PERRLA, Conjunctiva & lids normal, EOMI; Negative: Sclera icteric ENT Exam: Positive: Atraumatic, Mucous membr. moist/pink, Pharynx Normal Neck Exam: Positive: Supple; Negative: JVD, thyromegaly Chest Exam: Positive: Clear to auscultation, Normal air movement Heart Exam: Positive: Rate Normal, Regular Rhythm, Normal S1, Normal S2, Murmurs (soft systolic murmur); Negative: Rubs Abdomen Exam: Positive: Normal bowel sounds, Soft; Negative: Tenderness, Hepatospenomegaly Extremity Exam: Positive: Other (right ankle in cast); Negative: Clubbing, Cyanosis, Edema Skin Exam: Positive: Nl turgor and temperature; Negative: Rash, Breakdown Assessment /Plan Assessment 70 year old female with MS, JOHN, chronic resp failure, Dm, HTN, HLD, CAD multipl e falls and several fractures in the past fell on 05/17 and has since then had significant pain in her right ankle and swelling. She has had difficulty walking since this time. It does sound like she has had more than one fall. At baseline is able to ambulate with a walker. She was found to have mildly to moderately displaced right bimalleolar ankle fracture. She also had a CT and MRI of her lumbar spine which showed lumbar compression fractures L3 and L4 and a sacral insufficiency fracture. Right ankle fracture S/P surgery on 05/21/20 Pain control and DVT prophylaxis as per ortho. Pain control with [place]. Lumber vertebral fractures brace has not been recommended by ortho Chronic systolic heart failure No signs of fluid overload at this time continue Labetelol, Irbesartan and lasix HTN Labetelol, hydralazine, irbesartan, lasix, started on amlodipine. Confirmed with DR Gustafson office patient was changed form coreg to Labetelol in february. Stopped coreg and started her on labetelol. Multiple Sclerosis Follows as outpatient with Dr. Corrigan (neurology) every 3 months Home zonegran, tizanidine, gabapentin, carbamazepine; Baclofen, methotrexate and folic acid medications continued JOHN on BIPAP, does not have her bipap here JOHN protocol. Uses oxygen with BIPAP CAD s/p CABG x4 continue stain, coreg DLP pravastatin NIDDM2 will hold metformin. lispro sliding scale. Glimiperide. Hx of CVA, Macrocytic hypochromic anemia Hgb 8.3 on presentation today; review of records indicates pt has been persistently anemic since 2015 has seen oncology thought to be from iron def, vit b12 def due to gastric bypass surgery Macrocytosis may be due to methotrexate. will continue supplements Also has H/o GIBs has AVMs Hypothyroidism synthroid Depression and GERD home meds H/o Morbid obesity s/p Bariatric surgery Fatty liver h/o Multiple fractures in the past Right wrist fracture and Left distal fibular fracture in May 2019 did not require surgery, treated by casting. Left hip arthroplasty 09/2018 Left ankle fracture s/p Repair Osteoporosis in the setting of chronic vertebral/fragility fractures This is a significant area needs to be worked up as outpatient upon discharge Patient has extensive history of fragility fractures and chronic compression vertebral fractures In the setting of her progressive multiple sclerosis, this will likely continue to be a problem moving forward if not addressed Polypharmacy Patient is on a significant amount of medications. 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 Dispo: ARU if approved by insurance. Plan/VTE VTE Prophylaxis Ordered?: Yes VS, I&O, 24H, Fishbone Vital Signs/I&O Vital Signs Date Time Temp Pulse Resp B/P (MAP) Pulse Ox O2 Delivery O2 Flow Rate FiO2 05/27/20 06:00 98.8 79 18 170/96 (120) 94 Room Air 05/26/20 22:00 2.0 I&O- Last 24 Hours up to 6 AM 05/27/20 06:00 Intake Total 900 ml Output Total 0 ml Balance 900 ml Laboratory Data 24H LABS Laboratory Tests 2 05/26/20 11:23: Bedside Glucose (Misc Panel) 222H 05/26/20 16:32: Bedside Glucose (Misc Panel) 235H 05/26/20 19:53: Bedside Glucose (Misc Panel) 144H 05/27/20 05:48: Immature Granulocyte % (Auto) 1.2, Neutrophils (%) (Auto) 72.2H, Lymphocytes (%) (Auto) 13.9L, Monocytes (%) (Auto) 10.0H, Eosinophils (%) (Auto) 2.2, Basophils (%) (Auto) 0.5, Neutrophils # (Auto) 3.0, Lymphocytes # (Auto) 0.6L, Monocytes # (Auto) 0.4, Eosinophils # (Auto) 0.1, Basophils # (Auto) 0.0, Nucleated Red Blood Cells % (auto) 0.0, Anion Gap 7L, Glomerular Filtration Rate > 60.0, Ca lcium Level 8.5L CBC/BMP Laboratory Tests 05/27/20 05:48 MILIND OCHOA MD May 27, 2020 08:05
[2020-05-27] MEDS: VITAMIN D 1,000 INTERNATIONAL UNITS TABLET PO SCH (08:07)
[2020-05-27] MEDS: **hydrALAZINE** 50 MG TAB PO SCH ×3 (08:08→21:05)
[2020-05-27] MEDS: ASPIRIN 81 MG ENTERIC TAB PO SCH ×2 (08:08→21:04)
[2020-05-27] MEDS: amLODIPine 5 MG TAB PO SCH ×2 (08:09→21:05)
[2020-05-27] MEDS: CALCIUM CARBONATE 500 MG CHEW U/D PO SCH (08:17)
[2020-05-27] MEDS: NYSTATIN 100,000 UNITS/GM TOPICAL PWD 15 GM TOP SCH ×2 (10:11→21:05)
[2020-05-27 14:00] VITALS: BP 163/70
[2020-05-27] MEDS: NORCO, ANEXSIA 5/325MG TABLET (HYDROcodone/ACETAMINOPHEN) PO PRN ×2 (18:11→23:26)
[2020-05-27] MEDS: PRAVASTATIN 20 MG TAB PO SCH (21:03)
[2020-05-27] MEDS: traZODone 100 MG TAB PO SCH (21:04)
[2020-05-27] MEDS: ACETAMINOPHEN 500 MG TAB PO SCH (21:05)
[2020-05-27 22:00] VITALS: BP 182/77
[2020-05-28] MEDS: LEVOTHYROXINE 25MCG TABLET (0.025MG) PO SCH (05:02)
[2020-05-28] MEDS: ACETAMINOPHEN 500 MG TAB PO SCH ×3 (05:03→22:00)
[2020-05-28 05:53] VITALS: BP 176/80
[2020-05-28 07:08] LABS: BASO % 0.7 % (0.0-1.0); EOS # 0.1 10^3/uL (0.0-0.5); HEMATOCRIT 26.9 % (36.0-47.0); LYMPH # 0.5 10^3/uL (1.5-5.0); LYMPH % 12.4 % (24.0-44.0); MEAN CORPUSCULAR HEMOGLOBIN 30.2 pg (27.0-33.0); MEAN CORPUSCULAR HGB CONC 29.7 g/dl (32.0-36.5); MEAN CORPUSCULAR VOLUME 101.5 fl (80.0-96.0); MONO # 0.4 10^3/uL (0.0-0.8); MONO % 10.7 % (0.0-5.0); NEUTROPHILS % 73.2 % (36.0-66.0); PLATELET COUNT, AUTOMATED 163 10^3/uL (150-450); RED BLOOD COUNT 2.65 10^6/uL (4.00-5.40); WHITE BLOOD COUNT 4.1 10^3/uL (4.0-10.0)
[2020-05-28 07:35] LABS: BLOOD UREA NITROGEN 14 MG/DL (7-18); CARBON DIOXIDE LEVEL 30 MEQ/L (21-32); CHLORIDE LEVEL 104 MEQ/L (98-107); CREATININE FOR GFR 0.58 MG/DL (0.55-1.30); GLOMERULAR FILTRATION RATE > 60.0 (>45); GLUCOSE, FASTING 161 MG/DL (70-100); POTASSIUM SERUM 3.7 MEQ/L (3.5-5.1); SODIUM LEVEL 139 MEQ/L (136-145)
[2020-05-28] MEDS: GABAPENTIN 100 MG CAP PO SCH ×3 (08:32→20:45)
[2020-05-28] MEDS: VENLAFAXINE **XR** 75MG CAPSULE PO SCH (08:32)
[2020-05-28] MEDS: ASPIRIN 81 MG ENTERIC TAB PO SCH ×2 (08:32→20:45)
[2020-05-28] MEDS: FOLIC ACID 1 MG TAB PO SCH (08:32)
[2020-05-28] MEDS: CALCIUM CARBONATE 500 MG CHEW U/D PO SCH (08:32)
[2020-05-28] MEDS: VITAMIN D 1,000 INTERNATIONAL UNITS TABLET PO SCH (08:32)
[2020-05-28] MEDS: FUROSEMIDE 20 MG TAB PO SCH (08:32)
[2020-05-28] MEDS: ASCORBIC ACID 500 MG TAB PO SCH (08:32)
[2020-05-28] MEDS: carBAMazepine 200 MG TAB PO SCH ×2 (08:33→20:46)
[2020-05-28] MEDS: **hydrALAZINE** 50 MG TAB PO SCH ×3 (08:33→20:44)
[2020-05-28] MEDS: IRBESARTAN 150MG TAB PO SCH (08:33)
[2020-05-28] MEDS: ZONISAMIDE 50 MG CAP (ZONEGRAN) PO SCH ×2 (08:33→20:45)
[2020-05-28] MEDS: LABETALOL 200 MG TAB PO SCH ×2 (08:34→20:45)
[2020-05-28] MEDS: NYSTATIN 100,000 UNITS/GM TOPICAL PWD 15 GM TOP SCH ×2 (08:34→20:46)
[2020-05-28] MEDS: amLODIPine 5 MG TAB PO SCH ×2 (08:34→20:45)
[2020-05-28] MEDS: HumaLOG INSULIN (NovoLOG) PER UNIT SC SCH ×4 (08:35→20:48)
[2020-05-28] MEDS: NORCO, ANEXSIA 5/325MG TABLET (HYDROcodone/ACETAMINOPHEN) PO PRN ×2 (08:43→13:37)
[2020-05-28 20:23] VITALS: BP 161/82
[2020-05-28] MEDS: IBUPROFEN 600MG TAB PO PRN (20:44)
[2020-05-28] MEDS: PRAVASTATIN 20 MG TAB PO SCH (20:45)
[2020-05-28] MEDS: traZODone 100 MG TAB PO SCH (20:45)
[2020-05-29 04:55] VITALS: BP 154/84
[2020-05-29] MEDS: LEVOTHYROXINE 25MCG TABLET (0.025MG) PO SCH (05:23)
[2020-05-29] MEDS: ACETAMINOPHEN 500 MG TAB PO SCH ×3 (05:23→21:46)
[2020-05-29] MEDS: IBUPROFEN 600MG TAB PO PRN ×2 (05:23→20:44)
[2020-05-29] MEDS: HumaLOG INSULIN (NovoLOG) PER UNIT SC SCH ×4 (08:20→21:00)
[2020-05-29] MEDS: **hydrALAZINE** 50 MG TAB PO SCH ×3 (08:24→20:46)
[2020-05-29] MEDS: ZONISAMIDE 50 MG CAP (ZONEGRAN) PO SCH ×2 (08:24→20:44)
[2020-05-29] MEDS: CALCIUM CARBONATE 500 MG CHEW U/D PO SCH (08:24)
[2020-05-29] MEDS: carBAMazepine 200 MG TAB PO SCH ×2 (08:24→20:44)
[2020-05-29] MEDS: IRBESARTAN 150MG TAB PO SCH (08:24)
[2020-05-29] MEDS: VENLAFAXINE **XR** 75MG CAPSULE PO SCH (08:25)
[2020-05-29] MEDS: ASPIRIN 81 MG ENTERIC TAB PO SCH ×2 (08:25→20:43)
[2020-05-29] MEDS: VITAMIN D 1,000 INTERNATIONAL UNITS TABLET PO SCH (08:25)
[2020-05-29] MEDS: LABETALOL 200 MG TAB PO SCH ×2 (08:26→20:46)
[2020-05-29] MEDS: FUROSEMIDE 20 MG TAB PO SCH (08:26)
[2020-05-29] MEDS: amLODIPine 5 MG TAB PO SCH ×2 (08:26→20:46)
[2020-05-29] MEDS: FOLIC ACID 1 MG TAB PO SCH (08:26)
[2020-05-29] MEDS: ASCORBIC ACID 500 MG TAB PO SCH (08:26)
[2020-05-29] MEDS: GABAPENTIN 100 MG CAP PO SCH ×3 (08:27→20:43)
[2020-05-29] MEDS: NYSTATIN 100,000 UNITS/GM TOPICAL PWD 15 GM TOP SCH ×2 (08:28→20:46)
[2020-05-29] MEDS: NORCO, ANEXSIA 5/325MG TABLET (HYDROcodone/ACETAMINOPHEN) PO PRN ×2 (14:46→20:45)
[2020-05-29 20:11] VITALS: BP 186/80
[2020-05-29 20:12] VITALS: BP 144/86
[2020-05-29] MEDS: traZODone 100 MG TAB PO SCH (20:43)
[2020-05-29] MEDS: PRAVASTATIN 20 MG TAB PO SCH (20:43)
[2020-05-29] MEDS: METHOTREXATE 2.5 MG TAB (J8610 PER 2.5MG) PO SCH (20:44)
[2020-05-30] MEDS: LEVOTHYROXINE 25MCG TABLET (0.025MG) PO SCH (05:13)
[2020-05-30] MEDS: ACETAMINOPHEN 500 MG TAB PO SCH ×3 (05:13→22:00)
[2020-05-30] MEDS: IBUPROFEN 600MG TAB PO PRN ×2 (05:13→20:55)
[2020-05-30 05:30] VITALS: BP 180/84
[2020-05-30] MEDS: ZONISAMIDE 50 MG CAP (ZONEGRAN) PO SCH ×2 (08:24→20:53)
[2020-05-30] MEDS: FUROSEMIDE 20 MG TAB PO SCH (08:24)
[2020-05-30] MEDS: VITAMIN D 1,000 INTERNATIONAL UNITS TABLET PO SCH (08:25)
[2020-05-30] MEDS: VENLAFAXINE **XR** 75MG CAPSULE PO SCH (08:25)
[2020-05-30] MEDS: CALCIUM CARBONATE 500 MG CHEW U/D PO SCH (08:25)
[2020-05-30] MEDS: ASPIRIN 81 MG ENTERIC TAB PO SCH ×2 (08:25→20:53)
[2020-05-30] MEDS: carBAMazepine 200 MG TAB PO SCH ×2 (08:25→20:53)
[2020-05-30] MEDS: FOLIC ACID 1 MG TAB PO SCH (08:25)
[2020-05-30] MEDS: ASCORBIC ACID 500 MG TAB PO SCH (08:26)
[2020-05-30] MEDS: GABAPENTIN 100 MG CAP PO SCH ×3 (08:26→20:53)
[2020-05-30] MEDS: HumaLOG INSULIN (NovoLOG) PER UNIT SC SCH ×4 (08:26→20:56)
[2020-05-30] MEDS: amLODIPine 5 MG TAB PO SCH ×2 (08:28→20:55)
[2020-05-30] MEDS: LABETALOL 200 MG TAB PO SCH ×2 (08:29→20:55)
[2020-05-30] MEDS: **hydrALAZINE** 50 MG TAB PO SCH ×3 (08:30→20:54)
[2020-05-30] MEDS: IRBESARTAN 150MG TAB PO SCH (08:30)
[2020-05-30] MEDS: NYSTATIN 100,000 UNITS/GM TOPICAL PWD 15 GM TOP SCH ×2 (08:31→20:57)
[2020-05-30] MEDS: tiZANidine 4 MG TAB PO PRN ×2 (12:43→20:53)
[2020-05-30] MEDS: NORCO, ANEXSIA 5/325MG TABLET (HYDROcodone/ACETAMINOPHEN) PO PRN (16:54)
[2020-05-30 19:45] VITALS: BP 186/80
[2020-05-30] MEDS: PRAVASTATIN 20 MG TAB PO SCH (20:54)
[2020-05-30] MEDS: traZODone 100 MG TAB PO SCH (20:54)
[2020-05-31 04:56] VITALS: BP 169/79
[2020-05-31] MEDS: LEVOTHYROXINE 25MCG TABLET (0.025MG) PO SCH (05:20)
[2020-05-31] MEDS: ACETAMINOPHEN 500 MG TAB PO SCH ×3 (05:20→20:47)
[2020-05-31] MEDS: IBUPROFEN 600MG TAB PO PRN ×2 (05:20→20:48)
[2020-05-31] MEDS: HumaLOG INSULIN (NovoLOG) PER UNIT SC SCH ×4 (08:37→20:48)
[2020-05-31] MEDS: FOLIC ACID 1 MG TAB PO SCH (08:38)
[2020-05-31] MEDS: **hydrALAZINE** 50 MG TAB PO SCH ×3 (08:38→20:46)
[2020-05-31] MEDS: amLODIPine 5 MG TAB PO SCH ×2 (08:38→20:47)
[2020-05-31] MEDS: LABETALOL 200 MG TAB PO SCH ×2 (08:38→20:46)
[2020-05-31] MEDS: CALCIUM CARBONATE 500 MG CHEW U/D PO SCH (08:39)
[2020-05-31] MEDS: ASPIRIN 81 MG ENTERIC TAB PO SCH ×2 (08:39→20:47)
[2020-05-31] MEDS: GABAPENTIN 100 MG CAP PO SCH ×3 (08:39→20:46)
[2020-05-31] MEDS: FUROSEMIDE 20 MG TAB PO SCH (08:39)
[2020-05-31] MEDS: ASCORBIC ACID 500 MG TAB PO SCH (08:40)
[2020-05-31] MEDS: IRBESARTAN 150MG TAB PO SCH (08:40)
[2020-05-31] MEDS: VENLAFAXINE **XR** 75MG CAPSULE PO SCH (08:40)
[2020-05-31] MEDS: carBAMazepine 200 MG TAB PO SCH ×2 (08:41→20:45)
[2020-05-31] MEDS: VITAMIN D 1,000 INTERNATIONAL UNITS TABLET PO SCH (08:41)
[2020-05-31] MEDS: ZONISAMIDE 50 MG CAP (ZONEGRAN) PO SCH ×2 (08:41→20:45)
[2020-05-31] MEDS: NYSTATIN 100,000 UNITS/GM TOPICAL PWD 15 GM TOP SCH ×2 (08:43→20:49)
[2020-05-31 15:53] VITALS: BP 174/79
[2020-05-31] MEDS: traZODone 100 MG TAB PO SCH (20:46)
[2020-05-31] MEDS: PRAVASTATIN 20 MG TAB PO SCH (20:48)
[2020-05-31 22:00] VITALS: BP 199/83
[2020-05-31 23:00] VITALS: BP 161/65
[2020-06-01] MEDS: LEVOTHYROXINE 25MCG TABLET (0.025MG) PO SCH (05:23)
[2020-06-01] MEDS: ACETAMINOPHEN 500 MG TAB PO SCH ×3 (05:24→21:58)
[2020-06-01 06:00] VITALS: BP 189/78
[2020-06-01] MEDS: HumaLOG INSULIN (NovoLOG) PER UNIT SC SCH ×4 (08:46→20:43)
[2020-06-01] MEDS: FOLIC ACID 1 MG TAB PO SCH (08:47)
[2020-06-01] MEDS: carBAMazepine 200 MG TAB PO SCH ×2 (08:47→20:40)
[2020-06-01] MEDS: VENLAFAXINE **XR** 75MG CAPSULE PO SCH (08:47)
[2020-06-01] MEDS: ASCORBIC ACID 500 MG TAB PO SCH (08:47)
[2020-06-01] MEDS: ASPIRIN 81 MG ENTERIC TAB PO SCH ×2 (08:47→20:43)
[2020-06-01] MEDS: GABAPENTIN 100 MG CAP PO SCH ×3 (08:48→20:40)
[2020-06-01] MEDS: VITAMIN D 1,000 INTERNATIONAL UNITS TABLET PO SCH (08:48)
[2020-06-01] MEDS: ZONISAMIDE 50 MG CAP (ZONEGRAN) PO SCH ×2 (08:48→20:40)
[2020-06-01] MEDS: CALCIUM CARBONATE 500 MG CHEW U/D PO SCH (08:48)
[2020-06-01] MEDS: FUROSEMIDE 20 MG TAB PO SCH (08:48)
[2020-06-01] MEDS: IRBESARTAN 150MG TAB PO SCH (08:49)
[2020-06-01] MEDS: **hydrALAZINE** 50 MG TAB PO SCH ×3 (08:50→20:41)
[2020-06-01] MEDS: LABETALOL 200 MG TAB PO SCH ×2 (08:50→20:43)
[2020-06-01] MEDS: amLODIPine 5 MG TAB PO SCH ×2 (08:51→20:41)
[2020-06-01] MEDS: NYSTATIN 100,000 UNITS/GM TOPICAL PWD 15 GM TOP SCH ×2 (08:52→20:43)
[2020-06-01] MEDS: NORCO, ANEXSIA 5/325MG TABLET (HYDROcodone/ACETAMINOPHEN) PO PRN ×2 (12:36→20:42)
[2020-06-01] MEDS: traZODone 100 MG TAB PO SCH (20:40)
[2020-06-01] MEDS: PRAVASTATIN 20 MG TAB PO SCH (20:41)
[2020-06-01 22:00] VITALS: BP 168/80
[2020-06-02] MEDS: IBUPROFEN 600MG TAB PO PRN ×2 (05:39→12:40)
[2020-06-02] MEDS: LEVOTHYROXINE 25MCG TABLET (0.025MG) PO SCH (05:39)
[2020-06-02] MEDS: ACETAMINOPHEN 500 MG TAB PO SCH ×3 (05:40→20:59)
[2020-06-02] MEDS: HumaLOG INSULIN (NovoLOG) PER UNIT SC SCH ×4 (08:31→21:00)
[2020-06-02] MEDS: ASPIRIN 81 MG ENTERIC TAB PO SCH ×2 (08:31→21:00)
[2020-06-02] MEDS: GABAPENTIN 100 MG CAP PO SCH ×3 (08:32→20:58)
[2020-06-02] MEDS: VENLAFAXINE **XR** 75MG CAPSULE PO SCH (08:32)
[2020-06-02] MEDS: ASCORBIC ACID 500 MG TAB PO SCH (08:32)
[2020-06-02] MEDS: VITAMIN D 1,000 INTERNATIONAL UNITS TABLET PO SCH (08:32)
[2020-06-02] MEDS: FOLIC ACID 1 MG TAB PO SCH (08:32)
[2020-06-02] MEDS: CALCIUM CARBONATE 500 MG CHEW U/D PO SCH (08:32)
[2020-06-02] MEDS: IRBESARTAN 150MG TAB PO SCH (08:37)
[2020-06-02] MEDS: LABETALOL 200 MG TAB PO SCH ×2 (08:38→21:00)
[2020-06-02] MEDS: **hydrALAZINE** 50 MG TAB PO SCH ×3 (08:38→20:58)
[2020-06-02] MEDS: FUROSEMIDE 20 MG TAB PO SCH (08:39)
[2020-06-02] MEDS: amLODIPine 5 MG TAB PO SCH ×2 (08:39→21:00)
[2020-06-02] MEDS: ZONISAMIDE 50 MG CAP (ZONEGRAN) PO SCH ×2 (08:40→20:57)
[2020-06-02] MEDS: NYSTATIN 100,000 UNITS/GM TOPICAL PWD 15 GM TOP SCH ×2 (08:42→21:00)
[2020-06-02] MEDS: carBAMazepine 200 MG TAB PO SCH ×2 (09:29→22:40)
[2020-06-02] MEDS: NORCO, ANEXSIA 5/325MG TABLET (HYDROcodone/ACETAMINOPHEN) PO PRN (09:53)
[2020-06-02] MEDS: traZODone 100 MG TAB PO SCH (20:58)
[2020-06-02] MEDS: PRAVASTATIN 20 MG TAB PO SCH (21:00)
[2020-06-02 22:00] VITALS: BP 182/81
[2020-06-03] MEDS: NORCO, ANEXSIA 5/325MG TABLET (HYDROcodone/ACETAMINOPHEN) PO PRN (05:04)
[2020-06-03 06:00] VITALS: BP 171/86
[2020-06-03] MEDS: LEVOTHYROXINE 25MCG TABLET (0.025MG) PO SCH (06:37)
[2020-06-03] MEDS: ACETAMINOPHEN 500 MG TAB PO SCH (06:37)
[2020-06-03] MEDS ORDERED: IBUP-1022 PO (06:50)
[2020-06-03] MEDS ORDERED: QC A650T3 PO (06:50)
[2020-06-03] MEDS ORDERED: ECOT81TA5 PO (06:50)
--- NOTE | 2020-06-03 07:06 | IPNPDOC ---
Date Seen The patient was seen on 06/03/20. Progress Note Wheelchair The beneficiary has a mobility limitation that significantly impairs her ability to participate in mobility related activities of daily living such as toileting, feeding, dressing, grooming and bathing and customary locations in the home. It prevents the beneficiary from accomplishing a mobility related activities of daily living entirely and places the beneficiary at reasonably determined heig htened risk of morbidity or mortality secondary to the attempts to perform a mobility related activities of daily living and prevents the beneficiary from completing immobility related activity of daily living within a reasonable time frame. The beneficiary's mobility limitation cannot be sufficiently resolved by the use of an appropriately fitted cane or walker. The beneficiary's home provides adequate access between rooms maneuvering space and surfaces for use of the manual wheelchair that is provided. Use of a manual wheelchair will significantly improve the beneficiary's ability to participate in mobility related activities of daily living in the beneficiary. Will use it in a regular basis in the home. The beneficiary has not expressed and unwillingness to use a manual wheelchair that is provided in the house. The beneficiary has sufficient upper extremity function and other physical and mental capability needed to safely self-propelled a manual wheelchair that is provided in the home during a typical day limitations of strength, endurance, range of motion or coordination presence of pain or deformity or absence of both upper extremities are relevant to the assessment of upper extremity function. VS, I&O, 24H, Fishbone Vital Signs/I&O Vital Signs Date Time Temp Pulse Resp B/P (MAP) Pulse Ox O2 Delivery O2 Flow Rate FiO2 06/03/20 06:00 97.3 73 17 171/86 (114) 95 Room Air 06/03/20 05:34 2.0 I&O- Last 24 Hours up to 6 AM 06/03/20 05:59 Intake Total 1200 ml Output Total 0 ml Balance 1200 ml Laboratory Data 24H LABS Laboratory Tests 2 06/02/20 12:14: Bedside Glucose (Misc Panel) 167H 06/02/20 16:39: Bedside Glucose (Misc Panel) 119H 06/02/20 20:59: Bedside Glucose (Misc Panel) 118H 06/03/20 04:50: Bedside Glucose (Misc Panel) 125H BRUNA MARIN MD Jun 03, 2020 07:06
[2020-06-03] MEDS: VENLAFAXINE **XR** 75MG CAPSULE PO SCH (08:43)
[2020-06-03] MEDS: GABAPENTIN 100 MG CAP PO SCH (08:43)
[2020-06-03] MEDS: ASCORBIC ACID 500 MG TAB PO SCH (08:43)
[2020-06-03] MEDS: FUROSEMIDE 20 MG TAB PO SCH (08:44)
[2020-06-03 08:45] VITALS: BP 144/62
[2020-06-03] MEDS: VITAMIN D 1,000 INTERNATIONAL UNITS TABLET PO SCH (08:45)
[2020-06-03] MEDS: ASPIRIN 81 MG ENTERIC TAB PO SCH (08:45)
[2020-06-03] MEDS: FOLIC ACID 1 MG TAB PO SCH (08:45)
[2020-06-03] MEDS: **hydrALAZINE** 50 MG TAB PO SCH (08:45)
[2020-06-03] MEDS: CALCIUM CARBONATE 500 MG CHEW U/D PO SCH (08:45)
[2020-06-03] MEDS: amLODIPine 5 MG TAB PO SCH (08:45)
[2020-06-03] MEDS: ZONISAMIDE 50 MG CAP (ZONEGRAN) PO SCH (08:46)
[2020-06-03] MEDS: carBAMazepine 200 MG TAB PO SCH (08:46)
[2020-06-03] MEDS: IRBESARTAN 150MG TAB PO SCH (08:46)
[2020-06-03] MEDS: LABETALOL 200 MG TAB PO SCH (08:46)
[2020-06-03] MEDS: HumaLOG INSULIN (NovoLOG) PER UNIT SC SCH (08:47)
[2020-06-03] MEDS: NYSTATIN 100,000 UNITS/GM TOPICAL PWD 15 GM TOP SCH (08:50)
--- NOTE | 2020-06-03 11:27 | DS.PDOC ---
Discharge Summary General Date of Admission May 18, 2020 at 21:35 Date of Discharge 06/03/20 Discharge Summary PROCEDURES PERFORMED DURING STAY: DISCHARGE DIAGNOSES: Right ankle fracture s/p 05/21/20 Open reduction and internal fixation of displaced bimalleolar right ankle fracture. Lumber vertebral fractures Chronic systolic heart failure HTN Multiple Sclerosis JOHN on BIPAP, CAD s/p CABG x4 DLP NIDDM2 Hx of CVA Macrocytic hypochromic anemia Hypothyroidism Depression GERD H/o Morbid obesity s/p Bariatric surgery Fatty liver h/o Multiple fractures in the past Left ankle fracture s/p Repair Osteoporosis in the setting of chronic vertebral/fragility fractures Polypharmacy Thrombocytopenia grade 2 left ventricular diastolic dysfunction. trace aortic regurgitation mild aortic stenosis. mild mitral regurgitation. Mild tricuspid regurgitation moderate pulmonary hypertension. Trace pericardial effusion DISCHARGE MEDICATIONS: SEE BELOW DISCHARGE INSTRUCTIONS: PER ORTHO PCP [facility] HOSPITAL COURSE: 70 year old female with MS, JOHN, chronic resp failure, Dm, HTN, HLD, CAD multiple falls and several fractures in the past fell on 05/17/20 found to have mildly to moderately displaced right bimalleolar ankle fracture. She also had a CT and MRI of her lumbar spine which showed lumbar compression fractures L3 and L4 and a sacral insufficiency fracture. Right bimalleolar ankle fracture S/P orif 05/21/20 Postop mgt per ortho including pain meds, dvt prophylaxis, bowel regimen, activity, postop instructions and fu appt. Lumber vertebral fractures continues to wear a brace Chronic systolic heart failure euvolemic. continued on home meds HTN controlled on Labetalol, hydralazine, irbesartan, lasix, amlodipine. Multiple Sclerosis resumed home meds, outpt fu w [facility] neurology dr milton JOHN on BIPAP, JOHN protocol CAD s/p CABG x4 resumed on home meds DLP pravastatin NIDDM2 lispro sliding scale.consistent carbs diet Hx of CVA no new symptoms Macrocytic hypochromic anemia stable Hypothyroidism synthroid Depression and GERD home meds H/o Morbid obesity s/p Bariatric surgery Fatty liver h/o Multiple fractures in the past Right wrist fracture and Left distal fibular fracture in May 2019s/p casting. 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 POSTOPERATIVE DIAGNOSIS: Displaced right bimalleolar ankle fracture. PROCEDURE: Open reduction and internal fixation of displaced bimalleolar right ankle fracture. SURGEON: Joan Vela MD ANESTHESIA: Spinal. COMPLICATIONS: None. ESTIMATED BLOOD LOSS: Less than 20 mL. SPECIMEN: None. PROCEDURE: Antibiotics were given intravenously preoperatively and then successful spinal anesthesia was induced. Tourniquet was placed on right upper thigh, not inflated. Right lower extremity was carefully prepped and draped in usual sterile fashion and then elevated after appropriate time out. Tourniquet was inflated. We first addressed laterally. Skin incision was made down to the fracture site. The fracture site was exposed and irrigated. Bone was very poor quality, almost play dough in consistency. However, by digital manipulation I tried to manipulate the fracture out to length and back into its anatomic position as possible, I could not hold it with a clamp, however, because the bone would not hold the clamp, it was too soft. Thus I applied a plate and held it with K-wires. I elected a locking distal fibular plate because of the poor bone quality. The plate had to be contoured with bending irons to help make sure it adhered to the bone properly without displacing the fracture out laterally. I then applied the plate digitally and provisionally held it with some K-wires and got fluoroscopic imaging to confirm that we had a reasonable reduction. Thus I placed a 2.7 standard cortical screw first to hold the distal end of the plate and then applied a 3.5 cortical screw proximally to hold the plate into position. I then filled the remaining distal holes with locking screws as well as the proximal holes I filled with single locking screw and one standard 3.5 cortical screw providing excellent firm reduction of the fracture and held it in good position. I then exposed the medial side of the ankle. I made a small incision superficially dissecting down to the fracture site avoiding the saphenous nerve and vein. The fracture site was noteworthy that it was displaced and there was infolding of periosteum and actually some of the soft tissue bone was rounded over into the fracture site itself. This had to be teased out with Adson forceps and I copiously irrigated the joint, inspected the distal tibial plafond. It appeared to be in good position but the fracture site did extend to the medial corner. I then performed an open reduction under direct visualization. I used a small clamp just to hold the periosteum in reasonable position and then got fluoroscopic image confirming that anatomic reduction of the medial malleolus, so both by clinical, visual inspection and radiographic it appeared to be reduced well. The fragment I did not think was large enough for two screws and thus I placed a single threaded guide pin from the 4.5 cannulated screw set across the fracture site, got fluoroscopic imaging to confirm there was good position and placed 48 mm partially threaded 4.5 cannulated screw by hand and it actually had excellent purchase and compression. Thus, I did not feel derotational implant was needed nor was there room. I then got final fluoroscopic images. I did have to change out the initial first screw I placed over laterally because it appeared to be possibly too long and I shortened it from 16 to 14. I copiously irrigated all the wounds, let the tourniquet down. Closed the deep tissues over the plate with interrupted 2-0 PDS sutures and amy were placed in the skin laterally and then medially amy were placed in the skin. Adaptic and dry, sterile dressing and then well padded short leg plaster cast was applied. She was transferred to the recovery room in stable condition. There were no intraoperative complications. DD: Joan Vela MD 05/21/20 1059 DT: SALO 05/21/20 1202 DS: PRIYA 05/27/20 0743 05/21/20ECHOCARDIOGRAM * Normal left ventricular size with mildly increased left ventricular wall thickness. Left ventricular systolic function is normal, estimated at 60% to 65%. * Mildly enlarged left atrium. Normal right atrium and right ventricle. * The atrial septum appeared to be normal without evidence of defect or shunt. * Normal aortic root. * Trace pericardial effusion noted. No evidence of cardiac tamponade. * Mildly calcified aortic valve with minimally restricted leaflet motion. Mildly calcified mitral annulus with normal anterior mitral valve leaflet motion. Normal tricuspid valve and pulmonic valve. The proximal pulmonary artery branches were not well visualized. * The inferior vena cava was normal in size, central venous pressure is most likely normal. DOPPLER: It detects trace aortic regurgitation, mild mitral regurgitation, and mild tricuspid regurgitation. The calculated pulmonary artery systolic pressure varies between 40 to 50 mmHg. Abnormal relaxation pattern was noted across the mitral valve annulus consistent with features of grade 2 left ventricular diastolic dysfunction, left ventricular end-diastolic pressure might be elevated. IMPRESSION: * Normal global left ventricular systolic function with mild concentric left ventricular hypertrophy. There are some features of grade 2 left ventricular diastolic dysfunction. * Aortic valve sclerosis with trace aortic regurgitation and probably mild aortic stenosis. * Mitral annulus calcification with a mildly enlarged left atrium and mild mitral regurgitation. * Mild tricuspid regurgitation with probably moderate pulmonary hypertension. * Trace pericardial effusion, no evidence of cardiac tamponade. DD: SALVATORE RUTHERFORD MD 05/19/202040 TIME SPENT ON DISCHARGE: 30 MINUTES Vital Signs/I&Os Vital Signs Date Time Temp Pulse Resp B/P (MAP) Pulse Ox O2 Delivery O2 Flow Rate FiO2 06/03/20 08:45 82 144/62 06/03/20 06:00 97.3 17 95 Room Air 06/03/20 05:34 2.0 I&O- Last 24 Hours up to 6 AM 06/03/20 05:59 Intake Total 1200 ml Output Total 0 ml Balance 1200 ml Laboratory Data Labs 24H Laboratory Tests 2 06/02/20 12:14: Bedside Glucose (Misc Panel) 167H 06/02/20 16:39: Bedside Glucose (Misc Panel) 119H 06/02/20 20:59: Bedside Glucose (Misc Panel) 118H 06/03/20 04:50: Bedside Glucose (Misc Panel) 125H FSBS Laboratory Tests Test 06/02/20 12:14 06/02/20 16:39 06/02/20 20:59 06/03/20 04:50 Range/Units Bedside Glucose (Misc Panel) 167 119 118 125 80-115 MG/DL Discharge Medications Scheduled Ascorbic Acid (Vitamin C) 500 Mg Capsule, 500 MG PO DAILY, (Reported) Aspirin (Ecotrin) 81 Mg Tablet.dr, 81 MG PO BID for pain Carbamazepine (Carbamazepine) 200 Mg Tablet, 400 MG PO BID, (Reported) Cholecalciferol (Vitamin D3) (Vitamin D3) 50 Mcg Tablet, 50 MCG PO DAILY, (Reported) Cyanocobalamin (Vitamin B-12) (Vitamin B-12) 500 Mcg Tablet, 500 MCG PO DAILY, (Reported) Folic Acid (Folic Acid) 1 Mg Tablet, 1 MG PO DAILY, (Reported) Furosemide (Furosemide) 20 Mg Tablet, 20 MG PO DAILY, (Reported) Gabapentin (Gabapentin) 100 Mg Capsule, 100 MG PO TID, (Reported) Glimepiride (Glimepiride) 2 Mg Tablet, 1 MG PO QHS, (Reported) Hydralazine HCl (Hydralazine HCl) 25 Mg Tablet, 50 MG PO TID, (Reported) Irbesartan (Irbesartan) 300 Mg Tablet, 300 MG PO DAILY, (Reported) Labetalol HCl (Labetalol HCl) 200 Mg Tablet, 200 MG PO BID, (Reported) Levothyroxine Sodium (Levothyroxine Sodium) 25 Mcg Tablet, 25 MCG PO DAILY, (Reported) Metformin HCl (Metformin HCl) 500 Mg Tablet, 500 MG PO BID, (Reported) Methotrexate Sodium (Methotrexate) 2.5 Mg Tablet, 7.5 MG PO QWEEK, (Reported) MONDAY EVENINGS Pravastatin Sodium (Pravastatin Sodium) 40 Mg Tablet, 40 MG PO QHS, (Reported) Trazodone HCl (Trazodone HCl) 100 Mg Tablet, 200 MG PO QHS, (Reported) Venlafaxine HCl (Venlafaxine HCl ER) 75 Mg Cap.er.24h, 75 MG PO DAILY, (Reported) Zonisamide (Zonisamide) 50 Mg Capsule, 50 MG PO BID, (Reported) Scheduled PRN Acetaminophen (Acetaminophen 8 Hour) 650 Mg Tablet.er, 1 TAB PO TID PRN for PAIN Ibuprofen (Ibuprofen) 600 Mg Tablet, 600 MG PO Q6H PRN for PAIN Nitroglycerin (Nitrostat) 0.4 Mg Tab.subl, 0.4 MG SL NITRO PRN for CHEST PAIN, (Reported) Allergies Coded Allergies: Penicillins (Verified Allergy, Severe, anaphylaxis, 10/19/18) latex (Verified Allergy, Unknown, 05/18/20) states she reacts when she wears gloves, but not when others do BRUNA MARIN MD Jun 03, 2020 11:14
== END 2020-06-03 12:20 | disposition home health service (06) | DRG 493 ==
LOC: EDBD 15:39 → M ED 15:39 → M ED INP 21:35 → M MS5PR 05-19 01:10
PROVIDERS: ADMIT Internal Medicine; ATTEND General Practice
PROC: 0QSJ04Z Reposition Right Fibula with Internal Fixation Device, Open Approach (ICD-10-PCS; principal; 2020-05-21 15:01)
DX: S82.841A Displaced bimalleolar fracture of right lower leg, initial encounter for closed fracture (principal); M84.48XA Pathological fracture, other site, initial encounter for fracture; I50.22 Chronic systolic (congestive) heart failure; G35 Multiple sclerosis; I11.0 Hypertensive heart disease with heart failure; D69.6 Thrombocytopenia, unspecified; K76.0 Fatty (change of) liver, not elsewhere classified; E11.9 Type 2 diabetes mellitus without complications; G47.33 Obstructive sleep apnea (adult) (pediatric); Z86.73 Personal history of transient ischemic attack (TIA), and cerebral infarction without residual deficits; E03.9 Hypothyroidism, unspecified; F32.9 Major depressive disorder, single episode, unspecified; K21.9 Gastro-esophageal reflux disease without esophagitis; D53.9 Nutritional anemia, unspecified; I08.3 Combined rheumatic disorders of mitral, aortic and tricuspid valves; I27.20 Pulmonary hypertension, unspecified; R29.6 Repeated falls; W18.30XA Fall on same level, unspecified, initial encounter; Y92.009 Unspecified place in unspecified non-institutional (private) residence as the place of occurrence of the external cause; Z79.899 Other long term (current) drug therapy; Z79.82 Long term (current) use of aspirin; Z88.0 Allergy status to penicillin; Z91.040 Latex allergy status

== ENCOUNTER → 2020-06-05 | Outpatient (REF) | payer MEDICARE, MEDICAID ==
[~2020-06-05] MED LIST changes: +ECOT81TA5 PO; +IBUP-1022 PO; +IRBE300T7 PO; +LABE200T32 PO; +MOBI4TAB PO; +QC A650T3 PO; +TIZA2TAB6 PO
== END ==
LOC: M LAB REF 15:10
PROVIDERS: ATTEND Internal Medicine Cardiovascular Disease
DX: R30.0 Dysuria (principal)

== ENCOUNTER 2020-12-03 09:56 | Outpatient (CLI) | payer MEDICARE, MEDICAID ==
[2020-12-03] VITALS (7 sets, daily range): BP systolic 142–162; BP diastolic 60–80
[~2020-12-03] VITALS: Ht 154.9 cm; Wt 81.3 kg
[~2020-12-03 09:56] MED LIST changes: -AMIT25TA PO; +AMIT25TA17 PO; -CYAN500T10 PO; -PEG1POW PO; +POLY17PO18 PO; -QUET1TAB7 PO; +QUET25TA3 PO; +TIZA1TAB12 PO; -TIZA2TAB6 PO; +VITA500T37 PO
[2020-12-03] MEDS ORDERED: methylPREDNISolone 125MG 2ML VIAL IV ONE (10:00)
[2020-12-03] MEDS ORDERED: diphenhydrAMINE 25MG CAP PO ONE (10:00)
[2020-12-03] MEDS ORDERED: ACETAMINOPHEN TAB 650MG DOSE (2X325MG) PO ONE (10:00)
[2020-12-03] MEDS ORDERED: OCRELIZUMAB 300 MG in NS 250 ML IV ONE (10:00)
== END 2020-12-03 14:00 | disposition home or self-care (01) ==
LOC: M INFU 09:56
PROVIDERS: ATTEND Psychiatry & Neurology Neurology
DX: G35 Multiple sclerosis (principal); Z88.0 Allergy status to penicillin; Z91.040 Latex allergy status
CPT/HCPCS: 96365; 96366; 96375; J2350; J2930

== ENCOUNTER 2020-12-18 07:34 | Outpatient (CLI) | payer MEDICARE, MEDICAID ==
[~2020-12-18] VITALS: Ht 154.9 cm; Wt 77.2 kg
[2020-12-18] MEDS ORDERED: ACETAMINOPHEN TAB 650MG DOSE (2X325MG) PO ONE (08:30)
[2020-12-18] MEDS ORDERED: methylPREDNISolone 125MG 2ML VIAL IV ONE (08:30)
[2020-12-18] MEDS ORDERED: OCRELIZUMAB 300 MG in NS 250 ML IV ONE (08:30)
[2020-12-18] MEDS ORDERED: diphenhydrAMINE 25MG CAP PO ONE (08:30)
[2020-12-18 09:00] VITALS: BP 190/80
[2020-12-18 09:30] VITALS: BP 178/88
[2020-12-18 10:13] VITALS: BP 188/78
[2020-12-18] MEDS ORDERED: **hydrALAZINE** 50 MG TAB PO ONE (10:20)
[2020-12-18] MEDS ORDERED: NORV5TAB PO (10:38)
[2020-12-18] MEDS ORDERED: GNP45TAB2 PO (10:38)
[2020-12-18] MEDS ORDERED: MULT-90 PO (10:38)
[2020-12-18 11:00] VITALS: BP 200/98
[2020-12-18 11:32] VITALS: BP 182/78
[2020-12-18 12:10] VITALS: BP 188/78
== END 2020-12-18 12:10 | disposition home or self-care (01) ==
LOC: M INFU 07:34
PROVIDERS: ATTEND Psychiatry & Neurology Neurology
DX: G35 Multiple sclerosis (principal); Z88.0 Allergy status to penicillin; Z91.040 Latex allergy status
CPT/HCPCS: 96365; 96366; 96375; J2350; J2930

== ENCOUNTER → 2021-03-08 | Outpatient (CLI) | payer MEDICARE, MEDICAID ==
[~2021-03-08] MED LIST changes: +GNP45TAB2 PO; +MULT-90 PO; +OCRE300I IV; +QUET1TAB17 PO; -QUET25TA3 PO
--- NOTE | 2021-03-10 13:03 | REP ---
INDICATION: SCREENING. COMPARISON: CT 05/27/2014 [facility] TECHNIQUE: Low dose screening CT chest performed without the use of intravenous contrast. FINDINGS: Lungs: Clear, no infiltrate or nodule. Mild bibasilar fibrotic change is noted. Heart: Mildly enlarged. Thoracic aorta: No aneurysm. There are multiple sternal wires mediastinal clips present. There is a small hiatal hernia. Visualized osseous structures: There are degenerative changes of the spine. IMPRESSION: Category 1 negative low dose noncontrast CT chest. <Electronically signed by Eliecer Leung > 03/10/21 4430
== END ==
LOC: M RAD 12:26
PROVIDERS: ATTEND Internal Medicine Medical Oncology
DX: Z12.2 Encounter for screening for malignant neoplasm of respiratory organs (principal); Z87.891 Personal history of nicotine dependence

== ENCOUNTER 2021-06-07 07:53 | Outpatient (CLI) | payer MEDICARE, MEDICAID ==
[2021-06-07] VITALS (8 sets, daily range): BP systolic 150–200; BP diastolic 70–90
[~2021-06-07] VITALS: Ht 154.9 cm; Wt 75.0 kg
[~2021-06-07 07:53] MED LIST changes: +DOXA1TAB41 PO; +TIZA10TA PO; +TIZA2CAP6 PO; -TIZA4TAB4 PO
[2021-06-07] MEDS ORDERED: OCRELIZUMAB 300 MG in NS 250 ML IV ONE (08:00)
[2021-06-07] MEDS ORDERED: ACETAMINOPHEN TAB 650MG DOSE (2X325MG) PO ONE (08:00)
[2021-06-07] MEDS ORDERED: methylPREDNISolone 125MG 2ML VIAL IV ONE (08:00)
[2021-06-07] MEDS ORDERED: diphenhydrAMINE 25MG CAP PO ONE (08:00)
[2021-06-07] MEDS ORDERED: OCRELIZUMAB 600 MG in NS 500 ML IV ONE (08:00)
== END 2021-06-07 14:00 | disposition home or self-care (01) ==
LOC: M INFU 07:53
PROVIDERS: ATTEND Psychiatry & Neurology Neurology
DX: G35 Multiple sclerosis (principal); Z88.0 Allergy status to penicillin; Z88.1 Allergy status to other antibiotic agents; Z91.048 Other nonmedicinal substance allergy status
CPT/HCPCS: 96365; 96366; 96375; J2350; J2930

== ENCOUNTER → 2021-06-10 | Outpatient (CLI) | payer MEDICARE, MEDICAID | LOC: M PLAIMG 12:43 | PROVIDERS: ATTEND Pain Medicine Interventional Pain Medicine | DX: R93.7 Abnormal findings on diagnostic imaging of other parts of musculoskeletal system (principal); M25.552 Pain in left hip; M54.16 Radiculopathy, lumbar region ==

== ENCOUNTER → 2021-06-14 | Outpatient (CLI) | payer MEDICARE, MEDICAID | LOC: M LABSMTC 09:31 | PROVIDERS: ATTEND Anesthesiology | DX: Z01.812 Encounter for preprocedural laboratory examination (principal); Z20.822 Contact with and (suspected) exposure to COVID-19 ==

== ENCOUNTER 2021-06-18 07:39 | Day surgery (SDC) | payer MEDICARE, MEDICAID ==
[~2021-06-18] VITALS: Ht 154.9 cm; Wt 71.2 kg
[~2021-06-18 07:39] MED LIST changes: +NS 1,000 ML IV ONE
[2021-06-18] MEDS ORDERED: LIDOCAINE 2% 100MG/5ML SDV (FOR ANES.) As Ordered ONE (09:46)
[2021-06-18] MEDS ORDERED: GLYCOPYRROLATE INJ 0.2 MG/ML 2 ML VIAL As Ordered ONE (09:46)
[2021-06-18] MEDS ORDERED: propofoL 200 MG/20 ML VIAL As Ordered ONE ×2 (09:46→10:43)
[2021-06-18] MEDS ORDERED: hydrALAZINE 20MG/ML 1ML VIAL (J0360 PER 20MG) As Ordered ONE (10:00)
[2021-06-18] MEDS ORDERED: fentaNYL 100 MCG/2 ML INJECTION (J3010) As Ordered ONE (10:09)
[2021-06-18] MEDS ORDERED: ONDANSETRON 4MG/2ML VIAL As Ordered ONE (10:47)
[2021-06-18 11:59] VITALS: BP 211/86
== END 2021-06-18 12:02 | disposition home or self-care (01) ==
LOC: M OPP 07:39
PROVIDERS: ATTEND Internal Medicine Gastroenterology
DX: K63.5 Polyp of colon (principal); D50.9 Iron deficiency anemia, unspecified; R19.5 Other fecal abnormalities; K44.9 Diaphragmatic hernia without obstruction or gangrene; Z98.0 Intestinal bypass and anastomosis status; Z79.84 Long term (current) use of oral hypoglycemic drugs; Z79.899 Other long term (current) drug therapy; Z88.0 Allergy status to penicillin; Z91.048 Other nonmedicinal substance allergy status; Z95.5 Presence of coronary angioplasty implant and graft
CPT/HCPCS: 43235; 45385; 88305; J0360; J2405; J3010

== ENCOUNTER → 2021-09-14 | Outpatient (CLI) | payer MEDICARE, MEDICAID ==
[~2021-09-14] MED LIST changes: +LABE200T3 PO; -LABE200T32 PO; -NS 1,000 ML IV ONE; +VITA200035 PO
== END ==
LOC: M RAD 06:49
PROVIDERS: ATTEND Nurse Practitioner Family
DX: M54.16 Radiculopathy, lumbar region (principal); Z96.642 Presence of left artificial hip joint
CPT/HCPCS: 78315; A9503

== ENCOUNTER → 2021-11-03 | Outpatient (CLI) | payer MEDICARE, MEDICAID ==
[2021-11-03 16:31] LABS: BASO % 0.5 % (0.0-1.0); EOS % 0.9 % (0.0-3.0); HEMATOCRIT 30.6 % (36.0-47.0); HEMOGLOBIN 9.7 g/dl (12.0-15.5); LYMPH # 1.2 10^3/uL (1.5-5.0); LYMPH % 28.1 % (24.0-44.0); MEAN CORPUSCULAR HGB CONC 31.7 g/dl (32.0-36.5); MEAN CORPUSCULAR VOLUME 91.6 fl (80.0-96.0); MONO # 0.5 10^3/uL (0.0-0.8); NEUTROPHILS # 2.6 10^3/uL (1.5-8.5); NEUTROPHILS % 58.8 % (36.0-66.0); PLATELET COUNT, AUTOMATED 132 10^3/uL (150-450); RED BLOOD COUNT 3.34 10^6/uL (4.00-5.40); WHITE BLOOD COUNT 4.4 10^3/uL (4.0-10.0)
[2021-11-03 18:27] LABS: ERYTHROCYTE SEDIMENTATION RATE 36 mm/hr (0-30)
== END ==
LOC: M LAB 15:55
PROVIDERS: ATTEND Physician Assistant
DX: Z96.642 Presence of left artificial hip joint (principal)

== ENCOUNTER → 2021-12-27 | Outpatient (CLI) | payer MEDICARE, MEDICAID ==
[~2021-12-27] MED LIST changes: -LABE200T3 PO; +LABE200T5 PO
== END ==
LOC: M SOG 08:13
PROVIDERS: ATTEND Orthopaedic Surgery Adult Reconstructive Orthopaedic Surgery
DX: M25.552 Pain in left hip (principal); T84.05 Periprosthetic osteolysis of internal prosthetic joint; Z96.642 Presence of left artificial hip joint

== ENCOUNTER → 2021-12-27 | Outpatient (CLI) | payer MEDICARE, MEDICAID ==
[2021-12-27 17:59] LABS: BASO % 0.5 % (0.0-1.0); EOS # 0.1 10^3/uL (0.0-0.5); EOS % 0.9 % (0.0-3.0); HEMATOCRIT 30.6 % (36.0-47.0); HEMOGLOBIN 9.5 g/dl (12.0-15.5); LYMPH # 1.1 10^3/uL (1.5-5.0); LYMPH % 17.6 % (24.0-44.0); MEAN CORPUSCULAR HEMOGLOBIN 28.6 pg (27.0-33.0); MEAN CORPUSCULAR VOLUME 92.2 fl (80.0-96.0); MONO # 0.5 10^3/uL (0.0-0.8); MONO % 7.8 % (2.0-8.0); NEUTROPHILS # 4.5 10^3/uL (1.5-8.5); NEUTROPHILS % 70.8 % (36.0-66.0); PLATELET COUNT, AUTOMATED 137 10^3/uL (150-450); RED BLOOD COUNT 3.32 10^6/uL (4.00-5.40); WHITE BLOOD COUNT 6.3 10^3/uL (4.0-10.0)
[2021-12-27 19:48] LABS: ERYTHROCYTE SEDIMENTATION RATE 54 mm/hr (0-30)
== END ==
LOC: M PLALAB 15:00
PROVIDERS: ATTEND Orthopaedic Surgery Adult Reconstructive Orthopaedic Surgery
DX: T84.05 Periprosthetic osteolysis of internal prosthetic joint (principal)

== ENCOUNTER 2022-01-05 08:32 | Outpatient (CLI) | payer MEDICARE, MEDICAID ==
[~2022-01-05] VITALS: Ht 154.9 cm; Wt 70.9 kg
[2022-01-05] VITALS (8 sets, daily range): BP systolic 142–178; BP diastolic 58–88
[2022-01-05] MEDS ORDERED: diphenhydrAMINE 25MG CAP PO ONE (09:30)
[2022-01-05] MEDS ORDERED: ACETAMINOPHEN TAB 650MG DOSE (2X325MG) PO ONE (09:30)
[2022-01-05] MEDS ORDERED: methylPREDNISolone 125MG 2ML VIAL IV ONE (09:30)
[2022-01-05] MEDS ORDERED: OCRELIZUMAB 600 MG in NS 500 ML IV ONE (09:30)
[2022-01-05] MEDS ORDERED: OCRELIZUMAB 300MG 10ML (OCREVUS) ONE (09:43)
== END 2022-01-05 14:30 | disposition home or self-care (01) ==
LOC: M INFU 08:32
PROVIDERS: ATTEND Psychiatry & Neurology Neurology
DX: G35 Multiple sclerosis (principal); Z88.0 Allergy status to penicillin; Z88.8 Allergy status to other drugs, medicaments and biological substances
CPT/HCPCS: 96365; 96366; 96375; J2350; J2930

== ENCOUNTER → 2022-01-12 | Outpatient (CLI) | payer MEDICARE, MEDICAID ==
[~2022-01-12] MED LIST changes: +LIDOCAINE 1% MDV 20ML VIAL As Ordered ONE
[2022-01-12 12:25] VITALS: BP 218/67
== END ==
LOC: M IRPRO 12:14
PROVIDERS: ATTEND Orthopaedic Surgery Adult Reconstructive Orthopaedic Surgery
DX: T84.030A Mechanical loosening of internal right hip prosthetic joint, initial encounter (principal); Z96.642 Presence of left artificial hip joint; R22.32 Localized swelling, mass and lump, left upper limb

== ENCOUNTER → 2022-01-26 | Outpatient (CLI) | payer MEDICARE, MEDICAID ==
[~2022-01-26] MED LIST changes: -LIDOCAINE 1% MDV 20ML VIAL As Ordered ONE
[2022-01-26 12:29] LABS: BASO % 0.4 % (0.0-1.0); EOS # 0.1 10^3/uL (0.0-0.5); EOS % 1.2 % (0.0-3.0); HEMATOCRIT 30.7 % (36.0-47.0); HEMOGLOBIN 9.8 g/dl (12.0-15.5); LYMPH # 1.2 10^3/uL (1.5-5.0); LYMPH % 17.2 % (24.0-44.0); MEAN CORPUSCULAR HEMOGLOBIN 29.2 pg (27.0-33.0); MEAN CORPUSCULAR HGB CONC 31.9 g/dl (32.0-36.5); MEAN CORPUSCULAR VOLUME 91.4 fl (80.0-96.0); MONO # 0.7 10^3/uL (0.0-0.8); MONO % 10.4 % (2.0-8.0); NEUTROPHILS # 4.7 10^3/uL (1.5-8.5); NEUTROPHILS % 70.1 % (36.0-66.0); PLATELET COUNT, AUTOMATED 141 10^3/uL (150-450); RED BLOOD COUNT 3.36 10^6/uL (4.00-5.40); WHITE BLOOD COUNT 6.7 10^3/uL (4.0-10.0)
[2022-01-26 13:21] LABS: ALBUMIN 3.4 GM/DL (3.2-5.2); ALT/SGPT 27 U/L (12-78); BILIRUBIN,TOTAL 0.3 MG/DL (0.2-1.0); BLOOD UREA NITROGEN 17 MG/DL (7-18); CALCIUM LEVEL 8.9 MG/DL (8.8-10.2); CARBAMAZEPINE (TEGRETOL) LEVEL 9.9 UG/ML (4.0-10.0); CARBON DIOXIDE LEVEL 26 MEQ/L (21-32); CHLORIDE LEVEL 107 MEQ/L (98-107); CREATININE FOR GFR 0.65 MG/DL (0.55-1.30); GLOMERULAR FILTRATION RATE > 60.0 (>45); GLUCOSE, FASTING 64 MG/DL (70-100); POTASSIUM SERUM 3.9 MEQ/L (3.5-5.1); SODIUM LEVEL 138 MEQ/L (136-145); TOTAL PROTEIN 6.4 GM/DL (6.4-8.2)
== END ==
LOC: M LAB 11:54
PROVIDERS: ATTEND Psychiatry & Neurology Neurology
DX: G35 Multiple sclerosis (principal); Z51.81 Encounter for therapeutic drug level monitoring; Z79.899 Other long term (current) drug therapy